=== PATIENT | female | born 1945 | race Caucasian/White ===

== ENCOUNTER → 2019-07-17 10:45 | Outpatient (BNVA) | payer MEDICARE, MEDICAID, SELFPAY | PROVIDERS: Family Provider Family Medicine; PCP Family Medicine; Visit Provider Family Medicine | DX: R39.9 Unspecified symptoms and signs involving the genitourinary system (principal); R32 Unspecified urinary incontinence; N39.0 Urinary tract infection, site not specified | CPT/HCPCS: 81000 ==

== ENCOUNTER 2019-07-30 20:43 | Inpatient (IN) | payer MEDICARE, MEDICAID, SELFPAY ==
[2019-07-30 20:44] VITALS: BP 127/61; PULSE 91; RESP 18; TEMP 37.2; O2SAT 94; BMI 25.7
[2019-07-30 20:57] VITALS: O2SAT 90
[2019-07-30] MEDS: sodium chloride 0.9% 1,000 ML 100 ML IV (20:59)
[2019-07-30 21:17] LABS: Basophils % 0.1 %; Hematocrit 27.8 % (37.0-47.0); Hemoglobin 8.1 g/dL (11.5-15.3); Lymphocytes # 0.9 10^3/uL (0.8-4.8); Lymphocytes % 5.7 %; Mean Corpuscular HGB Conc 29.1 g/dL (30.0-36.0); Mean Corpuscular Hemoglobin 21.8 pg (28.0-34.0); Mean Corpuscular Volume 74.9 fL (81-99); Monocytes # 1.6 10^3/uL (0.2-0.9); Monocytes % 10.9 %; Neutrophils # 12.4 10^3/uL (1.8-7.7); Neutrophils % 82.9 %; Nucleated Red Blood Cells % 0 %; Platelet Count 171 10^3/cmm (130-400); Red Blood Count 3.71 10^6/uL (4.1-5.3); Red Cell Distribution Width 16.7 % (12.1-15.1)
--- NOTE | 2019-07-30 21:30 | CTR_ITS ---
PROCEDURE INFORMATION: Exam: CT Abdomen And Pelvis With Contrast Exam date and time: 07/30/2019 9:41 PM Age: 73 years old Clinical indication: Patient HX: C/O nausea, diarrhea and low grade fever; Additional info: Abdominal pain TECHNIQUE: Imaging protocol: Computed tomography of the abdomen and pelvis with intravenous contrast. Total DLP: 574.18 mGy-cm Radiation optimization: All CT scans at this facility use at least one of these dose optimization techniques: automated exposure control; mA and/or kV adjustment per patient size (includes targeted exams where dose is matched to clinical indication); or iterative reconstruction. Contrast material: VISI 320; Contrast volume: 95 ml; Contrast route: 18G; COMPARISON: No relevant prior studies available. FINDINGS: Lungs: Dependent atelectasis. Mediastinum: Large hiatal hernia. Liver: 0.9 cm benign hepatic cyst. Gallbladder and bile ducts: Prominent gallbladder with calcified stones. No visible wall thickening. The bile ducts are normal. Pancreas: Normal. No ductal dilation. Spleen: Calcified granulomas in the spleen. Adrenals: Normal. No mass. Kidneys and ureters: Benign left renal cyst. Mild bilateral hydronephrosis and columning of the ureters to the level of the urinary bladder. No renal calculus. Stomach and bowel: Mild diverticulosis of the distal colon. The small bowel is unremarkable. Appendix: The appendix is not visualized. Intraperitoneal space: Unremarkable. No free air. No significant fluid collection. Vasculature: Unremarkable. No abdominal aortic aneurysm. Lymph nodes: Subcentimeter retroperitoneal lymph nodes are most likely reactive. Bladder: The urinary bladder is severely distended measuring 10.9 x 12.3 x 15.0 cm, volume 1045 cc. Reproductive: The uterus and ovaries are not visualized. Bones/joints: Degenerative lumbar spine. No compression fracture. Soft tissues: Unremarkable. CT/CT abdomen pelvis w con* [id number] IMPRESSION: 1. Severely distended urinary bladder with mild bilateral hydronephrosis and columning of the ureters. This could represent urinary bladder outlet obstruction or neurogenic bladder. Catheterization recommended. 2. Mild diverticulosis of the distal colon. 3. Cholelithiasis. COMMENTS: Consistent with the [employer]'s Incidental Findings Committee white paper (J Am Song Radiol 2018): Any incidental cystic renal lesion classified in this report as too small to characterize or simple appearing is likely a benign cyst. No follow-up imaging is recommended for these lesions per consensus recommendations based on imaging criteria. Radiation Dose CTDIVOL = (mGy): DLP = 574.18 (mGy-cm)
[2019-07-30 21:31] LABS: Alanine Aminotransferase 12 U/L (0-33); Albumin Level 3.1 g/dL (3.5-5.2); Alkaline Phosphatase 61 IU/L (35-105); Anion Gap 15.8 (5-19); Aspartate Amino Transferase 29 U/L (0-32); Blood Urea Nitrogen 25 mg/dL (8-23); Calcium 9.1 mg/dL (8.5-10.5); Carbon Dioxide 22 mmol/L (22-29); Chloride 96 mmol/L (98-107); Globulin 3.5 g/dL (1.3-4.6); Glucose 136 mg/dL (65-115); Lipase 54 U/L (13-60); Magnesium 2.3 mg/dL (1.7-2.3); Osmolality Calculated 271 mOsm/kg (285-295); Sodium 131 mmol/L (136-145); Total Bilirubin 0.5 mg/dL (0.15-1.2); Total Protein 6.6 g/dL (6.6-8.7)
--- NOTE | 2019-07-30 21:33 | W.ED.NAVMDI ---
HPI - Nausea/Vomiting/Diarrhea General: Chief complaint: Nausea/Vomiting/Diarrhea Stated complaint: nausea/ diarrhea/ low grade temp Time Seen by Provider: 07/30/19 20:57 History of Present Illness: HPI Narrative: Ms. Suggs is a very nice 73-year-old female who comes in complaining of nausea and diarrhea for the past 3 days. Her stools are described as dark and black but they have improved and turned to light brown over the course of the 3 days. She has had nausea but no vomiting. She is had a fever at home she states up to 101. She says she has minimal if any abdominal pain. She does admit to history of peptic ulcer disease. She denies any chest pain, shortness of breath or any other type of complaints. She is not been around anybody sick to her knowledge. Associated symtoms: Denies altered mental status, change in vision, chest pain, diaphoresis, dizziness, dysuria, fatigue, headache(s), malaise, palpitations or syncope Review of Systems General: Reports: other (negative unless marked) Const: Denies: fever, chills, body aches, fatigue, malaise or diaphoresis Eyes: Denies: change in vision or blurry vision ENMT: Denies: throat pain, painful swallowing, hoarseness, ear pain, ear discharge, Change in hearing or nasal discharge Card: Denies: chest pain, palpitations, irregular heart rhythm, syncope, pre-syncope, shortness of breath on exertion or shortness of breath when lying down Resp: Denies: shortness of breath, productive cough, non-productive cough, wheezing, coughing up blood or chest congestion GI: Reports: change in stool character and black tarry stool; Denies: abdominal pain, vomiting, vomiting blood, coffee grounds in vomit, diarrhea, constipation or cramping : Denies: flank pain, painful urination, urinary frequency, urinary urgency, decreased urine ouput, urinary incontinence or blood in urine Musc: Denies: neck pain, back pain, extremity pain, extremity swelling, joint pain, joint swelling, joint warmth or joint stiffness Skin/Breast: Denies: rash, skin tenderness or yellow skin Neuro: Denies: headache, numbness in extremities, weakness in extremities, changes in sensation, lack of coordination, difficulty walking, dizziness, vertigo or confusion Endo: Denies: excessive thirst, tired all the time, cold intolerance, excessive sweating, flushing or hot flashes Bandar/Lymph: Denies: easy bruising, easy bleeding, petechiae or enlarged lymph nodes All/Imm: Denies: hives, throat swelling, tongue swelling, facial swelling or acute wheezing PFSH ED PFSH: Medical History (Updated 07/31/19 @ 00:10 by Silvano Cho MD) Anxiety Bladder incontinence Cholelithiasis Diverticulosis Epilepsy Focused based right temporal lobe epilepsy patient does not wish to have surgery for intractable seizures Frequent headaches GERD without esophagitis Hiatal hernia Hypertension Mild cognitive impairment Osteopenia Partial epilepsy secondarily generalized Seizures Surgical History History of total hysterectomy Family History Denies family history of CAD (coronary artery disease) Bleeding disorder Cancer Social History Smoking and tobacco status: former smoker Alcohol intake: never Substance/Drug Use: never Lives independently: Yes Household members: significant other Housing: House Marital status: Legally Physical Exam Const: COMMON NORMALS: no apparent distress, oriented x3, no limitations, healthy appearing and well nourished EXAM LIMITATIONS: no altered mental status GENERAL APPEARANCE: cooperative, well kempt and well developed ORIENTATION/CONSCIOUSNESS: Yes awake HENMT: COMMON NORMALS: normocephalic, head/scalp atraumatic, hearing grossly normal bilaterally, external ears normal, EAC's normal, external nose normal and moist oral mucous membranes HEAD & SCALP: normal to inspection, normocephalic and atraumatic FACE & SINUS: normal facial exam and face symmetric NOSE: external nose normal and nares normal EXTERNAL EAR: Yes external ears normal EXTERNAL AUDITORY CANAL: EAC's normal MOUTH: oral and palatal mucosa normal and tongue normal Eye: COMMON NORMALS: PERRL, EOMs intact bilaterally, conjunctivae normal and no scleral icterus GENERAL EYE: normal appearance of both eyes and normal light reflex CONJUNCTIVA: Yes conjunctivae normal SCLERA: sclerae normal CORNEA: Yes corneas normal PUPIL: Yes PERRL DIRECT OPHTHALMOSCOPY: Yes normal light reflex Neck/C-Spine: COMMON NORMALS: full ROM, no lymphadenopathy, supple, no meningeal signs and no JVD GENERAL: Yes normal visual inspection and Yes trachea midline CERVICAL SPINE: Yes cervical ROM normal Chest: COMMONS NORMALS: inspection of chest normal and palpation of chest normal Resp: COMMON NORMALS: normal respiratory effort, no retractions, no use of accessory muscles and clear to auscultation bilaterally EFFORT & INSPECTION: Yes able to speak in complete sentences AUSCULTATION: clear to auscultation bilaterally Cardio: COMMON NORMALS: no JVD, regular rate, regular rhythm, S1 normal heart sound, S2 normal heart sound, no gallops, no clicks, no murmurs and no rub JUGULAR VENOUS DISTENTION: no JVD RATE: regular rate RHYTHM: regular rhythm HEART SOUNDS: S1 normal and S2 normal GI: COMMON NORMALS: soft to palpation, non-tender, no hepatosplenomegaly and no masses INSPECTION: Yes normal to inspection PALPATION: Yes soft and Yes no hepatosplenomegaly RECTAL EXAM: normal sphincter tone and heme positive stool trace : COMMON NORMALS: Yes no CVA tenderness BLADDER/KIDNEY EXAM: Yes no CVA tenderness Back/Pelvis: COMMON NORMALS: no CVA tenderness, thoracic and lumbar spine normal to inspection, no thoracic nor lumbar tenderness and thoraco-lumbar ROM normal Extremity: COMMON NORMALS: normal to inspection, full ROM, normal capillary refill, no joint enlargement, no clubbing, cyanosis or edema and no calf tenderness Neuro: COMMON NORMALS: oriented x3, CN's II-XII intact bilaterally, moves all extremities, no focal motor deficits and no sensory deficits noted MENINGEAL SIGNS: Yes no meningeal signs Psych: COMMON NORMALS: mental status grossly normal, thought process normal, cooperative, affect normal, speech normal and activity/motor behavior normal APPEARANCE: Yes well kempt SPEECH: Yes normal speech THOUGHT PROCESS: normal thought process Skin: COMMON NORMALS: no rashes or lesions noted, skin turgor normal, no jaundice, no petechiae and no mottling GENERAL SKIN EXAM: no rashes or lesions noted and turgor normal Course Vital Signs: Vital signs: Vital Signs Temperature 99.0 F 07/31/19 15:52 Pulse Rate 86 07/31/19 15:52 Respiratory Rate 18 07/31/19 15:52 Blood Pressure 122/70 07/31/19 15:52 Pulse Oximetry 98 07/31/19 15:52 MDM - Nausea/Vomiting/Diarrhea MDM Narrative: Medical decision making narrative: The case reviewed with Dr. Ford, he agrees to admission. He understands blood is on hold and we are replacing potassium. Patient appears to have a stable upper GI bleed at this time. Further care be dictated by Dr. Ford in the hospital. Lab Data: Attestation: I reviewed the patient's lab results. Labs: Lab Results 07/30/19 07/30/19 07/30/19 Range/Units 21:05 21:05 21:05 WBC 15.0 H (4.0-10.0) 10^3/ uL RBC 3.71 L (4.1-5.3) 10^6/u L Hgb 8.1 L (11.5-15.3) g/dL Hct 27.8 L (37.0-47.0) % MCV 74.9 L (81-99) fL MCH 21.8 L (28.0-34.0) pg MCHC 29.1 L (30.0-36.0) g/dL RDW 16.7 H (12.1-15.1) % Plt Count 171 (130-400) 10^3/c mm MPV 11.0 H (7.4-10.4) fL Neut % (Auto) 82.9 % Lymph % (Auto) 5.7 % [place] % (Auto) 10.9 % Eos % (Auto) 0.0 % Baso % (Auto) 0.1 % Neut # (Auto) 12.4 H (1.8-7.7) 10^3/u L Lymph # (Auto) 0.9 (0.8-4.8) 10^3/u L [place] # (Auto) 1.6 H (0.2-0.9) 10^3/u L Eos # (Auto) 0.0 (0.0-0.8) 10^3/u L Baso # (Auto) 0.0 (0.0-0.1) 10^3/u L Nucleated RBC % (a uto) 0 % Nucleated RBCs # 0.0 /100WBC PT 15.00 H (10.5-13.3) SECO NDS INR 1.14 (0.8-1.2) APTT 34.6 (23.9-36.7) SECO NDS Sodium 131 L (136-145) mmol/L Potassium 2.8 L* (3.5-5.1) mmol/L Chloride 96 L (98-107) mmol/L Carbon Dioxide 22 (22-29) mmol/L Anion Gap 15.8 (5-19) BUN 25 H (8-23) mg/dL Creatinine 1.5 H (0.5-0.9) mg/dL Glucose 136 H (65-115) mg/dL Calculated Osmolal ity 271 L (285-295) mOsm/k g Lactic Acid (Sepsi s) (0.5-2.2) mmol/L Calcium 9.1 (8.5-10.5) mg/dL Magnesium 2.3 (1.7-2.3) mg/dL Iron (37-145) ug/dL TIBC mcg/dl % Saturation (20-50) % Unsat Iron Binding (112-347) ug/dL Ferritin (15-150) ng/mL Total Bilirubin 0.5 (0.15-1.2) mg/dL AST 29 (0-32) U/L ALT 12 (0-33) U/L Alkaline Phosphata se 61 (35-105) IU/L Troponin T Baselin e (0-10) ng/mL Total Protein 6.6 (6.6-8.7) g/dL Albumin 3.1 L (3.5-5.2) g/dL Globulin 3.5 (1.3-4.6) g/dL Lipase 54 (13-60) U/L Urine Color (Yellow) Urine Appearance (CLEAR) Urine pH (5-7) Ur Specific Gravit y (1.005-1.030) Urine Protein (Negative) Urine Glucose (UA) (Normal) Urine Ketones (Negative) Urine Blood (Negative) Urine Nitrate (Negative) Urine Bilirubin (NEGATIVE) Urine Urobilinogen (Negative) mg/dL Ur Leukocyte Suzette ase (Negative) Urine RBC (0-2) /hpf Urine WBC (0-5) /hpf Ur Squamous Epith Cells (0-5) Urine Bacteria (NONE) Blood Type Rho(D) Type Antibody Screen Crossmatch 07/30/19 07/30/19 07/30/19 Range/Units 21:05 21:05 21:40 WBC (4.0-10.0) 10^3/ uL RBC (4.1-5.3) 10^6/u L Hgb (11.5-15.3) g/dL Hct (37.0-47.0) % MCV (81-99) fL MCH (28.0-34.0) pg MCHC (30.0-36.0) g/dL RDW (12.1-15.1) % Plt Count (130-400) 10^3/c mm MPV (7.4-10.4) fL Neut % (Auto) % Lymph % (Auto) % [place] % (Auto) % Eos % (Auto) % Baso % (Auto) % Neut # (Auto) (1.8-7.7) 10^3/u L Lymph # (Auto) (0.8-4.8) 10^3/u L [place] # (Auto) (0.2-0.9) 10^3/u L Eos # (Auto) (0.0-0.8) 10^3/u L Baso # (Auto) (0.0-0.1) 10^3/u L Nucleated RBC % (a uto) % Nucleated RBCs # /100WBC PT (10.5-13.3) SECO NDS INR (0.8-1.2) APTT (23.9-36.7) SECO NDS Sodium (136-145) mmol/L Potassium (3.5-5.1) mmol/L Chloride (98-107) mmol/L Carbon Dioxide (22-29) mmol/L Anion Gap (5-19) BUN (8-23) mg/dL Creatinine (0.5-0.9) mg/dL Glucose (65-115) mg/dL Calculated Osmolal ity (285-295) mOsm/k g Lactic Acid (Sepsi s) (0.5-2.2) mmol/L Calcium (8.5-10.5) mg/dL Magnesium (1.7-2.3) mg/dL Iron 11 L (37-145) ug/dL TIBC 223 mcg/dl % Saturation 4.9 L (20-50) % Unsat Iron Binding 212 (112-347) ug/dL Ferritin 107 (15-150) ng/mL Total Bilirubin (0.15-1.2) mg/dL AST (0-32) U/L ALT (0-33) U/L Alkaline Phosphata se (35-105) IU/L Troponin T Baselin e 36 H (0-10) ng/mL Total Protein (6.6-8.7) g/dL Albumin (3.5-5.2) g/dL Globulin (1.3-4.6) g/dL Lipase (13-60) U/L Urine Color (Yellow) Urine Appearance (CLEAR) Urine pH (5-7) Ur Specific Gravit y (1.005-1.030) Urine Protein (Negative) Urine Glucose (UA) (Normal) Urine Ketones (Negative) Urine Blood (Negative) Urine Nitrate (Negative) Urine Bilirubin (NEGATIVE) Urine Urobilinogen (Negative) mg/dL Ur Leukocyte Suzette ase (Negative) Urine RBC (0-2) /hpf Urine WBC (0-5) /hpf Ur Squamous Epith Cells (0-5) Urine Bacteria (NONE) Blood Type O Positive Rho(D) Type Positive Antibody Screen Negative Crossmatch See Detail 07/30/19 07/31/19 07/31/19 Range/Units 23:15 00:46 06:02 WBC 16.3 H (4.0-10.0) 10^3/ uL RBC 4.52 (4.1-5.3) 10^6/u L Hgb 9.9 L (11.5-15.3) g/dL Hct 33.6 L (37.0-47.0) % MCV 74.3 L (81-99) fL MCH 21.9 L (28.0-34.0) pg MCHC 29.5 L (30.0-36.0) g/dL RDW 16.7 H (12.1-15.1) % Plt Count 184 (130-400) 10^3/c mm MPV 10.4 (7.4-10.4) fL Neut % (Auto) 87.2 % Lymph % (Auto) 3.0 % [place] % (Auto) 8.9 % Eos % (Auto) 0.0 % Baso % (Auto) 0.2 % Neut # (Auto) 14.2 H (1.8-7.7) 10^3/u L Lymph # (Auto) 0.5 L (0.8-4.8) 10^3/u L [place] # (Auto) 1.4 H (0.2-0.9) 10^3/u L Eos # (Auto) 0.0 (0.0-0.8) 10^3/u L Baso # (Auto) 0.0 (0.0-0.1) 10^3/u L Nucleated RBC % (a uto) 0 % Nucleated RBCs # 0.0 /100WBC PT (10.5-13.3) SECO NDS INR (0.8-1.2) APTT (23.9-36.7) SECO NDS Sodium (136-145) mmol/L Potassium (3.5-5.1) mmol/L Chloride (98-107) mmol/L Carbon Dioxide (22-29) mmol/L Anion Gap (5-19) BUN (8-23) mg/dL Creatinine (0.5-0.9) mg/dL Glucose (65-115) mg/dL Calculated Osmolal ity (285-295) mOsm/k g Lactic Acid (Sepsi s) 0.7 (0.5-2.2) mmol/L Calcium (8.5-10.5) mg/dL Magnesium (1.7-2.3) mg/dL Iron (37-145) ug/dL TIBC mcg/dl % Saturation (20-50) % Unsat Iron Binding (112-347) ug/dL Ferritin (15-150) ng/mL Total Bilirubin (0.15-1.2) mg/dL AST (0-32) U/L ALT (0-33) U/L Alkaline Phosphata se (35-105) IU/L Troponin T Baselin e (0-10) ng/mL Total Protein (6.6-8.7) g/dL Albumin (3.5-5.2) g/dL Globulin (1.3-4.6) g/dL Lipase (13-60) U/L Urine Color Yellow (Yellow) Urine Appearance Cloudy (CLEAR) Urine pH 5 (5-7) Ur Specific Gravit y 1.005 (1.005-1.030) Urine Protein Trace (Negative) Urine Glucose (UA) Norm (Normal) Urine Ketones Negative (Negative) Urine Blood 3+ H (Negative) Urine Nitrate Negative (Negative) Urine Bilirubin Neg (NEGATIVE) Urine Urobilinogen Norm (Negative) mg/dL Ur Leukocyte Suzette ase 2+ H (Negative) Urine RBC 10-15 H (0-2) /hpf Urine WBC >100 H (0-5) /hpf Ur Squamous Epith Cells 0-4 H (0-5) Urine Bacteria 3+ H (NONE) Blood Type Rho(D) Type Antibody Screen Crossmatch 07/31/19 Range/Units 06:02 WBC (4.0-10.0) 10^3/ uL RBC (4.1-5.3) 10^6/u L Hgb (11.5-15.3) g/dL Hct (37.0-47.0) % MCV (81-99) fL MCH (28.0-34.0) pg MCHC (30.0-36.0) g/dL RDW (12.1-15.1) % Plt Count (130-400) 10^3/c mm MPV (7.4-10.4) fL Neut % (Auto) % Lymph % (Auto) % [place] % (Auto) % Eos % (Auto) % Baso % (Auto) % Neut # (Auto) (1.8-7.7) 10^3/u L Lymph # (Auto) (0.8-4.8) 10^3/u L [place] # (Auto) (0.2-0.9) 10^3/u L Eos # (Auto) (0.0-0.8) 10^3/u L Baso # (Auto) (0.0-0.1) 10^3/u L Nucleated RBC % (a uto) % Nucleated RBCs # /100WBC PT (10.5-13.3) SECO NDS INR (0.8-1.2) APTT (23.9-36.7) SECO NDS Sodium 137 (136-145) mmol/L Potassium 3.8 (3.5-5.1) mmol/L Chloride 102 (98-107) mmol/L Carbon Dioxide 22 (22-29) mmol/L Anion Gap 16.8 (5-19) BUN 21 (8-23) mg/dL Creatinine 1.6 H (0.5-0.9) mg/dL Glucose 117 H (65-115) mg/dL Calculated Osmolal ity 282 L (285-295) mOsm/k g Lactic Acid (Sepsi s) (0.5-2.2) mmol/L Calcium 9.2 (8.5-10.5) mg/dL Magnesium (1.7-2.3) mg/dL Iron (37-145) ug/dL TIBC mcg/dl % Saturation (20-50) % Unsat Iron Binding (112-347) ug/dL Ferritin (15-150) ng/mL Total Bilirubin (0.15-1.2) mg/dL AST (0-32) U/L ALT (0-33) U/L Alkaline Phosphata se (35-105) IU/L Troponin T Baselin e (0-10) ng/mL Total Protein (6.6-8.7) g/dL Albumin (3.5-5.2) g/dL Globulin (1.3-4.6) g/dL Lipase (13-60) U/L Urine Color (Yellow) Urine Appearance (CLEAR) Urine pH (5-7) Ur Specific Gravit y (1.005-1.030) Urine Protein (Negative) Urine Glucose (UA) (Normal) Urine Ketones (Negative) Urine Blood (Negative) Urine Nitrate (Negative) Urine Bilirubin (NEGATIVE) Urine Urobilinogen (Negative) mg/dL Ur Leukocyte Suzette ase (Negative) Urine RBC (0-2) /hpf Urine WBC (0-5) /hpf Ur Squamous Epith Cells (0-5) Urine Bacteria (NONE) Blood Type Rho(D) Type Antibody Screen Crossmatch Imaging Data^: CT Abd/Pel: Radiologist's impression: [address] [id number] [address] Scan Report Signed Patient: Melonie Suggs Unit #: [id number] : 1945 Age/Sex: 73 / F ADM Date: 07/30/19 Loc: ER Room/Bed: Attending Dr: Ordering Provider/Ordering MD: Dimple Herrera DO Date of Service: 07/30/19 Procedure(s): CT abdomen pelvis w con* [id number] Accession Number(s): [id number] Report Number: [id number] PROCEDURE INFORMATION: Exam: CT Abdomen And Pelvis With Contrast Exam date and time: 07/30/2019 9:41 PM Age: 73 years old Clinical indication: Patient HX: C/O nausea, diarrhea and low grade fever; Additional info: Abdominal pain TECHNIQUE: Imaging protocol: Computed tomography of the abdomen and pelvis with intravenous contrast. Total DLP: 574.18 mGy-cm Radiation optimization: All CT scans at this facility use at least one of these dose optimization techniques: automated exposure control; mA and/or kV adjustment per patient size (includes targeted exams where dose is matched to clinical indication); or iterative reconstruction. Contrast material: VISI 320; Contrast volume: 95 ml; Contrast route: 18G; COMPARISON: No relevant prior studies available. FINDINGS: Lungs: Dependent atelectasis. Mediastinum: Large hiatal hernia. Liver: 0.9 cm benign hepatic cyst. Gallbladder and bile ducts: Prominent gallbladder with calcified stones. No visible wall thickening. The bile ducts are normal. Pancreas: Normal. No ductal dilation. Spleen: Calcified granulomas in the spleen. Adrenals: Normal. No mass. Kidneys and ureters: Benign left renal cyst. Mild bilateral hydronephrosis and columning of the ureters to the level of the urinary bladder. No renal calculus. Stomach and bowel: Mild diverticulosis of the distal colon. The small bowel is unremarkable. Appendix: The appendix is not visualized. Intraperitoneal space: Unremarkable. No free air. No significant fluid collection. Vasculature: Unremarkable. No abdominal aortic aneurysm. Lymph nodes: Subcentimeter retroperitoneal lymph nodes are most likely reactive. Bladder: The urinary bladder is severely distended measuring 10.9 x 12.3 x 15.0 cm, volume 1045 cc. Reproductive: The uterus and ovaries are not visualized. Bones/joints: Degenerative lumbar spine. No compression fracture. Soft tissues: Unremarkable. CT/CT abdomen pelvis w con* [id number] IMPRESSION: 1. Severely distended urinary bladder with mild bilateral hydronephrosis and columning of the ureters. This could represent urinary bladder outlet obstruction or neurogenic bladder. Catheterization recommended. 2. Mild diverticulosis of the distal colon. 3. Cholelithiasis. COMMENTS: Consistent with the [employer]'s Incidental Findings Committee white paper (J Am Song [employer]iol 2018): Any incidental cystic renal lesion classified in this report as too small to characterize or simple appearing is likely a benign cyst. No follow-up imaging is recommended for these lesions per consensus recommendations based on imaging criteria. Radiation Dose CTDIVOL = (mGy): DLP = 574.18 (mGy-cm) Dictated By: Liang Streeter Signed By: Liang Streeter Signed Date/Time: 07/30/192221 DD/ 20 EKG Data^: EKG 1: Attestation: I personally reviewed and interpreted this EKG as follows: EKG interpretation date: 07/30/19 EKG interpretation time: 22:24 Interpretation: Normal sinus rhythm at 78 beats a minute, T waves inverted V1 through V3. Otherwise no acute ST or T wave changes. Discharge Plan Discharge Patient Disposition: Admitted As Inpatient Admit Provider: Silvano Cho Clinical Impression: Acute GI bleeding, Acute hypokalemia Diarrhea Qualifiers: Diarrhea type: unspecified type Qualified Code(s): R19.7 - Diarrhea, unspecified Condition: Stable Referrals: Carlos Barba MD [Primary Care Provider] - Discharge Date/Time: 07/30/19 23:58 Coding Level of Care Code ED Dtp Operator for Chg Fwd Exam Comprehensive
[2019-07-30 21:42] LABS: Potassium 2.8 mmol/L (3.5-5.1)
[2019-07-30] MEDS: pantoprazole 40 mg SDV 80 MG IVP (21:48)
[2019-07-30] MEDS: pantoprazole 40 MG in sodium chloride 0.9% (plus) 100 ML 20 MG IV (21:49)
[2019-07-30 21:58] LABS: INR 1.14 (0.8-1.2)
[2019-07-30 21:59] LABS: Partial Thromboplastin Time 34.6 SECONDS (23.9-36.7)
[2019-07-30] MEDS: iodixanol 320 mg/mL 100mL Btl IV (22:00)
[2019-07-30 22:07] LABS: Troponin(5th) Baseline 36 ng/mL (0-10)
[2019-07-30] MEDS: potassium chloride premix 40 MEQ/100 ML PREMIX 25 MEQ IV (22:09)
--- NOTE | 2019-07-30 23:06 | P.HP_ITS ---
Providers/Chief Complaint Primary Care Provider: Carlos Barba MD Chief Complaint: nausea/ diarrhea/ low grade temp History of Present Illness Melonie Suggs is a 73 year old female who has past medical history of urinary incontinence, seizures, presented today with chief complaint of abdominal pain and diarrhea. Patient is stating that her symptoms started about 3 to 4 days ago when she noticed cough and fever of 101.7, her fever resolved on its own, she is denying any recent sick contacts, traveling outside [place], however on further questioning she is endorsing that she took 4 tablets of 81 mg of aspirin which she usually takes for her headache. In the month she would take 4 to 5 tablets of aspirin and tries to avoid taking large amounts. She did not experience recurrence of fever, shortness of breath, chest pain, nausea or vomiting. 48 hours before her presentation to ER she started having diarrhea, her stools were really dark, she is describing as black tarry foul-smelling stool, she did not notice any fresh blood. She has never experienced these kind of symptoms before. She had colonoscopy in the past which was normal as per the patient. She is endorsing history of GERD. She does not take any anticoag ulants. She denies any history of hepatitis. Patient is stating that she has been having recurrent seizures in the past, last month she had 10 episodes. Diagnostics in ER revealed sinus rhythm, pulse 72, normal blood pressure, afebrile, hypokalemia FOBT positive CT abdomen revealed bilateral hydronephrosis without any signs of ischemic colitis Patient stated that she was holding her urine for quite a while and wanted to use restroom to void, we did not order Jarrett catheter placement I would order portable chest x-ray Review of Systems Const: Reports: fever, chills and body aches Eyes: Denies: change in vision ENMT: Denies: throat pain Card: Denies: chest pain Resp: Denies: shortness of breath GI: Reports: abdominal pain, diarrhea and change in bowel habits; Denies: nausea or vomiting : Reports: urinary incontinence; Denies: flank pain, difficulty urinating, urinary frequency or urinary dribbling Musc: Denies: neck pain or back pain Skin/Breast: Denies: rash Neuro: Denies: headache Psych: Denies: anxiety Endo: Denies: excessive urination Bandar/Lymph: Denies: easy bruising All/Imm: Denies: hives Medications/Allergies Allergies Allergy/AdvReac Type Severity Reaction Status Date / Time divalproex sodium Allergy N/V and Verified 07/17/19 09:07 [From Depakote] dizziness sulfamethoxazole Allergy headache Verified 07/17/19 09:07 [From Bactrim] and seizures trimethoprim [From Bactrim] Allergy headache Verified 07/17/19 09:07 and seizures PFSH Acute PFSH: Medical History (Updated 07/31/19 @ 00:07 by Silvano Cho MD) Anxiety Bladder incontinence Cholelithiasis Diverticulosis Epilepsy GERD without esophagitis Hiatal hernia Hypertension Seizures Surgical History History of total hysterectomy Family History Denies family history of CAD (coronary artery disease) Bleeding disorder Cancer Social History Smoking and tobacco status: former smoker Alcohol intake: never Substance/Drug Use: never Lives independently: Yes Household members: significant other Housing: House Marital status: Legally Vitals/I&O/Wt Last Vital Signs Temp 98.9 F 07/30/19 20:44 Pulse 91 07/30/19 20:44 Resp 18 07/30/19 20:44 BP 127/61 07/30/19 20:44 Pulse Ox 90 07/30/19 20:57 Weight last 48 hrs Weight 65.771 kg Physical Exam Narrative: EXAM NARRATIVE: Appears stated age Well-kept appearance Appropriate grooming S1, S2 no signs of tachycardia Abdomen, soft, nontender, distended, hypogastric dullness to percussion No CVA tenderness Nonfocal neurological exam Appropriate mood and affect EOMI, PERRLA No signs of cyanosis of lips or digits Lungs are clear to auscultation without adventitious sounds Saturating well on room air Normal hemodynamics Data : 07/30/19 21:05 07/30/19 21:05 A&P Assessment and plan (1) Acute GI bleeding: Status: Acute Code(s): K92.2 - Gastrointestinal hemorrhage, unspecified (2) Acute hypokalemia: Status: Acute Code(s): E87.6 - Hypokalemia (3) Diarrhea: Status: Acute Qualifiers: Diarrhea type: unspecified type Qualified Code(s): R19.7 - Diarrhea, unspecified Code(s): R19.7 - Diarrhea, unspecified (4) GERD without esophagitis: Status: Acute Code(s): K21.9 - Gastro-esophageal reflux disease without esophagitis (5) Microcytic anemia: Status: Acute Code(s): D50.9 - Iron deficiency anemia, unspecified (6) Acute kidney injury: Status: Acute Code(s): N17.9 - Acute kidney failure, unspecified Additional A&P Information Upper GI bleed Her baseline hemoglobin is around 10-11 which was in June, current hemoglobin 8.1 Most likely this is secondary to use of aspirin with underlying GERD Protonix 40 mg IV twice a day H&H after 4 hours Currently she is hemodynamically stable, No urgent need of endoscopy If her hemoglobin stays stable and she stays asymptomatic she might need elective endoscopy I believe her diarrhea is secondary to mucosal irritation from blood, however she is afebrile no signs of ischemic colitis on CT abdomen, lactic acid to be checked, Acute microcytic anemia Likely secondary to blood loss from upper GI We will check iron panel Not on any anticoagulants Patient is denying weight loss, she is stating that previous colonoscopy was no rmal without any remarkable findings Acute kidney injury secondary to dehydration Baseline creatinine is normal Anticipating improvement with fluid resuscitation History of epilepsy/seizures He takes lamotrigine, patient is stating that she had 10 episodes of seizures last month Causes unknown At this visit she has hypokalemia Hypokalemia: Repleted 40 mEq p.o. Urinary incontinence CT scan is showing bilateral hydronephrosis Patient wanted to void urine while I was examining her in the ER, holding off on putting Jarrett catheter, will check bladder scan after 4 hours for monitoring of urinary retention Hold oxybutynin for now Full code N.p.o. DVT prophylaxis: SCDs Attestations Medical Necessity Statement*: Anticipating discharge in less than 48 hours if he stays asymptomatic and no further drop in hemoglobin Time Spent in Patient Care: 45 Coding Level of Care Code Acute [employer] Room Attendant for [facility] Fw Diagnoses Acute GI bleeding K92.2 Acute hypokalemia E87.6 Diarrhea R19.7 Diarrhea type: unspecified type GERD without esophagitis K21.9 Microcytic anemia D50.9 Acute kidney injury N17.9
[2019-07-30 23:30] VITALS: BP 115/68; PULSE 68; RESP 16; O2SAT 98
--- NOTE | 2019-07-30 23:41 | ECG_ITS ---
Measurements Intervals [place] Rate: 78 P: 67 ID: [id number] QRS: -59 QRSD: 86 T: 21 QT: 398 QTc: 455 SINUS RHYTHM LEFT ANTERIOR FASCICULAR BLOCK [QRS AXIS <= -45, QR IN I, RS IN II] MODERATE T-WAVE ABNORMALITY, CONSIDER ANTERIOR ISCHEMIA [-0.1+ mV T WAVE IN V3/V4] Compared to ECG 06/14/2018 19:28:02 T-wave abnormality now present Possible ischemia now present First degree AV block no longer present Electronically Signed On 07-31-2019 18:33:12 CDT by Aide Parker M.D. [id number]
[2019-07-30 23:43] VITALS: BP 115/58; PULSE 72; RESP 15; TEMP 37.3; O2SAT 99
[2019-07-30 23:58] VITALS: BP 105/57; PULSE 75; RESP 17; TEMP 37.1
[2019-07-31] VITALS (13 sets, daily range): BP systolic 100–156; BP diastolic 58–81; PULSE 71–104; RESP 18–24; TEMP 36.4–37.9; O2SAT 89–98
--- NOTE | 2019-07-31 00:27 | XR_ITS ---
WS: [id number] CHEST XRAY TECHNIQUE: Portable chest. CLINICAL INFORMATION: cough COMPARISON: June 14, 2018 FINDINGS: Heart: Normal cardiac silhouette. Lungs: Chronic emphysematous changes. No consolidation or pleural effusion. No focal pneumonia. Bones: Normal visualized bony structures. XR/XR chest 1V portable [id number] IMPRESSION: No acute chest findings
[2019-07-31 00:38] LABS: Specific Gravity, Urine 1.005 (1.005-1.030); Urine Appearance Cloudy (CLEAR); Urine Color Yellow (Yellow); pH Urine 5 (5-7)
[2019-07-31 00:39] LABS: Add Urine Culture? Yes; Bacteria Urine 3+; Bilirubin Urine Neg (NEGATIVE); Blood Urine 3+ (Negative); Glucose Urine UA Norm (Normal); Ketones Urine Negative (Negative); Leukocyte Esterase Urine 2+ (Negative); Nitrate Urine Negative (Negative); Protein Urine Trace (Negative); Squamous Epithelial Cell Urine 0-4 (0-5); Urobilinogen Urine Norm (Negative); WBC Urine >100 /hpf (0-5)
[2019-07-31] MEDS: sucralfate 1 gm/10 mL Oral Liq UDC PO (00:49)
[2019-07-31 00:58] LABS: Ferritin 107 ng/mL (15-150); Iron 11 ug/dL (37-145); Percent Saturation 4.9 % (20-50); Total Iron Binding Capacity 223 mcg/dl; Unsaturated Iron Binding 212 ug/dL (112-347)
[2019-07-31 01:07] LABS: Lactic Acid level (Lactate) 0.7 mmol/L (0.5-2.2)
--- NOTE | 2019-07-31 01:08 | PC.NURSE ---
Call to Dr. Cho to clarify potassium order. Patient is receiving 40 MEQ IV now; he still wants 40 of oral given.
--- NOTE | 2019-07-31 01:31 | PC.NURSE ---
Call to Dr. Cho to let him know patient is audibly wheezing. She had blood and multiple fluids going in ED and upon transfer to floor. He ordered to stop the blood which is now finished, hold IV fluids and ordered 20 MG IV Lasix x1. Ordered Duoneb. Ordered to bladder scan patient at this time as she is retaining and if over 250 [address] nash catheter.
[2019-07-31] MEDS: FUROsemide 10 mg/mL SDV 2mL 20 MG IVP (01:56)
--- NOTE | 2019-07-31 02:24 | PC.NURSE ---
Post Void residual after 450 out- 900 ML
[2019-07-31] MEDS: ipratropium-albuterol 3 mL Neb INHALATION ×2 (02:27→09:24)
--- NOTE | 2019-07-31 03:41 | ECG_ITS ---
Measurements Intervals [place] Rate: 86 P: 187 CT: 110 QRS: 132 QRSD: 80 T: 39 QT: 358 QTc: 430 ECTOPIC ATRIAL RHYTHM WITH SHORT CT INTERVAL POSSIBLE RIGHT VENTRICULAR HYPERTROPHY Baseline artifact Compared to ECG 06/14/2018 19:28:02 Ectopic atrial rhythm now present Short CT interval now present Sinus rhythm no longer present First degree AV block no longer present Left anterior fascicular block no longer present Electronically Signed On 08-01-2019 10:21:12 CDT by Aide Parker M.D. [id number]
--- NOTE | 2019-07-31 05:03 | PC.NURSE ---
Notified Dr. Cho patient HR was getting tachycardic from 120-140; upon assessment patient was shaking/cold. She is afebrile with other VS WNL as well. Patient was moving around. therapy technician thought possible conversion to A-Fib; patient HR is maintaining 115 with regular rhythm at this time. No complaints. No response from Dr. Cho at this time.
[2019-07-31 06:14] LABS: Basophils % 0.2 %; Hematocrit 33.6 % (37.0-47.0); Hemoglobin 9.9 g/dL (11.5-15.3); Lymphocytes # 0.5 10^3/uL (0.8-4.8); Mean Corpuscular HGB Conc 29.5 g/dL (30.0-36.0); Mean Corpuscular Hemoglobin 21.9 pg (28.0-34.0); Mean Corpuscular Volume 74.3 fL (81-99); Mean Platelet Volume 10.4 fL (7.4-10.4); Monocytes # 1.4 10^3/uL (0.2-0.9); Monocytes % 8.9 %; Neutrophils # 14.2 10^3/uL (1.8-7.7); Neutrophils % 87.2 %; Nucleated Red Blood Cells % 0 %; Platelet Count 184 10^3/cmm (130-400); Red Blood Count 4.52 10^6/uL (4.1-5.3); Red Cell Distribution Width 16.7 % (12.1-15.1); White Blood Count 16.3 10^3/uL (4.0-10.0)
[2019-07-31 06:35] LABS: Anion Gap 16.8 (5-19); Blood Urea Nitrogen 21 mg/dL (8-23); Calcium 9.2 mg/dL (8.5-10.5); Carbon Dioxide 22 mmol/L (22-29); Chloride 102 mmol/L (98-107); Glucose 117 mg/dL (65-115); Osmolality Calculated 282 mOsm/kg (285-295); Potassium 3.8 mmol/L (3.5-5.1); Sodium 137 mmol/L (136-145)
[2019-07-31] MEDS: pantoprazole 40 mg SDV IVP ×2 (08:00→17:13)
--- NOTE | 2019-07-31 09:29 | PC.RESP ---
Pt c/o dry mouth, stating she will walk out and go home. Cannot tolerate dry mouth.
[2019-07-31] MEDS: cefTRIAXone 1,000 MG in sodium chloride 0.9% (plus) 50 ML 100 MG IV ×2 (10:31→21:05)
--- NOTE | 2019-07-31 12:29 | P.PN_ITS ---
Subjective Subjective: Interval history: Patient denies any shortness of breath or chest pain this morning. She is lethargic and reports having several episodes of melanotic diarrheal stools. Denies any nausea or abdominal pain. Denies chest pain or shortness of breath. Reports occasionally taking aspirin tablet for headache. Denies frequent headaches. Denies taking any other pain medications including NSAIDs. Vitals/I&O/Wt Last Vital Signs Temp 99.1 F 07/31/19 11:37 Pulse 88 07/31/19 11:37 Resp 18 07/31/19 11:37 BP 100/58 07/31/19 11:37 Pulse Ox 93 07/31/19 11:37 07/30/19 07/31/19 07/31/19 22:59 06:59 14:59 Intake Total 831.666 / 831.666 Output Total 2150 / 2150 1000 / 1000 Balance -1318.334 / -1318.334 -1000 / -1000 Weight last 48 hrs Weight 67.721 kg Weight 65.771 kg Physical Exam Const: COMMON NORMALS: no apparent distress and oriented x3 Resp: COMMON NORMALS: normal respiratory effort and clear to auscultation bilaterally AUSCULTATION: clear to auscultation bilaterally Cardio: COMMON NORMALS: regular rate, regular rhythm and S2 normal heart sound RATE: regular rate RHYTHM: regular rhythm HEART SOUNDS: S2 normal OTHER: No lower extremity edema GI: COMMON NORMALS: normal to inspection, nondistended, normoactive bowel sounds, soft to palpation and non-tender PALPATION: Yes soft Neuro: COMMON NORMALS: oriented x3 and no focal motor deficits Urinary Catheter Management^: Jarrett: Cath Placed During This Visit: yes Reason for Continuing Indwelling Catheter: Acute Urinary Retention or Obstruction Urinary Catheter Date of Insertion: 07/31/19 Urinary Catheter Time of Insertion: 02:47 Data : 07/31/19 06:02 07/31/19 06:02 A&P Assessment and plan (1) Acute GI bleeding: Status: Acute Code(s): K92.2 - Gastrointestinal hemorrhage, unspecified (2) Acute hypokalemia: Status: Acute Code(s): E87.6 - Hypokalemia (3) Diarrhea: Status: Acute Qualifiers: Diarrhea type: unspecified type Qualified Code(s): R19.7 - Diarrhea, unspecified Code(s): R19.7 - Diarrhea, unspecified (4) GERD without esophagitis: Status: Acute Code(s): K21.9 - Gastro-esophageal reflux disease without esophagitis (5) Microcytic anemia: Status: Acute Code(s): D50.9 - Iron deficiency anemia, unspecified (6) Acute kidney injury: Status: Acute Code(s): N17.9 - Acute kidney failure, unspecified Additional A&P Information Upper GI bleed Her baseline hemoglobin is around 10-11 which was in June, current hemoglobin 8.1 Most likely this is secondary to use of aspirin with underlying GERD Protonix 40 mg IV twice a day H&H after 4 hours Currently she is hemodynamically stable, No urgent need of endoscopy If her hemoglobin stays stable and she stays asymptomatic she might need elective endoscopy I believe her diarrhea is secondary to mucosal irritation from blood, however she is afebrile no signs of ischemic colitis on CT abdomen, lactic acid to be checked, Acute on chronic microcytic anemia Likely secondary to blood loss from upper GI We will check iron panel Not on any anticoagulants Patient is denying weight loss, she is stating that previous colonoscopy was normal without any remarkable findings Acute kidney injury, likely multifactorial, prerenal and possibly postrenal. Baseline creatinine is normal Anticipating improvement with fluid resuscitation History of epilepsy/seizures He takes lamotrigine, patient is stating that she had 10 episodes of seizures last month Causes unknown At this visit she has hypokalemia Hypokalemia: Repleted 40 mEq p.o. Urinary incontinence CT scan is showing bilateral hydronephrosis Patient wanted to void urine while I was examining her in the ER, holding off on putting Jarrett catheter, will check bladder scan after 4 hours for monitoring of urinary retention Hold oxybutynin for now Dehydration with hyponatremia. Present on admission Urinary tract infection. Present on admission Sepsis as exhibited by leukocytosis and tachycardia, present on admission PLAN: Start patient on ceftriaxone and LR at 75 mL/h. Check lactic acid and monitor vitals Place Jarrett catheter. Agree with holding oxybutynin and will likely need to be discontinued. Continue Protonix. Continue pulse ox monitoring. Since patient's stay will cross 2 midnights I will change admission status to inpatient. Physical therapy. Full code N.p.o. DVT prophylaxis: SCDs Attestations Medical Necessity Statement*: Patient with UTI and sepsis requires close inpatient monitoring and treatment. Time Spent in Patient Care: 16 - 35 minutes Coding Level of Care Code Acute [employer] for g Fwd Diagnoses Acute GI bleeding K92.2 Acute hypokalemia E87.6 Diarrhea R19.7 Diarrhea type: unspecified type GERD without esophagitis K21.9 Microcytic anemia D50.9 Acute kidney injury N17.9
[2019-07-31 13:29] LABS: Lactic Sepsis W/Reflex 0.8 mmol/L (0.5-2.2)
[2019-07-31] MEDS: lactated ringers 1,000 ML 75 ML IV (13:38)
--- NOTE | 2019-07-31 15:00 | PC.NURSE ---
Daughter Keri and sister Kathy del rosario called to check on patient, patient states it's okay to speak with them. Chart update.
[2019-08-01] VITALS (9 sets, daily range): BP systolic 115–149; BP diastolic 66–73; PULSE 75–100; RESP 10–26; TEMP -12.7–37.7; O2SAT 89–94
[2019-08-01] MEDS: lactated ringers 1,000 ML 75 ML IV ×2 (03:37→17:09)
[2019-08-01 05:03] LABS: Basophils % 0.3 %; Eosinophils # 0.1 10^3/uL (0.0-0.8); Eosinophils % 0.4 %; Hematocrit 29.8 % (37.0-47.0); Hemoglobin 8.7 g/dL (11.5-15.3); Lymphocytes # 1.2 10^3/uL (0.8-4.8); Lymphocytes % 8.9 %; Mean Corpuscular HGB Conc 29.2 g/dL (30.0-36.0); Mean Corpuscular Hemoglobin 21.8 pg (28.0-34.0); Mean Corpuscular Volume 74.5 fL (81-99); Mean Platelet Volume 10.5 fL (7.4-10.4); Monocytes # 1.3 10^3/uL (0.2-0.9); Monocytes % 9.1 %; Neutrophils # 11.2 10^3/uL (1.8-7.7); Neutrophils % 80.4 %; Nucleated Red Blood Cells % 0 %; Platelet Count 203 10^3/cmm (130-400); Red Cell Distribution Width 16.9 % (12.1-15.1); White Blood Count 13.9 10^3/uL (4.0-10.0)
[2019-08-01 05:16] LABS: Alanine Aminotransferase 14 U/L (0-33); Albumin Level 2.9 g/dL (3.5-5.2); Alkaline Phosphatase 76 IU/L (35-105); Anion Gap 14.4 (5-19); Aspartate Amino Transferase 26 U/L (0-32); Blood Urea Nitrogen 16 mg/dL (8-23); Calcium 9.1 mg/dL (8.5-10.5); Carbon Dioxide 23 mmol/L (22-29); Chloride 102 mmol/L (98-107); Globulin 3.3 g/dL (1.3-4.6); Glucose 106 mg/dL (65-115); Osmolality Calculated 279 mOsm/kg (285-295); Potassium 3.4 mmol/L (3.5-5.1); Sodium 136 mmol/L (136-145); Total Bilirubin 0.3 mg/dL (0.15-1.2); Total Protein 6.2 g/dL (6.6-8.7)
[2019-08-01] MEDS: pantoprazole 40 mg SDV IVP ×2 (08:04→17:08)
[2019-08-01] MEDS: cefTRIAXone 1,000 MG in sodium chloride 0.9% (plus) 50 ML 100 MG IV ×2 (09:24→21:49)
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
--- NOTE | 2019-08-01 15:32 | PM.PN ---
Subjective Subjective: Interval history: Patient denies any shortness of breath or chest pain this morning. Reports sensation that she needs to urinate and she has a Jarrett catheter. Reports that her appetite is gradually getting better. She is much more alert this morning. White blood cell count is down to 13.9. Hemoglobin down to 8.7. Has some evidence of iron deficiency. Vitals/I&O/Wt Last Vital Signs Temp 98.1 F 08/01/19 12:00 Pulse 81 08/01/19 12:00 Resp 14 08/01/19 12:00 BP 136/68 08/01/19 12:00 Pulse Ox 92 08/01/19 12:00 08/01/19 08/01/19 08/01/19 06:59 14:59 22:59 Intake Total 772.50 / 2720.00 476 / 476 Output Total 1800 / 4050 1550 / 1550 Balance -1027.50 / -1330.00 -1074 / -1074 Weight last 48 hrs Weight 67.721 kg Weight 65.771 kg Physical Exam Const: COMMON NORMALS: no apparent distress and oriented x3 Resp: COMMON NORMALS: normal respiratory effort and clear to auscultation bilaterally AUSCULTATION: clear to auscultation bilaterally Cardio: COMMON NORMALS: regular rate, regular rhythm and S2 normal heart sound RATE: regular rate RHYTHM: regular rhythm HEART SOUNDS: S2 normal OTHER: No lower extremity edema GI: COMMON NORMALS: normal to inspection, nondistended, normoactive bowel sounds, soft to palpation and non-tender PALPATION: Yes soft Neuro: COMMON NORMALS: oriented x3 and no focal motor deficits Urinary Catheter Management^: Jarrett: Cath Placed During This Visit: yes Reason for Continuing Indwelling Catheter: Acute Urinary Retention or Obstruction Urinary Catheter Date of Insertion: 07/31/19 Urinary Catheter Time of Insertion: 02:47 Data : 08/01/19 04:53 08/01/19 04:53 Micro: Microbiology 07/30/19 23:15 Urine Culture - Preliminary Urine,Clean Catch Gram Negative Rods A&P Assessment and plan (1) Acute GI bleeding: Status: Acute (2) Acute hypokalemia: Status: Acute (3) Diarrhea: Status: Acute Qualifiers: Diarrhea type: unspecified type Qualified Code(s): R19.7 - Diarrhea, unspecified (4) GERD without esophagitis: Status: Acute (5) Microcytic anemia: Status: Acute (6) Acute kidney injury: Status: Acute Additional A&P Information Upper GI bleed Her baseline hemoglobin is around 10-11 which was in June, current hemoglobin 8.1 Most likely this is secondary to use of aspirin with underlying GERD Protonix 40 mg IV twice a day H&H after 4 hours Currently she is hemodynamically stable, No urgent need of endoscopy If her hemoglobin stays stable and she stays asymptomatic she might need elective endoscopy I believe her diarrhea is secondary to mucosal irritation from blood, however she is afebrile no signs of ischemic colitis on CT abdomen, lactic acid to be checked, Acute on chronic microcytic anemia Likely secondary to blood loss from upper GI We will check iron panel Not on any anticoagulants Patient is denying weight loss, she is stating that previous colonoscopy was normal without any remarkable findings Acute kidney injury, likely multifactorial, prerenal and possibly postrenal. Baseline creatinine is normal Anticipating improvement with fluid resuscitation History of epilepsy/seizures He takes lamotrigine, patient is stating that she had 10 episodes of seizures last month Causes unknown At this visit she has hypokalemia Hypokalemia: Repleted 40 mEq p.o. Urinary incontinence CT scan is showing bilateral hydronephrosis Patient wanted to void urine while I was examining her in the ER, holding off on putting Jarrett catheter, will check bladder scan after 4 hours for monitoring of urinary retention Hold oxybutynin for now Dehydration with hyponatremia. Present on admission Urinary tract infection. Present on admission Sepsis as exhibited by leukocytosis and tachycardia, present on admission, improved PLAN: Continue current monitoring and treatment including hemoglobin. Should hemoglobin continue to drop we will consider EGD while hospitalized. Urine is growing gram-negative bronson. Awaiting identification and susceptibility. Continue ceftriaxone for now Full code N.p.o. DVT prophylaxis: SCDs Attestations Medical Necessity Statement*: Patient with upper GI bleed and UTI requires close inpatient monitoring and treatment Coding Level of Care Code Acute Document Control Manager for [facility] Fw Diagnoses Acute GI bleeding K92.2 Acute hypokalemia E87.6 Diarrhea R19.7 Diarrhea type: unspecified type GERD without esophagitis K21.9 Microcytic anemia D50.9 Acute kidney injury N17.9
[2019-08-01] MEDS: lanolin oint 7 gm 1 APPLIC TOPICAL (17:08)
[2019-08-01] MEDS: acetaminophen 325 mg Tablet 650 MG PO (17:08)
[2019-08-01] MEDS: diazePAM 5 mg Tablet 10 MG PO (21:49)
[2019-08-02] VITALS (7 sets, daily range): BP systolic 135–164; BP diastolic 67–76; PULSE 76–92; RESP 16–24; TEMP 36–37.5; O2SAT 90–95
[2019-08-02 05:08] LABS: Basophils % 0.3 %; Eosinophils # 0.1 10^3/uL (0.0-0.8); Eosinophils % 0.9 %; Hematocrit 30.3 % (37.0-47.0); Hemoglobin 9.2 g/dL (11.5-15.3); Lymphocytes % 8.6 %; Mean Corpuscular HGB Conc 30.4 g/dL (30.0-36.0); Mean Corpuscular Hemoglobin 22.7 pg (28.0-34.0); Mean Corpuscular Volume 74.8 fL (81-99); Mean Platelet Volume 10.6 fL (7.4-10.4); Monocytes # 0.8 10^3/uL (0.2-0.9); Monocytes % 7.1 %; Neutrophils # 9.2 10^3/uL (1.8-7.7); Neutrophils % 82.1 %; Nucleated Red Blood Cells % 0 %; Platelet Count 259 10^3/cmm (130-400); Red Blood Count 4.05 10^6/uL (4.1-5.3); Red Cell Distribution Width 17.2 % (12.1-15.1); White Blood Count 11.3 10^3/uL (4.0-10.0)
[2019-08-02] MEDS: lactated ringers 1,000 ML 75 ML IV ×2 (05:27→22:06)
[2019-08-02 05:34] LABS: Alanine Aminotransferase 15 U/L (0-33); Alkaline Phosphatase 79 IU/L (35-105); Anion Gap 13.3 (5-19); Aspartate Amino Transferase 25 U/L (0-32); Blood Urea Nitrogen 13 mg/dL (8-23); Calcium 9.2 mg/dL (8.5-10.5); Carbon Dioxide 26 mmol/L (22-29); Chloride 105 mmol/L (98-107); Glucose 122 mg/dL (65-115); Osmolality Calculated 289 mOsm/kg (285-295); Potassium 3.3 mmol/L (3.5-5.1); Sodium 141 mmol/L (136-145); Total Bilirubin 0.2 mg/dL (0.15-1.2)
[2019-08-02 06:06] LABS: Slide Review Slide Review Perform
--- NOTE | 2019-08-02 10:08 | PM.PN ---
Subjective Subjective: Interval history: Patient denies any shortness of breath or chest pain this morning. Overall reports feeling better. Hemoglobin is stable and white blood cell count as well as creatinine continues to improve. Vitals/I&O/Wt Last Vital Signs Temp 99.5 F 08/02/19 07:54 Pulse 87 08/02/19 07:54 Resp 16 08/02/19 07:54 BP 148/74 08/02/19 07:54 Pulse Ox 91 08/02/19 07:54 08/01/19 08/02/19 08/02/19 22:59 06:59 14:59 Intake Total 3540.00 / 4016.00 997.50 / 5013.50 Output Total 1650 / 3200 2450 / 5650 Balance 1890.00 / 816.00 -1452.50 / -636.50 Physical Exam Const: COMMON NORMALS: no apparent distress and oriented x3 Resp: COMMON NORMALS: normal respiratory effort and clear to auscultation bilaterally AUSCULTATION: clear to auscultation bilaterally Cardio: COMMON NORMALS: regular rate, regular rhythm and S2 normal heart sound RATE: regular rate RHYTHM: regular rhythm HEART SOUNDS: S2 normal OTHER: No lower extremity edema GI: COMMON NORMALS: normal to inspection, nondistended, normoactive bowel sounds, soft to palpation and non-tender PALPATION: Yes soft Neuro: COMMON NORMALS: oriented x3 and no focal motor deficits Urinary Catheter Management^: Jarrett: Cath Placed During This Visit: yes Reason for Continuing Indwelling Catheter: Acute Urinary Retention or Obstruction Urinary Catheter Date of Insertion: 07/31/19 Urinary Catheter Time of Insertion: 02:47 Data : 08/02/19 04:53 08/02/19 04:53 Micro: Microbiology 07/30/19 23:15 Urine Culture - Preliminary Urine,Clean Catch Gram Negative Rods A&P Assessment and plan (1) Acute GI bleeding: Status: Acute (2) Acute hypokalemia: Status: Acute (3) Diarrhea: Status: Acute Qualifiers: Diarrhea type: unspecified type Qualified Code(s): R19.7 - Diarrhea, unspecified (4) GERD without esophagitis: Status: Acute (5) Microcytic anemia: Status: Acute (6) Acute kidney injury: Status: Acute Additional A&P Information Upper GI bleed Her baseline hemoglobin is around 10-11 which was in February, current hemoglobin 8.1 Most likely this is secondary to use of aspirin with underlying GERD Protonix 40 mg IV twice a day H&H after 4 hours Currently she is hemodynamically stable, No urgent need of endoscopy If her hemoglobin stays stable and she stays asymptomatic she might need elective endoscopy I believe her diarrhea is secondary to mucosal irritation from blood, however she is afebrile no signs of ischemic colitis on CT abdomen, lactic acid to be checked, Acute on chronic microcytic anemia Likely secondary to blood loss from upper GI We will check iron panel Not on any anticoagulants Patient is denying weight loss, she is stating that previous colonoscopy was normal without any remarkable findings Acute kidney injury, likely multifactorial, prerenal and possibly postrenal. Baseline creatinine is normal Anticipating improvement with fluid resuscitation History of epilepsy/seizures He takes lamotrigine, patient is stating that she had 10 episodes of seizures last month Causes unknown At this visit she has hypokalemia Hypokalemia: Repleted 40 mEq p.o. Urinary incontinence CT scan is showing bilateral hydronephrosis Patient wanted to void urine while I was examining her in the ER, holding off on putting Jarrett catheter, will check bladder scan after 4 hours for monitoring of urinary retention Hold oxybutynin for now Dehydration with hyponatremia. Present on admission Urinary tract infection. Present on admission Sepsis as exhibited by leukocytosis and tachycardia, present on admission, improved PLAN: Continue current monitoring and treatment. Awaiting urine culture identification and susceptibility. Continue with physical therapy. Full code N.p.o. DVT prophylaxis: SCDs Attestations Medical Necessity Statement*: Patient with GI bleed as well as UTI requires close inpatient monitoring and treatment will deemed safe for discharge. 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
[2019-08-02] MEDS: pantoprazole 40 mg SDV IVP ×2 (10:27→17:24)
[2019-08-02] MEDS: cefTRIAXone 1,000 MG in sodium chloride 0.9% (plus) 50 ML 100 MG IV (10:27)
[2019-08-03] VITALS (8 sets, daily range): BP systolic 156–167; BP diastolic 74–80; PULSE 80–90; RESP 15–18; TEMP 36.7–37.3; O2SAT 91–92
[2019-08-03 05:44] LABS: Basophils % 0.4 %; Eosinophils # 0.2 10^3/uL (0.0-0.8); Eosinophils % 2.3 %; Hematocrit 30.3 % (37.0-47.0); Hemoglobin 8.8 g/dL (11.5-15.3); Lymphocytes # 1.8 10^3/uL (0.8-4.8); Lymphocytes % 18.1 %; Mean Corpuscular Hemoglobin 22.1 pg (28.0-34.0); Mean Corpuscular Volume 76.1 fL (81-99); Mean Platelet Volume 10.3 fL (7.4-10.4); Monocytes # 0.8 10^3/uL (0.2-0.9); Monocytes % 8.2 %; Neutrophils % 69.7 %; Nucleated Red Blood Cells % 0 %; Platelet Count 339 10^3/cmm (130-400); Red Blood Count 3.98 10^6/uL (4.1-5.3); Red Cell Distribution Width 17.4 % (12.1-15.1)
[2019-08-03 06:04] LABS: Alanine Aminotransferase 13 U/L (0-33); Albumin Level 3.1 g/dL (3.5-5.2); Alkaline Phosphatase 73 IU/L (35-105); Anion Gap 13.7 (5-19); Aspartate Amino Transferase 19 U/L (0-32); Blood Urea Nitrogen 13 mg/dL (8-23); Calcium 9.4 mg/dL (8.5-10.5); Carbon Dioxide 27 mmol/L (22-29); Chloride 106 mmol/L (98-107); Glucose 96 mg/dL (65-115); Osmolality Calculated 292 mOsm/kg (285-295); Potassium 3.7 mmol/L (3.5-5.1); Sodium 143 mmol/L (136-145); Total Bilirubin 0.2 mg/dL (0.15-1.2); Total Protein 7.1 g/dL (6.6-8.7)
[2019-08-03 07:02] LABS: Slide Review Slide Review Perform
--- NOTE | 2019-08-03 08:15 | PC.SOCIAL ---
IMM Page 2 of [facility] explained to patient over the phone. She verbalizes understanding. Initialed, dated, and timed and placed in chart. Copy provided to patient's room.
[2019-08-03] MEDS: pantoprazole 40 mg SDV IVP (08:40)
[2019-08-03] MEDS: ipratropium-albuterol 3 mL Neb INHALATION (08:40)
[2019-08-03 10:46] LABS: Lamotrigine (Lamictal) Level 6.8 mcg/mL (4.0-18.0)
--- NOTE | 2019-08-03 14:53 | PM.DCS ---
Discharge Providers Date of Admission: 07/31/19 12:43 Date of Discharge: August 03, 2019 Attending Provider at Admission: Silvano Cho MD Attending Provider at Discharge: Elie Moreira MD Primary Care Provider: Carlos Barba MD Diagnoses at Discharge Discharge Diagnosis (1) Acute GI bleeding: Status: Acute Problem details: Suspected to be upper GI bleed and likely secondary to NSAID induced gastritis (2) Acute hypokalemia: Status: Acute (3) Diarrhea: Status: Acute Qualifiers: Diarrhea type: unspecified type Qualified Code(s): R19.7 - Diarrhea, unspecified (4) GERD without esophagitis: Status: Acute (5) Microcytic anemia: Status: Acute Problem details: With some evidence of iron deficiency. (6) Acute kidney injury: Status: Acute Reason for Visit Reason for Visit: Reason For Visit: nausea/ diarrhea/ low grade temp Hospital Course Discharge Summary: Patient presented with signs and symptoms of upper GI bleed. This felt to be related to NSAID induced gastritis. Patient was also found to have UTI with urine growing ESBL E. coli. She was started on Primaxin yesterday and this morning reports feeling much better and strong enough to be dismissed to nursing facility for further rehabilitation. We are placing PICC line right now and will give first dose of ertapenem and continue it for 10 more days. Discussed with patient to discuss anemia work-up with her primary care physician as EGD/colonoscopy and MOTION STUDY ENGINEER examination could be considered. As for now patient was told to avoid any NSAIDs and I will start her on high-dose PPI. Her oral intake improves. This morning patient denied any shortness of breath or chest pain. Denied any abdominal pain. Physical Exam Const: COMMON NORMALS: no apparent distress and oriented x3 Resp: COMMON NORMALS: normal respiratory effort and clear to auscultation bilaterally AUSCULTATION: clear to auscultation bilaterally Cardio: COMMON NORMALS: regular rate, regular rhythm and S2 normal heart sound RATE: regular rate RHYTHM: regular rhythm HEART SOUNDS: S2 normal OTHER: No lower extremity edema GI: COMMON NORMALS: normal to inspection, nondistended, normoactive bowel sounds, soft to palpation and non-tender PALPATION: Yes soft Neuro: COMMON NORMALS: oriented x3 and no focal motor deficits Urinary Catheter Management^: Jarrett: Cath Placed During This Visit: yes Reason for Continuing Indwelling Catheter: Acute Urinary Retention or Obstruction Urinary Catheter Date of Insertion: 07/31/19 Urinary Catheter Time of Insertion: 02:47 Discharge Data Data Completed and Pending: Completed Studies During Hospitalization Category Date Time Status CT abdomen pelvis w con* [id number] Urge nt Cat Scan 07/30/19 21:30 Completed XR chest 1V thelma ble [id number] Routine Exams 07/31/19 00:27 Completed Labs from last 24 hours 08/03/19 08/03/19 07/31/19 05:19 05:19 00:46 WBC 10.0 RBC 3.98 L Hgb 8.8 L Hct 30.3 L MCV 76.1 L MCH 22.1 L MCHC 29.0 L RDW 17.4 H Plt Count 339 MPV 10.3 Neut % (Auto) 69.7 Lymph % (Auto) 18.1 Mcclain % (Auto) 8.2 Eos % (Auto) 2.3 Baso % (Auto) 0.4 Neut # (Auto) 7.0 Lymph # (Auto) 1.8 Mcclain # (Auto) 0.8 Eos # (Auto) 0.2 Baso # (Auto) 0.0 Nucleated RBC % (a uto) 0 Nucleated RBCs # 0.0 Sodium 143 Potassium 3.7 Chloride 106 Carbon Dioxide 27 Anion Gap 13.7 BUN 13 Creatinine 1.0 H Glucose 96 Calculated Osmolal ity 292 Calcium 9.4 Total Bilirubin 0.2 AST 19 ALT 13 Alkaline Phosphata se 73 Total Protein 7.1 Albumin 3.1 L Globulin 4.0 Lamotrigine 6.8 Crossmatch 07/30/19 21:40 WBC RBC Hgb Hct MCV MCH MCHC RDW Plt Count MPV Neut % (Auto) Lymph % (Auto) Mcclain % (Auto) Eos % (Auto) Baso % (Auto) Neut # (Auto) Lymph # (Auto) Mcclain # (Auto) Eos # (Auto) Baso # (Auto) Nucleated RBC % (a uto) Nucleated RBCs # Sodium Potassium Chloride Carbon Dioxide Anion Gap BUN Creatinine Glucose Calculated Osmolal ity Calcium Total Bilirubin AST ALT Alkaline Phosphata se Total Protein Albumin Globulin Lamotrigine Crossmatch See Detail Vitals: Last Vital Signs Temp 98.5 F 08/03/19 11:38 Pulse 83 08/03/19 11:38 Resp 16 08/03/19 11:38 BP 162/80 08/03/19 11:38 Pulse Ox 91 08/03/19 11:38 Discharge Plan Discharge Patient Disposition: Xfer SNF Condition: Stable Prescriptions: New ertapenem 1 gram recon soln 1 gm IV DAILY 10 Days Qty: 10 RF: 0 ferrous sulfate [Feosol] 325 mg (65 mg iron) tablet 325 mg PO EVERY OTHER DAY Qty: 15 RF: 0 Protonix [address] for susp in packet 40 mg PO BID 30 Days Qty: 60 RF: 0 Continued lamotrigine 250 mg tablet extended release 24hr 250 mg PO DIRECTED RF: 0 metoprolol tartrate 25 mg tablet 25 mg PO BID 30 Days Qty: 60 RF: 5 aspirin 81 mg Tablet,Delayed Release (Dr/Ec) 81 mg PO DAILY RF: 0 Discontinued ranitidine HCl 150 mg Tablet 150 mg PO BID RF: 0 Discharge Orders: Discharge Order (Routine); Ordered 08/03/19 Ordered By: Elie Moreira Other Ambulatory Orders: Complete Blood Count w/Auto (Routine) Timeframe: 3 Days Location: Determined by Patient Ordered By: Elie Moreira Referrals: [facility] [Outside] Carlos Barba MD [Primary Care Provider] - 4-7 days Discharge Diet: Usual diet Discharge Activity: Increase activity as tolerated Activity Restrictions/Additional Instructions: Please call your doctor or present to emergency department if your condition worsens or you develop diarrhea, lightheadedness, fatigue or see blood in your stool or black stool. Please discuss with your doctor to consider further evaluation with EGD/colonoscopy and MOTION STUDY ENGINEER examination as part of iron deficiency anemia work-up. Please avoid any NSAIDs including high-dose aspirin. 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
--- NOTE | 2019-08-03 15:43 | SUR.PREOP ---
Time out for PICC Line Insertion.
--- NOTE | 2019-08-03 15:44 | XRR_ITS ---
PROCEDURE INFORMATION: Exam: XR Chest, 1 View Exam date and time: 08/03/2019 4:21 PM Age: 73 years old Clinical indication: Device placement; Other: Picc placement; Additional info: Picc line insertion TECHNIQUE: Imaging protocol: XR of the chest Views: 1 view. COMPARISON: CR XR chest 1V portable [id number] 07/31/2019 1:10 AM FINDINGS: Tubes, catheters and devices: Right upper extremity PICC line with tip in the superior vena cava. Lungs: There is no pulmonary vascular congestion. There is no evidence of focal parenchymal consolidation. Pleural space: There are no pleural effusions. There is no evidence of pneumothorax. Heart/Mediastinum: Borderline cardiomegaly. Bones/joints: No acute osseous abnormality is identified. XR/XR chest 1V portable [id number] IMPRESSION: 1. Right upper extremity PICC line with tip in the superior vena cava. 2. No acute cardiopulmonary disease identified.
[2019-08-03] MEDS: ertapenem 1,000 MG in sodium chloride 0.9% (plus) 100 ML 200 MG IV (17:08)
--- NOTE | 2019-08-03 17:12 | PC.NURSE ---
Report received from Sasha Momin RN at this time. Patient needs her antibiotic and then will be transported to the [facility] afterwards. Sasha Momin states that she will call report to Willy Cotton.
--- NOTE | 2019-08-03 17:38 | PC.NURSE ---
Patient ambulated to the bathroom with assistance and voided in the toilet.
== END 2019-08-03 18:40 | disposition skilled nursing facility (03) | DRG 872 ==
LOC: ER 22:59 → MEDSURG 23:34
PROVIDERS: Admitting Provider Internal Medicine; Emergency Provider Emergency Medicine; Family Provider Family Medicine; PCP Family Medicine; Visit Provider Internal Medicine
DX: A41.9 Sepsis, unspecified organism (principal); K92.2 Gastrointestinal hemorrhage, unspecified; N17.9 Acute kidney failure, unspecified; N39.0 Urinary tract infection, site not specified; Z16.12 Extended spectrum beta lactamase (ESBL) resistance; E87.1 Hypo-osmolality and hyponatremia; N13.30 Unspecified hydronephrosis; E87.6 Hypokalemia; R19.7 Diarrhea, unspecified; K21.9 Gastro-esophageal reflux disease without esophagitis; D50.9 Iron deficiency anemia, unspecified; B96.20 Unspecified Escherichia coli [E. coli] as the cause of diseases classified elsewhere; Z79.82 Long term (current) use of aspirin; G40.909 Epilepsy, unspecified, not intractable, without status epilepticus; E86.0 Dehydration; R32 Unspecified urinary incontinence; F41.9 Anxiety disorder, unspecified; K44.9 Diaphragmatic hernia without obstruction or gangrene; Z87.891 Personal history of nicotine dependence
CPT/HCPCS: 12345; 36415; 36430; 36569; 51702; 51798; 71045; 74177; 80048; 80053; 80175; 81001; 82274; 82728; 83540; 83550; 83605; 83690; 83735; 84484; 85025; 85610; 85730; 86850; 86900; 86920; 87077; 87086; 87186; 93005; 94640; 96374; 96375; 97110; 97116; 97161; 97530; 99283; A9270; C9113; G0378; J0696; J0743; J1335; J1940; J3480; J7030; J7050; P9016; Q9967

== ENCOUNTER → 2019-08-24 12:49 | Outpatient (BNVA) | payer MEDICARE, MEDICAID, SELFPAY | PROVIDERS: Family Provider Family Medicine; PCP Family Medicine; Referring Provider Family Medicine; Visit Provider Family Medicine | DX: K21.9 Gastro-esophageal reflux disease without esophagitis (principal); I10 Essential (primary) hypertension; D50.9 Iron deficiency anemia, unspecified; N39.46 Mixed incontinence; E87.6 Hypokalemia | CPT/HCPCS: 80053; 82728; 83540; 85025 ==

== ENCOUNTER → 2019-09-26 12:39 | Outpatient (BNVA) | payer MEDICARE, MEDICAID, SELFPAY | PROVIDERS: Family Provider Family Medicine; PCP Family Medicine; Visit Provider Specialist | DX: G40.119 Localization-related (focal) (partial) symptomatic epilepsy and epileptic syndromes with simple partial seizures, intractable, without status epilepticus (principal); Z87.891 Personal history of nicotine dependence | CPT/HCPCS: 99214 ==

== ENCOUNTER → 2019-09-28 10:35 | Outpatient (BNVA) | payer MEDICARE, MEDICAID, SELFPAY | PROVIDERS: Family Provider Family Medicine; PCP Family Medicine; Referring Provider Family Medicine; Visit Provider Obstetrics & Gynecology | DX: R32 Unspecified urinary incontinence (principal); R33.9 Retention of urine, unspecified | CPT/HCPCS: 80053; 81000; 87077; 87086; 87186 ==

== ENCOUNTER → 2019-10-16 14:44 | Outpatient (BNVA) | payer MEDICARE, MEDICAID, SELFPAY | PROVIDERS: Family Provider Family Medicine; PCP Family Medicine; Visit Provider Nurse Practitioner Family | DX: R33.9 Retention of urine, unspecified (principal); N39.0 Urinary tract infection, site not specified; N39.46 Mixed incontinence | CPT/HCPCS: 80053; 81001; 87077; 87086; 87186 ==

== ENCOUNTER → 2019-10-31 10:18 | Outpatient (BNVA) | payer MEDICARE, MEDICAID, SELFPAY | PROVIDERS: Family Provider Family Medicine; PCP Family Medicine; Visit Provider Urology | DX: R33.8 Other retention of urine (principal); R33.9 Retention of urine, unspecified; N39.490 Overflow incontinence; N30.80 Other cystitis without hematuria; N13.30 Unspecified hydronephrosis | CPT/HCPCS: 81001 ==

== ENCOUNTER 2020-03-24 19:56 | Inpatient (IN) | payer MEDICARE, MEDICAID, SELFPAY ==
[2020-03-24] VITALS (10 sets, daily range): BP systolic 137–201; BP diastolic 84–144; PULSE 95–144; RESP 12–22; TEMP 37.2; O2SAT 94–98; BMI 26.5
--- NOTE | 2020-03-24 19:58 | CTR_ITS ---
PROCEDURE INFORMATION: Exam: CT Head Without Contrast Exam date and time: 03/24/2020 7:59 PM Age: 74 years old Clinical indication: Condition or disease; Convulsions or seizures; Unspecified; Patient HX: Multiple seizures today; Additional info: Sz TECHNIQUE: Imaging protocol: Computed tomography of the head without contrast. Radiation optimization: All CT scans at this facility use at least one of these dose optimization techniques: automated exposure control; mA and/or kV adjustment per patient size (includes targeted exams where dose is matched to clinical indication); or iterative reconstruction. COMPARISON: CT head wo con* [id number] 06/20/2018 11:04 AM RADIATION DOSE METRICS: Total DLP (mGy-cm): 896.69 FINDINGS: Brain: No acute intracranial hemorrhage. No acute infarct. No intra-axial or extra-axial masses. Lopez-white matter differentiation is preserved. No cerebral edema. No extra-axial fluid collections. No midline shift. No evidence for Chiari 1 malformation. Stable mild atrophy of the brain parenchyma. Stable mildly decreased attenuation in the deep white matter, consistent with mild chronic microangiopathic change. Cerebral ventricles: No hydrocephalus. Bones/joints: No acute fracture. Paranasal sinuses: Stable focal calcification in a left ethmoid sinus. Other visualized paranasal sinuses are clear. Mastoid air cells: Mastoid air cells are clear bilaterally. Orbital cavity: Globes and lenses, extraocular muscles, and optic nerves are intact bilaterally. No acute intraorbital abnormality. Vasculature: Atherosclerotic changes in the visualized arteries. Soft tissues: No acute abnormality of the extracranial soft tissues. CT/CT head wo con* [id number] IMPRESSION: 1. No acute abnormality of the brain. 2. Stable mild atrophy of the brain parenchyma. 3. 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 4. Incidental/nonacute findings are listed in the report. Radiation Dose CTDIVOL = (mGy): DLP = 896.69 (mGy-cm)
--- NOTE | 2020-03-24 20:07 | XR_ITS ---
WS: [id number] XR chest 1V portable [id number] REASON FOR EXAM: sz FINDINGS: The chest is unchanged compared to previous examination of 08/03/2019. Calcified granulomatous changes in both lungs. Chronic interstitial changes in both lung bases most n otably the left. No acute pulmonary parenchymal or pleural finding. Mild degenerative spondylosis in the mid and lower thoracic spine. XR/XR chest 1V portable [id number] IMPRESSION: No acute chest abnormality.
--- NOTE | 2020-03-24 20:08 | ECG_ITS ---
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 Measurements Intervals [place] Rate: 118 P: 52 CA: 197 QRS: -50 QRSD: 86 T: 35 QT: 312 QTc: 437 Interpretive Statements SINUS TACHYCARDIA LEFT AXIS DEVIATION [QRS AXIS < -30] MODERATE ST DEPRESSION [0.05+ mV ST DEPRESSION] Compared to ECG 07/31/2019 03:39:43 Left-axis deviation now present ST (T wave) deviation now present Ectopic atrial rhythm no longer present Short CA interval no longer present Electronically Signed On 03-25-2020 16:41:44 SHREDDER TENDER PEAT by Quang Marquez M.D. [email or web address]
--- NOTE | 2020-03-24 20:15 | PC.NURSE ---
NPA in place due to snoring respirations. Inspirations and O2 saturation improved.
[2020-03-24 20:46] LABS: ABG PCO2 37.4 mmHg (35-45); Arterial Blood Gas Hematocrit 38.1 % (37-47); Base Excess ABG -7.7 mmol/L (-2.0-2.0); Blood Gas Sample Site Radial, right; Blood Gas Sample Type Arterial; HCO3 ABG 18.2 mmol/L (22-26); Oxygen Device NC; PO2 ABG 79.3 mmHg (80.0-100.0)
--- NOTE | 2020-03-24 21:00 | PC.NURSE ---
1000 mL drained from catheter bag.
[2020-03-24 21:08] LABS: Basophils # 0.1 10^3/uL (0.0-0.1); Basophils % 0.5 %; Eosinophils # 0.1 10^3/uL (0.0-0.8); Eosinophils % 0.6 %; Hematocrit 41.5 % (37.0-47.0); Hemoglobin 11.9 g/dL (11.5-15.3); Lymphocytes # 1.1 10^3/uL (0.8-4.8); Lymphocytes % 11.4 %; Mean Corpuscular HGB Conc 28.7 g/dL (30.0-36.0); Mean Corpuscular Volume 76.7 fL (81-99); Mean Platelet Volume 10.4 fL (7.4-10.4); Monocytes # 0.3 10^3/uL (0.2-0.9); Monocytes % 3.5 %; Neutrophils # 7.65 10^3/uL (1.8-7.7); Neutrophils % 82.7 %; Nucleated Red Blood Cells % 0 %; Platelet Count 408 10^3/cmm (130-400); Red Blood Count 5.41 10^6/uL (4.1-5.3); Red Cell Distribution Width 16.5 % (12.1-15.1); White Blood Count 9.3 10^3/uL (4.0-10.0)
[2020-03-24 21:09] LABS: INR 0.96 (0.8-1.2)
[2020-03-24 21:22] LABS: Alanine Aminotransferase 11 U/L (0-33); Albumin Level 4.9 g/dL (3.5-5.2); Alkaline Phosphatase 90 IU/L (35-105); Anion Gap 25.1 (5-19); Aspartate Amino Transferase 17 U/L (0-32); Blood Urea Nitrogen 8 mg/dL (8-23); Calcium 10.4 mg/dL (8.5-10.5); Carbon Dioxide 19 mmol/L (22-29); Chloride 99 mmol/L (98-107); Creatine Phosphokinase 85 U/L (26-192); Globulin 2.9 g/dL (1.3-4.6); Glucose 190 mg/dL (65-115); Magnesium 2.5 mg/dL (1.7-2.3); Osmolality Calculated 291 mOsm/kg (285-295); Phosphorus 3.4 mg/dL (2.5-4.5); Potassium 4.1 mmol/L (3.5-5.1); Sodium 139 mmol/L (136-145); Total Bilirubin 0.2 mg/dL (0.15-1.2); Total Protein 7.8 g/dL (6.6-8.7)
--- NOTE | 2020-03-24 21:22 | ED_ITS ---
HPI - Altered Mental Status General: Chief Complaint: Altered Mental Status Stated Complaint: AMS Time Seen by Provider: 03/24/20 19:57 History of Present Illness: HPI narrative: 74-year-old lady presents with multiple seizures this afternoon. She does have a history of seizure disorder. She may or may not of forgotten her seizure medicine earlier today. According to her who is still at home, no definite recent illness or fever. called because she had not come back to her baseline, and was still confused. She did not remember having seizures earlier today. MD complaint: altered mental status and confusion Onset (ago): hour(s) Timing confirmed by: spouse Severity: moderate Consistency of symptoms: Waxing and Waning Context: seizure disorder Review of Systems General: Reports: ROS unobtainable due to medical condition and ROS unobtainable due to mental status PFS ED PFSH: Medical History (Updated 03/25/20 @ 00:55 by Ashutosh Shearer DO) Anxiety Bilateral hydronephrosis Secondary to bladder distention and incomplete emptying Cholelithiasis Cystitis cystica Diverticulosis Epilepsy Focused based right temporal lobe epilepsy patient does not wish to have surgery for intractable seizures Frequent headaches GERD without esophagitis Hiatal hernia Hypertension Mild cognitive impairment Mixed stress and urge urinary incontinence Osteopenia Overflow incontinence Partial epilepsy secondarily generalized Urinary retention Surgical History History of ear surgery (~2014) Right. Dr Khan History of total hysterectomy (~1982) TVH (still has ovaries) for bleeding. Performed by Dr. Armstrong at [facility] Family History Brother Diabetes Heart disease Hypercholesteremia Hypertension Social History Smoking and tobacco status: former smoker Quit status (tobacco): has quit using tobacco Year quit tobacco: 2012 Former quit date comment: smoked 20 years Alcohol intake: never Lives independently: Yes Housing: House Marital status: Legally Physical Exam Const: COMMON NORMALS: no acute distress EXAM LIMITATIONS: altered mental status GENERAL APPEARANCE: cooperative; not in distress ORIENTATION/CONSCIOUSNESS: Yes awake, Yes oriented to person and Yes confused; not oriented to place and not oriented to time Eye: COMMON NORMALS: Equal, round and reactive pupils present and EOMs intact bilaterally PUPIL: Yes Equal, round and reactive pupils present Chest: COMMONS NORMALS: normal inspection of the chest Resp: COMMON NORMALS: normal respiratory effort, No retractions, No use of accessory muscles and clear to auscultation bilaterally AUSCULTATION: clear to auscultation bilaterally Cardio: COMMON NORMALS: regular rate, regular rhythm and Peripheral pulses 2+ throughout RATE: regular rate RHYTHM: regular rhythm PERIPHERAL PULSES: Peripheral pulses 2+ throughout GI: COMMON NORMALS: Normal to inspection, nondistended, normoactive bowel sounds present and non-tender Neuro: SENSORIUM/ORIENTATION: Yes oriented to person, No oriented to place and No oriented to time SPEECH: speech normal MOTOR EXAM: Motor abnormalities not present Urinary Catheter Management^: Jarrett: Cath Placed During This Visit: yes Reason for Continuing Indwelling Catheter: Other Urinary Catheter Date of Insertion: 03/24/20 Urinary Catheter Time of Insertion: 19:57 Course Consultations: Consultation #1: thuan Time: 00:25 Vital Signs: Vital signs: Vital Signs Temperature 99.0 F 03/24/20 20:00 Pulse Rate 81 03/25/20 00:00 Respiratory Rate 21 H 03/25/20 00:00 Blood Pressure 176/104 03/25/20 00:00 Pulse Oximetry 96 03/25/20 00:00 MDM - Altered Mental Status MDM Narrative: Medical decision making narrative: Patient was examined on the way to CAT scan on arrival. Exam was not completely finished, prior to starting the CAT scan. Before she was moved off the CAT scan table, she began to seize. This was demonstrated by tonic-clonic type movements with forced deviation of her eyes to the right. This lasted about 2 minutes and was self resolved. Following, she was obtunded with normal responsiveness, and snoring respirations. Vitals remained okay with hypertension, slight tachycardia and oxygen saturations of 95% or so on 3 L. She is currently postictal. CT of the head shows nothing acute. Chest x-ray shows nothing acute. Hemoglobin is 12. White blood cell count is 9.3. She has a bicarbonate level of 19. The patient was loaded with IV Keppra. Her lactic acid is 6.7. Her urinalysis shows urinary tract infection for which she was given 1 g of Rocephin. She is received fluid as well. She will be admitted for urinary tract infection with seizure and postictal state. Lab Data: Labs: Lab Results 03/24/20 03/24/20 03/24/20 Range/Units 19:40 19:40 19:40 WBC 9.3 (4.0-10.0) 10^3/ uL RBC 5.41 H (4.1-5.3) 10^6/u L Hgb 11.9 (11.5-15.3) g/dL Hct 41.5 (37.0-47.0) % MCV 76.7 L (81-99) fL MCH 22.0 L (28.0-34.0) pg MCHC 28.7 L (30.0-36.0) g/dL RDW 16.5 H (12.1-15.1) % Plt Count 408 H (130-400) 10^3/c mm MPV 10.4 (7.4-10.4) fL Neut % (Auto) 82.7 % Lymph % (Auto) 11.4 % Crittenden % (Auto) 3.5 % Eos % (Auto) 0.6 % Baso % (Auto) 0.5 % Neut # (Auto) 7.65 (1.8-7.7) 10^3/u L Lymph # (Auto) 1.1 (0.8-4.8) 10^3/u L Crittenden # (Auto) 0.3 (0.2-0.9) 10^3/u L Eos # (Auto) 0.1 (0.0-0.8) 10^3/u L Baso # (Auto) 0.1 (0.0-0.1) 10^3/u L Nucleated RBC % (a uto) 0 % Nucleated RBCs # 0.0 /100WBC PT 13.10 (12.1-14.9) SECO NDS INR 0.96 (0.8-1.2) APTT 27.0 (23.9-36.7) SECO NDS Specimen Type Sample Site ABG pH (7.35-7.45) ABG pCO2 (35-45) mmHg ABG pO2 (80.0-100.0) mmH g ABG HCO3 (22-26) mmol/L ABG Base Excess (-2.0-2.0) mmol/ L Fausto Test Hematocrit (37-47) % O2 Delivery Device O2 Liters/Min % FiO2 % [facility] Counsel[facility] ID Sodium 139 (136-145) mmol/L Potassium 4.1 (3.5-5.1) mmol/L Chloride 99 (98-107) mmol/L Carbon Dioxide 19 L (22-29) mmol/L Anion Gap 25.1 H (5-19) BUN 8 (8-23) mg/dL Creatinine 1.0 H (0.5-0.9) mg/dL GFR Calculation Not Reportable Glucose 190 H (65-115) mg/dL Calculated Osmolal ity 291 (285-295) mOsm/k g Lactate (0.5-2.2) mmol/L Calcium 10.4 (8.5-10.5) mg/dL Phosphorus 3.4 (2.5-4.5) mg/dL Magnesium 2.5 H (1.7-2.3) mg/dL Total Bilirubin 0.2 (0.15-1.2) mg/dL AST 17 (0-32) U/L ALT 11 (0-33) U/L Alkaline Phosphata se 90 (35-105) IU/L Creatine Kinase 85 (26-192) U/L Troponin T Baselin e (0-10) ng/L Total Protein 7.8 (6.6-8.7) g/dL Albumin 4.9 (3.5-5.2) g/dL Globulin 2.9 (1.3-4.6) g/dL Procalcitonin 0.02 (0-0.5) ng/mL Urine Color (Yellow) Urine Appearance (CLEAR) Urine pH (5-7) Ur Specific Gravit y (1.005-1.030) Urine Protein (Negative) Urine Glucose (UA) (Normal) Urine Ketones (Negative) Urine Blood (Negative) Urine Nitrate (Negative) Urine Bilirubin (Negative) Urine Urobilinogen (Negative) mg/dL Ur Leukocyte Suzette ase (Negative) Urine RBC (0-2) /hpf Urine WBC (0-5) /hpf Ur Squamous Epith Cells (0-5) /hpf Amorphous Sediment Urine Bacteria (NONE) /hpf Urine Mucus /hpf Urine Opiates Scre en (Negative) ng/mL Ur Barbiturates Sc reen (Negative) ng/mL Ur Phencyclidine S crn (Negative) ng/mL Ur Amphetamines Sc reen (Negative) ng/mL U Benzodiazepines Scrn (Negative) ng/mL Urine Cocaine Scre en (Negative) ng/mL U Marijuana (THC) Screen (Negative) ng/mL Ethyl Alcohol < 10 (0-10) mg/dL 03/24/20 03/24/20 03/24/20 Range/Units 19:40 20:35 20:56 WBC (4.0-10.0) 10^3/ uL RBC (4.1-5.3) 10^6/u L Hgb (11.5-15.3) g/dL Hct (37.0-47.0) % MCV (81-99) fL MCH (28.0-34.0) pg MCHC (30.0-36.0) g/dL RDW (12.1-15.1) % Plt Count (130-400) 10^3/c mm MPV (7.4-10.4) fL Neut % (Auto) % Lymph % (Auto) % Crittenden % (Auto) % Eos % (Auto) % Baso % (Auto) % Neut # (Auto) (1.8-7.7) 10^3/u L Lymph # (Auto) (0.8-4.8) 10^3/u L Cr[place]enden # (Auto) (0.2-0.9) 10^3/u L Eos # (Auto) (0.0-0.8) 10^3/u L Baso # (Auto) (0.0-0.1) 10^3/u L Nucleated RBC % (a uto) % Nucleated RBCs # /100WBC PT (12.1-14.9) SECO NDS INR (0.8-1.2) APTT (23.9-36.7) SECO NDS Specimen Type Arterial Sample Site Radial, right ABG pH 7.30 L (7.35-7.45) ABG pCO2 37.4 (35-45) mmHg ABG pO2 79.3 L (80.0-100.0) mmH g ABG HCO3 18.2 L (22-26) mmol/L ABG Base Excess -7.7 L (-2.0-2.0) mmol/ L Fausto Test N/a Hematocrit 38.1 (37-47) % O2 Delivery Device Nc O2 Liters/Min 3.0 % FiO2 32.0 % [facility] ID [id number] Sodium (136-145) mmol/L Potassium (3.5-5.1) mmol/L Chloride (98-107) mmol/L Carbon Dioxide (22-29) mmol/L Anion Gap (5-19) BUN (8-23) mg/dL Creatinine (0.5-0.9) mg/dL GFR Calculation Glucose (65-115) mg/dL Calculated Osmolal ity (285-295) mOsm/k g Lactate (0.5-2.2) mmol/L Calcium (8.5-10.5) mg/dL Phosphorus (2.5-4.5) mg/dL Magnesium (1.7-2.3) mg/dL Total Bilirubin (0.15-1.2) mg/dL AST (0-32) U/L ALT (0-33) U/L Alkaline Phosphata se (35-105) IU/L Creatine Kinase (26-192) U/L Troponin T Baselin e 37 H (0-10) ng/L Total Protein (6.6-8.7) g/dL Albumin (3.5-5.2) g/dL Globulin (1.3-4.6) g/dL Procalcitonin (0-0.5) ng/mL Urine Color Straw (Yellow) Urine Appearance Clear (CLEAR) Urine pH 7.0 (5-7) Ur Specific Gravit y 1.010 (1.005-1.030) Urine Protein Neg (Negative) Urine Glucose (UA) Norm (Normal) Urine Ketones Negative (Negative) Urine Blood 2+ H (Negative) Urine Nitrate Negative (Negative) Urine Bilirubin Neg (Negative) Urine Urobilinogen Norm (Negative) mg/dL Ur Leukocyte Suzette ase 2+ H (Negative) Urine RBC 5-10 H (0-2) /hpf Urine WBC 15-25 H (0-5) /hpf Ur Squamous Epith Cells 0-4 H (0-5) /hpf Amorphous Sediment Not Reportable Urine Bacteria 3+ H (NONE) /hpf Urine Mucus Trace /hpf Urine Opiates Scre en (Negative) ng/mL Ur Barbiturates Sc reen (Negative) ng/mL Ur Phencyclidine S crn (Negative) ng/mL Ur Amphetamines Sc reen (Negative) ng/mL U Benzodiazepines Scrn (Negative) ng/mL Urine Cocaine Scre en (Negative) ng/mL U Marijuana (THC) Screen (Negative) ng/mL Ethyl Alcohol (0-10) mg/dL 03/24/20 03/24/20 Range/Units 20:56 21:10 WBC (4.0-10.0) 10^3/ uL RBC (4.1-5.3) 10^6/u L Hgb (11.5-15.3) g/dL Hct (37.0-47.0) % MCV (81-99) fL MCH (28.0-34.0) pg MCHC (30.0-36.0) g/dL RDW (12.1-15.1) % Plt Count (130-400) 10^3/c mm MPV (7.4-10.4) fL Neut % (Auto) % Lymph % (Auto) % Crittenden % (Auto) % Eos % (Auto) % Baso % (Auto) % Neut # (Auto) (1.8-7.7) 10^3/u L Lymph # (Auto) (0.8-4.8) 10^3/u L Crittenden # (Auto) (0.2-0.9) 10^3/u L Eos # (Auto) (0.0-0.8) 10^3/u L Baso # (Auto) (0.0-0.1) 10^3/u L Nucleated RBC % (a uto) % Nucleated RBCs # /100WBC PT (12.1-14.9) SECO NDS INR (0.8-1.2) APTT (23.9-36.7) SECO NDS Specimen Type Sample Site ABG pH (7.35-7.45) ABG pCO2 (35-45) mmHg ABG pO2 (80.0-100.0) mmH g ABG HCO3 (22-26) mmol/L ABG Base Excess (-2.0-2.0) mmol/ L Fausto Test Hematocrit (37-47) % O2 Delivery Device O2 Liters/Min % FiO2 % [facility] ID Sodium (136-145) mmol/L Potassium (3.5-5.1) mmol/L Chloride (98-107) mmol/L Carbon Dioxide (22-29) mmol/L Anion Gap (5-19) BUN (8-23) mg/dL Creatinine (0.5-0.9) mg/dL GFR Calculation Glucose (65-115) mg/dL Calculated Osmolal ity (285-295) mOsm/k g Lactate 6.7 H* (0.5-2.2) mmol/L Calcium (8.5-10.5) mg/dL Phosphorus (2.5-4.5) mg/dL Magnesium (1.7-2.3) mg/dL Total Bilirubin (0.15-1.2) mg/dL AST (0-32) U/L ALT (0-33) U/L Alkaline Phosphata se (35-105) IU/L Creatine Kinase (26-192) U/L Troponin T Baselin e (0-10) ng/L Total Protein (6.6-8.7) g/dL Albumin (3.5-5.2) g/dL Globulin (1.3-4.6) g/dL Procalcitonin (0-0.5) ng/mL Urine Color (Yellow) Urine Appearance (CLEAR) Urine pH (5-7) Ur Specific Gravit y (1.005-1.030) Urine Protein (Negative) Urine Glucose (UA) (Normal) Urine Ketones (Negative) Urine Blood (Negative) Urine Nitrate (Negative) Urine Bilirubin (Negative) Urine Urobilinogen (Negative) mg/dL Ur Leukocyte Suzette ase (Negative) Urine RBC (0-2) /hpf Urine WBC (0-5) /hpf Ur Squamous Epith Cells (0-5) /hpf Amorphous Sediment Urine Bacteria (NONE) /hpf Urine Mucus /hpf Urine Opiates Scre en Negative (Negative) ng/mL Ur Barbiturates Sc reen Negative (Negative) ng/mL Ur Phencyclidine S crn Negative (Negative) ng/mL Ur Amphetamines Sc reen Negative (Negative) ng/mL U Benzodiazepines Scrn Negative (Negative) ng/mL Urine Cocaine Scre en Negative (Negative) ng/mL U Marijuana (THC) Screen Negative (Negative) ng/mL Ethyl Alcohol (0-10) mg/dL Discharge Plan Discharge Patient Disposition: Admitted As Inpatient Clinical Impression: Acute UTI, Seizure, Acidosis, lactic Condition: Stable Coding Level of Care Code ED Mailroom Assistant for Chg Fwd Exam Detailed
[2020-03-24 21:25] LABS: Alcohol Level < 10 mg/dL (0-10)
[2020-03-24 21:44] LABS: Add Urine Microscopic? YES; Bilirubin Urine Neg (Negative); Blood Urine 2+ (Negative); Glucose Urine UA Norm (Normal); Ketones Urine Negative (Negative); Leukocyte Esterase Urine 2+ (Negative); Nitrate Urine Negative (Negative); Protein Urine Neg (Negative); Urine Appearance Clear (CLEAR); Urine Color Straw (Yellow); Urobilinogen Urine Norm (Negative)
[2020-03-24 21:45] LABS: Add Urine Culture? Yes; Bacteria Urine 3+ /hpf; Mucus Urine TRACE /hpf; Squamous Epithelial Cell Urine 0-4 /hpf (0-5); WBC Urine 15-25 /hpf (0-5)
[2020-03-24 21:48] LABS: Amphetamines Screen Urine Negative (Negative); Barbiturates Screen Urine Negative (Negative); Benzodiazepines Screen Urine Negative (Negative); Cocaine Screen Urine Negative (Negative); Opiate Screen Urine Negative (Negative); PCP Screen Urine Negative (Negative); THC Screen Urine Negative (Negative)
[2020-03-24 21:50] LABS: Lactate (Lactic Acid level) 6.7 mmol/L (0.5-2.2)
[2020-03-24 21:53] LABS: Troponin(5th) Baseline 37 ng/L (0-10)
[2020-03-24] MEDS: cefTRIAXone 1,000 MG in sodium chloride 0.9% (plus) 50 ML 100 MG IV (21:54)
[2020-03-24] MEDS: metoprolol tartrate 1 mg/1 mL SDV 5 mL 5 MG IV (21:59)
--- NOTE | 2020-03-24 22:08 | ECG_ITS ---
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 Measurements Intervals [place] Rate: 107 P: 219 CO: 260 QRS: -41 QRSD: 81 T: 52 QT: 383 QTc: 513 Interpretive Statements ECTOPIC ATRIAL TACHYCARDIA WITH FIRST DEGREE AV BLOCK LEFT AXIS DEVIATION [QRS AXIS < -30] NONSPECIFIC ST & T-WAVE ABNORMALITY Compared to ECG 03/24/2020 20:13:39 First degree AV block now present T-wave abnormality now present Sinus tachycardia no longer present ST (T wave) deviation no longer present Electronically Signed On 03-25-2020 16:45:10 PIG FARM MANAGER by Quang Marquez M.D. [id number]
[2020-03-24 22:43] LABS: Procalcitonin 0.02 ng/mL (0-0.5)
[2020-03-25] VITALS (44 sets, daily range): BP systolic 86–178; BP diastolic 46–104; PULSE 78–127; RESP 11–32; TEMP 36.9–37.2; O2SAT 89–99
[2020-03-25] MEDS: sodium chloride 0.9% 1,000 ML 999 ML IV (00:24)
--- NOTE | 2020-03-25 00:39 | P.HP_ITS ---
Providers/Chief Complaint Primary Care Provider: Carlos Barba MD Chief Complaint: AMS History of Present Illness Melonie Suggs is a 74 year old female who carries history of temporal lobe epilepsy who was sent by her because of breakthrough seizure in afternoon and prolonged postictal state, was not able to help her at all after the seizure hence called EMS to bring her to the hospital. told EMS that she might have missed her seizure medications for last few days. When patient arrived in the ER she denied having seizure earlier today, she was sent to the radiology for head CT scan on her way back she started having generalized tonic-clonic seizures which lasted for about 2 minutes, she was given a loading dose of Keppra IV which subsided her seizures, by the time I saw her she was in postictal state, she was opening her eyes spontaneously, she was moving all of her extremities, she was tossing and turning in bed with pursed lip breathing pattern, not able to follow my commands. Blood glucose was normal. Her UA is abnormal he was given ceftriaxone. I have requested Lamictal level at home she has been taking Lamictal, she follows up with Dr. Reese who is available tomorrow morning. Review of Systems General: Reports: ROS unobtainable due to medical condition (Post ictal confusion) Medications/Allergies Home Medications Medication Instructions Recorded Confirmed Last Taken Type tamsulosin 0.4 mg capsule 0.4 mg PO DAILY #30 cap 09/28/19 11/14/19 Unknown Rx methenamine hippurate 1 gram tablet 1 g PO BID #60 tab 10/31/19 11/14/19 Unknown Rx ascorbic acid (vitamin C) 1,000 mg 1 gm PO BID tab 11/14/19 11/14/19 Unknown History tablet ranitidine HCl 150 mg tablet mg PO BID tab 11/14/19 11/14/19 Unknown History diazepam 10 mg tablet 10 mg PO DAILY #30 tab 01/25/20 Unknown Rx metoprolol tartrate 25 mg tablet 25 mg PO BID 30 Days #60 tab 01/31/20 Unknown Rx lamotrigine 250 mg tablet,extended 500 mg PO DAILY #60 tab 03/21/20 Unknown Rx release 24 hr Allergies Allergy/AdvReac Type Severity Reaction Status Date / Time divalproex sodium Allergy N/V and Verified 03/24/20 20:08 [From Depakote] dizziness sulfamethoxazole Allergy headache Verified 03/24/20 20:08 [From Bactrim] and seizures trimethoprim [From Bactrim] Allergy headache Verified 03/24/20 20:08 and seizures PFSH Acute PFSH: Medical History Anxiety Bilateral hydronephrosis Secondary to bladder distention and incomplete emptying Cholelithiasis Cystitis cystica Diverticulosis Epilepsy Focused based right temporal lobe epilepsy patient does not wish to have surgery for intractable seizures Frequent headaches GERD without esophagitis Hiatal hernia Hypertension Mild cognitive impairment Mixed stress and urge urinary incontinence Osteopenia Overflow incontinence Partial epilepsy secondarily generalized Urinary retention Surgical History History of ear surgery (~2014) Right. Dr Khan History of total hysterectomy (~1982) TVH (still has ovaries) for bleeding. Performed by Dr. Armstrong at [facility] [place] [facility] Family History Brother Diabetes Heart disease Hypercholesteremia Hypertension Social History Smoking and tobacco status: former smoker Quit status (tobacco): has quit using tobacco Year quit tobacco: 2012 Former quit date comment: smoked 20 years Alcohol intake: never Lives independently: Yes Housing: House Marital status: Legally Vitals/I&O/Wt Last Vital Signs Temp 99.0 F 03/24/20 20:00 Pulse 81 03/25/20 00:00 Resp 21 H 03/25/20 00:00 BP 176/104 03/25/20 00:00 Pulse Ox 96 03/25/20 00:00 03/24/20 03/24/20 03/25/20 14:59 22:59 06:59 Intake Total 160 / 160 Balance 160 / 160 Weight last 48 hrs Weight 68.039 kg Physical Exam Narrative: EXAM NARRATIVE: This is an elderly female Currently in postictal state moving all upper extremities Opens her eyes spontaneously, I do not appreciate any pupillary asymmetry She is not able to follow my commands, has pursed lip breathing pattern, was saturating 88% on room air, I put her on 3 L nasal cannula which improved her oxygenation She looks extremely dry, clinical signs of dehydration S1, S2 sinus tachycardia noted Abdomen scaphoid nondistended, Lower extremity no edema gangrene ulcer Jarrett catheter draining clear yellow urine Neuro exam limited Reflexes equivocal Bilateral breath sounds without wheezing or crackles Very mild frothing noted Urinary Catheter Management^: Jarrett: Cath Placed During This Visit: yes Reason for Continuing Indwelling Catheter: Other Urinary Catheter Date of Insertion: 03/24/20 Urinary Catheter Time of Insertion: 19:57 Data : 03/24/20 19:40 03/24/20 19:40 Micro: Microbiology 03/24/20 21:07 Blood Culture - Preliminary Blood SPECIMEN COLLECTED 03/24/20 21:10 Blood Culture - Preliminary Blood SPECIMEN COLLECTED A&P Assessment and plan (1) Acute UTI: Status: Acute (2) Seizure: Status: Acute (3) Acidosis, lactic: Status: Acute Additional A&P Information Breakthrough seizures with history of temporal epilepsy Most likely cause is noncompliance with medication and UTI She was loaded with Keppra which I would continue with maintenance regimen along with ceftriaxone for UTI No active signs of sepsis Closely monitor in ICU Would use Ativan for breakthrough seizure episodes We will request Lamictal level Lactic acidemia secondary to seizures Episode lasted for about 2 minutes I would keep her on D5 half-normal saline for now to prevent hypoglycemia CT head did not show any acute remarkable findings No signs of sepsis Chest x-ray shows calcified nodules no signs of consolidation, official report pending Acute hypoxic respiratory failure She is sinus tachycardic as well will obtain D-dimer High troponin has significant delta as well Rule out PE She is currently requiring 3 L nasal cannula to keep saturation above 90% UTI: Obtain urine culture, abnormal UA, start ceftriaxone History of hydronephrosis, creatinine seems to be around baseline, Jarrett catheter draining clear urine N.p.o. until her mentation improves Full code DVT prophylaxis Lovenox Attestations Medical Necessity Statement*: Stay in the hospital to cross more than 2 midnights continued ICU for breakthrough seizure with history of epilepsy she is high risk for intubation Time Spent in Patient Care: 50mins Coding Level of Care Code Acute Retail Visual Merchandiser for Chg Fwd Diagnoses Acute UTI N39.0 Seizure R56.9 Acidosis, lactic E87.2
[2020-03-25 00:49] LABS: Troponin 5 2HR 99.69 ng/L (0-10)
[2020-03-25 00:55] LABS: Troponin 5 2HR Delta 62.69 ABS# (0-10)
--- NOTE | 2020-03-25 02:08 | ECG_ITS ---
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 Measurements Intervals [place] Rate: 106 P: 99 ME: 216 QRS: -41 QRSD: 92 T: 42 QT: 335 QTc: 445 Interpretive Statements SINUS TACHYCARDIA WITH FIRST DEGREE AV BLOCK MARKED LEFT AXIS DEVIATION [QRS AXIS < -30] MODERATE ST DEPRESSION [0.05+ mV ST DEPRESSION] Compared to ECG 03/25/2020 00:19:26 ST (T wave) deviation now present T-wave abnormality no longer present Electronically Signed On 03-25-2020 16:44:23 CYLINDER PRESS OPERATOR HELPER by Quang Marquez M.D. [email or web address]/[id number]
[2020-03-25 02:25] LABS: D Dimer 1.17 ug/mIFEU (0-0.59)
--- NOTE | 2020-03-25 03:21 | PC.NURSE ---
2000 mL drained from catheter.
[2020-03-25] MEDS: LORazepam 2 mg/mL INJ 1 mL IVP (04:26)
[2020-03-25] MEDS: enoxaparin 40 mg/0.4 mL Syringe SUBCUT (04:27)
[2020-03-25] MEDS: dextrose 5%-sod chloride 0.45% 1,000 ML 75 ML IV (04:42)
--- NOTE | 2020-03-25 05:01 | PC.NURSE ---
Admitted from ED via stretcher, nurse and 1:1 sitter at bedside. Transferred to bed, placed on 2L NC. V/S stable. Unable to obtain history from patient related to altered mental status and no family available. Appears to be having intermittent seizures lasting approx 30 seconds. Ativan 2mg given IVP.
[2020-03-25 05:55] LABS: Basophils % 0.2 %; Hematocrit 38.9 % (37.0-47.0); Hemoglobin 11.3 g/dL (11.5-15.3); Lymphocytes # 1.4 10^3/uL (0.8-4.8); Lymphocytes % 11.8 %; Mean Corpuscular Hemoglobin 21.9 pg (28.0-34.0); Mean Corpuscular Volume 75.5 fL (81-99); Mean Platelet Volume 10.1 fL (7.4-10.4); Monocytes # 0.7 10^3/uL (0.2-0.9); Monocytes % 5.9 %; Neutrophils # 9.72 10^3/uL (1.8-7.7); Neutrophils % 81.8 %; Nucleated Red Blood Cells % 0 %; Platelet Count 331 10^3/cmm (130-400); Red Blood Count 5.15 10^6/uL (4.1-5.3); Red Cell Distribution Width 16.5 % (12.1-15.1); White Blood Count 11.9 10^3/uL (4.0-10.0)
[2020-03-25 06:15] LABS: Lactate (Lactic Acid level) 1.7 mmol/L (0.5-2.2)
[2020-03-25 06:38] LABS: Alanine Aminotransferase 11 U/L (0-33); Albumin Level 4.4 g/dL (3.5-5.2); Alkaline Phosphatase 77 IU/L (35-105); Anion Gap 17.5 (5-19); Aspartate Amino Transferase 26 U/L (0-32); Blood Urea Nitrogen 8 mg/dL (8-23); Carbon Dioxide 22 mmol/L (22-29); Chloride 102 mmol/L (98-107); Globulin 3.1 g/dL (1.3-4.6); Glucose 149 mg/dL (65-115); Osmolality Calculated 287 mOsm/kg (285-295); Potassium 3.5 mmol/L (3.5-5.1); Sodium 138 mmol/L (136-145); Total Bilirubin 0.2 mg/dL (0.15-1.2); Total Protein 7.5 g/dL (6.6-8.7)
[2020-03-25 07:17] LABS: Troponin 5 6HR 170.2 ng/L (0-10); Troponin 5 6HR Delta 133.2 ng/L (0-12)
--- NOTE | 2020-03-25 07:49 | USCV_ITS ---
Melonie Suggs Age: 74 Gender: F : 1945 Exam Date: 03/25/2020 14:54 Ordering Phys: Mame Faye MD Technologist: Maty Butterfield Exam Location: [facility] [place] Indication: NSTEMI BP: 86 / 55 HR: 89 Rhythm: Sinus Technical Quality: Adequate MEASUREMENTS (Male / Female) Normal Values 2D ECHO LV Diastolic Diameter PLAX 3.1 cm 4.2 - 5.9 / 3.9 - 5.3 cm LV Systolic Diameter PLAX 2.0 cm LV Chamber Size 3.5 cm IVS Diastolic Thickness 1.4 cm 0.6 - 1.0 / 0.6 - 0.9 cm IVS Systolic Thickness 1.8 cm LVPW Diastolic Thickness 2.0 cm 0.6 - 1.0 / 0.6 - 0.9 cm LVPW Systolic Thickness 2.2 cm RV Chamber Size 1.7 cm LVOT Diameter 2.1 cm LV Ejection Fraction 2D Teich 68.8 % LV Ejection Fraction MOD 2C 67.9 % LV Ejection Fraction 2C AL 69.8 % LA Diameter 3.5 cm LA Width 3.0 cm LA Height 4.8 cm RA Width 2.7 cm RA Height 3.4 cm Aorta at Sinotubular Diameter 2.5 cm M-MODE LV Diastolic Diameter MM 4.8 cm 4.2 - 5.9 / 3.9 - 5.3 cm LV Systolic Diameter MM 2.8 cm LV Ejection Fraction MM Teich 73.1 % IVS Diastolic Thickness MM 1.0 cm 0.6 - 1.0 / 0.6 - 0.9 cm IVS Systolic Thickness MM 1.6 cm LVPW Diastolic Thickness MM 1.2 cm 0.6 - 1.0 / 0.6 - 0.9 cm LVPW Systolic Thickness MM 1.8 cm Aortic Annulus Diameter 3.0 cm LA Ao Ratio MM 1.4 MV E Point Septal Separation 0.5 cm DOPPLER AV Peak Velocity 157.0 cm/s LVOT Peak Velocity 123.0 cm/s AV Area Cont Eq vti 2.7 cm squared AV Area Cont Eq pk 2.7 cm squared MV Area PHT 6.7 cm squared Mitral E to A Ratio 0.6 MV E' Velocity 34.5 cm/s Mitral E to MV E' Ratio 7.7 Mitral E to LV E' Lateral Ratio 6.6 Mitral E to LV E' Septal Ratio 9.3 TR Peak Velocity 249.7 cm/s TR Peak Gradient 24.9 mmHg TV Peak E Velocity 44.0 cm/s Right Atrial Pressure 3.0 mmHg Pulmonary Artery Systolic Pressu 27.9 mmHg PV Peak Velocity 97.0 cm/s RV Acceleration Time 0.1 s RV Ejection Time 0.2 s RV AcT/ET 0.6 FINDINGS Left Ventricle Normal left ventricular cavity size. Normal left ventricular systolic function. No regional wall motion abnormalities. Left ventricular ejection fraction is estimated at 65 %. Grade I/IV diastolic dysfunction (abnormal relaxation filling pattern), normal to mildly elevated filling pressures. Right Ventricle The right ventricle is normal in size and function. Right Atrium The right atrium is normal in size. Left Atrium The left atrium is normal in size. Mitral Valve Structurally normal mitral valve without significant stenosis or prolapse. There is trace mitral regurgitation. Aortic Valve Mild aortic valve calcification. No aortic valve stenosis. Trace aortic valve regurgitation. Tricuspid Valve Mild tricuspid valve regurgitation. Pulmonic Valve Structurally normal pulmonic valve without significant stenosis. There is no pulmonic regurgitation. Pericardium Normal pericardium without effusion. Aorta Normal ascending aorta dimension. CONCLUSIONS 1-Normal left ventricular cavity size. Normal left ventricular systolic function. No regional wall motion abnormalities. Left ventricular ejection fraction is estimated at 65 %. Grade I/IV diastolic dysfunction (abnormal relaxation filling pattern), normal to mildly elevated filling pressures. 2-Mild tricuspid valve regurgitation. 3-Structurally normal mitral valve without significant stenosis or prolapse. There is trace mitral regurgitation. 4-There is no pericardial effusion. 5-Right atrial pressure is around 5 mm of mercury. 6-There are no prior echocardiogram studies to compare. Silvano Mcnair MD (Electronically Signed) Final Date: 25 March 2020 19:27 S
--- NOTE | 2020-03-25 08:04 | PC.NURSE ---
dr. east in. aware of troponin.
[2020-03-25] MEDS: aspirin 300 mg Supp PR (08:14)
--- NOTE | 2020-03-25 09:22 | PC.CHAP ---
Pastoral Care Encounter/Spiritual Assessment Type of Contact [] Declined sales project manager visit [] Patient/Family/Request visit [] Outpatient visit [] Follow-up visit [] Physician referral [] Code/Alert [] Routine visit [] Staff referral [] Actively dying [] Patient sleeping [] Family support [] [] Out of room [] Palliative care [] [] Receiving care in room [] Pre-surgical visit [] Trauma [] Long length of stay [] ICU visit [] Other: Relational/Emotional Strength [] Patient feels connected with others/family/visitors/staff [] Distress [] Loneliness/isolation [] Abandonment Spirituality of Patient [] Person of Taylor [] Attends Voodoo of their Taylor [] Believes in Prayer [] Reads Bible or Alevism materials [] There are Spiritual issues to be addressed Customer Care Assistant Interventions [x] Prayer [] Active listening [] Non-anxious presence [] Spiritual/emotional support [] Crisis/trauma care [] Spiritual counseling [] Bereavement support [] Provided bereavement packet [] Provided Bible/devotional materials [] Provided toy/stuffed animal, coloring book to patient or family member [] Provided Communion [] Anointing/[place] [] Salvation [x] Completed spiritual assessment [] Other: Impact on Illness or Injury [] Angry [] Fearful [] Anxious [] Often cries [] Exhaustion [] Unable to work [] Unable to attend sikhism [] Unable to walk/stand [] Unable to read [] Unable to drive [] Unable to eat/drink [] Unable to sleep [] Unable to be with family [] Patient intubated [] Other: Summary Time spent with patient
--- NOTE | 2020-03-25 11:38 | PC.NURSE ---
remains sleeping, snoring. o2 sat 92% on 2 liters
[2020-03-25 11:42] LABS: Chol HDL Ratio 2.85 mg/dL (0.0-4.40); Cholesterol 185 mg/dL (0-200); HDL Cholesterol 65 mg/dL (60-100); LDL Cholesterol Calculated 111 mg/dL (50-129); LDL HDL Ratio 1.71 RATIO (0.00-3.22); NT Pro B Type Natriuretic Pept 3590 pg/mL (0-125); Triglycerides 47 mg/dL (0-150)
[2020-03-25 11:46] LABS: Estmated Average Glucose 97
[2020-03-25] MEDS: pantoprazole 40 mg SDV IVP (11:47)
[2020-03-25] MEDS: heparin drip 25,000 UNIT/500 ML PREMIX 18 UNIT IV (13:43)
[2020-03-25] MEDS: heparin 5,000 unit/mL INJ 1 mL IV ×2 (13:51→21:02)
--- NOTE | 2020-03-25 14:32 | PM.PN ---
Subjective Subjective: Interval history: Spoke with Kathy Blackwell, person to notify. Kathy is Andrei Blackwell's nmfppm-mr-pln. Andrei Blackwell lives with Melonie Suggs. They are not . 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 According to Kathy, Melonie will periodically decide to quit taking her seizure medications. Evidently Andrei encourages her to not take it as well. When she stops taking her medication she will have intractable seizures. She follows with Dr. Reese who was explained the reasoning behind the medications with her and also discussed alternative management options which she has not been amendable to. Melonie and Andrei do not get out of the house much at all. Neither one of them drive. They do have somebody who comes over and does some cleaning and at times might take Melonie to the store. No known recent fever, respiratory symptoms or general malaise. No known sick contacts with Edwardo although Melonie admits that she is not sure about the person who helps out around the house. Updated Kathy Blackwell on potential cardiac issues and plans. Also mention that some laboratory abnormalities can be seen with Covid but no fever, chest x-ray findings or history reported to indicate this at the moment. Medications: Reviewed: Yes Vitals/I&O/Wt Last Vital Signs Temp 98.5 F 03/25/20 10:00 Pulse 93 03/25/20 14:00 Resp 17 03/25/20 14:00 BP 120/71 03/25/20 14:00 Pulse Ox 97 03/25/20 14:00 03/24/20 03/25/20 03/25/20 22:59 06:59 14:59 Intake Total 160 / 160 1000 / 1160 105 / 105 Output Total 250 / 250 Balance 160 / 160 750 / 910 105 / 105 Weight last 48 hrs Weight 62.868 kg Weight 68.039 kg Physical Exam Const: OTHER: Lethargic, moves to stimuli but will not make eye contact or answer questions HENMT: OTHER: Moist mucous membranes, lips are dry, she does have evidence of biting her lower lip that is easily visible and some mild edema of the lower lip Eye: OTHER: Pupils are about 4 mm and sluggish but reactive bilaterally, no nystagmus is noted Neck/C-Spine: OTHER: Supple Resp: OTHER: Clear to auscultation bilaterally no rales rhonchi or wheezes noted Cardio: OTHER: Regular rate and rhythm, no murmurs gallops or rubs. Distal pulses 2+ and equal. GI: OTHER: Abdomen soft, nontender, nondistended with positive bowel sounds : OTHER: Catheter noted Extremity: NARRATIVE EXTREMITY EXAM: No cyanosis, clubbing or edema, no acute synovitis Neuro: OTHER: No tremors or abnormal movements currently, curled up with her arms under her chin and legs are straight, moves all extremity with touch/stimulus, no persistent clonus noted Psych: OTHER: Not currently responsive Skin: OTHER: Dry, no acute rashes, few bruises Urinary Catheter Management^: Jarrett: Cath Placed During This Visit: yes Urinary Catheter Date of Insertion: 03/24/20 Urinary Catheter Time of Insertion: 19:57 Data : 03/25/20 05:30 03/25/20 05:30 Micro: Microbiology 03/24/20 21:07 Blood Culture - Preliminary Blood SPECIMEN COLLECTED 03/24/20 21:10 Blood Culture - Preliminary Blood SPECIMEN COLLECTED Other data: Procedures done during this admission include: CT of the head no acute abnormality though stable mild chronic atrophy and white matter changes Chest x-ray with no acute findings A&P Assessment and plan (1) NSTEMI (non-ST elevated myocardial infarction): Significant delta noted. Nonspecific ST changes suggestive of ischemia but no ST elevation. No history of known cardiac disease. Status: Acute (2) Post-ictal state: Status: Acute (3) Secondarily generalized seizures: Acute on chronic presently, was loaded with Keppra in the emergency room, Lamictal level ordered Status: Acute (4) Temporal lobe epilepsy, intractable: Chronic, normally on lamiotrigine and diazepam, reports she had not been compliant with her medications to her for couple of days Status: Chronic (5) Acute UTI: Presumptive diagnosis at the time of admission. Patient does do intermittent self-catheterization at home and has chronic issues with urinary retention, overflow incontinence and bilateral hydronephrosis. Could be an acute infectious process contributing to decreased seizure threshold and presentation leading to admission but could also be contamination. There are epithelial cells noted. Status: Acute (6) Acute respiratory failure with hypoxia: Currently feels secondary to postictal state, was requiring 3 L of oxygen at peak. Was noted to have sinus tachycardia and did get a D-dimer done which was elevated. Hold further work-up for possibility of PE presently in light of acute cardiac issues. Anticoagulation was initiated. Status: Acute (7) Acidosis, lactic: Status: Resolved Additional A&P Information Start aspirin, statin, beta-blockade and anticoagulation Lovenox has been held and she has been started on heparin drip Cardiology consultation Echocardiogram Telemetry monitoring Check lipid panel, BNP, A1c For the time being continue Keppra as well as Valium Follow up pending Lamictal level, resume Lamictal to take by mouth Ativan IV as needed for recurrent seizures Depending on clinical course consider neurology consultation to assist with seizure management Seizure precautions Neuro checks Monitor Accu-Cheks without any insulin therapy Change IV fluids to D5 half-normal saline with potassium Continue Rocephin currently Follow-up pending blood and urine cultures Monitor respiratory status for continued need for oxygen therapy Continue catheter for monitoring of urine output in a critically ill patient who also requires intermittent self-catheterization at home Home vitamin C, methenamine, Flomax and H2 lila are currently held; home diazepam and metoprolol or ordered though not clear if she will be able to take them by mouth; home Lamictal will be started Person to notify, Kathy Blcakwell updated >> should she require cardiac intervention or evaluation I believe Kathy would be whom we could get consent from based on available information in the patient's records although she is not a family relation Continue one-to-one sitter for safety as patient is still not responsive and at times her self at risk of injury by rapidly moving about the bed, will discontinue when more alert and cooperative Maintain n.p.o. until more alert Current anticoagulation will address VTE prophylaxis PPI was ordered for GI prophylaxis at the time of admission Supportive care otherwise Full code Attestations Medical Necessity Statement*: Requires ongoing inpatient stay for persistent postictal state status post intractable seizures yesterday. Has known temporal lobe epilepsy with secondary generalized seizures when she is noncompliant with medications. In addition she has evidence of significant troponin elevation suggestive of non-ST elevation [place]. Continues to require one-to-one sitter for safety and other management as noted above. Coding Level of Care Code Acute Cleaner Laboratory Equipment for [facility] Diagnoses NSTEMI (non-ST elevated myocardial infarction) I21.4 Post-ictal state R56.9 Secondarily generalized seizures Temporal lobe epilepsy, intractable G40.119 Acute UTI N39.0 Acute respiratory failure with hypoxia J96.01 Acidosis, lactic E87.2
[2020-03-25] MEDS: D5-NS 0.45% + KCL 20 mEq 20 MEQ/1,000 ML BAG 75 MEQ IV (15:55)
--- NOTE | 2020-03-25 15:58 | PC.NURSE ---
sleeping, snoring h.o.b. raised. opens eyes to verbal stimuli, wont follow commands.
--- NOTE | 2020-03-25 17:54 | PC.NURSE ---
followed commands to turn in bed for ptl linen change. told me her last name. pulls covers up over head. wont establish eye contact for very long at a time.
[2020-03-25 20:20] LABS: Partial Thromboplastin Time 38.6 SECONDS (23.9-36.7)
[2020-03-25] MEDS: cefTRIAXone 1,000 MG in sodium chloride 0.9% (plus) 50 ML 100 MG IV (21:05)
--- NOTE | 2020-03-25 21:51 | PM.CONSULT ---
Providers/Reason For Consult Consulting Physican/Specialty*: Cardiology Reason for Consult*: Abnormal cardiac markers/NSTEMI Attending Physician: Mame Faye MD Primary Care Provider: Carlos Barba MD History of Present Illness History of Present Illness I been asked by our medicine colleagues to assist in care of Melonie Suggs who is a 74 year old female past medical history significant for epileptic intractable seizures with questionable compliance please note that patient is not conscious therefore history is not possible. Patient was brought to emergency room postictal, he had another episode of tonic-clonic seizure in the ER where she was rolled loaded with antiepileptic medicine. She was also noted to have UTI, CT head was not suggestive of any acute process. During investigation she was noted to have troponin T abnormally high more than 100 with lactic acidosis, twelve-lead EKG suggestive of anterior wall ST depression may suggestive of ischemia versus electrolyte imbalance/NC MANAGER process. Review of Systems General: Reports: ROS unobtainable due to medical condition (Post ictal confusion) and ROS unobtainable due to mental status Eyes: Denies: photophobia Musc: Denies: joint warmth All/Imm: Denies: acute wheezing Meds/Allergies Home Medications and Allergies Home Medications Medication Instructions Recorded Confirmed Last Taken Type tamsulosin 0.4 mg capsule 0.4 mg PO DAILY #30 cap 09/28/19 03/25/20 Unknown Rx methenamine hippurate 1 gram tablet 1 g PO BID #60 tab 10/31/19 03/25/20 Unknown Rx ascorbic acid (vitamin C) 1,000 mg 1 gm PO BID tab 11/14/19 03/25/20 Unknown History tablet ranitidine HCl 150 mg tablet 150 mg PO BID tab 11/14/19 03/25/20 Unknown History diazepam 10 mg tablet 10 mg PO DAILY #30 tab 01/25/20 03/25/20 Unknown Rx metoprolol tartrate 25 mg tablet 25 mg PO BID 30 Days #60 tab 01/31/20 03/25/20 Unknown Rx lamotrigine 250 mg tablet,extended 500 mg PO DAILY #60 tab 03/21/20 03/25/20 Unknown Rx release 24 hr Allergies Allergy/AdvReac Type Severity Reaction Status Date / Time divalproex sodium Allergy N/V and Verified 03/24/20 20:08 [From Depakote] dizziness sulfamethoxazole Allergy headache Verified 03/24/20 20:08 [From Bactrim] and seizures trimethoprim [From Bactrim] Allergy headache Verified 03/24/20 20:08 and seizures Current Medications Current Medications Generic Name Dose Route Start Last Admin Trade Name Freq PRN Reason Stop Dose Admin Aspirin 325 mg 03/25/20 08:00 03/25/20 09:09 Aspirin 325 Mg Tablet PO Not Given DAILY TANK Atorvastatin Calcium 40 mg 03/25/20 08:00 03/25/20 11:40 Atorvastatin 40 Mg Tablet PO Not Given BEDTIME TANK Diazepam 10 mg 03/25/20 16:00 03/25/20 16:37 Diazepam 5 Mg Tablet PO Not Given DAILY TANK Heparin Sodium (Beef Lung) 0 unit 03/25/20 13:38 03/25/20 21:02 Heparin 5,000 Unit/Ml Inj 1 Ml IV 2,600 unit PRN PRN Administration Heparin weight-base protocol Protocol Levetiracetam 500 mg/ Sodium 105 mls @ 420 mls/hr 03/25/20 09:00 03/25/20 18:27 Chloride IV Infused BID TANK Infusion Ceftriaxone Sodium 1,000 mg/ 50 mls @ 100 mls/hr 03/25/20 22:00 03/25/20 21:35 Sodium Chloride IV Infused Q24H TANK Infusion Protocol Heparin Sodium/Sodium Chloride 25,000 unit in 500 mls @ 0 mls/hr 03/25/20 13:45 03/25/20 21:03 Heparin Drip IV 16.7 unit/kg/hr .Q0M TANK 21 mls/hr Titration Protocol Per Protocol Potassium Chloride/Dextrose/Sod Cl 20 meq in 1,000 mls @ 75 mls/hr 03/25/20 15:00 03/25/20 15:55 D5-Ns 0.45% + Kcl 20 Meq IV 75 mls/hr .[id number] TANK Administration Lorazepam 2 mg 03/25/20 03:59 03/25/20 04:26 Lorazepam 2 Mg/Ml Inj 1 Ml IVP 2 mg Q6H PRN Administration ANXIETY Metoprolol Tartrate 25 mg 03/25/20 09:00 03/25/20 17:38 Metoprolol Tartrate 25 Mg Tablet PO Not Given BID TANK Pantoprazole Sodium 40 mg 03/25/20 09:00 03/25/20 11:47 Pantoprazole 40 Mg Sdv IVP 40 mg DAILY TANK Administration PFSH Acute PFSH: Medical History (Updated 03/25/20 @ 15:04 by Mame Faye MD) Anxiety Bilateral hydronephrosis Secondary to bladder distention and incomplete emptying Cholelithiasis Cystitis cystica Diverticulosis Epilepsy Focused based right temporal lobe epilepsy patient does not wish to have surgery for intractable seizures Frequent headaches GERD without esophagitis Hiatal hernia Hypertension Mild cognitive impairment Mixed stress and urge urinary incontinence Osteopenia Overflow incontinence Partial epilepsy secondarily generalized Urinary retention intermittent catheterization Surgical History History of ear surgery (~2014) Right. Dr Khan History of total hysterectomy (~1982) TVH (still has ovaries) for bleeding. Performed by Dr. Armstrong at [facility] [place] Family History Brother Diabetes Heart disease Hypercholesteremia Hypertension Social History Smoking and tobacco status: former smoker Quit status (tobacco): has quit using tobacco Year quit tobacco: 2012 Former quit date comment: smoked 20 years Alcohol intake: never Lives independently: Yes Housing: House Marital status: Legally Dietary Habits: Current diet type/program: regular (well balanced) Vitals/I&O/Wt Last Vital Signs Temp 98.6 F 03/25/20 20:00 Pulse 83 03/25/20 20:00 Resp 18 03/25/20 20:00 BP 96/48 03/25/20 20:00 Pulse Ox 96 03/25/20 20:00 03/25/20 03/25/20 03/25/20 06:59 14:59 22:59 Intake Total 1000 / 1160 105 / 105 287 / 392 Output Total 250 / 250 250 / 250 Balance 750 / 910 105 / 105 37 / 142 Weight last 48 hrs Weight 138 lb 9.6 oz Weight 150 lb Physical Exam Narrative: EXAM NARRATIVE: GENERAL: Patient is laying on the right side not responding to command breathing fine. NECK: No jugular vein distension. HEENT: No cyanosis. No icterus. No pallor. HEART: Regular S1 and S2. No murmur, rub or gallop. LUNGS: Clear to auscultate bilaterally. ABDOMEN: Soft, CENTRAL NERVOUS SYSTEM: Unconscious EXTREMITIES: Lower extremities without edema bilaterally. Urinary Catheter Management^: Jarrett: Cath Placed During This Visit: yes Reason for Continuing Indwelling Catheter: Accurate Measurement of Urinary Output in Critically Ill Patients Urinary Catheter Date of Insertion: 03/24/20 Urinary Catheter Time of Insertion: 19:57 Data Micro: Micro: Microbiology 03/24/20 21:07 Blood Culture - Pr eliminary Blood NEGATIVE TO WAYNE E 03/24/20 21:10 Blood Culture - Pr eliminary Blood NEGATIVE TO WAYNE E A&P Assessment and plan (1) NSTEMI (non-ST elevated myocardial infarction): At this point we recommend anticoagulation with heparin as per ACS protocol if not contraindicated by medicine or neurology. Patient is unconscious but stable cardiac rogers we will continue to monitor on telemetry. Etiology could be sepsis, stress-induced cardiomyopathy versus type II, may introduce beta-lila 12.5 mg twice daily via NG tube whenever possible along with aspirin 81. Echocardiogram will be obtained to assess LV function. We will continue to trend cardiac markers. Once patient electrolyte balance and lactic acid improve and upon returning to full conscious we will assess her for left heart cath versus stress test before discharge. Status: Acute (2) Temporal lobe epilepsy, intractable: As per medicine Status: Chronic (3) Acute respiratory failure with hypoxia: Currently stable continue current management as per medicine. Status: Acute Consult Attestations Medical Necessity Statement: Require continuation hospitalization for above defined care. Coding Level of Care Code New Pt Acute Investigator Narcotics for [facility] Patient Type New History Detailed Exam Detailed Medical Decision Making Moderate Complexity Diagnoses NSTEMI (non-ST elevated myocardial infarction) I21.4 Temporal lobe epilepsy, intractable G40.119 Acute respiratory failure with hypoxia J96.01
[2020-03-26] VITALS (25 sets, daily range): BP systolic 110–172; BP diastolic 50–105; PULSE 70–152; RESP 9–29; TEMP 36.3–37.1; O2SAT 93–100
[2020-03-26 03:13] LABS: Basophils # 0.1 10^3/uL (0.0-0.1); Basophils % 0.7 %; Eosinophils # 0.1 10^3/uL (0.0-0.8); Eosinophils % 0.8 %; Hematocrit 36.9 % (37.0-47.0); Hemoglobin 10.7 g/dL (11.5-15.3); Lymphocytes # 2.5 10^3/uL (0.8-4.8); Lymphocytes % 32.4 %; Mean Corpuscular Hemoglobin 22.2 pg (28.0-34.0); Mean Corpuscular Volume 76.7 fL (81-99); Mean Platelet Volume 9.6 fL (7.4-10.4); Monocytes # 0.9 10^3/uL (0.2-0.9); Monocytes % 11.5 %; Neutrophils # 4.18 10^3/uL (1.8-7.7); Neutrophils % 54.5 %; Nucleated Red Blood Cells % 0 %; Platelet Count 260 10^3/cmm (130-400); Red Blood Count 4.81 10^6/uL (4.1-5.3); Red Cell Distribution Width 16.6 % (12.1-15.1); White Blood Count 7.7 10^3/uL (4.0-10.0)
[2020-03-26 03:31] LABS: Alanine Aminotransferase 11 U/L (0-33); Albumin Level 3.6 g/dL (3.5-5.2); Alkaline Phosphatase 67 IU/L (35-105); Anion Gap 13.1 (5-19); Aspartate Amino Transferase 27 U/L (0-32); Blood Urea Nitrogen 8 mg/dL (8-23); Calcium 8.4 mg/dL (8.5-10.5); Carbon Dioxide 23 mmol/L (22-29); Chloride 107 mmol/L (98-107); Globulin 2.8 g/dL (1.3-4.6); Glucose 118 mg/dL (65-115); Osmolality Calculated 289 mOsm/kg (285-295); Potassium 3.1 mmol/L (3.5-5.1); Sodium 140 mmol/L (136-145); Total Bilirubin 0.2 mg/dL (0.15-1.2); Total Protein 6.4 g/dL (6.6-8.7)
[2020-03-26 03:35] LABS: Partial Thromboplastin Time 77.2 SECONDS (23.9-36.7)
[2020-03-26] MEDS: D5-NS 0.45% + KCL 20 mEq 20 MEQ/1,000 ML BAG 75 MEQ IV (06:28)
--- NOTE | 2020-03-26 08:01 | PC.CHAP ---
Pastoral Care Encounter/Spiritual Assessment Type of Contact [] Declined simulation developer visit [] Patient/Family/Request visit [] Outpatient visit [] Follow-up visit [] Physician referral [] Code/Alert [] Routine visit [] Staff referral [] Actively dying [] Patient sleeping [] Family support [] [] Out of room [] Palliative care [] [] Receiving care in room [] Pre-surgical visit [] Trauma [] Long length of stay [] ICU visit [] Other: Relational/Emotional Strength [] Patient feels connected with others/family/visitors/staff [] Distress [] Loneliness/isolation [] Abandonment Spirituality of Patient [] Person of Taylor [] Attends Rastafarian of their [place] [] Believes in Prayer [] Reads Bible or Uatsdin materials [] There are Spiritual issues to be addressed Client Sales And Service Officer Interventions [x] Prayer [] Active listening [] Non-anxious presence [] Spiritual/emotional support [] Crisis/trauma care [] Spiritual counseling [] Bereavement support [] Provided bereavement packet [] Provided Bible/devotional materials [] Provided toy/stuffed animal, coloring book to patient or family member [] Provided Communion [] Anointing/[place] [] Salvation [x] Completed spiritual assessment [] Other: Impact on Illness or Injury [] Angry [] Fearful [] Anxious [] Often cries [] Exhaustion [] Unable to work [] Unable to attend zoroastrian [] Unable to walk/stand [] Unable to read [] Unable to drive [] Unable to eat/drink [] Unable to sleep [] Unable to be with family [] Patient intubated [] Other: Summary Time spent with patient
[2020-03-26 08:37] LABS: Magnesium 2.3 mg/dL (1.7-2.3)
[2020-03-26] MEDS: pantoprazole 40 mg SDV IVP (08:49)
[2020-03-26] MEDS: metoprolol tartrate 25 mg Tablet PO ×2 (08:50→17:37)
[2020-03-26] MEDS: diazePAM 5 mg Tablet 10 MG PO (08:50)
[2020-03-26] MEDS: aspirin 325 mg Tablet PO (08:50)
[2020-03-26 10:30] LABS: Partial Thromboplastin Time 60.7 SECONDS (23.9-36.7)
[2020-03-26] MEDS: heparin drip 25,000 UNIT/500 ML PREMIX 20 UNIT IV (16:48)
[2020-03-26 17:09] LABS: Partial Thromboplastin Time 58.1 SECONDS (23.9-36.7)
--- NOTE | 2020-03-26 18:02 | ECG_ITS ---
[facility] Test Date: 2020-03-26 Pat Name: Melonie Suggs Department: Room: ICU10 Gender: Female [employer] Sharpshooter: : 1945 Requested By: Mame Faye Order Number: [id number] Manolo MD: ILIANA RIVAS Measurements Intervals [place] Rate: 99 P: 54 WA: 212 QRS: -51 QRSD: 82 T: 24 QT: 378 QTc: 486 Interpretive Statements SINUS RHYTHM WITH FIRST DEGREE AV BLOCK PATTERN CONSISTENT WITH PULMONARY DISEASE LEFT ANTERIOR FASCICULAR BLOCK [QRS AXIS <= -45, QR IN I, RS IN II] Compared to ECG 03/25/2020 04:11:16 Left anterior fascicular block now present Sinus tachycardia no longer present Left-axis deviation no longer present ST (T wave) deviation no longer present Electronically Signed On 03-28-2020 15:25:22 WEB PRODUCTION MANAGER by ILIANA RIVAS [id number]
--- NOTE | 2020-03-26 18:17 | PM.PN ---
Subjective Subjective: Interval history: Patient woke up today and was not sure what had happened. She has no recollection of the previous 24 hours. She did admit that she had not been taking her medication for 2 to 3 weeks. She says it was not working so she quit taking it. She does not seem to understand that not taking the medication will lead to worsening of seizures. She cannot tell me what it is about the medicine that she thinks is indicative of it not working. Denies any chest pain. Not having any shortness of breath. She does describe a burning sensation in the right side of her chest which she attributes to her skin being very dry. Vitals/I&O/Wt Last Vital Signs Temp 98.6 F 03/26/20 18:00 Pulse 117 H 03/26/20 18:00 Resp 29 H 03/26/20 18:00 BP 168/105 03/26/20 18:00 Pulse Ox 98 03/26/20 18:00 03/26/20 03/26/20 03/26/20 06:59 14:59 22:59 Intake Total 1140 / 1532 1355 / 1355 1583 / 2938 Output Total 800 / 1050 1350 / 1350 1850 / 3200 Balance 340 / 482 5 / 5 -267 / -262 Weight last 48 hrs Weight 63.503 kg Weight 62.868 kg Weight 68.039 kg Physical Exam Const: OTHER: Awake and alert, knows that she is in the hospital HENMT: OTHER: Moist mucous membranes Eye: OTHER: Pupils equal and reactive Neck/C-Spine: OTHER: Supple Resp: OTHER: Clear to auscultation Cardio: OTHER: Regular rate and rhythm GI: OTHER: Abdomen soft, nontender, nondistended with positive bowel sounds : OTHER: Catheter noted, ordered to be removed Extremity: NARRATIVE EXTREMITY EXAM: No cyanosis, clubbing or edema, no acute synovitis Neuro: OTHER: No tremors or abnormal movements currently Psych: OTHER: Limited insight into medical conditions Skin: OTHER: No acute rashes, still with bite martin on lower lip that are starting to heal Urinary Catheter Management^: Jarrett: Cath Placed During This Visit: yes Reason for Continuing Indwelling Catheter: Accurate Measurement of Urinary Output in Critically Ill Patients Urinary Catheter Date of Insertion: 03/24/20 Urinary Catheter Time of Insertion: 19:57 Data : 03/26/20 03:00 03/26/20 03:00 Micro: Microbiology 03/24/20 20:56 Urine Culture - Preliminary Urine Catheterized Gram Negative Rods 03/24/20 21:07 Blood Culture - Preliminary Blood NEGATIVE TO DATE 03/24/20 21:10 Blood Culture - Preliminary Blood NEGATIVE TO DATE A&P Assessment and plan (1) NSTEMI (non-ST elevated myocardial infarction): Significant delta noted. Nonspecific ST changes suggestive of ischemia but no ST elevation. No history of known cardiac disease. It is possible that this is from seizure activity and demand ischemia. Does not describe symptoms suggestive of cardiac disease. Status: Acute (2) Post-ictal state: Resolved Status: Resolved (3) Secondarily generalized seizures: Acute on chronic presently, was loaded with Keppra in the emergency room, Lamictal level ordered Status: Chronic (4) Temporal lobe epilepsy, intractable: Chronic, normally on lamiotrigine and diazepam, reports she had not been compliant with her medications to her for couple of days Status: Chronic (5) Acute UTI: Presumptive diagnosis at the time of admission. Patient does do intermittent self-catheterization at home and has chronic issues with urinary retention, overflow incontinence and bilateral hydronephrosis. Could be an acute infectious process contributing to decreased seizure threshold and presentation leading to admission but could also be contamination. There are epithelial cells noted. Urine culture growing greater than 100,000 gram-negative rods. Status: Acute (6) Acute respiratory failure with hypoxia: Feel secondary to postictal state and seizure activity Status: Resolved (7) Acidosis, lactic: Status: Resolved Additional A&P Information Discussed with Dr. Mcnair Stress testing in the morning We will transfer to the floor Continue telemetry monitoring On aspirin, statin, beta-blockade plus heparin drip, will continue for the moment For the time being continue Keppra as well as Valium Follow up pending Lamictal level, carry patient strength of Lamictal and she does not have her home dosing available, can plan on resuming this at discharge Ativan IV as needed for recurrent seizures Seizure precautions Neuro checks Stop Accu-Cheks, stop IV fluids Continue Rocephin currently Follow-up pending blood and urine cultures Does self-catheterization at home, continue Jarrett catheter presently In home Flomax and methenamine plus vitamin C Person to notify, Kathy Blackwell Discontinue sitter Diet initiation Current anticoagulation will address VTE prophylaxis PPI was ordered for GI prophylaxis Supportive care otherwise Full code Attempted to explain the importance of continuing seizure medication with patient. Explained that she had evidence of injury to the heart or an effect from the seizure on her heart at least. She still feels like if the medicine is not working that she should not take it. Explained that she had a very significant episode this time from not taking her seizure medicine for a while. She indicated that God healed her. I was not able to get her to comprehend that if she had not quit taking her medication may be God would not have to have healed her though I did try. Review of records indicates that Dr. Reese and others have tried to get her to understand the importance of her medications in the past as well. Kathy alluded to her not consistently wanting to take it and that her partner Andrei also often encouraged her not to take her medications. Session plans will depend on results of stress testing which we can hopefully get done tomorrow Attestations Medical Necessity Statement*: Requires ongoing inpatient stay for continued evaluation of cardiac abnormalities. Plans are as indicated. 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
--- NOTE | 2020-03-26 18:28 | PC.NURSE ---
EKG ordered and completed. No changes noted. Pt had stated she had a burning sensation on her chest while pointing at the right side.
--- NOTE | 2020-03-26 18:30 | PC.NURSE ---
Pt summary: Pt alert and oriented to self,place and situation. However, repeated reinforcement is needed. She said she stopped her seizure medication because it was not working. Explained to her not having seizures was the purpose of the medication and stopping taking it , now she had a seizure. She replies 'I know . But then will restate the seizure med's were not working so she stopped them.. We went over seizures and medications at length. Then she repeated this again to Dr Faye this evening. Heart rhythm has been stable. VSS. No seizure activity noted. She has drank at least a 16 oz cup of water every hour today. URine output well over 2500ml this shift.
[2020-03-26] MEDS: acetaminophen 325 mg Tablet 650 MG PO (19:46)
[2020-03-26] MEDS: atorvastatin 40 mg Tablet PO (20:40)
[2020-03-26] MEDS: cefTRIAXone 1,000 MG in sodium chloride 0.9% (plus) 50 ML 100 MG IV (21:04)
--- NOTE | 2020-03-26 22:21 | ECG_ITS ---
[facility] Test Date: 2020-03-27 Pat Name: Melonie Suggs Department: Room: 278 Gender: Female Managed Care Analyst: : 1945 Requested By: Mame Faye Order Number: [id number] Manolo MD: ILIANA RIVAS Interpretive Statements NAME OF STUDY: LEXISCAN SESTAMIBI STRESS TEST INDICATION: nstemi, NOTE: Please note that this is the electrocardiogram portion of the Lexiscan/Sestamibi stress test. The perfusion scan will be documented separately. DATA: Baseline heart rate was 117 beats per minute. Baseline blood pressure was 156/96 millimeters of mercury. Target heart rate was 147. Maximum heart rate achieved was 140. which was 95 % of the predicted target heart rate. Maximum blood pressure was 161/96 millimeters of mercury. The reason for ending the test was completion of the protocol. The patient did not experience any symptoms. ELECTROCARDIOGRAM: BASELINE: Sinus rhythm. Normal axis. Old anterolateral myocardial infarction EXERCISE: After Lexiscan injection, no ST-T changes suggestive of ischemic noted. No arrhythmia noted. CONCLUSION: Please note due to baseline abnormality of the EKG specificity and sensitivity of the EKG portion of LexiScan MIBI stress test will be low 1. EKG not suggestive of ischemia 2. Lexiscan injection unremarkable. 3. Perfusion scan will be documented separately. Electronically Signed On 03-28-2020 15:44:59 FLOATING LABOR GANG SUPERVISOR by ILIANA RIVAS [id number]
[2020-03-26 23:00] LABS: Partial Thromboplastin Time 68.6 SECONDS (23.9-36.7)
--- NOTE | 2020-03-26 23:22 | ECG_ITS ---
[facility] Test Date: 2020-03-26 Pat Name: Melonie Suggs Department: Room: 278 Gender: Female Manager Business Banking: : 1945 Requested By: Mame Faye Order Number: [id number] Manolo MD: ILIANA RIVAS Measurements Intervals [place] Rate: 94 P: 63 [place]: 216 QRS: -49 QRSD: 80 T: 25 QT: 385 QTc: 482 Interpretive Statements SINUS RHYTHM WITH FIRST DEGREE AV BLOCK PATTERN CONSISTENT WITH PULMONARY DISEASE LEFT ANTERIOR FASCICULAR BLOCK [QRS AXIS <= -45, QR IN I, RS IN II] Compared to ECG 03/26/2020 18:13:53 No significant changes Electronically Signed On 03-28-2020 15:24:31 HOME SERVICE ADVISOR by ILIANA RIVAS [id number]
[2020-03-27] VITALS (9 sets, daily range): BP systolic 138–184; BP diastolic 69–97; PULSE 70–128; RESP 16–18; TEMP 36.4–36.6; O2SAT 93–99
--- NOTE | 2020-03-27 00:28 | PM.PN ---
Subjective Subjective: Interval history: Denies any complaint. Denies any chest pain she is alert awake and oriented today. Stable vital rogers. Medications: Reviewed: Yes Vitals/I&O/Wt Last Vital Signs Temp 97.8 F 03/27/20 00:08 Pulse 98 03/27/20 00:08 Resp 17 03/27/20 00:08 BP 163/97 03/27/20 00:08 Pulse Ox 99 03/27/20 00:08 03/26/20 03/26/20 03/27/20 14:59 22:59 06:59 Intake Total 1355 / 1355 4383 / 5738 133 / 5871 Output Total 1350 / 1350 4050 / 5400 1550 / 6950 Balance 333 / 338 -1417 / -1079 Weight last 48 hrs Weight 140 lb Weight 138 lb 9.6 oz Physical Exam Narrative: EXAM NARRATIVE: GENERAL: Patient is alert, awake and oriented x3. NECK: No jugular vein distension. HEENT: No cyanosis. No icterus. No pallor. HEART: Regular S1 and S2. No murmur, rub or gallop. LUNGS: Clear to auscultate bilaterally. ABDOMEN: Soft, nontender and nondistended. Positive bowel sounds. No guarding, rebound or tenderness. CENTRAL NERVOUS SYSTEM: Grossly nonfocal. EXTREMITIES: Lower extremities without edema bilaterally. Urinary Catheter Management^: Jarrett: Cath Placed During This Visit: yes Reason for Continuing Indwelling Catheter: Accurate Measurement of Urinary Output in Critically Ill Patients Urinary Catheter Date of Insertion: 03/24/20 Urinary Catheter Time of Insertion: 19:57 Data : 03/26/20 03:00 03/26/20 03:00 Micro: Microbiology 03/24/20 20:56 Urine Culture - Preliminary Urine Catheterized Gram Negative Rods 03/24/20 21:07 Blood Culture - Preliminary Blood NEGATIVE TO DATE 03/24/20 21:10 Blood Culture - Preliminary Blood NEGATIVE TO DATE A&P Assessment and plan (1) NSTEMI (non-ST elevated myocardial infarction): Most likely secondary to type II and possibly demand ischemia. Continue anticoagulation. Recommend Lexiscan MIBI stress test. Continue aspirin and statin Status: Acute (2) Temporal lobe epilepsy, intractable: As per medicine Status: Chronic (3) Acute respiratory failure with hypoxia: Currently stable continue current management as per medicine. Status: Resolved Attestations Medical Necessity Statement*: Continuation hospitalization for above defined care Coding Level of Care Code Established Pt Acute Assistant Shift Supervisor for Chg Fwd Patient Type Established History Expanded Problem Focused Exam Expanded Problem Focused Medical Decision Making Moderate Complexity Diagnoses NSTEMI (non-ST elevated myocardial infarction) I21.4 Temporal lobe epilepsy, intractable G40.119 Acute respiratory failure with hypoxia J96.01
[2020-03-27] MEDS: nitroglycerin 1 gm/inch oint Pkt 0.5 INCH TOPICAL (00:32)
[2020-03-27 00:58] LABS: Troponin(5th) Baseline 83 ng/L (0-10)
--- NOTE | 2020-03-27 01:17 | PC.NURSE ---
The dr was notified about the condidtion of the patient. Diaphoresis, chest numbness, chest burning. EKG was performed with no change. Patient's BP was 182/84. Dr ordered tropinin series and nitropaste.
[2020-03-27 03:06] LABS: Platelet Count 310 10^3/cmm (130-400)
[2020-03-27 03:28] LABS: Troponin 5 2HR 79.46 ng/L (0-10)
[2020-03-27 03:31] LABS: Alanine Aminotransferase 14 U/L (0-33); Albumin Level 4.1 g/dL (3.5-5.2); Alkaline Phosphatase 74 IU/L (35-105); Anion Gap 14.5 (5-19); Aspartate Amino Transferase 26 U/L (0-32); Blood Urea Nitrogen 8 mg/dL (8-23); Carbon Dioxide 25 mmol/L (22-29); Chloride 108 mmol/L (98-107); Globulin 3.2 g/dL (1.3-4.6); Glucose 113 mg/dL (65-115); Osmolality Calculated 297 mOsm/kg (285-295); Potassium 3.5 mmol/L (3.5-5.1); Sodium 144 mmol/L (136-145); Total Bilirubin 0.2 mg/dL (0.15-1.2); Total Protein 7.3 g/dL (6.6-8.7)
[2020-03-27 03:37] LABS: Troponin 5 2HR Delta -3.54 ABS# (0-10)
[2020-03-27 03:54] LABS: Calcium 9.8 mg/dL (8.5-10.5)
[2020-03-27] MEDS: LORazepam 2 mg/mL INJ 1 mL IVP (03:59)
[2020-03-27 05:40] LABS: Partial Thromboplastin Time 46.4 SECONDS (23.9-36.7)
[2020-03-27 05:46] LABS: Troponin 5 6HR 81.06 ng/L (0-10); Troponin 5 6HR Delta -1.94 ng/L (0-12)
--- NOTE | 2020-03-27 07:00 | NMCV_ITS ---
NM zainab perf SPECT r/s* [id number] Melonie Suggs Age: 74 Gender: F : 1945 Exam Date: 03/27/2020 07:12 Ordering Phys: Mame Faye MD Technologist: TRENTON Taveras Exam Location: [facility] Indications: AMS STRESS TEST Please see separate stress test report in [facility] for full findings IMAGE PROTOCOL Rest/Stress 1 Lexiscan Day Radiopharmaceutical Dose (mCi) Administration Site Administered by Rest: Tc-99m 10.5 IV TRENTON Taveras Sestamibi Stress:Tc-99m 32.3 IV Albina Carter, FLAT CLOTHIER Sestamibi Rest: 27-Mar-2020 60 Discovery 630 Stress: 27-Mar-2020 30 Discovery 630 0.4mg Lexiscan. Supine position only as patient was unable to lay prone. SPECT RESULTS Technical Quality: Good Raw Data Analysis: Normal Image Corrections: No attenuation or motion correction applied Summed Stress Score: 5 Summed Rest Score: 0 Summed Difference Score: 5 PERFUSION FINDINGS Medium-sized area of reduce tracer uptake in the basal lateral wall noted over the stress images which most likely is artifact in the absence of wall motion abnormality. FUNCTIONAL RESULTS (calculated via Gated SPECT) Stress Image LV EF (%): 86 Stress EDV (mL):37 TID: 0.55 Stress ESV (mL):5 Rest Image LV EF (%): 86 FUNCTIONAL FINDINGS: Left ventricle ejection fraction is hyperdynamic IMPRESSIONS Perfusion scan is negative for ischemia and low probability for obstructive coronary disease. EKG segment will be documented separately. Silvano Mcnair MD (Electronically Signed) Final Date: 27 March 2020 18:28 S
--- NOTE | 2020-03-27 07:28 | NUR.SHIFT ---
The patient had a period of chest numbness and chest burning, this nurse obtained an EKG, which showed no new changes. Patients BP was 182/84, in which it was discussed with the DrYonatan and nitropaste was admin. Patient quickly stated that the burning and numbness went away. During the night the patient had bouts of anxiety in which the patient would state Tavon take me, I'm ready lord among other sentence to the same effect. This nurse admin Ativan 2mg per mar. While this calmed the patient down, it increased her confusion. The patient would continually pull at her IV line, until she pulled it out completely. After her second IV was established, after leaving the room for 30 seconds, the patient got out of bed, and stressed the IV line and nash cath. This ruined the IV. At shift change the patient is now sleeping. It was suggested to the day shift nurse not to admin Ativan.
--- NOTE | 2020-03-27 07:40 | PC.NURSE ---
Due to protocol, the patient's heparin drip was increased from 20ml/h to 21ml/h with a bolus of 1300unit. This was checked by the charge nurse as stated by protocol.
[2020-03-27] MEDS: regadenoson 0.4 Mg/5 ml Syringe IVP (08:30)
[2020-03-27 10:40] LABS: Basophils # 0.1 10^3/uL (0.0-0.1); Basophils % 0.9 %; Eosinophils # 0.1 10^3/uL (0.0-0.8); Eosinophils % 0.9 %; Hematocrit 40.2 % (37.0-47.0); Hemoglobin 11.7 g/dL (11.5-15.3); Lymphocytes # 1.6 10^3/uL (0.8-4.8); Lymphocytes % 26.8 %; Mean Corpuscular HGB Conc 29.1 g/dL (30.0-36.0); Mean Corpuscular Hemoglobin 22.4 pg (28.0-34.0); Mean Platelet Volume 9.4 fL (7.4-10.4); Monocytes # 0.7 10^3/uL (0.2-0.9); Monocytes % 11.9 %; Neutrophils # 3.43 10^3/uL (1.8-7.7); Neutrophils % 59.2 %; Nucleated Red Blood Cells % 0 %; Platelet Count 299 10^3/cmm (130-400); Red Blood Count 5.22 10^6/uL (4.1-5.3); Red Cell Distribution Width 16.9 % (12.1-15.1); White Blood Count 5.8 10^3/uL (4.0-10.0)
[2020-03-27] MEDS: diazePAM 5 mg Tablet 10 MG PO (12:19)
[2020-03-27] MEDS: aspirin 325 mg Tablet PO (12:20)
[2020-03-27] MEDS: metoprolol tartrate 25 mg Tablet PO ×2 (12:20→17:14)
[2020-03-27] MEDS: ascorbic acid 500 mg Tablet 1000 MG PO ×2 (12:20→17:14)
[2020-03-27] MEDS: pantoprazole DR 40 mg Tablet PO (12:20)
[2020-03-27] MEDS: tamsulosin 0.4 mg Capsule PO (12:21)
[2020-03-27 12:28] LABS: Partial Thromboplastin Time 41.8 SECONDS (23.9-36.7)
[2020-03-27] MEDS: heparin 5,000 unit/mL INJ 1 mL IV (13:12)
[2020-03-27] MEDS: atorvastatin 40 mg Tablet PO (19:01)
--- NOTE | 2020-03-27 20:14 | PC.NURSE ---
Patient was given paperwork about her condition, medication, and who and when to call for a follow up appointments. Patient teaching was done with those items as well. Patient's IV cath's and nash cath's were DC'd. Patient was also notified that if she is not able to void in 8-10 hours, to call the hospital. All teaching was done with the patients sister in [place] as well. Patient Departed the unit in stable condition, with all belongings, via wheelchair.
--- NOTE | 2020-03-27 21:35 | PM.DCS ---
Discharge Providers Date of Admission: 03/25/20 01:50 Date of Discharge: March 27, 2020 Attending Provider at Admission: Silvano Cho MD Attending Provider at Discharge: Mame Faye MD Consults: Dr. Mcnair with cardiology Primary Care Provider: Carlos Barba MD Diagnoses at Discharge Discharge Diagnosis (1) Temporal lobe epilepsy, intractable: Status: Chronic (2) Secondarily generalized seizures: Status: Chronic (3) Post-ictal state: Status: Resolved (4) NSTEMI (non-ST elevated myocardial infarction): Status: Resolved Permanent problem details: Suspect secondary to extensive seizure activity with some demand ischemia particularly with limited findings on echocardiogram and lack of ischemic changes on perfusion imaging, will follow with cardiology initially (5) Acute respiratory failure with hypoxia: Status: Resolved Other Information Additional DC diagnoses/information: Lactic acidemia secondary to seizures, resolved Abnormal urinalysis with E. coli, suspect colonization, as history of hydronephrosis, mixed stress and urge incontinence as well as urinary retention requiring intermittent self-catheterization. Was treated with Rocephin empirically. Denies change in urinary symptoms and had rapid normalization of white blood count Reason for Visit Reason for Visit: [facility] Hospital Course Hospital Course Mrs. Suggs presented with intractable seizures. She had been noncompliant with her seizure medicine for several weeks. She had witnessed generalized tonic-clonic activity in the emergency room and was postictal after this. She was loaded with Keppra. Check a little over 24 hours for her to arouse from this postictal state. She was noted to have elevated troponin levels to as high as 170 with some nonspecific EKG changes. Cardiology was consulted. She was treated empirically with heparin, aspirin, statin and beta-blockade initially. Echocardiogram did not show any significant wall motion abnormalities. She did not undergo a Lexiscan stress testing and nuclear images did not reveal areas of ischemia and was felt to have low probability of obstructive disease. She denies history of exertional chest pain as well. At this point in time she will follow-up with Dr. Mcnair in 2 weeks. We will continue the aspirin and low-dose statin presently although they may be able to be discontinued upon follow-up depending on clinical course. I have written a prescription for Keppra to be continued as I am not sure that patient will go back to taking her Lamictal. I did encourage her to take the Lamictal. Review of old notes particularly those of Dr. Reese indicates that this is not a new challenge for Mrs. Suggs. She does not believe that she needs to take the medication if she is continuing to have her temporal lobe seizures. Evidently the man with whom she lives also encourages her not to take the medications according to Kathy Blackwell who is her contact. Kathy Blackwell is the [id number] of Andrei Blackwell with whom Mrs. Suggs lives. I encouraged the patient to be compliant with her medications. She had no further seizure activity and was felt stable for discharge home with outpatient follow-up. Lamictal level was sent by admitting physician and is still pending at the time of discharge. Expect will be low as patient admitted noncompliance. Physical Exam Const: OTHER: Awake and alert, knows that she is in the hospital HENMT: OTHER: Bite martin on lower lip are healing Eye: OTHER: Pupils equal and reactive Resp: OTHER: Clear to auscultation Cardio: OTHER: Regular rate and rhythm GI: OTHER: Abdomen soft, nontender Neuro: OTHER: No tremors or abnormal movements currently Psych: OTHER: Limited insight into medical conditions and risk of noncompliance with medications Urinary Catheter Management^: Jarrett: Cath Placed During This Visit: yes Reason for Continuing Indwelling Catheter: Other Urinary Catheter Date of Insertion: 03/24/20 Urinary Catheter Time of Insertion: 19:57 Discharge Data Data Completed and Pending: Completed Studies During Hospitalization Category Date Time Status CT head wo con* [id number] Stat Cat Scan 03/24/20 19:58 Completed Sestamibi Stress Test Request Routi ne Exams 03/26/20 22:21 Draft XR chest 1V thelma ble [id number] Urgent Exams 03/24/20 20:07 Completed NM zainab perf SPECT r/s* [id number] Routin e Nuc Med 03/27/20 07:00 Completed CV echo complete* [id number] Routine Ultrasound 03/25/20 07:49 Completed Pending at discharge Category Date Time Status Blood Culture Sta t Lab 03/24/20 21:07 Results Lamotrigine (Lami ctal) Level Stat Lab 03/25/20 00:40 Received Platelet Count Q2 D Lab 03/29/20 04:00 Ordered Laboratory Last Values WBC 5.8 10^3/uL (4.0- 10.0) 03/27/20 10:34 RBC 5.22 10^6/uL (4.1 -5.3) 03/27/20 10:34 Hgb 11.7 g/dL (11.5-1 5.3) 03/27/20 10:34 Hct 40.2 % (37.0-47.0 ) 03/27/20 10:34 MCV 77.0 fL (81-99) L 03/27/20 10:34 MCH 22.4 pg (28.0-34. 0) L 03/27/20 10:34 MCHC 29.1 g/dL (30.0-3 6.0) L 03/27/20 10:34 RDW 16.9 % (12.1-15.1 ) H 03/27/20 10:34 Plt Count 299 10^3/cmm (130 -400) 03/27/20 10:34 MPV 9.4 fL (7.4-10.4) 03/27/20 10:34 Neut % (Auto) 59.2 % 03/27/20 10:34 Lymph % (Auto) 26.8 % 03/27/20 10:34 [place] % (Auto) 11.9 % 03/27/20 10:34 Eos % (Auto) 0.9 % 03/27/20 10:34 Baso % (Auto) 0.9 % 03/27/20 10:34 Neut # (Auto) 3.43 10^3/uL (1.8 -7.7) 03/27/20 10:34 Lymph # (Auto) 1.6 10^3/uL (0.8- 4.8) 03/27/20 10:34 [place] # (Auto) 0.7 10^3/uL (0.2- 0.9) 03/27/20 10:34 Eos # (Auto) 0.1 10^3/uL (0.0- 0.8) 03/27/20 10:34 Baso # (Auto) 0.1 10^3/uL (0.0- 0.1) 03/27/20 10:34 Nucleated RBC % (a uto) 0 % 03/27/20 10:34 Nucleated RBCs # 0.0 /100WBC 03/27/20 10:34 PT 13.10 SECONDS (12 .1-14.9) 03/24/20 19:40 INR 0.96 (0.8-1.2) 03/24/20 19:40 APTT 41.8 SECONDS (23. 9-36.7) H 03/27/20 12:08 D-Dimer 1.17 ug/mIFEU (0- 0.59) H 03/24/20 19:40 Specimen Type Arterial 03/24/20 20:35 Sample Site Radial, right 03/24/20 20:35 ABG pH 7.30 (7.35-7.45) L 03/24/20 20:35 ABG pCO2 37.4 mmHg (35-45) 03/24/20 20:35 ABG pO2 79.3 mmHg (80.0-1 00.0) L 03/24/20 20:35 ABG HCO3 18.2 mmol/L (22-2 6) L 03/24/20 20:35 ABG Base Excess -7.7 mmol/L (-2.0 -2.0) L 03/24/20 20:35 Fausto Test N/a 03/24/20 20:35 Hematocrit 38.1 % (37-47) 03/24/20 20:35 O2 Delivery Device Nc 03/24/20 20:35 O2 Liters/Min 3.0 % 03/24/20 20:35 FiO2 32.0 % 03/24/20 20:35 Dredge Pipe Installer ID [email or web address] 03/24/20 20:35 Sodium 144 mmol/L (136-1 45) 03/27/20 02:40 Potassium 3.5 mmol/L (3.5-5 .1) 03/27/20 02:40 Chloride 108 mmol/L (98-10 7) H 03/27/20 02:40 Carbon Dioxide 25 mmol/L (22-29) 03/27/20 02:40 Anion Gap 14.5 (5-19) 03/27/20 02:40 BUN 8 mg/dL (8-23) 03/27/20 02:40 Creatinine 0.6 mg/dL (0.5-0. 9) 03/27/20 02:40 GFR Calculation Not Reportable 03/27/20 02:40 Glucose 113 mg/dL (65-115 ) 03/27/20 02:40 Estimat Average Gl ucose 97 03/25/20 05:30 Hemoglobin A1c 5.0 % (4.0-6.0) 03/25/20 05:30 Calculated Osmolal ity 297 mOsm/kg (285- 295) H 03/27/20 02:40 Lactate 1.7 mmol/L (0.5-2 .2) 03/25/20 05:30 Calcium 9.8 mg/dL (8.5-10 .5) 03/27/20 02:40 Phosphorus 3.4 mg/dL (2.5-4. 5) 03/24/20 19:40 Magnesium 2.3 mg/dL (1.7-2. 3) 03/26/20 03:00 Total Bilirubin 0.2 mg/dL (0.15-1 .2) 03/27/20 02:40 AST 26 U/L (0-32) 03/27/20 02:40 ALT 14 U/L (0-33) 03/27/20 02:40 Alkaline Phosphata se 74 IU/L (35-105) 03/27/20 02:40 Creatine Kinase 85 U/L (26-192) 03/24/20 19:40 Troponin T Baselin e 83 ng/L (0-10) H 03/27/20 00:00 Troponin T 120 Min [place] 79.46 ng/L (0-10) H 03/27/20 02:40 Delta Troponin T -3.54 ABS# (0-10) L 03/27/20 02:40 Troponin T Hi Sens 6Hr 81.06 ng/L (0-10) H 03/27/20 04:55 Troponin T Hi Sens 6Hr Delta -1.94 ng/L (0-12) L 03/27/20 04:55 NT-Pro-B Natriuret Pep 3590 pg/mL (0-125 ) H 03/25/20 05:30 Total Protein 7.3 g/dL (6.6-8.7 ) 03/27/20 02:40 Albumin 4.1 g/dL (3.5-5.2 ) 03/27/20 02:40 Globulin 3.2 g/dL (1.3-4.6 ) 03/27/20 02:40 Triglycerides 47 mg/dL (0-150) 03/25/20 05:30 Cholesterol 185 mg/dL (0-200) 03/25/20 05:30 LDL Cholesterol, C alc 111 mg/dL (50-129 ) 03/25/20 05:30 HDL Cholesterol 65 mg/dL (60-100) 03/25/20 05:30 LDL/HDL Ratio 1.71 RATIO (0.00- 3.22) 03/25/20 05:30 Cholesterol/HDL Ra kelsie 2.85 mg/dL (0.0-4 .40) 03/25/20 05:30 Procalcitonin 0.02 ng/mL (0-0.5 ) 03/24/20 19:40 Urine Color Straw (Yellow) 03/24/20 20:56 Urine Appearance Clear (CLEAR) 03/24/20 20:56 Urine pH 7.0 (5-7) 03/24/20 20:56 Ur Specific Gravit y 1.010 (1.005-1.0 30) 03/24/20 20:56 Urine Protein Neg (Negative) 03/24/20 20:56 Urine Glucose (UA) Norm (Normal) 03/24/20 20:56 Urine Ketones Negative (Negati ve) 03/24/20 20:56 Urine Blood 2+ (Negative) H 03/24/20 20:56 Urine Nitrate Negative (Negati ve) 03/24/20 20:56 Urine Bilirubin Neg (Negative) 03/24/20 20:56 Urine Urobilinogen Norm mg/dL (Negat gaby) 03/24/20 20:56 Ur Leukocyte Suzette ase 2+ (Negative) H 03/24/20 20:56 Urine RBC 5-10 /hpf (0-2) H 03/24/20 20:56 Urine WBC 15-25 /hpf (0-5) H 03/24/20 20:56 Ur Squamous Epith Cells 0-4 /hpf (0-5) H 03/24/20 20:56 Amorphous Sediment Not Reportable 03/24/20 20:56 Urine Bacteria 3+ /hpf (NONE) H 03/24/20 20:56 Urine Mucus Trace /hpf 03/24/20 20:56 Urine Opiates Scre en Negative ng/mL (N egative) 03/24/20 20:56 Ur Barbiturates Sc reen Negative ng/mL (N egative) 03/24/20 20:56 Ur Phencyclidine S crn Negative ng/mL (N egative) 03/24/20 20:56 Ur Amphetamines Sc reen Negative ng/mL (N egative) 03/24/20 20:56 U Benzodiazepines Scrn Negative ng/mL (N egative) 03/24/20 20:56 Urine Cocaine Scre en Negative ng/mL (N egative) 03/24/20 20:56 U Marijuana (THC) Screen Negative ng/mL (N egative) 03/24/20 20:56 Ethyl Alcohol < 10 mg/dL (0-10) 03/24/20 19:40 Vitals: Last Vital Signs Temp 97.7 F 03/27/20 20:18 Pulse 88 03/27/20 20:18 Resp 18 03/27/20 20:18 BP 147/69 03/27/20 20:18 Pulse Ox 96 03/27/20 20:18 Discharge Plan Discharge Patient Disposition: Home Condition: Stable Prescriptions: New famotidine 20 mg tablet 20 mg PO BID Qty: 60 RF: 0 Roweepra 500 mg tablet 500 mg PO BID Qty: 60 RF: 0 Aspirin Low Dose 81 mg tablet,delayed release (DR/EC) 81 mg PO DAILY Qty: 30 RF: 0 atorvastatin 10 mg tablet 10 mg PO QPM Qty: 30 RF: 0 Continued tamsulosin 0.4 mg capsule 0.4 mg PO DAILY Qty: 30 RF: 2 lidocaine HCl 2 % jelly 1 applic INTRA-URET ONCE Qty: 1 RF: 0 methenamine hippurate 1 gram tablet 1 g PO BID Qty: 60 RF: 12 ascorbic acid (vitamin C) 1,000 mg tablet 1 gm PO BID RF: 0 diazepam [Valium] 10 mg tablet 10 mg PO DAILY Qty: 30 RF: 5 metoprolol tartrate 25 mg tablet 25 mg PO BID 30 Days Qty: 60 RF: 5 lamotrigine 250 mg tablet extended release 24hr 500 mg PO DAILY Qty: 60 RF: 5 Discontinued ranitidine HCl 150 mg tablet 150 mg PO BID RF: 0 Discharge Orders: Discharge Order (Routine); Ordered 03/27/20 Ordered By: Mame Faye Referrals: Jelena Reese MD [Physician] - 2 weeks (Please call Wednesday to make an appointment to follow up in 2 weeks.) Carlos Barba MD [Primary Care Provider] - 4-7 days (Please call Wednesday to make a follow up appointment) Silvano Mcnair MD [Physician] - 2 weeks (Please call Wednesday to make a follow up appointment.) Discharge Diet: Advance as tolerated Discharge Activity: Increase activity as tolerated Patient Instructions: Famotidine (By mouth), Atorvastatin (By mouth), Levetiracetam (By mouth), Seizures Activity Restrictions/Additional Instructions: You presented with intractable seizures. You have known temporal lobe epilepsy with secondary generalized tonic-clonic seizures during times of noncompliance with medications. You admitted to not taking her medicines for several weeks because you felt like they were not working. Even when you think they are not working on your temporal lobe epileptic seizures, they are helping suppress the secondary generalized seizures such as what you experienced during this admission. You were unresponsive for more than 24 hours after this episode. You had evidence of significant elevation in cardiac enzymes. Most likely this was related to seizure however there were nonspecific EKG changes noted simultaneously. You underwent Lexiscan stress testing which did not show ischemia and was low probability for obstructive disease. We will continue you on low-dose aspirin and statin therapy with plan to follow-up with cardiology in a couple of weeks to ensure nothing further arises from this. Echocardiogram revealed normal wall motion. He can continue your usual metoprolol. I replaced your ranitidine with a prescription for Pepcid. Ranitidine is no longer available. In terms of seizure medication please continue your Lamictal. A Lamictal level is still pending at the time of discharge. I have continued the Keppra for time being. Appointment made with Dr. Reese to follow-up in this regard. PLEASE TAKE MEDICATIONS PRESCRIBED DO NOT STOP YOUR SEIZURE MEDICATIONS WITHOUT FIRST TALKING TO A DOCTOR WHO KNOWS YOUR MEDICAL HISTORY Discharge Attestations Time Spent in Discharge Care*: greater than 30 min Specific Discharge Activities: educating patient, discussing with case finishing machine adjuster/social workers/dc planners, documenting/other paperwork and evaluating patient/reviewing data Quality Metrics Clinical Quality Measures During this hospital stay, did patient experience: AMI Clinical Trial Participant: No Contraindication to aspirin (AMI): Aspirin given Contraindication to statin: Statin prescribed Coding Level of Care Code Acute Speed Belt Sander for [facility] Fwd Diagnoses Temporal lobe epilepsy, intractable G40.119 Secondarily generalized seizures Post-ictal state R56.9 NSTEMI (non-ST elevated myocardial infarction) I21.4 Acute respiratory failure with hypoxia J96.01
[2020-03-29 14:29] LABS: Lamotrigine (Lamictal) Level 4.3 mcg/mL (4.0-18.0)
== END 2020-03-27 20:30 | disposition home or self-care (01) | DRG 100 ==
LOC: ER 03-25 00:55 → ICU 03-25 03:12 → MEDSURG 03-26 22:19
PROVIDERS: Internal Medicine Cardiovascular Disease; Student in an Organized Health Care Education/Training Program; Admitting Provider Internal Medicine; Emergency Provider Emergency Medicine; Family Provider Family Medicine; PCP Family Medicine; Visit Provider Hospitalist
DX: G40.119 Localization-related (focal) (partial) symptomatic epilepsy and epileptic syndromes with simple partial seizures, intractable, without status epilepticus (principal); J96.01 Acute respiratory failure with hypoxia; I21.A1 Myocardial infarction type 2; N39.0 Urinary tract infection, site not specified; N13.30 Unspecified hydronephrosis; E87.2 Acidosis; T42.76XA Underdosing of unspecified antiepileptic and sedative-hypnotic drugs, initial encounter; Z91.128 Patient's intentional underdosing of medication regimen for other reason; F41.9 Anxiety disorder, unspecified; K80.20 Calculus of gallbladder without cholecystitis without obstruction; K57.90 Diverticulosis of intestine, part unspecified, without perforation or abscess without bleeding; K21.9 Gastro-esophageal reflux disease without esophagitis; K44.9 Diaphragmatic hernia without obstruction or gangrene; I10 Essential (primary) hypertension; G31.84 Mild cognitive impairment of uncertain or unknown etiology; N39.46 Mixed incontinence; M85.80 Other specified disorders of bone density and structure, unspecified site; Z87.891 Personal history of nicotine dependence; B96.20 Unspecified Escherichia coli [E. coli] as the cause of diseases classified elsewhere; R33.9 Retention of urine, unspecified
CPT/HCPCS: 12345; 36415; 36600; 51702; 70450; 71045; 78452; 80053; 80061; 80175; 80306; 80307; 81001; 82550; 82803; 83036; 83605; 83735; 83880; 84100; 84145; 84484; 85025; 85049; 85378; 85610; 85730; 87040; 87077; 87086; 87186; 93005; 93017; 93306; 96372; 96375; 99283; A9500; C9113; J0696; J1644; J1650; J1953; J2060; J2785; J3490; J7030; J7799

== ENCOUNTER → 2020-04-04 10:05 | Outpatient (BNVA) | payer MEDICARE, MEDICAID, SELFPAY | PROVIDERS: Family Provider Family Medicine; PCP Family Medicine; Visit Provider Family Medicine | DX: E78.00 Pure hypercholesterolemia, unspecified (principal); G40.119 Localization-related (focal) (partial) symptomatic epilepsy and epileptic syndromes with simple partial seizures, intractable, without status epilepticus; R77.8 Other specified abnormalities of plasma proteins; Z09 Encounter for follow-up examination after completed treatment for conditions other than malignant neoplasm | CPT/HCPCS: 80048; 80061; 80177; 84484 ==

== ENCOUNTER → 2020-04-15 10:26 | Outpatient (BNVA) | payer MEDICARE, MEDICAID, SELFPAY | PROVIDERS: Family Provider Family Medicine; PCP Family Medicine; Referring Provider Hospitalist; Visit Provider Specialist | DX: G40.119 Localization-related (focal) (partial) symptomatic epilepsy and epileptic syndromes with simple partial seizures, intractable, without status epilepticus (principal); Z87.891 Personal history of nicotine dependence | CPT/HCPCS: 99215 ==

== ENCOUNTER → 2020-06-25 14:47 | Outpatient (BNVA) | payer MEDICARE, MEDICAID, SELFPAY | PROVIDERS: Family Provider Family Medicine; PCP Family Medicine; Visit Provider Specialist | DX: G40.119 Localization-related (focal) (partial) symptomatic epilepsy and epileptic syndromes with simple partial seizures, intractable, without status epilepticus (principal); Z87.891 Personal history of nicotine dependence | CPT/HCPCS: 99215 ==

== ENCOUNTER 2020-07-16 16:04 | Observation (INO) | payer MEDICARE, MEDICAID, SELFPAY ==
[2020-07-16] VITALS (8 sets, daily range): BP systolic 129–166; BP diastolic 68–79; PULSE 86–97; RESP 16–20; TEMP 36.8–37.4; O2SAT 90–98; BMI 26.5
--- NOTE | 2020-07-16 16:25 | W.ED.WOUNDLC ---
HPI - Wound/Laceration General: Chief Complaint: Wound/Laceration Stated Complaint: LAC TO HEAD Time Seen by Provider: 07/16/20 16:11 History of Present Illness: HPI narrative: 74 year old female presents to the ED via EMS for laceration to posterior head. Patient is unaware of how she obtained these lacerations, she states that she must've had a seizure and fell. She does have history of temporal lobe epilepsy. She currently denies headache, dizziness, vomiting, nausea, changes in vision, extremity weakness, or chest pain. Location: scalp Place: home Context: accidental Associated symptoms: Reports no associated symptoms; Denies chills, fever(s), nausea or vomiting Review of Systems Const: Denies: fever(s) or chills Card: Denies: chest pain Resp: Denies: dyspnea GI: Denies: abdominal pain, nausea or vomiting : Denies: flank pain PFS ED PFSH: Medical History Anxiety Bilateral hydronephrosis Secondary to bladder distention and incomplete emptying Cholelithiasis Cystitis cystica Diverticulosis Elevated troponin I level Epilepsy Focused based right temporal lobe epilepsy patient does not wish to have surgery for intractable seizures Frequent headaches GERD without esophagitis Hiatal hernia Hypertension Mild cognitive impairment Mixed stress and urge urinary incontinence Osteopenia Overflow incontinence Partial epilepsy secondarily generalized Urinary retention intermittent catheterization Surgical History History of ear surgery (~2014) Right. Dr Khan History of total hysterectomy (~1982) TVH (still has ovaries) for bleeding. Performed by Dr. Armstrong at [facility] Family History Brother Diabetes Heart disease Hypercholesteremia Hypertension Social History Smoking and tobacco status: former smoker Quit status (tobacco): has quit using tobacco Year quit tobacco: 2012 Former quit date comment: smoked 20 years Alcohol intake: never Lives independently: Yes Housing: House Marital status: Legally History of recent travel: No Physical Exam Const: COMMON NORMALS: no acute distress GENERAL APPEARANCE: cooperative and comfortable HENMT: COMMON NORMALS: normocephalic HEAD & SCALP: normocephalic Eye: COMMON NORMALS: EOMs intact bilaterally Resp: COMMON NORMALS: normal respiratory effort, No retractions, No use of accessory muscles and clear to auscultation bilaterally AUSCULTATION: clear to auscultation bilaterally Cardio: COMMON NORMALS: regular rhythm and No murmurs present (Cardio); negative for regular rate RATE: abnormal rate RHYTHM: regular rhythm HEART SOUNDS: no murmurs GI: COMMON NORMALS: Soft to palpation PALPATION: Yes Soft to palpation RECTAL EXAM: heme negative stool Extremity: COMMON NORMALS: normal to inspection Procedures Laceration Laceration 1: Site: scalp Size (cm): 3 Description: linear Depth: simple, single layer Local Anesthetic: lidocaine 1% Amount of anesthesia used (mL): 3 Pre-repair: irrigated extensively Skin layer closed with: other (2 sylvester applied) Course Vital Signs: Vital signs: Vital Signs Temperature 98.6 F 07/17/20 03:36 Pulse Rate 94 07/17/20 03:36 Respiratory Rate 16 07/17/20 03:36 Blood Pressure 146/73 07/17/20 03:36 Pulse Oximetry 93 07/17/20 03:36 MDM - Wound/Laceration MDM Narrative: Medical decision making narrative: Initial labs came back hemoglobin is 7 6 in July of last year patient was admitted with an upper GI bleed secondary to NSAID use and was transfused. She had been doing good up till today. Prior level ordered. Patient had significant change in personality while in the emergency room initially when she arrived she was pleasant and interactive answering questions well. As work-up proceeded she became confrontational and angry. She denied any other injuries or any other pain patient was reassessed in the room and repeat exam done there is no significant changes found. She had a laceration over the occiput which was anesthetized with local and 2 sylvester applied. Given her history of intractable seizures in the past as well as the new anemia we will go ahead and put her on observation. Rectal exam done in the exam room was negative for occult blood. Sylvester to be removed in 7 days. Lab Data: Labs: Lab Results 07/16/20 07/16/20 07/16/20 Range/Units 16:18 16:18 16:18 WBC 9.0 (4.0-10.0) 10^3/ uL RBC 3.77 L (4.1-5.3) 10^6/u L Hgb 7.6 L (11.5-15.3) g/dL Hct 27.7 L (37.0-47.0) % MCV 73.5 L (81-99) fL MCH 20.2 L (28.0-34.0) pg MCHC 27.4 L (30.0-36.0) g/dL RDW 17.1 H (12.1-15.1) % Plt Count 439 H (130-400) 10^3/c mm MPV 9.7 (7.4-10.4) fL Neut % (Auto) 63.7 % Lymph % (Auto) 22.0 % [place] % (Auto) 12.2 % Eos % (Auto) 1.2 % Baso % (Auto) 0.6 % Neut # (Auto) 5.71 (1.8-7.7) 10^3/u L Lymph # (Auto) 2.0 (0.8-4.8) 10^3/u L [place] # (Auto) 1.1 H (0.2-0.9) 10^3/u L Eos # (Auto) 0.1 (0.0-0.8) 10^3/u L Baso # (Auto) 0.1 (0.0-0.1) 10^3/u L Nucleated RBC % (a uto) 0 % Nucleated RBCs # 0.0 /100WBC D-Dimer (0-0.59) ug/mIFE U Sodium 137 (136-145) mmol/L Potassium 3.3 L (3.5-5.1) mmol/L Chloride 101 (98-107) mmol/L Carbon Dioxide 26 (22-29) mmol/L Anion Gap 13.3 (5-19) BUN 11 (8-23) mg/dL Creatinine 1.1 H (0.5-0.9) mg/dL GFR Calculation Not Reportable Glucose 116 H (65-115) mg/dL Calculated Osmolal ity 284 L (285-295) mOsm/k g Calcium 8.6 (8.5-10.5) mg/dL Total Bilirubin 0.2 (0.15-1.2) mg/dL AST 13 (0-32) U/L ALT 10 (0-33) U/L Alkaline Phosphata se 78 (35-105) IU/L Creatine Kinase 61 (26-192) U/L Total Protein 7.7 (6.6-8.7) g/dL Albumin 4.1 (3.5-5.2) g/dL Globulin 3.6 (1.3-4.6) g/dL Procalcitonin 0.07 (0-0.5) ng/mL Prolactin 24.82 H (4.8-23.3) ng/mL 07/16/20 Range/Units 16:18 WBC (4.0-10.0) 10^3/ uL RBC (4.1-5.3) 10^6/u L Hgb (11.5-15.3) g/dL Hct (37.0-47.0) % MCV (81-99) fL MCH (28.0-34.0) pg MCHC (30.0-36.0) g/dL RDW (12.1-15.1) % Plt Count (130-400) 10^3/c mm MPV (7.4-10.4) fL Neut % (Auto) % Lymph % (Auto) % [place] % (Auto) % Eos % (Auto) % Baso % (Auto) % Neut # (Auto) (1.8-7.7) 10^3/u L Lymph # (Auto) (0.8-4.8) 10^3/u L [place] # (Auto) (0.2-0.9) 10^3/u L Eos # (Auto) (0.0-0.8) 10^3/u L Baso # (Auto) (0.0-0.1) 10^3/u L Nucleated RBC % (a uto) % Nucleated RBCs # /100WBC D-Dimer 1.97 H (0-0.59) ug/mIFE U Sodium (136-145) mmol/L Potassium (3.5-5.1) mmol/L Chloride (98-107) mmol/L Carbon Dioxide (22-29) mmol/L Anion Gap (5-19) BUN (8-23) mg/dL Creatinine (0.5-0.9) mg/dL GFR Calculation Glucose (65-115) mg/dL Calculated Osmolal ity (285-295) mOsm/k g Calcium (8.5-10.5) mg/dL Total Bilirubin (0.15-1.2) mg/dL AST (0-32) U/L ALT (0-33) U/L Alkaline Phosphata se (35-105) IU/L Creatine Kinase (26-192) U/L Total Protein (6.6-8.7) g/dL Albumin (3.5-5.2) g/dL Globulin (1.3-4.6) g/dL Procalcitonin (0-0.5) ng/mL Prolactin (4.8-23.3) ng/mL Discharge Plan Discharge Patient Disposition: Admitted As Inpatient Admit Provider: Silvano Cho Clinical Impression: Anemia, Temporal lobe epilepsy, intractable, Laceration Condition: Stable Coding Level of Care Code ED Manufacturing Supervisor for g Fwd Exam Detailed
--- NOTE | 2020-07-16 16:37 | CTR_ITS ---
PROCEDURE INFORMATION: Exam: CT Cervical Spine Without Contrast Exam date and time: 07/16/2020 4:52 PM Age: 74 years old Clinical indication: Injury or trauma; Fall; Blunt trauma TECHNIQUE: Imaging protocol: Computed tomography images of the cervical spine without contrast. Radiation optimization: All CT scans at this facility use at least one of these dose optimization techniques: automated exposure control; mA and/or kV adjustment per patient size (includes targeted exams where dose is matched to clinical indication); or iterative reconstruction. COMPARISON: CT neck w con* [id number] 06/04/2015 10:38 AM RADIATION DOSE METRICS: Total DLP (mGy-cm): 570.22 FINDINGS: Vertebrae: No fractures. No traumatic malalignment of cervical spine. The cervical spine demonstrates moderate degenerative changes at multiple levels. Soft tissues: Unremarkable. Thyroid: Circumscribed ovoid low-attenuation nodule in the left thyroid 19 mm diameter. Vasculature: Bilateral carotid artery bulb region atherosclerotic calcification. Lungs: Mild emphysema. CT/CT cervical spin wo con* [id number] IMPRESSION: Negative for acute cervical spine fracture. COMMENTS: Consistent with the [employer]'s Incidental Findings Committee white paper (J Am Song Radiol 2015): In patients aged 35 years and older with an incidental thyroid nodule equal to or greater than 1.[address], MRI or extrathyroidal US, further evaluation with dedicated thyroid US is recommended for patients with normal life expectancy and without comorbidities. For smaller nodules without suspicious features, no further evaluation or follow up is recommended. Radiation Dose CTDIVOL = (mGy): DLP = 570.22 (mGy-cm)
--- NOTE | 2020-07-16 16:37 | ECG_ITS ---
[facility] Test Date: 2020-07-16 Pat Name: Melonie Suggs Department: Room: Gender: Female Environmental Remediation Specialist: : [id number] Requested By: Suhas Hooper Order Number: [id number] Manolo MD: Aide Parker M.D. Measurements Intervals [place] Rate: 98 P: 52 IN: 161 QRS: -38 QRSD: 91 T: 28 QT: 355 QTc: 454 Interpretive Statements SINUS RHYTHM LEFT AXIS DEVIATION [QRS AXIS < -30] Compared to ECG 03/26/2020 23:31:39 Left-axis deviation now present First degree AV block no longer present Left anterior fascicular block no longer present Electronically Signed On 07-17-2020 7:34:44 CDT by Aide Parker M.D. [email or web address]
[2020-07-16 16:50] LABS: Basophils # 0.1 10^3/uL (0.0-0.1); Basophils % 0.6 %; Eosinophils # 0.1 10^3/uL (0.0-0.8); Eosinophils % 1.2 %; Hematocrit 27.7 % (37.0-47.0); Hemoglobin 7.6 g/dL (11.5-15.3); Mean Corpuscular HGB Conc 27.4 g/dL (30.0-36.0); Mean Corpuscular Hemoglobin 20.2 pg (28.0-34.0); Mean Corpuscular Volume 73.5 fL (81-99); Mean Platelet Volume 9.7 fL (7.4-10.4); Monocytes # 1.1 10^3/uL (0.2-0.9); Monocytes % 12.2 %; Neutrophils # 5.71 10^3/uL (1.8-7.7); Neutrophils % 63.7 %; Nucleated Red Blood Cells % 0 %; Platelet Count 439 10^3/cmm (130-400); Red Blood Count 3.77 10^6/uL (4.1-5.3); Red Cell Distribution Width 17.1 % (12.1-15.1)
--- NOTE | 2020-07-16 17:02 | CTR_ITS ---
PROCEDURE INFORMATION: Exam: CT Head Without Contrast Exam date and time: 07/16/2020 5:02 PM Age: 74 years old Clinical indication: Injury or trauma; Fall; Blunt trauma (contusions or hematomas); Additional info: Closed head injury TECHNIQUE: Imaging protocol: Computed tomography of the head without contrast. Radiation optimization: All CT scans at this facility use at least one of these dose optimization techniques: automated exposure control; mA and/or kV adjustment per patient size (includes targeted exams where dose is matched to clinical indication); or iterative reconstruction. COMPARISON: CT head wo con* [id number] 03/24/2020 7:51 PM RADIATION DOSE METRICS: Total DLP (mGy-cm): 967.37 FINDINGS: Brain: There is moderate cerebral atrophy. No acute intracranial hemorrhage. No intracranial mass. No midline shift of brain. No cerebral sulcal effacement. Cerebral ventricles: No ventriculomegaly. Bones/joints: Unremarkable. No acute fracture. Paranasal sinuses: Visualized sinuses are unremarkable. No fluid levels. Mastoid air cells: Visualized mastoid air cells are well aerated. Orbital cavity: Lens replacements. Orbits are symmetric. Vasculature: Intracranial atherosclerosis. Soft tissues: Unremarkable. CT/CT head wo con* [id number] IMPRESSION: 1. Negative for acute intracranial injury. 2. No change in the brain from comparison on 03/24/2020. Radiation Dose CTDIVOL = (mGy): DLP = 967.37 (mGy-cm)
--- NOTE | 2020-07-16 17:03 | PC.PHAR ---
pt states she takes care of her own medications-pt states she is still taking valium at bedtime-ext med history shows last filled 04/05/20 30d/s-pt verified all medications and then became confused and asked where she was
[2020-07-16 17:10] LABS: Alanine Aminotransferase 10 U/L (0-33); Albumin Level 4.1 g/dL (3.5-5.2); Alkaline Phosphatase 78 IU/L (35-105); Anion Gap 13.3 (5-19); Aspartate Amino Transferase 13 U/L (0-32); Blood Urea Nitrogen 11 mg/dL (8-23); Calcium 8.6 mg/dL (8.5-10.5); Carbon Dioxide 26 mmol/L (22-29); Chloride 101 mmol/L (98-107); Creatine Phosphokinase 61 U/L (26-192); Globulin 3.6 g/dL (1.3-4.6); Glucose 116 mg/dL (65-115); Osmolality Calculated 284 mOsm/kg (285-295); Potassium 3.3 mmol/L (3.5-5.1); Sodium 137 mmol/L (136-145); Total Bilirubin 0.2 mg/dL (0.15-1.2); Total Protein 7.7 g/dL (6.6-8.7)
--- NOTE | 2020-07-16 18:02 | P.HP_ITS ---
Providers/Chief Complaint Primary Care Provider: Carlos Barba MD Chief Complaint: LAC TO HEAD History of Present Illness Melonie Suggs is a 74 year old female who has history of temporal lobe epilepsy takes Valium and Keppra, presented today after a fall. Patient is stating that she lives alone, she manages her daily activities and medications on her own. She was brought to the ER after a fall. Patient has no recall of that event. She is denying chest pain shortness of breath or recent fever or dysuria. She is endorsing melanotic stools and use of aspirin on daily basis. She has stopped taking famotidine within last few days. He has history of gastric induced ulcer for which she was seen in August 2019 and was asked to follow-up with PCP for recommendation of EGD and colonoscopy. In her records however I do not see any endoscopic results. Patient is stating that she is not sure what happened today but she fell ba ckwards, she thinks her life alert alarm went off that prompted EMS to pay a visit. On arrival in the ED she was coherent no signs of stroke she had laceration of the back of her head still sylvester were used to stop the bleeding. Hemodynamically she was stable, systolic blood pressure 150s mmhg. previous hemoglobin 11.7 today 7.6, D-dimer 1.9, creatinine 1.1 I have requested Keppra level, Lamictal level procalcitonin and prolactin. Dr. Hill notified for EGD, patient did not cooperate to get urine analysis, will do rectal exam once she is more cooperative and receptive, FOBT requested Review of Systems Const: Reports: fatigue; Denies: fever(s), body aches or change in appetite Eyes: Denies: change in vision ENMT: Denies: throat pain Card: Denies: chest pain Resp: Denies: dyspnea GI: Denies: abdominal pain : Denies: flank pain Musc: Denies: neck pain Skin/Breast: Reports: new lesions Neuro: Denies: headache(s) Psych: Denies: anxiety Endo: Denies: polyuria Bandar/Lymph: Denies: easy bruising All/Imm: Denies: urticaria Medications/Allergies Home Medications Medication Instructions Recorded Confirmed Last Taken Type levetiracetam 500 mg tablet 500 mg PO BID #60 tab 06/12/20 07/16/20 07/16/20 07:30 Rx Valium 10 mg PO DAILY@19 07/16/20 07/16/20 Unknown History Vitamin D3 1 cap PO QAM 07/16/20 07/16/20 Unknown History aspirin [Aspirin Low Dose] 81 mg PO QAM 07/16/20 07/16/20 07/16/20 07:30 History famotidine See Rx Instructions .ROUTE .COMPLEX 07/16/20 07/16/20 07/16/20 07:30 History Allergies Allergy/AdvReac Type Severity Reaction Status Date / Time divalproex sodium Allergy N/V and Verified 07/16/20 16:57 [From Depakote] dizziness sulfamethoxazole Allergy headache Verified 07/16/20 16:57 [From Bactrim] and seizures trimethoprim [From Bactrim] Allergy headache Verified 07/16/20 16:57 and seizures PFSH Acute PFSH: Medical History Anxiety Bilateral hydronephrosis Secondary to bladder distention and incomplete emptying Cholelithiasis Cystitis cystica Diverticulosis Elevated troponin I level Epilepsy Focused based right temporal lobe epilepsy patient does not wish to have surgery for intractable seizures Frequent headaches GERD without esophagitis Hiatal hernia Hypertension Mild cognitive impairment Mixed stress and urge urinary incontinence Osteopenia Overflow incontinence Partial epilepsy secondarily generalized Urinary retention intermittent catheterization Surgical History History of ear surgery (~2014) Right. Dr Khan History of total hysterectomy (~1982) TVH (still has ovaries) for bleeding. [place]. Armstrong [place] [facility] [place] Family History Brother Diabetes Heart disease Hypercholesteremia Hypertension Social History Smoking and tobacco status: former smoker Quit status (tobacco): has quit using tobacco Year quit tobacco: 2012 Former quit date comment: smoked 20 years Alcohol intake: never Lives independently: Yes Housing: House Marital status: Legally History of recent travel: No Vitals/I&O/Wt Last Vital Signs Temp 98.6 F 07/16/20 16:08 Pulse 93 03/16/21 16:16 Resp 16 07/16/20 16:16 BP 129/70 07/16/20 16:16 Pulse Ox 96 07/16/20 16:16 Weight last 48 hrs Weight 68.039 kg Physical Exam Narrative: EXAM NARRATIVE: Appears stated age, elderly female Does looks mildly dehydrated Irritable mood S1, S2 no murmur No signs of heart failure Abdomen soft nontender bowel sound present Low symmetry no edema gangrene ulcer Bilateral adequate breath sounds without adventitious rhonchi or crackles EOMI, PERRLA Posterior occipital area laceration with 2 sylvester, with clot, no active bleeding Patient is awake alert oriented x3 GCS 15 No neurological deficit No signs of postictal confusion Data : 07/16/20 16:18 07/16/20 16:18 A&P Assessment and plan (1) Fall: Status: Acute (2) Laceration of head: Status: Acute (3) Breakthrough seizure: Status: Acute (4) Microcytic anemia: Status: Acute (5) Melanotic stools: Status: Acute Additional A&P Information Syncopal event Patient fell backwards, EKG showing sinus rhythm, she has history of preserved ejection fraction with diastolic dysfunction Currently mildly dehydrated on clinical exam Has history of epilepsy with breakthrough seizure will obtain prolactin and procalcitonin level This most likely is related to her breakthrough seizure episode, patient is not able to recall any event from today We will check Keppra level and Lamictal level High D-dimer will request CTA to rule out PE however she will not be a candidate for anticoagulation due to active anemia, check UA Acute microcytic anemia(melena) Previously hemoglobin range was between 10-11, today hemoglobin 7.6 Check iron studies Patient has history of NSAID induced gastritis however I am not able to see any EGD/colonoscopy or biopsy report Discontinue aspirin start on Protonix 40 IV twice daily, she is hemodynamically stable complaining of melanotic stools, Dr. Hill notified, she will be kept n.p.o. after midnight Getting 1 unit PRBC and will keep her on D5 half-normal saline after blood transfusion Laceration of head After sustaining a fall today bleeding has been stopped, she has 2 sylvester Hold off on antibiotic Mild hypokalemia with MAGGIE Likely secondary to dehydration, rule out UTI Full code N.p.o. after midnight DVT prophylaxis SCDs secondary to anemia Daughter, Julee who lives in [facility] his DPOA, updated Attestations Medical Necessity Statement*: Anticipating discharge less than 48 hours will need blood transfusion for anemia and overnight monitoring because of recent breakthrough seizure and a fall, CTA is pending Time Spent in Patient Care: 40mins Coding Level of Care Code Acute Gaggerman for Chg Fwd Diagnoses Fall W19.XXXA Laceration of head S01.91XA Breakthrough seizure G40.919 Microcytic anemia D50.9 Melanotic stools K92.1
[2020-07-16] MEDS: morphine 4 mg/mL SDV 1 mL IVP (18:04)
[2020-07-16 18:35] LABS: D Dimer 1.97 ug/mIFEU (0-0.59)
--- NOTE | 2020-07-16 18:46 | CTR_ITS ---
PROCEDURE INFORMATION: Exam: CT Angiography Chest With Contrast Exam date and time: 07/16/2020 7:21 PM Age: 74 years old Clinical indication: Shortness of breath; Additional info: Pe syncope TECHNIQUE: Imaging protocol: Computed tomographic angiography of the chest with contrast. 3D rendering (Not supervised by radiologist): MIP and/or 3D reconstructed images were created by the technologist. Radiation optimization: All CT scans at this facility use at least one of these dose optimization techniques: automated exposure control; mA and/or kV adjustment per patient size (includes targeted exams where dose is matched to clinical indication); or iterative reconstruction. Contrast material: VISI 320; Contrast volume: 50 ml; Contrast route: INTRAVENOUS (IV); COMPARISON: No relevant prior studies available. RADIATION DOSE METRICS: Total DLP (mGy-cm): 555.28 FINDINGS: Pulmonary arteries: Normal. No pulmonary emboli. Aorta: Unremarkable. No aortic aneurysm. No aortic dissection. Lungs: Mild diffuse reticular interstitial lung change. No focal acute pulmonary consolidation. Calcified granuloma in the lateral right middle lobe stable from prior. No obstructing endobronchial lesion. No peripheral honeycombing. No bronchiectasis. Pleural spaces: Unremarkable. No pneumothorax. No pleural effusion. Heart: Unremarkable. No cardiomegaly. No pericardial effusion. Mediastinal space: Large hiatal hernia similar to prior. Calcified granulomas throughout the mediastinum. Lymph nodes: Mild prominence of mediastinal lymph nodes. Gallbladder and bile ducts: Cholelithiasis. Pancreas: Tiny cystic lesion in the mid body portion of the pancreas stable from prior. Size dimension about 6 mm transverse. Spleen: Calcified granulomas throughout the spleen. No splenomegaly. Adrenal glands: Bilateral adrenal gland nodules stable from prior. Kidneys and ureters: Chronic hydronephrosis of both kidneys. Bones/joints: Unremarkable. No acute fracture. Soft tissues: Unremarkable. CT/CT angio chest PE protcl [id number] IMPRESSION: 1. Negative for pulmonary embolism. 2. No focal acute pulmonary disease. 3. Stable bilateral adrenal gland nodules. 4. Stable, small incidental pancreatic body cystic lesion. 5. Healed granulomatous disease. Radiation Dose CTDIVOL = (mGy): DLP = 555.28 (mGy-cm)
[2020-07-16 18:49] LABS: Procalcitonin 0.07 ng/mL (0-0.5); Prolactin 24.82 ng/mL (4.8-23.3)
[2020-07-16 19:00] LABS: Add Urine Microscopic? YES; Bilirubin Urine Neg (Negative); Blood Urine Neg (Negative); Glucose Urine UA Norm (Normal); Ketones Urine Negative (Negative); Leukocyte Esterase Urine 2+ (Negative); Nitrate Urine Negative (Negative); Protein Urine Neg (Negative); Specific Gravity, Urine 1.005 (1.005-1.030); Urine Appearance Hazy (CLEAR); Urine Color Straw (Yellow); Urobilinogen Urine Norm (Negative); pH Urine 6 (5-7)
[2020-07-16 19:06] LABS: Bacteria Urine 4+ /hpf; RBC Urine 0-4 /hpf (0-2); Squamous Epithelial Cell Urine 0-4 /hpf (0-5); WBC Urine 25-40 /hpf (0-5)
[2020-07-16 19:07] LABS: Add Urine Culture? Yes
[2020-07-16] MEDS: iodixanol 320 mg/mL 100mL Btl IV (19:42)
[2020-07-16] MEDS: dextrose 5%-sod chloride 0.45% 1,000 ML 30 ML IV (20:19)
[2020-07-16] MEDS: diazePAM 5 mg Tablet 10 MG PO (20:39)
[2020-07-17] VITALS (14 sets, daily range): BP systolic 104–149; BP diastolic 56–83; PULSE 86–107; RESP 15–18; TEMP 36.7–38.1; O2SAT 91–96
[2020-07-17] MEDS: sodium chloride 0.9% (100 ml) 100 ML 125 ML (02:24)
[2020-07-17 05:48] LABS: Basophils % 0.5 %; Eosinophils # 0.2 10^3/uL (0.0-0.8); Eosinophils % 1.7 %; Hematocrit 30.1 % (37.0-47.0); Hemoglobin 8.4 g/dL (11.5-15.3); Lymphocytes # 1.3 10^3/uL (0.8-4.8); Lymphocytes % 14.7 %; Mean Corpuscular HGB Conc 27.9 g/dL (30.0-36.0); Mean Corpuscular Hemoglobin 21.4 pg (28.0-34.0); Mean Corpuscular Volume 76.8 fL (81-99); Mean Platelet Volume 9.6 fL (7.4-10.4); Monocytes # 0.9 10^3/uL (0.2-0.9); Monocytes % 10.6 %; Neutrophils # 6.35 10^3/uL (1.8-7.7); Nucleated Red Blood Cells % 0 %; Platelet Count 381 10^3/cmm (130-400); Red Blood Count 3.92 10^6/uL (4.1-5.3); Red Cell Distribution Width 17.6 % (12.1-15.1); White Blood Count 8.8 10^3/uL (4.0-10.0)
[2020-07-17] MEDS: ondansetron 2 mg/ML SDV 2 mL 4 MG IVP (05:52)
[2020-07-17 06:11] LABS: Anion Gap 12.5 (5-19); Blood Urea Nitrogen 9 mg/dL (8-23); Carbon Dioxide 26 mmol/L (22-29); Chloride 105 mmol/L (98-107); Creatinine Clr Calc Pharmacy 57.9937; Glucose 104 mg/dL (65-115); Osmolality Calculated 289 mOsm/kg (285-295); Potassium 3.5 mmol/L (3.5-5.1); Sodium 140 mmol/L (136-145)
[2020-07-17 06:22] LABS: H. Pylori IgG Antibody Negative (Negative)
--- NOTE | 2020-07-17 07:33 | P.CONIM_ITS ---
Providers/Reason For Consult Consulting Physican/Specialty*: General Surgery Yony Hill MD Reason for Consult*: Melena, anemia. Attending Physician: Silvano Cho MD Primary Care Provider: Carlos Barba MD History of Present Illness History of Present Illness Melonie Suggs is a 74 year old female recently admitted for a seizure at home. She says it is not common for her to have these although the last one was only 4 to 5 weeks ago. She fell and apparently struck her head, sustaining a small laceration. She was found to be significantly anemic. In talking to the patient, it sounds like she has been on famotidine for years but stopped taking this 2 or 3 months ago because it was not doing me any good. Despite having more heartburn and melena over the past several months, she still did not restart her medication. She says her stools have probably been dark for 6 m onths now but she has been having more heartburn over the past 3 months. She takes Tums and Rolaids at home pretty much every day but does not take any other antacids. She does tell me she takes a baby aspirin once a day but does not take any other opac-eyh-yqdtmwa NSAIDs. She does admit to some occasional dysphagia where she feels as if food gets stuck in her throat. She denies epigastric discomfort. She has no known history of peptic ulcer disease and has no known family history of gastric neoplasia. She has not had any changes in her bowel habits and denies hematochezia. The patient apparently was found to have some anemia problems last year and Dr. Barba was was reportedly going to be tasked with setting the patient up with endoscopy, but she says this never happened. She says she had a colonoscopy perhaps 20 years ago and it was okay. She does not ever recall having an EGD. There are no endoscopy reports in the hospital computer system. Review of Systems General: Reports: 10 or more systems reviewed and unremarkable except in HPI and below Const: Denies: fever(s) ENMT: Reports: odynophagia GI: Reports: melena; Denies: abdominal pain or hematochezia Neuro: Reports: seizure-like activity (On chronic medication for the same) Meds/Allergies Home Medications and Allergies Home Medications Medication Instructions Recorded Confirmed Last Taken Type levetiracetam 500 mg tablet 500 mg PO BID #60 tab 06/12/20 07/16/20 07/16/20 07:30 Rx Valium 10 mg PO DAILY@19 07/16/20 07/16/20 Unknown History Vitamin D3 1 cap PO QAM 07/16/20 07/16/20 Unknown History aspirin [Aspirin Low Dose] 81 mg PO QAM 07/16/20 07/16/20 07/16/20 07:30 History famotidine See Rx Instructions .ROUTE .COMPLEX 07/16/20 07/16/20 07/16/20 07:30 History Allergies Allergy/AdvReac Type Severity Reaction Status Date / Time divalproex sodium Allergy N/V and Verified 07/16/20 16:57 [From Depakote] dizziness sulfamethoxazole Allergy headache Verified 07/16/20 16:57 [From Bactrim] and seizures trimethoprim [From Bactrim] Allergy headache Verified 07/16/20 16:57 and seizures Current Medications Current Medications Generic Name Dose Route Start Last Admin Trade Name Freq PRN Reason Stop Dose Admin Diazepam 10 mg 07/16/20 19:54 07/16/20 20:39 Diazepam 5 Mg Tablet PO 10 mg DAILY@19 TANK Administration Dextrose/Sodium Chloride 1,000 mls @ 30 mls/hr 07/16/20 19:54 07/16/20 20:19 Dextrose 5%-Sod Chloride 0.45% IV 30 mls/hr .Q24H TANK Administration Ondansetron HCl 4 mg 07/16/20 19:54 07/17/20 05:52 Ondansetron 2 Mg/Ml Sdv 2 Ml IVP 4 mg Q6H PRN Administration NAUSEA AND VOMITING PFSH Acute PFSH: Medical History Anxiety Bilateral hydronephrosis Secondary to bladder distention and incomplete emptying Cholelithiasis Cystitis cystica Diverticulosis Elevated troponin I level Epilepsy Focused based right temporal lobe epilepsy patient does not wish to have surgery for intractable seizures Frequent headaches GERD without esophagitis Hiatal hernia Hypertension Mild cognitive impairment Mixed stress and urge urinary incontinence Osteopenia Overflow incontinence Partial epilepsy secondarily generalized Urinary retention intermittent catheterization Surgical History History of ear surgery (~2014) Right. Dr Khan History of total hysterectomy (~1982) TVH (still has ovaries) for bleeding. Performed by Dr. Armstrong at [facility] [place] Family History Brother Diabetes Heart disease Hypercholesteremia Hypertension Social History Smoking and tobacco status: former smoker Quit status (tobacco): has quit using tobacco Year quit tobacco: 2012 Former quit date comment: smoked 20 years Alcohol intake: never Lives independently: Yes Housing: House Marital status: Legally History of recent travel: No Vitals/I&O/Wt Last Vital Signs Temp 100.3 F H 07/17/20 07:21 Pulse 107 H 07/17/20 07:21 Resp 17 07/17/20 07:21 BP 149/75 07/17/20 07:21 Pulse Ox 91 07/17/20 07:21 07/16/20 07/17/20 07/17/20 22:59 06:59 14:59 Intake Total 120 / 690 570 / 690 Output Total 300 / 600 300 / 600 Balance -180 / 90 270 / 90 Weight last 48 hrs Weight 150 lb Physical Exam Narrative: EXAM NARRATIVE: The patient was encountered in her hospital room. She is resting comfortably but is easily arousable. The pupils seem equal. No carotid bruits are heard. The lungs are clear anteriorly. The heart is regular. The abdomen is mildly to moderately obese and somewhat protuberant but very soft and I cannot elicit any tenderness. Bowel sounds are present. No obvious masses are palpated. The extremities reveal no edema. The patient can move all limbs to command. A&P Assessment and plan (1) Melanotic stools: This has been going on for 6 months. The patient stopped taking her famotidine 2 to 3 months ago and has noticed more heartburn and dysphagia ever since. I have discussed an EGD with her. Details and risks of the procedure were gone over. She has been n.p.o. since last night. She seems to understand and is agreeable to proceeding with an EGD this morning. Status: Acute (2) Anemia: Status: Acute (3) Dysphagia: Status: Acute Consult Attestations Medical Necessity Statement: General Surgery Yony Hill admitting service's notation. Coding Level of Care Code Acute Beverage Sales Consultant for Chg Fwd Diagnoses Melanotic stools K92.1 Anemia D64.9 Dysphagia R13.10
--- NOTE | 2020-07-17 08:28 | PC.NURSE ---
EGD Patient went for procedure.
[2020-07-17] MEDS: sodium chloride 0.9% 1,000 ML 30 ML IV (08:46)
[2020-07-17] MEDS: levETIRAcetam 500 mg Tablet PO ×2 (10:24→17:12)
--- NOTE | 2020-07-17 10:24 | ANES.PREANE2 ---
Pre-Anesthetic Assessment Pre-Anesthetic Assessment: Height/Weight: Height 1.6 m Weight 68.039 kg Temp Pulse Resp BP Pulse Ox 99.0 F 98 18 127/71 91 07/17/20 10:19 07/17/20 10:19 07/17/20 10:19 07/17/20 10:19 07/17/20 10:19 Proposed Procedure: Operation Date: 07/17/20 09:30 Proposed Procedures p EGD(Not Applicable) - Yony Hill MD Was Beta Ashley taken within 24 hours: N/A Was Clonidine taken within 24 hours: N/A Social: Social History: No alcohol and No tobacco Exam: Pre-Anes Outpt Exam: alert, oriented x 3, clear to auscultation bilaterally and regular rate & rhythm Airway: Submandibular: WNL Cervical ROM: WNL MP: 2 Dentition: False CV/HEM: CV/HEM: Anemia GI: GI: GERD Musc/skel: Comments: S/p fall with head lac Neuropsych: Neuropsych: Seizure Anesthetic Plan: ASA status: 3 Anesthesia: MAC Risk of > 500 ml blood loss (7ml/kg in children): No Meds/Allergies Current Medications: Current Medications Generic Name Dose Route Start Last Admin Trade Name Freq PRN Reason Stop Dose Admin Diazepam 10 mg 07/16/20 19:54 07/16/20 20:39 Diazepam 5 Mg Ta blet PO 10 mg DAILY@19 TANK Administration Dextrose/Sodium Ch loride 1,000 mls @ 30 ml s/hr 07/16/20 19:54 07/16/20 20:19 Dextrose 5%-Sod Chloride 0.45% IV 30 mls/hr .Q24H TANK Administration Sodium Chloride 1,000 mls @ 30 ml s/hr 07/17/20 08:30 07/17/20 09:52 Sodium Chloride 0.9% IV Infused .Q24H TANK Infusion Ondansetron HCl 4 mg 07/16/20 19:54 07/17/20 05:52 Ondansetron 2 Mg /Ml Sdv 2 Ml IVP 4 mg Q6H PRN Administration NAUSEA AND VOMITI NG PFSH Anesthesia PFSH: Medical History Anxiety Bilateral hydronephrosis Secondary to bladder distention and incomplete emptying Cholelithiasis Cystitis cystica Diverticulosis Elevated troponin I level Epilepsy Focused based right temporal lobe epilepsy patient does not wish to have surgery for intractable seizures Frequent headaches GERD without esophagitis Hiatal hernia Hypertension Mild cognitive impairment Mixed stress and urge urinary incontinence Osteopenia Overflow incontinence Partial epilepsy secondarily generalized Urinary retention intermittent catheterization Surgical History History of ear surgery (~2014) Right. Dr Khan History of total hysterectomy (~1982) TVH (still has ovaries) for bleeding. Performed by Dr. Armstrong at [facility] [place] Family History Brother Diabetes Heart disease Hypercholesteremia Hypertension Social History Smoking and tobacco status: former smoker Quit status (tobacco): has quit using tobacco Year quit tobacco: 2012 Former quit date comment: smoked 20 years Alcohol intake: never Lives independently: Yes Housing: House Marital status: Legally History of recent travel: No Data Anesthesia CBC & Chem 7: 07/17/20 05:17 07/17/20 05:17 Other Labs: Laboratory Results - last 48 hr 07/16/20 07/16/20 07/16/20 16:18 16:18 16:18 WBC 9.0 RBC 3.77 L Hgb 7.6 L Hct 27.7 L MCV 73.5 L MCH 20.2 L MCHC 27.4 L RDW 17.1 H Plt Count 439 H MPV 9.7 Neut % (Auto) 63.7 Lymph % (Auto) 22.0 [place] % (Auto) 12.2 Eos % (Auto) 1.2 Baso % (Auto) 0.6 Neut # (Auto) 5.71 Lymph # (Auto) 2.0 [place] # (Auto) 1.1 H Eos # (Auto) 0.1 Baso # (Auto) 0.1 Nucleated RBC % (auto) 0 Nucleated RBCs # 0.0 D-Dimer Sodium 137 Potassium 3.3 L Chloride 101 Carbon Dioxide 26 Anion Gap 13.3 BUN 11 Creatinine 1.1 H GFR Calculation Not Reportable Glucose 116 H Calculated Osmolality 284 L Calcium 8.6 Total Bilirubin 0.2 AST 13 ALT 10 Alkaline Phosphatase 78 Creatine Kinase 61 Total Protein 7.7 Albumin 4.1 Globulin 3.6 Procalcitonin 0.07 Prolactin 24.82 H Urine Color Urine Appearance Urine pH Ur Specific [place] Urine Protein Urine Glucose (UA) Urine Ketones Urine Blood Urine Nitrate Urine Bilirubin Urine Urobilinogen Ur Leukocyte Esterase Urine RBC Urine WBC Ur Squamous Epith Cells Amorphous Sediment Urine Bacteria H. pylori IgG Antibody Blood Type Rho(D) Type Antibody Screen Crossmatch 07/16/20 07/16/20 07/16/20 16:18 18:30 18:36 WBC RBC Hgb Hct MCV MCH MCHC RDW Plt Count MPV Neut % (Auto) Lymph % (Auto) [place] % (Auto) Eos % (Auto) Baso % (Auto) Neut # (Auto) Lymph # (Auto) [place] # (Auto) Eos # (Auto) Baso # (Auto) Nucleated RBC % (auto) Nucleated RBCs # D-Dimer 1.97 H Sodium Potassium Chloride Carbon Dioxide Anion Gap BUN Creatinine GFR Calculation Glucose Calculated Osmolality Calcium Total Bilirubin AST ALT Alkaline Phosphatase Creatine Kinase Total Protein Albumin Globulin Procalcitonin Prolactin Urine Color Straw Urine Appearance Hazy A Urine pH 6 Ur Specific [place] 1.005 Urine Protein Neg Urine Glucose (UA) Norm Urine Ketones Negative Urine Blood Neg Urine Nitrate Negative Urine Bilirubin Neg Urine Urobilinogen Norm Ur Leukocyte Esterase 2+ H Urine RBC 0-4 H Urine WBC 25-40 H Ur Squamous Epith Cells 0-4 H Amorphous Sediment Not Reportable Urine Bacteria 4+ H H. pylori IgG Antibody Blood Type O Positive Rho(D) Type Positive / 4+ Antibody Screen Negative Crossmatch See Detail 07/17/20 07/17/20 07/17/20 05:17 05:17 05:17 WBC 8.8 RBC 3.92 L Hgb 8.4 L Hct 30.1 L MCV 76.8 L MCH 21.4 L MCHC 27.9 L RDW 17.6 H Plt Count 381 MPV 9.6 Neut % (Auto) 72.0 Lymph % (Auto) 14.7 [place] % (Auto) 10.6 Eos % (Auto) 1.7 Baso % (Auto) 0.5 Neut # (Auto) 6.35 Lymph # (Auto) 1.3 [place] # (Auto) 0.9 Eos # (Auto) 0.2 Baso # (Auto) 0.0 Nucleated RBC % (auto) 0 Nucleated RBCs # 0.0 D-Dimer Sodium 140 Potassium 3.5 Chloride 105 Carbon Dioxide 26 Anion Gap 12.5 BUN 9 Creatinine 0.8 GFR Calculation Not Reportable Glucose 104 Calculated Osmolality 289 Calcium 9.0 Total Bilirubin AST ALT Alkaline Phosphatase Creatine Kinase Total Protein Albumin Globulin Procalcitonin Prolactin Urine Color Urine Appearance Urine pH Ur Specific [place] Urine Protein Urine Glucose (UA) Urine Ketones Urine Blood Urine Nitrate Urine Bilirubin Urine Urobilinogen Ur Leukocyte Esterase Urine RBC Urine WBC Ur Squamous Epith Cells Amorphous Sediment Urine Bacteria H. pylori IgG Antibody Negative Blood Type Rho(D) Type Antibody Screen Crossmatch Cardiac Studies: No Data to Display
--- NOTE | 2020-07-17 10:25 | ANE.PACU2 ---
Inpatient post-anesthesia follow up: Airway intact: Yes Vital signs: Temperature 99.0 F Pulse Rate [Monito r] 97 Pulse Rate 98 Respiratory Rate 18 Blood Pressure [Ri ght Arm] 158/72 Blood Pressure 127/71 Pulse Oximetry 91 Oxygen Delivery Me thod Room Air Oxygen Flow Rate 2 Fraction of Inspir ed Oxygen Hydration adequate: Yes Nausea and vomiting: No Pain level: 1 Mental status: Baseline
[2020-07-17] MEDS: pantoprazole 40 mg SDV IV (10:32)
--- NOTE | 2020-07-17 13:38 | P.PN_ITS ---
Subjective Subjective: Interval history: Patient was seen and examined at the bedside. She just came back from an EGD. EGD report was reviewed with the patient for duodenal ulcer and gastritis. Hemoglobin 8.4 after 1 unit no recurrence/breakthrough seizures. Patient is stating that she is feeling better no dysuria chest pain abdominal pain nausea or vomiting. I have asked social service worker to arrange home health services for her Vitals/I&O/Wt Last Vital Signs Temp 98.0 F 07/17/20 11:17 Pulse 95 07/17/20 11:17 Resp 17 07/17/20 11:17 BP 125/72 07/17/20 11:17 Pulse Ox 94 07/17/20 11:17 07/16/20 07/17/20 07/17/20 22:59 06:59 14:59 Intake Total 120 / 120 570 / 690 420 / 420 Output Total 300 / 300 300 / 600 400 / 400 Balance -180 / -180 270 / 90 20 / 20 Weight last 48 hrs Weight 68.039 kg Physical Exam Narrative: EXAM NARRATIVE: Patient was laying comfortably in her bed without any active discomfort She just came back from an EGD Awake alert oriented x3 GCS 15 S1, S2 sinus rhythm no signs of heart failure Bilateral breath sounds without adventitious rhonchi or crackles Abdomen soft nontender Lower extremity no edema gangrene ulcer No active bleeding from the wound around her occipital area Appropriate mood and affect Data : 07/17/20 05:17 07/17/20 05:17 A&P Assessment and plan (1) Anemia: Status: Acute (2) Laceration: Status: Acute (3) Fall: Status: Acute (4) Breakthrough seizure: Status: Acute (5) Microcytic anemia: Status: Acute (6) Melanotic stools: Status: Acute Additional A&P Information Syncopal event Considering high prolactin level her fall was secondary to a breakthrough seizure She lives alone I will arrange home health services for her to aid with her medications she has history of noncompliance with her antiepileptics Antiepileptic drug levels are pending H. pylori IgG antibody negative Keep her on lamotrigine and Keppra For breakthrough seizure, will use Ativan if needed Her daughter lives in [facility], Head laceration: No acute decompensation bleeding has stopped Microcytic anemia Status post EGD which revealed gastritis, hiatal hernia, duodenal ulcer Keep her on Protonix 40 mg p.o. 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
[2020-07-17] MEDS: sucralfate 1 gm Tablet PO (17:12)
[2020-07-17] MEDS: pantoprazole DR 40 mg Tablet PO (17:12)
[2020-07-17] MEDS: diazePAM 5 mg Tablet 10 MG PO (18:20)
[2020-07-17] MEDS: acetaminophen 325 mg Tablet 650 MG PO (22:41)
[2020-07-18] VITALS (11 sets, daily range): BP systolic 119–141; BP diastolic 66–77; PULSE 78–88; RESP 16–20; TEMP 36.5–37.1; O2SAT 93–98
[2020-07-18 05:40] LABS: Basophils % 0.9 %; Eosinophils # 0.1 10^3/uL (0.0-0.8); Hematocrit 29.6 % (37.0-47.0); Hemoglobin 8.3 g/dL (11.5-15.3); Lymphocytes # 1.5 10^3/uL (0.8-4.8); Lymphocytes % 32.2 %; Mean Corpuscular Hemoglobin 21.3 pg (28.0-34.0); Mean Corpuscular Volume 76.1 fL (81-99); Mean Platelet Volume 9.4 fL (7.4-10.4); Monocytes # 0.8 10^3/uL (0.2-0.9); Monocytes % 16.2 %; Neutrophils # 2.23 10^3/uL (1.8-7.7); Neutrophils % 47.5 %; Nucleated Red Blood Cells % 0 %; Platelet Count 315 10^3/cmm (130-400); Red Blood Count 3.89 10^6/uL (4.1-5.3); Red Cell Distribution Width 17.8 % (12.1-15.1); White Blood Count 4.7 10^3/uL (4.0-10.0)
[2020-07-18 06:09] LABS: Anion Gap 10.8 (5-19); Carbon Dioxide 27 mmol/L (22-29); Glucose 101 mg/dL (65-115); Potassium 3.8 mmol/L (3.5-5.1); Sodium 143 mmol/L (136-145)
[2020-07-18] MEDS: sucralfate 1 gm Tablet PO (06:32)
[2020-07-18 06:44] LABS: Blood Urea Nitrogen 6 mg/dL (8-23); Calcium 8.5 mg/dL (8.5-10.5); Chloride 107 mmol/L (98-107); Creatinine Clr Calc Pharmacy 57.9937; Osmolality Calculated 290 mOsm/kg (285-295)
[2020-07-18] MEDS: pantoprazole DR 40 mg Tablet PO (08:50)
[2020-07-18] MEDS: levETIRAcetam 500 mg Tablet PO (08:50)
--- NOTE | 2020-07-18 09:12 | PM.DCS ---
Discharge Providers Date of Admission: 07/16/20 18:11 Date of Discharge: July 18, 2020 Attending Provider at Admission: Silvano Cho MD Attending Provider at Discharge: Silvano Cho MD Primary Care Provider: Carlos Barba MD Diagnoses at Discharge Discharge Diagnosis (1) Anemia: Status: Acute (2) Laceration: Status: Acute (3) Fall: Status: Acute (4) Breakthrough seizure: Status: Acute (5) Microcytic anemia: Status: Acute (6) Melanotic stools: Status: Acute Reason for Visit Reason for Visit: LAC TO HEAD Hospital Course Hospital Course Melonie Suggs is a 74 year old female who has history of temporal lobe epilepsy takes Valium and Keppra, presented today after a fall. Patient is stating that she lives alone, she manages her daily activities and medications on her own. She was brought to the ER after a fall. Patient has no recall of that event. She is denying chest pain shortness of breath or recent fever or dysuria. She is endorsing melanotic stools and use of aspirin on daily basis. She has stopped taking famotidine within last few days. He has history of gastric induced ulcer for which she was seen in August 2019 and was asked to follow-up with PCP for recommendation of EGD and colonoscopy. In her records however I do not see any endoscopic results. Patient is stating that she is not sure what happened today but she fell backwards, she thinks her life alert alarm went off that prompted EMS to pay a visit. On arrival in the ED she was coherent no signs of stroke she had laceration of the back of her head still sylvester were used to stop the bleeding. Hemodynamically she was stable, systolic blood pressure 150s mmhg. previous hemoglobin 11.7 today 7.6, D-dimer 1.9, creatinine 1.1 Hospital course: Her fall was secondary to a seizure, prolactin was high, she did not experience any breakthrough seizures during hospitalization, she was kept n.p.o. and went for EGD next day, Dr. Hill found gastritis, hiatal hernia, duodenal ulcer for which she recommended Protonix 40 twice daily, I am also adding sucralfate in total she received 1 unit her hemoglobin improved from 7.6to 8.4, she will be discharged on 07/18 after getting second unit of PRBC. Home health/nursing care has been arranged because she lives alone and there is some question regarding compliance with her medications. Her Lamictal and lamotrigine levels are still pending. No active source of infection identified. Patient is still endorsing dark-colored stools, please be aware that she is also getting iron supplementation, she has microcytic anemia for which I have requested iron studies. They were not done at the time of admission because she received blood. Her sylvester will be removed in a week does not need any antibiotics. Her mood remained very pleasant throughout hospitalization. Because of her elevated D-dimer CTA was requested which ruled out PE. Physical Exam Narrative: EXAM NARRATIVE: Very pleasant elderly female No active breakthrough seizures S1, S2 mild systolic murmur Abdomen soft nontender bowel sound present No neurological deficits EOMI, PERRLA Head laceration occipital area with 2 sylvester no active bleed Discharge Data Data Completed and Pending: Completed Studies During Hospitalization Category Date Time Status CT angio chest PE protcl [id number] Stat Cat Scan 07/16/20 18:[address] cervical spin wo con* [id number] Stat Cat Scan 07/16/20 16:[address] head wo con* [id number] Stat Cat Scan 07/16/20 17:02 Completed Pending at discharge Category Date Time Status H. Pylori / LUPILLO T est Routine Lab 07/17/20 09:49 Ordered Immunochemical Fe mary carmen OCB Routine Lab 07/16/20 19:54 Uncollected Lamotrigine (Lami ctal) Level Timed Lab 07/16/20 18:30 Received Leukocyte Reduced RBC Routine Lab 07/16/20 18:30 Results Leukocyte Reduced RBC Routine Lab 07/18/20 09:11 Ordered Levetiracetam Kep pra Stat Lab 07/16/20 18:30 Received Type and Screen R outine Lab 07/16/20 18:30 Results Urine Culture Sta t Lab 07/16/20 18:36 Received Labs from last 24 hours 07/18/20 07/18/20 05:20 05:20 WBC 4.7 RBC 3.89 L Hgb 8.3 L Hct 29.6 L MCV 76.1 L MCH 21.3 L MCHC 28.0 L RDW 17.8 H Plt Count 315 MPV 9.4 Neut % (Auto) 47.5 Lymph % (Auto) 32.2 [place] % (Auto) 16.2 Eos % (Auto) 3.0 Baso % (Auto) 0.9 Neut # (Auto) 2.23 Lymph # (Auto) 1.5 [place] # (Auto) 0.8 Eos # (Auto) 0.1 Baso # (Auto) 0.0 Nucleated RBC % (a uto) 0 Nucleated RBCs # 0.0 Sodium 143 Potassium 3.8 Chloride 107 Carbon Dioxide 27 Anion Gap 10.8 BUN 6 L Creatinine 0.7 GFR Calculation Not Reportable Glucose 101 Calculated Osmolal ity 290 Calcium 8.5 Vitals: Last Vital Signs Temp 98.7 F 07/18/20 07:32 Pulse 83 07/18/20 07:32 Resp 16 07/18/20 07:32 BP 138/73 07/18/20 07:32 Pulse Ox 93 07/18/20 07:32 Discharge Plan Discharge Patient Disposition: Home Condition: Stable Prescriptions: New polyethylene glycol 3350 [Miralax] 17 gram/dose powder 8.5 g PO DAILY PRN (Reason: constipation) 30 Days Qty: 119 RF: 2 pantoprazole 40 mg Tablet,Delayed Release (Dr/Ec) 40 mg PO BID 90 Days Qty: 180 RF: 3 sucralfate 1 gram Tablet 1 g PO BIDAC 90 Days Qty: 90 RF: 2 ferrous sulfate [iron] 325 mg (65 mg iron) tablet 325 mg PO EVERY OTHER DAY 90 Days Qty: 45 RF: 3 Continued Vitamin D3 1 cap PO QAM RF: 0 levetiracetam 500 mg tablet 500 mg PO BID 30 Days Qty: 60 RF: 3 Changed Valium 10 mg tablet 10 mg PO DAILY@19 30 Days Qty: 30 RF: 0 Discontinued Aspirin Low Dose 81 mg tablet,delayed release (DR/EC) 81 mg PO QAM RF: 0 famotidine 20 mg tablet See Rx Instructions .ROUTE .COMPLEX RF: 0 Discharge Orders: Discharge Order (Routine); Ordered 07/18/20 Ordered By: Silvano Cho Referrals: Carlos Barba MD [Primary Care Provider] - 2 weeks Discharge Diet: Cardiac Discharge Activity: Increase activity as tolerated Patient Instructions: GI Discharge Instructions Activity Restrictions/Additional Instructions: You have been prescribed Protonix and sucralfate for duodenal ulcers please avoid aspirin or ibuprofen at home for pain You were also given iron tablets which you can take every other day for constipation please use MiraLAX Please follow-up with your PCP You can resume taking your epilepsy medications Discharge Attestations Time Spent in Discharge Care*: less than 30 min Quality Metrics Clinical Quality Measures During this hospital stay, did patient experience: None Coding Level of Care Code Acute g FW CA note Diagnoses Anemia D64.9 Laceration Fall W19.XXXA Breakthrough seizure G40.919 Microcytic anemia D50.9 Melanotic stools K92.1
[2020-07-18 13:44] LABS: H. Pylori / CLO Test Negative
[2020-07-18] MEDS: sodium chloride 0.9% (100 ml) 100 ML (15:05)
[2020-07-20 19:53] LABS: Levetiracetam Keppra 15.8 mcg/mL
[2020-07-22 16:42] LABS: Lamotrigine (Lamictal) Level <0.5 mcg/mL (4.0-18.0)
== END 2020-07-18 15:07 | disposition home or self-care (01) ==
LOC: ER 17:12 → MEDSURG 18:40
PROVIDERS: Surgery; Admitting Provider Internal Medicine; Emergency Provider Family Medicine; PCP Family Medicine; Visit Provider Internal Medicine
PROC: 0DJ08ZZ Inspection of Upper Intestinal Tract, Via Natural or Artificial Opening Endoscopic (ICD-10-PCS; CPT 43235; principal; 2020-07-17 09:30)
DX: D50.9 Iron deficiency anemia, unspecified (principal); G40.919 Epilepsy, unspecified, intractable, without status epilepticus; K92.1 Melena; S01.91XA Laceration without foreign body of unspecified part of head, initial encounter; W19.XXXA Unspecified fall, initial encounter; K21.9 Gastro-esophageal reflux disease without esophagitis; Z87.891 Personal history of nicotine dependence; I10 Essential (primary) hypertension
CPT/HCPCS: 12002; 12345; 36415; 36430; 43239; 51701; 70450; 71275; 72125; 80048; 80053; 80175; 80177; 81001; 82550; 84145; 84146; 85025; 85378; 86677; 86850; 86900; 86920; 87077; 87086; 87186; 93005; 96361; 96374; 99285; C9113; G0378; J2270; J2405; J2704; J7030; J7799; P9016; Q9967

== ENCOUNTER → 2020-07-29 14:02 | Outpatient (BNVA) | payer MEDICARE, MEDICAID, SELFPAY | PROVIDERS: PCP Family Medicine; Visit Provider Family Medicine | DX: D50.9 Iron deficiency anemia, unspecified (principal); N39.490 Overflow incontinence; K21.9 Gastro-esophageal reflux disease without esophagitis; Z09 Encounter for follow-up examination after completed treatment for conditions other than malignant neoplasm | CPT/HCPCS: 85007; 85027 ==

== ENCOUNTER 2020-07-30 08:52 | Emergency (ER) | payer MEDICARE, MEDICAID, SELFPAY ==
[2020-07-30 08:52] VITALS: BP 138/80; PULSE 99; RESP 16; TEMP 36.7; O2SAT 94; BMI 26.5
--- NOTE | 2020-07-30 09:00 | W.ED.SEIZURE ---
Documented by User: KIM Gee 07/30/20 10:35 HPI - Seizure General: Chief Complaint: Seizure Stated Complaint: SEIZURE Time Seen by Provider: 07/30/20 08:55 Source: patient and EMS Mode of arrival: EMS Limitations: no limitations History of Present Illness: HPI Narrative: Patient is a 74-year-old female with a history of temporal lobe epilepsy here for a complaint of a seizure. Home health states they witnessed what sounds to be a generalized tonic-clonic seizure just prior to arrival. Patient was seated and there was no fall. Patient tells me she is on seizure medications although she does not know the name. Looking at previous documentation it looks like she is on Keppra and Valium and questionable whether she is still on Lamictal (they were testing Lamictal levels last time she was hospitalized). Patient tells me she follows up with Dr. Reese for her seizures. Patient states she was recently hospitalized for melena. She is not complaining of bloody or dark stools currently. She had fallen which is what prompted her visit-unknown whether this was a seizure or syncopal episode. She has no pain currently. Patient is alert and oriented upon arrival. EMS does state to some post ictal confusion when they arrived on scene. MD complaint: seizure Onset (ago): hour(s) Description of Episode: tonic-clonic movement -: second(s) Witnessed: Yes - by Bystander (Home Health ) Trauma: No Seizure History: Yes Place: Home Possible Precipitating Event: none Associated symptoms: Reports no associated symptoms; Deny chest pain, chills, confusion, fever(s) or syncope Treatments prior to arrival: none Review of Systems Const: Denies: fever(s), chills, body aches or fatigue Eyes: Denies: change in vision Card: Denies: chest pain, palpitations, lightheadedness, syncope or pre-syncope Resp: Denies: dyspnea GI: Denies: abdominal pain, nausea or vomiting Musc: Denies: neck pain or back pain Skin/Breast: Denies: rash Neuro: Reports: seizure-like activity; Denies: headache(s), numbness in extremities, weakness in extremities, sensory changes, difficulty walking, dizziness, confusion, Slurred speech present or difficulty communicating thoughts PFS ED PFSH: Medical History (Updated 07/30/20 @ 10:24 by KIM Gee) Anxiety Bilateral hydronephrosis Secondary to bladder distention and incomplete emptying Cholelithiasis Cystitis cystica Diverticulosis Dysphagia Elevated troponin I level Epilepsy Focused based right temporal lobe epilepsy patient does not wish to have surgery for intractable seizures Fall Frequent headaches GERD without esophagitis Hiatal hernia Hypertension Iron deficiency anemia Laceration Laceration of head Melanotic stools Microcytic anemia Mild cognitive impairment Mixed stress and urge urinary incontinence Osteopenia Overflow incontinence 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 Dr Khan History of total hysterectomy (~1982) TVH (still has ovaries) for bleeding. Performed by Dr. Armstrong at [facility] [place] Family History Brother Diabetes Heart disease Hypercholesteremia Hypertension Social History Smoking and tobacco status: former smoker Quit status (tobacco): has quit using tobacco Year quit tobacco: 2012 Former quit date comment: smoked 20 years Alcohol intake: never Lives independently: Yes Housing: House Marital status: Legally History of recent travel: No Physical Exam Const: COMMON NORMALS: no acute distress, average body habitus, patient oriented x3, no limitations, healthy appearing, alert and well nourished GENERAL APPEARANCE: cooperative ORIENTATION/CONSCIOUSNESS: Yes awake, Yes oriented to person, Yes oriented to place and Yes oriented to time HENMT: COMMON NORMALS: normocephalic and atraumatic HEAD & SCALP: normocephalic and atraumatic Eye: COMMON NORMALS: Equal, round and reactive pupils present and EOMs intact bilaterally GENERAL EYE: appearance normal, both eyes and all related structures PUPIL: Yes Equal, round and reactive pupils present Neck/C-Spine: COMMON NORMALS: full ROM CERVICAL SPINE: Yes cervical ROM normal and No Cervical spine tenderness Resp: COMMON NORMALS: normal respiratory effort and clear to auscultation bilaterally AUSCULTATION: clear to auscultation bilaterally Cardio: COMMON NORMALS: regular rate and regular rhythm RATE: regular rate RHYTHM: regular rhythm GI: COMMON NORMALS: Normal to inspection, nondistended, normoactive bowel sounds present, Soft to palpation, non-tender, No hepatosplenomegaly present and no masses PALPATION: Yes Soft to palpation and Yes No hepatosplenomegaly present Back/Pelvis: COMMON NORMALS: thoracic and lumbar spine normal to inspection, no thoracic nor lumbar tenderness and thoraco-lumbar ROM normal Extremity: COMMON NORMALS: normal to inspection Neuro: HUBERT COMA SCALE: document GCS findings Hazard coma scale eye opening: Spontaneous Hazard coma scale verbal response: Orientated Hazard coma scale motor response: Obey commands Hubert coma scale total score: 15 COMMON NORMALS: patient oriented x3, CN's II-XII intact bilaterally, moves all extremities, no focal motor deficits and no sensory deficits noted SENSORIUM/ORIENTATION: Yes alert, Yes oriented to person, Yes oriented to place and Yes oriented to time Skin: COMMON NORMALS: no rashes or lesions noted GENERAL SKIN EXAM: no rashes or lesions noted TRAUMA: no lacerations or abrasions Course Vital Signs: Vital signs: Vital Signs Temperature 98.1 F 07/30/20 08:52 Pulse Rate 95 07/30/20 11:48 Respiratory Rate 14 07/30/20 11:48 Blood Pressure 133/95 07/30/20 11:48 Pulse Oximetry 96 07/30/20 11:48 MDM - Seizure MDM Narrative: Medical decision making narrative: It appears patient has a longstanding history of breakthrough seizures. At one point she was on Lamictal but it looks like she was taken off of this due to hot flashes. She is currently on Keppra 500 mg twice daily. Patient was noted to have a UTI on UA today. Looking at her previous hospitalization it looks like this was present then too but was untreated. Culture and sensitivity report grew ESBL E. coli. Sensitivity report reports sensitivity with Amikacin, Augmentin, Imipenem, Nitrofurantoin, Bactrim, and Zosyn. She was given IV Zosyn here and will be placed on Augmentin at home. Recommend close follow-up with her PCP. We will also increase her dose of Keppra to 750 mg twice daily and have case management set her up with an appointment to see Dr. Reese for further evaluation. Return to ED precautions given. Case discussed with Dr. Celestin who agrees with care and plan for patient. Lab Data: Labs: Lab Results 03/30/21 03/30/21 03/30/21 Range/Units 08:40 08:40 09:47 WBC 7.7 (4.0-10.0) 10^3/ uL RBC 5.07 (4.1-5.3) 10^6/u L Hgb 11.1 L (11.5-15.3) g/dL Hct 38.2 (37.0-47.0) % MCV 75.3 L (81-99) fL MCH 21.9 L (28.0-34.0) pg MCHC 29.1 L (30.0-36.0) g/dL RDW 19.0 H (12.1-15.1) % Plt Count 518 H (130-400) 10^3/c mm MPV 9.9 (7.4-10.4) fL Neut % (Auto) 67.8 % Lymph % (Auto) 22.7 % [place] % (Auto) 5.2 % Eos % (Auto) 2.9 % Baso % (Auto) 1.0 % Neut # (Auto) 5.22 (1.8-7.7) 10^3/u L Lymph # (Auto) 1.8 (0.8-4.8) 10^3/u L [place] # (Auto) 0.4 (0.2-0.9) 10^3/u L Eos # (Auto) 0.2 (0.0-0.8) 10^3/u L Baso # (Auto) 0.1 (0.0-0.1) 10^3/u L Nucleated RBC % (a uto) 0 % Nucleated RBCs # 0.0 /100WBC Sodium 142 (136-145) mmol/L Potassium 4.4 (3.5-5.1) mmol/L Chloride 103 (98-107) mmol/L Carbon Dioxide 27 (22-29) mmol/L Anion Gap 16.4 (5-19) BUN 8 (8-23) mg/dL Creatinine 0.8 (0.5-0.9) mg/dL GFR Calculation Not Reportable Glucose 123 H (65-115) mg/dL Calculated Osmolal ity 294 (285-295) mOsm/k g Calcium 9.5 (8.5-10.5) mg/dL Total Bilirubin 0.2 (0.15-1.2) mg/dL AST 22 (0-32) U/L ALT 18 (0-33) U/L Alkaline Phosphata se 90 (35-105) IU/L Total Protein 7.8 (6.6-8.7) g/dL Albumin 4.2 (3.5-5.2) g/dL Globulin 3.6 (1.3-4.6) g/dL Urine Color Yellow (Yellow) Urine Appearance Cloudy (CLEAR) Urine pH 6.5 (5-7) Ur Specific Gravit y 1.005 (1.005-1.030) Urine Protein Neg (Negative) Urine Glucose (UA) Norm (Normal) Urine Ketones Negative (Negative) Urine Blood 2+ H (Negative) Urine Nitrate Negative (Negative) Urine Bilirubin Neg (Negative) Urine Urobilinogen Norm (Negative) mg/dL Ur Leukocyte Suzette ase 2+ H (Negative) Urine RBC 15-25 H (0-2) /hpf Urine WBC >100 H (0-5) /hpf Ur Squamous Epith Cells 0-4 H (0-5) /hpf Amorphous Sediment Not Reportable Urine Bacteria 2+ H (NONE) /hpf Imaging Data^: CXR: Radiologist's impression: [place] [address] XRay Report Signed Patient: Melonie Suggs #: [id number] : 7Acc#:[id number] Age/Sex: 74 / FADM Date: 07/30/20 [facility] Attending Dr: Ordering Provider/Ordering MD: Denise Brown Date of Service: 07/30/20 Procedure(s): XR chest 1V portable [id number] Accession Number(s): [id number] Report Number: [id number] PROCEDURE INFORMATION: Exam: XR Chest Exam date and time: 07/30/2020 9:05 AM Age: 74 years old Clinical indication: Other: Seizure TECHNIQUE: Imaging protocol: XR of the chest Views: 1 view. COMPARISON: CT angio chest PE prot [id number] 07/16/2020 7:51 PM FINDINGS: Lungs: Emphysematous change, chronic granulomatous disease, and interstitial prominence. Pleural spaces: No pleural effusion. Heart/Mediastinum: No cardiomegaly. Bones/joints: Degenerative change. XR/XR chest 1V portable [id number] IMPRESSION: Emphysematous change, chronic granulomatous disease, and interstitial prominence. Dictated By:Cesar Powers MD Signed By:Cesar Powers MDSigned Date/Time:07/30/20942 DD/ 0 Discharge Plan Discharge Patient Disposition: Home Clinical Impression: UTI due to extended-spectrum beta lactamase (ESBL) producing Escherichia coli Epileptic seizure Qualifiers: Epilepsy type: unspecified Intractability: not intractable Status epilepticus: without status epilepticus Qualified Code(s): G40.909 - Epilepsy, unspecified, not intractable, without status epilepticus Condition: Stable Prescriptions: New Augmentin 875-125 mg tablet 1 tab PO Q12H 10 Days Qty: 20 RF: 0 Keppra 750 mg tablet 750 mg PO BID Qty: 60 RF: 0 Discontinued levetiracetam 500 mg tablet 500 mg PO BID@08,20 RF: 0 No Action Vitamin D3 1 cap PO QAM RF: 0 sucralfate 1 gram Tablet 1 g PO BIDAC 90 Days Qty: 90 RF: 2 pantoprazole 40 mg Tablet,Delayed Release (Dr/Ec) 40 mg PO BID 90 Days Qty: 180 RF: 3 ferrous sulfate [iron] 325 mg (65 mg iron) tablet 325 mg PO EVERY OTHER DAY 90 Days Qty: 45 RF: 3 polyethylene glycol 3350 [Miralax] 17 gram/dose powder 8.5 g PO DAILY PRN (Reason: constipation) 30 Days Qty: 119 RF: 2 diazepam [Valium] 10 mg tablet 10 mg PO DAILY@19 30 Days Qty: 30 RF: 0 Discharge Orders: Discharge ED (Routine); Ordered 07/30/20 Ordered By: Denise Brown Referrals: Jelena Reese MD [Physician] - Carlos Barba MD [Primary Care Provider] - Patient Instructions: Levetiracetam (By mouth), Urinary Tract Infection in Women (ED), Epilepsy (ED), Extended Spectrum Beta Lactamase (GEN), Recurrent Seizures Adult (ED) Activity Restrictions/Additional Instructions: As we discussed you have a very resistant form of a urinary tract infection. You need to fill the antibiotics given to you today immediately and begin taking them. If you begin feeling ill, have severe abdominal or flank pain, altered mental status or fevers you need to return to the emergency department immediately. We are increasing your dose of Keppra to 750 mg twice daily. Case management should contact you to set you up with a follow-up appointment with Dr. Reese. Coding Level of Care Code ED Industrial Engineering Intern for Chg Fwd Exam Comprehensive Documented by User: Suhas Celestin DO 07/31/20 06:52 HPI - Seizure General: Chief Complaint: Seizure Stated Complaint: SEIZURE Time Seen by Provider: 07/30/20 08:55 PFSH ED PFSH: Medical History (Updated 07/30/20 @ 10:24 by KIM Gee) Anxiety Bilateral hydronephrosis Secondary to bladder distention and incomplete emptying Cholelithiasis Cystitis cystica Diverticulosis Dysphagia Elevated troponin I level Epilepsy Focused based right temporal lobe epilepsy patient does not wish to have surgery for intractable seizures Fall Frequent headaches GERD without esophagitis Hiatal hernia Hypertension Iron deficiency anemia Laceration Laceration of head Melanotic stools Microcytic anemia Mild cognitive impairment Mixed stress and urge urinary incontinence Osteopenia Overflow incontinence 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 Dr Khan History of total hysterectomy (~1982) TVH (still has ovaries) for bleeding. Performed by Dr. Armstrong at [facility] [place] Family History Brother Diabetes Heart disease Hypercholesteremia Hypertension Social History Smoking and tobacco status: former smoker Quit status (tobacco): has quit using tobacco Year quit tobacco: 2012 Former quit date comment: smoked 20 years Alcohol intake: never Lives independently: Yes Housing: House Marital status: Legally History of recent travel: No Course Vital Signs: Vital signs: Vital Signs Temperature 98.1 F 07/30/20 08:52 Pulse Rate 95 07/30/20 11:48 Respiratory Rate 14 07/30/20 11:48 Blood Pressure 133/95 07/30/20 11:48 Pulse Oximetry 96 07/30/20 11:48 MDM - Seizure MDM Narrative: Medical decision making narrative: Reviewed case with Denise Brown nurse practitioner agree with diagnosis, disposition and plan. Lab Data: Labs: Lab Results 07/30/20 07/30/20 07/30/20 Range/Units 08:40 08:40 09:47 WBC 7.7 (4.0-10.0) 10^3/ uL RBC 5.07 (4.1-5.3) 10^6/u L Hgb 11.1 L (11.5-15.3) g/dL Hct 38.2 (37.0-47.0) % MCV 75.3 L (81-99) fL MCH 21.9 L (28.0-34.0) pg MCHC 29.1 L (30.0-36.0) g/dL RDW 19.0 H (12.1-15.1) % Plt Count 518 H (130-400) 10^3/c mm MPV 9.9 (7.4-10.4) fL Neut % (Auto) 67.8 % Lymph % (Auto) 22.7 % [place] % (Auto) 5.2 % Eos % (Auto) 2.9 % Baso % (Auto) 1.0 % Neut # (Auto) 5.22 (1.8-7.7) 10^3/u L Lymph # (Auto) 1.8 (0.8-4.8) 10^3/u L [place] # (Auto) 0.4 (0.2-0.9) 10^3/u L Eos # (Auto) 0.2 (0.0-0.8) 10^3/u L Baso # (Auto) 0.1 (0.0-0.1) 10^3/u L Nucleated RBC % (a uto) 0 % Nucleated RBCs # 0.0 /100WBC Sodium 142 (136-145) mmol/L Potassium 4.4 (3.5-5.1) mmol/L Chloride 103 (98-107) mmol/L Carbon Dioxide 27 (22-29) mmol/L Anion Gap 16.4 (5-19) BUN 8 (8-23) mg/dL Creatinine 0.8 (0.5-0.9) mg/dL GFR Calculation Not Reportable Glucose 123 H (65-115) mg/dL Calculated Osmolal ity 294 (285-295) mOsm/k g Calcium 9.5 (8.5-10.5) mg/dL Total Bilirubin 0.2 (0.15-1.2) mg/dL AST 22 (0-32) U/L ALT 18 (0-33) U/L Alkaline Phosphata se 90 (35-105) IU/L Total Protein 7.8 (6.6-8.7) g/dL Albumin 4.2 (3.5-5.2) g/dL Globulin 3.6 (1.3-4.6) g/dL Urine Color Yellow (Yellow) Urine Appearance Cloudy (CLEAR) Urine pH 6.5 (5-7) Ur Specific Gravit y 1.005 (1.005-1.030) Urine Protein Neg (Negative) Urine Glucose (UA) Norm (Normal) Urine Ketones Negative (Negative) Urine Blood 2+ H (Negative) Urine Nitrate Negative (Negative) Urine Bilirubin Neg (Negative) Urine Urobilinogen Norm (Negative) mg/dL Ur Leukocyte Suzette ase 2+ H (Negative) Urine RBC 15-25 H (0-2) /hpf Urine WBC >100 H (0-5) /hpf Ur Squamous Epith Cells 0-4 H (0-5) /hpf Amorphous Sediment Not Reportable Urine Bacteria 2+ H (NONE) /hpf Discharge Plan Discharge Patient Disposition: Home Clinical Impression: UTI due to extended-spectrum beta lactamase (ESBL) producing Escherichia coli Epileptic seizure Qualifiers: Epilepsy type: unspecified Intractability: not intractable Status epilepticus: without status epilepticus Qualified Code(s): G40.909 - Epilepsy, unspecified, not intractable, without status epilepticus Condition: Stable Prescriptions: New Augmentin 875-125 mg tablet 1 tab PO Q12H 10 Days Qty: 20 RF: 0 Keppra 750 mg tablet 750 mg PO BID Qty: 60 RF: 0 Discontinued levetiracetam 500 mg tablet 500 mg PO BID@08,20 RF: 0 No Action Vitamin D3 1 cap PO QAM RF: 0 sucralfate 1 gram Tablet 1 g PO BIDAC 90 Days Qty: 90 RF: 2 pantoprazole 40 mg Tablet,Delayed Release (Dr/Ec) 40 mg PO BID 90 Days Qty: 180 RF: 3 ferrous sulfate [iron] 325 mg (65 mg iron) tablet 325 mg PO EVERY OTHER DAY 90 Days Qty: 45 RF: 3 polyethylene glycol 3350 [Miralax] 17 gram/dose powder 8.5 g PO DAILY PRN (Reason: constipation) 30 Days Qty: 119 RF: 2 diazepam [Valium] 10 mg tablet 10 mg PO DAILY@19 30 Days Qty: 30 RF: 0 Discharge Orders: Discharge ED (Routine); Ordered 07/30/20 Ordered By: Denise Brown Referrals: Jelena Reese MD [Physician] - Carlos Barba MD [Primary Care Provider] - Patient Instructions: Levetiracetam (By mouth), Urinary Tract Infection in Women (ED), Epilepsy (ED), Extended Spectrum Beta Lactamase (GEN), Recurrent Seizures Adult (ED) Activity Restrictions/Additional Instructions: As we discussed you have a very resistant form of a urinary tract infection. You need to fill the antibiotics given to you today immediately and begin taking them. If you begin feeling ill, have severe abdominal or flank pain, altered mental status or fevers you need to return to the emergency department immediately. We are increasing your dose of Keppra to 750 mg twice daily. Case management should contact you to set you up with a follow-up appointment with Dr. Reese. Coding Level of Care Code ED Industrial Engineering Intern for Carmelina Fwd Exam Comprehensive
--- NOTE | 2020-07-30 09:03 | ECG_ITS ---
[facility] Test Date: 2020-07-30 Pat Name: Melonie Suggs Department: Room: Gender: Female Capacity Planning Analyst: : 1945 Requested By: Denise Brown Order Number: [id number] Reading MD: ILIANA RIVAS Measurements Intervals Counce Rate: 97 P: -10 OK: 188 QRS: 145 QRSD: 74 T: 44 QT: 361 QTc: 460 Interpretive Statements SINUS RHYTHM POSSIBLE RIGHT VENTRICULAR HYPERTROPHY [SOME/ALL OF: PROMINENT R IN V1, LATE TRANSITION, RAD, RHONDA, SSS] LATERAL MYOCARDIAL INFARCTION , PROBABLY OLD [40+ ms Q WAVE AND/OR ST/T ABNORMALITY IN I/aVL/V5/V6] Compared to ECG 07/16/2020 16:52:34 Myocardial infarct finding now present Left-axis deviation no longer present Electronically Signed On 07-30-2020 20:18:39 CDT by ILIANA RIVAS [email or web address]
--- NOTE | 2020-07-30 09:03 | XRR_ITS ---
PROCEDURE INFORMATION: Exam: XR Chest Exam date and time: 07/30/2020 9:05 AM Age: 74 years old Clinical indication: Other: Seizure TECHNIQUE: Imaging protocol: XR of the chest Views: 1 view. COMPARISON: CT angio chest PE prot [id number] 07/16/2020 7:51 PM FINDINGS: Lungs: Emphysematous change, chronic granulomatous disease, and interstitial prominence. Pleural spaces: No pleural effusion. Heart/Mediastinum: No cardiomegaly. Bones/joints: Degenerative change. XR/XR chest 1V portable [id number] IMPRESSION: Emphysematous change, chronic granulomatous disease, and interstitial prominence.
[2020-07-30 09:18] LABS: Basophils # 0.1 10^3/uL (0.0-0.1); Eosinophils # 0.2 10^3/uL (0.0-0.8); Eosinophils % 2.9 %; Hematocrit 38.2 % (37.0-47.0); Hemoglobin 11.1 g/dL (11.5-15.3); Lymphocytes # 1.8 10^3/uL (0.8-4.8); Lymphocytes % 22.7 %; Mean Corpuscular HGB Conc 29.1 g/dL (30.0-36.0); Mean Corpuscular Hemoglobin 21.9 pg (28.0-34.0); Mean Corpuscular Volume 75.3 fL (81-99); Mean Platelet Volume 9.9 fL (7.4-10.4); Monocytes # 0.4 10^3/uL (0.2-0.9); Monocytes % 5.2 %; Neutrophils # 5.22 10^3/uL (1.8-7.7); Neutrophils % 67.8 %; Nucleated Red Blood Cells % 0 %; Platelet Count 518 10^3/cmm (130-400); Red Blood Count 5.07 10^6/uL (4.1-5.3); White Blood Count 7.7 10^3/uL (4.0-10.0)
[2020-07-30 09:28] VITALS: BP 146/70; PULSE 98; RESP 18; O2SAT 95
[2020-07-30 09:32] LABS: Alanine Aminotransferase 18 U/L (0-33); Albumin Level 4.2 g/dL (3.5-5.2); Alkaline Phosphatase 90 IU/L (35-105); Blood Urea Nitrogen 8 mg/dL (8-23); Calcium 9.5 mg/dL (8.5-10.5); Carbon Dioxide 27 mmol/L (22-29); Chloride 103 mmol/L (98-107); Creatinine Clr Calc Pharmacy 57.9937; Globulin 3.6 g/dL (1.3-4.6); Glucose 123 mg/dL (65-115); Osmolality Calculated 294 mOsm/kg (285-295); Sodium 142 mmol/L (136-145); Total Bilirubin 0.2 mg/dL (0.15-1.2); Total Protein 7.8 g/dL (6.6-8.7)
[2020-07-30 09:35] LABS: Anion Gap 16.4 (5-19); Potassium 4.4 mmol/L (3.5-5.1)
[2020-07-30 09:36] LABS: Aspartate Amino Transferase 22 U/L (0-32)
[2020-07-30 09:55] LABS: Add Urine Microscopic? YES; Bilirubin Urine Neg (Negative); Blood Urine 2+ (Negative); Glucose Urine UA Norm (Normal); Ketones Urine Negative (Negative); Leukocyte Esterase Urine 2+ (Negative); Nitrate Urine Negative (Negative); Protein Urine Neg (Negative); Specific Gravity, Urine 1.005 (1.005-1.030); Urine Appearance Cloudy (CLEAR); Urine Color Yellow (Yellow); Urobilinogen Urine Norm (Negative); pH Urine 6.5 (5-7)
[2020-07-30 10:00] LABS: Add Urine Culture? Yes; Bacteria Urine 2+ /hpf; RBC Urine 15-25 /hpf (0-2); Squamous Epithelial Cell Urine 0-4 /hpf (0-5); WBC Urine >100 /hpf (0-5)
[2020-07-30 10:18] VITALS: BP 156/89; PULSE 93; RESP 20; O2SAT 96
[2020-07-30] MEDS: piperacillin-tazobactam 3.375 GM in sodium chloride 0.9% (plus) 50 ML IV (10:20)
[2020-07-30 11:48] VITALS: BP 133/95; PULSE 95; RESP 14; O2SAT 96
--- NOTE | 2020-07-31 15:25 | DCPLANNER ---
business process manager had message to schedule a follow up appointment for patient with Dr. Reese for continued seizures. business process manager called the office of Dr. Reese, spoke with Jaja, a follow up appointment was scheduled for Wednesday, August 26, 2020 at 3:[address] Reese. Clinic will call patient with appointment information.
[2020-08-02 20:33] LABS: Levetiracetam Keppra 13.2 mcg/mL
[2020-08-04 13:08] LABS: Lamotrigine (Lamictal) Level <0.5 mcg/mL (4.0-18.0)
--- NOTE | 2020-08-27 15:34 | DCPLANNER ---
Patient had a follow up appointment scheduled for 08.26.[address] Reese - patient did attend appointment.
== END 2020-07-30 11:58 | disposition home or self-care (01) ==
PROVIDERS: Emergency Provider Physician Assistant; PCP Family Medicine
DX: G40.909 Epilepsy, unspecified, not intractable, without status epilepticus (principal); N39.0 Urinary tract infection, site not specified; B96.29 Other Escherichia coli [E. coli] as the cause of diseases classified elsewhere; Z87.440 Personal history of urinary (tract) infections; I10 Essential (primary) hypertension; Z87.891 Personal history of nicotine dependence
CPT/HCPCS: 71045; 80053; 80175; 80177; 81001; 85025; 87077; 87086; 87186; 93005; 96365; 99284; J2543

== ENCOUNTER → 2020-08-26 15:35 | Outpatient (BNVA) | payer MEDICARE, MEDICAID, SELFPAY | PROVIDERS: PCP Family Medicine; Referring Provider Physician Assistant; Visit Provider Specialist | DX: G40.909 Epilepsy, unspecified, not intractable, without status epilepticus (principal); K21.9 Gastro-esophageal reflux disease without esophagitis; Z87.891 Personal history of nicotine dependence | CPT/HCPCS: 99214 ==

== ENCOUNTER → 2020-09-05 14:23 | Outpatient (BNVA) | payer MEDICARE, MEDICAID, SELFPAY | PROVIDERS: PCP Family Medicine; Visit Provider Internal Medicine | DX: D50.9 Iron deficiency anemia, unspecified (principal) | CPT/HCPCS: 80053; 82607; 82746; 83550; 85025; 85045; 87635 ==

== ENCOUNTER 2020-09-09 07:57 | Day surgery (SDC) | payer MEDICARE, MEDICAID, SELFPAY ==
--- NOTE | 2020-09-09 08:11 | ANES.PREANE2 ---
Pre-Anesthetic Assessment Pre-Anesthetic Assessment: Height/Weight: Height 1.6 m Weight 67.585 kg Preop Diagnosis: anemia Proposed Procedure: Operation Date: 09/09/20 09:30 Proposed Procedures p EGD [id number] 00542 D50.9(Not Applicable) - Aiden Monroe MD s Colonoscopy(Not Applicable) - Aiden Monroe MD Familial anesthetic complications: None Was Beta Ashley taken within 24 hours: N/A Was Clonidine taken within 24 hours: N/A Last intake: NPO > 8 hrs Social: Social History: No alcohol and No tobacco Exam: Pre-Anes Outpt Exam: alert, oriented x 3, clear to auscultation bilaterally and regular rate & rhythm Airway: Cervical ROM: WNL MP: 1 Dentition: False CV/HEM: CV/HEM: Anemia GI: GI: GERD Comments: bleeding ulcers Metabolic: Metabolic: Hyperlipidemia Neuropsych: Neuropsych: Seizure (epilepsy - last seizure a couple of months ago ) Anesthetic Plan: ASA status: 2 Anesthesia: MAC Risk of > 500 ml blood loss (7ml/kg in children): No PFSH Anesthesia PFSH: Medical History Anxiety Bilateral hydronephrosis Secondary to bladder distention and incomplete emptying Cholelithiasis Cystitis cystica Diverticulosis Dysphagia Elevated troponin I level Epilepsy Focused based right temporal lobe epilepsy patient does not wish to have surgery for intractable seizures Fall Frequent headaches GERD without esophagitis Hiatal hernia Hypertension Iron deficiency anemia Laceration Laceration of head Melanotic stools Microcytic anemia Mild cognitive impairment Mixed stress and urge urinary incontinence Osteopenia Overflow incontinence 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 Dr Khan History of total hysterectomy (~1982) TVH (still has ovaries) for bleeding. Performed by Dr. Armstrong at [facility] [place] Family History Brother Diabetes Heart disease Hypercholesteremia Hypertension Social History Smoking and tobacco status: former smoker Quit status (tobacco): has quit using tobacco Year quit tobacco: 2012 Former quit date comment: smoked 20 years Alcohol intake: never Lives independently: Yes Housing: House Marital status: Legally History of recent travel: No Data Anesthesia Cardiac Studies: No Data to Display
[2020-09-09 08:34] VITALS: BP 135/82; RESP 16; TEMP 36.7; O2SAT 98
[2020-09-09] MEDS: sodium chloride 0.9% 1,000 ML 30 ML IV (08:50)
--- NOTE | 2020-09-09 08:55 | W.PM.OPSFHP ---
Same Day Surgery H&P Indication for Procedure/HPI DATE OF PROCEDURE: September 09, 2020 CHIEF COMPLAINT/INDICATIONFOR SURGICAL PROCEDURE: Microcytic anemia PREOP DIAGNOSIS: Microcytic anemia PLANNED PROCEDRUE: Operation Date: 09/09/20 09:30 Proposed Procedures p EGD [id number] D50.9(Not Applicable) - Aidne Monroe MD s Colonoscopy(Not Applicable) - Aiden Monroe MD Medications/Allergies* Home Medications Medication Instructions Recorded Confirmed Type Vitamin D3 1 cap PO QAM 07/16/20 09/09/20 History acetaminophen 325 mg capsule 325 mg PO QID PRN 09/05/20 09/09/20 History Allergies/Adverse Reactions Allergy/AdvReac Type Severity Reaction Status Date / Time divalproex sodium Allergy N/V and Verified 09/09/20 08:32 [From Depakote] dizziness sulfamethoxazole Allergy headache Verified 09/09/20 08:32 [From Bactrim] and seizures trimethoprim [From Bactrim] Allergy headache Verified 08/26/20 15:59 and seizures Current Medications: Generic Name Dose Route Start Last Admin Trade Name Freq PRN Reason Stop Dose Admin Sodium Chloride 1,000 mls @ 30 mls/hr 09/09/20 08:30 09/09/20 08:50 Sodium Chloride 0.9% IV 30 mls/hr .Q24H TANK Administration Pertinent History/Comorbid Conditions* Medical History (Updated 09/05/20 @ 14:08 by Aiden Monroe MD) Anxiety Bilateral hydronephrosis Secondary to bladder distention and incomplete emptying Cholelithiasis Cystitis cystica Diverticulosis Dysphagia Elevated troponin I level Epilepsy Focused based right temporal lobe epilepsy patient does not wish to have surgery for intractable seizures Fall Frequent headaches GERD without esophagitis Hiatal hernia Hypertension Iron deficiency anemia Laceration Laceration of head Melanotic stools Microcytic anemia Mild cognitive impairment Mixed stress and urge urinary incontinence Osteopenia Overflow incontinence 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 Dr Khan History of total hysterectomy (~1982) TVH (still has ovaries) for bleeding. Performed by Dr. Armstrong at [facility] [place] Family History (Updated 09/28/19 @ 09:26 by Jesusita Busch LPN) Diabetes Brother Heart disease Brother Hypercholesteremia Brother Hypertension Brother Social History Smoking and tobacco status: former smoker Quit status (tobacco): has quit using tobacco Year quit tobacco: 2012 Former quit date comment: smoked 20 years Alcohol intake: never Lives independently: Yes Housing: House Marital status: Legally History of recent travel: No Pertinent Exam Findings alert, oriented x 3, clear to auscultation bilaterally, regular rate & rhythm, operative site marked and procedure specific exam findings Recommendations Surgery/Procedure today Coding Level of Care Code Acute Product Support Representative for Carmelina Cabello
[2020-09-09 11:15] VITALS: BP 123/73; PULSE 72; RESP 16; TEMP 36.1; O2SAT 94
--- NOTE | 2020-09-09 11:16 | ANE.PACU2 ---
Inpatient post-anesthesia follow up: Airway intact: Yes Vital signs: Temperature 97 F Pulse Rate 72 Respiratory Rate 16 Blood Pressure 123/73 Pulse Oximetry 94 Oxygen Delivery Me thod Nasal Cannula Oxygen Flow Rate 3 Fraction of Inspir ed Oxygen Hydration adequate: Yes Nausea and vomiting: No Pain level: 1 Mental status: Baseline
== END 2020-09-09 11:52 | disposition home or self-care (01) ==
PROVIDERS: PCP Family Medicine; Visit Provider Internal Medicine
PROC: 0DJ08ZZ Inspection of Upper Intestinal Tract, Via Natural or Artificial Opening Endoscopic (ICD-10-PCS; CPT 43235; principal; 2020-09-09 09:30)
PROC: 0DJD8ZZ Inspection of Lower Intestinal Tract, Via Natural or Artificial Opening Endoscopic (ICD-10-PCS; CPT 45378; 2020-09-09 09:30)
DX: D50.9 Iron deficiency anemia, unspecified (principal); F41.9 Anxiety disorder, unspecified; G40.909 Epilepsy, unspecified, not intractable, without status epilepticus; I10 Essential (primary) hypertension; Z87.891 Personal history of nicotine dependence; K44.9 Diaphragmatic hernia without obstruction or gangrene
CPT/HCPCS: 43235; 45378; 96360; 96361; J2704; J7030

== ENCOUNTER → 2020-10-10 15:23 | Outpatient (BNVA) | payer MEDICARE, MEDICAID, SELFPAY | PROVIDERS: PCP Family Medicine; Visit Provider Internal Medicine | DX: K90.9 Intestinal malabsorption, unspecified (principal); D50.9 Iron deficiency anemia, unspecified | CPT/HCPCS: 83550; 85025 ==

== ENCOUNTER → 2020-11-20 08:54 | Day surgery (SDC) | payer MEDICARE, MEDICAID, SELFPAY ==
[2020-11-20 09:23] VITALS: BP 117/73; PULSE 70; RESP 18; TEMP 36.1; O2SAT 95
[2020-11-20] MEDS: ferric carboxy (IVPB) 750 MG in sodium chloride 0.9% (100 ml) 100 ML 345 MG IV (09:25)
== END ==
PROVIDERS: PCP Family Medicine; Visit Provider Internal Medicine
DX: K90.9 Intestinal malabsorption, unspecified (principal); D50.9 Iron deficiency anemia, unspecified
CPT/HCPCS: 96365; J1439

== ENCOUNTER → 2020-11-27 08:56 | Day surgery (SDC) | payer MEDICARE, MEDICAID, SELFPAY ==
[2020-11-27 09:19] VITALS: BP 139/73; PULSE 75; RESP 18; TEMP 36.4; O2SAT 91
[2020-11-27] MEDS: ferric carboxy (IVPB) 750 MG in sodium chloride 0.9% (100 ml) 100 ML 345 MG IV (09:30)
== END ==
PROVIDERS: PCP Family Medicine; Visit Provider Internal Medicine
DX: K90.9 Intestinal malabsorption, unspecified (principal); D50.9 Iron deficiency anemia, unspecified
CPT/HCPCS: 96365; J1439

== ENCOUNTER → 2020-12-18 09:41 | Outpatient (BNVA) | payer MEDICARE, MEDICAID, SELFPAY | PROVIDERS: PCP Family Medicine; Visit Provider Specialist | DX: G40.119 Localization-related (focal) (partial) symptomatic epilepsy and epileptic syndromes with simple partial seizures, intractable, without status epilepticus (principal); Z87.891 Personal history of nicotine dependence | CPT/HCPCS: 99213 ==

== ENCOUNTER → 2020-12-25 15:25 | Outpatient (BNVA) | payer MEDICARE, MEDICAID, SELFPAY | PROVIDERS: PCP Family Medicine; Visit Provider Internal Medicine | DX: K90.9 Intestinal malabsorption, unspecified (principal); D50.9 Iron deficiency anemia, unspecified | CPT/HCPCS: 83550 ==

== ENCOUNTER 2021-01-27 14:33 | Outpatient (CLI) | payer MEDICARE, MEDICAID, SELFPAY ==
--- NOTE | 2021-01-27 14:15 | USCV_ITS ---
Melonie Suggs Age: 75 Gender: F : 1945 Exam Date: 01/27/2021 14:53 Ordering Phys: Kunal Lam DPM Technologist: [place] [facility] [place]ication: ENCOUNTER FOR PREOPERATIVE EXAMINATION RIGHT LEFT Brachial 138.00 mmHg Brachial mmHg Pressure (mmHg) Waveform Pressure (mmHg) Waveform 163.00 Below Knee 171.00 BLOOD BANK ASSISTANT 162.00 DPA 1.24 Ankle/Brachial Index 126.00 Pre-Exercise Toe Pressure 0.91 Pre-Exercise Toe/Brachial Index FINDINGS UNABLE TO INFLATE RT THIGH CUFF DUE TO PT PAIN NormalResting ADRIAN and TBI on the right side CONCLUSIONS No evidence of any significant arterial obstruction, based on the above findings. Dr Vane Wright MD FACC (Electronically Signed) Final Date: 28 January 2021 19:20 S
== END 2021-01-27 14:34 | disposition home or self-care (01) ==
LOC: US 14:37
PROVIDERS: PCP Family Medicine; Visit Provider Podiatrist Foot & Ankle Surgery
DX: Z01.818 Encounter for other preprocedural examination (principal)
CPT/HCPCS: 93922

== ENCOUNTER → 2021-02-17 14:59 | Outpatient (BNVA) | payer MEDICARE, MEDICAID, SELFPAY | PROVIDERS: PCP Family Medicine; Visit Provider Specialist | DX: G40.802 Other epilepsy, not intractable, without status epilepticus (principal); G40.409 Other generalized epilepsy and epileptic syndromes, not intractable, without status epilepticus; Z87.891 Personal history of nicotine dependence | CPT/HCPCS: 99213 ==

== ENCOUNTER → 2021-05-28 12:25 | Outpatient (BNVA) | payer MEDICARE, MEDICAID, SELFPAY | PROVIDERS: PCP Family Medicine; Visit Provider Family Medicine | DX: G40.802 Other epilepsy, not intractable, without status epilepticus (principal); G47.00 Insomnia, unspecified; D22.9 Melanocytic nevi, unspecified; K21.9 Gastro-esophageal reflux disease without esophagitis; N39.46 Mixed incontinence | CPT/HCPCS: 80053; 85025 ==

== ENCOUNTER → 2021-07-21 09:53 | Outpatient (BNVA) | payer MEDICARE, MEDICAID, SELFPAY | PROVIDERS: PCP Family Medicine; Visit Provider Specialist | DX: G40.802 Other epilepsy, not intractable, without status epilepticus (principal); Z87.891 Personal history of nicotine dependence; Z60.2 Problems related to living alone | CPT/HCPCS: 99214; 99215 ==

== ENCOUNTER → 2021-08-13 09:46 | Outpatient (BNVA) | payer MEDICARE, MEDICAID, SELFPAY | PROVIDERS: PCP Family Medicine; Visit Provider Nurse Practitioner Family | DX: N39.0 Urinary tract infection, site not specified (principal); R33.9 Retention of urine, unspecified | CPT/HCPCS: 81003; 87077; 87086; 87184 ==

== ENCOUNTER → 2021-10-28 10:35 | Outpatient (BNVA) | payer MEDICARE, MEDICAID, SELFPAY | PROVIDERS: PCP Family Medicine; Visit Provider Specialist | DX: G40.802 Other epilepsy, not intractable, without status epilepticus (principal) | CPT/HCPCS: 99213 ==

== ENCOUNTER → 2021-11-20 08:32 | Outpatient (BNVA) | payer MEDICARE, MEDICAID, SELFPAY | PROVIDERS: PCP Family Medicine; Visit Provider Urology | DX: R33.9 Retention of urine, unspecified (principal); N39.0 Urinary tract infection, site not specified | CPT/HCPCS: 51798; 81003; 87077; 87086; 87186; 99213 ==

== ENCOUNTER → 2022-02-04 11:21 | Outpatient (BNVA) | payer MEDICARE, MEDICAID, SELFPAY | PROVIDERS: PCP Family Medicine; Visit Provider Family Medicine | DX: N39.0 Urinary tract infection, site not specified (principal); N39.46 Mixed incontinence; G40.89 Other seizures | CPT/HCPCS: 80053; 85025 ==

== ENCOUNTER → 2022-03-31 10:22 | Outpatient (BNVA) | payer MEDICARE, MEDICAID, SELFPAY | PROVIDERS: PCP Family Medicine; Visit Provider Specialist | DX: G40.802 Other epilepsy, not intractable, without status epilepticus (principal); G40.409 Other generalized epilepsy and epileptic syndromes, not intractable, without status epilepticus; R19.7 Diarrhea, unspecified | CPT/HCPCS: 99214 ==

== ENCOUNTER 2022-04-15 09:14 | Inpatient (IN) | payer MEDICARE, MEDICAID, SELFPAY ==
[2022-04-15] VITALS (12 sets, daily range): BP systolic 109–154; BP diastolic 54–88; PULSE 74–87; RESP 16–18; TEMP 36.7–37.3; O2SAT 90–98; BMI 26.5; BMI 29.3
--- NOTE | 2022-04-15 09:22 | XRR_ITS ---
PROCEDURE INFORMATION: Exam: XR Left Hip Exam date and time: 04/15/2022 9:31 AM Age: 76 years old Clinical indication: Pain and injury or trauma; Fall; Blunt trauma (contusions or hematomas); Hip pain; Left hip; Additional info: Pain/fall TECHNIQUE: Imaging protocol: Radiologic exam of the Left hip. Views: 2 or 3 views hip with pelvis when performed. AP 1 view pelvis with 2 views hip COMPARISON: CT abdomen pelvis w con* [id number] 07/30/2019 9:57 PM FINDINGS: Bones/joints: Deformity of the left proximal femur is seen, consistent with a left subcapital to mid cervical oblique femoral neck fracture. There is 0.3 cm superior displacement of the distal fracture fragment with mild foreshortening. There is no dislocation of the femoral head from the acetabular fossa. Moderate left hip degenerative changes are seen. Mild symphysis pubis and moderate visualized left sacroiliac joint degenerative changes are seen. Moderate degenerative changes of the visualized lower lumbar spine are seen. Soft tissues: There are no radio-opaque foreign bodies. Notes: Followup radiographs may be obtained for complete assessment. XR/XR hip LT 2-3V wo/w pel* [id number] IMPRESSION: Mildly displaced left proximal femoral/femoral neck fracture, as noted above.
--- NOTE | 2022-04-15 09:41 | W.ED.FALL ---
HPI - Fall General: Chief Complaint: Fall Stated Complaint: POST FALL - L HIP PAIN Time Seen by Provider: 04/15/22 09:17 Source: patient Mode of arrival: EMS History of Present Illness: 76-year-old female presents emergency room via EMS. She has history of seizures started this morning she took a double dose of her antiseizure medication. She got lightheaded and dizzy from this and after she had eaten breakfast she lost her balance and fell. She is complaining of severe left hip. Unable to stay at. She did not strike her head there is no loss consciousness she did not have any seizures. She denies chest or abdominal pain or any other injury. MD complaint: fall Onset (ago): hour(s) Fall from: standing Fall witnessed: no Place fall occurred: home Loss of consciousness: None Prolonged down time: unclear Symptoms prior to fall: none Context: tripped/slipped and new medication (Accidentally took double dose of medication) Location of injury: other (Left hip) Associated symptoms-after fall: Reports difficulty walking; Denies abdominal pain, chest pain, confusion, headache(s), hematuria, lightheadedness, neck pain, numbness, short of breath, vertigo or weakness Review of Systems Const: Denies: fever(s), chills, body aches, change in appetite, fatigue or malaise ENMT: Denies: throat pain, ear or mastoid pain, nasal discharge or nasal congestion Card: Denies: chest pain or lightheadedness Resp: Denies: dyspnea, productive cough or non-productive cough GI: Denies: abdominal pain : Denies: hematuria Musc: Denies: neck pain Skin/Breast: Denies: rash or pruritus Neuro: Reports: difficulty walking; Denies: headache(s), vertigo or confusion PFS ED PFSH: Medical History Anxiety Bilateral hydronephrosis Secondary to bladder distention and incomplete emptying Cholelithiasis Cystitis cystica Diverticulosis Dysphagia Elevated troponin I level Epilepsy Focused based right temporal lobe epilepsy patient does not wish to have surgery for intractable seizures Fall Frequent headaches GERD without esophagitis Hiatal hernia Hypertension Insomnia Iron deficiency anemia Laceration Laceration of head Melanotic stools Microcytic anemia Mild cognitive impairment Mixed stress and urge urinary incontinence Osteopenia Overflow incontinence Partial epilepsy secondarily generalized Recurrent UTI Temporal lobe epilepsy, intractable Urgency incontinence Urinary retention intermittent catheterization Surgical History History of ear surgery (~2014) Right. Dr Khan History of total hysterectomy (~1982) TVH (still has ovaries) for bleeding. Performed [place] Dr. Armstrong at [facility] [place] Family History Brother Diabetes Heart disease Hypercholesteremia Hypertension Mother , at age 72 Scoliosis Lung disease Father , at age 89 No problems noted. Social History Smoking and tobacco status: never smoked Quit status (tobacco): has quit using tobacco Year quit tobacco: 2012 Former quit date comment: smoked 20 years Alcohol intake: never Lives independently: Yes Housing: House Marital status: / Current occupational status: retired History of recent travel: No Physical Exam Const: COMMON NORMALS: no acute distress GENERAL APPEARANCE: cooperative and comfortable ORIENTATION/CONSCIOUSNESS: Yes awake, Yes oriented to person, Yes oriented to place and Yes oriented to time HENMT: COMMON NORMALS: normocephalic, atraumatic, hearing grossly normal bilaterally, external ears normal, EAC's normal, TM's normal bilaterally, Normal nasal mucous membranes and turbinates present, moist oral mucous membranes and oropharynx normal HEAD & SCALP: normocephalic and atraumatic NOSE: Normal nasal mucous membranes and turbinates present EXTERNAL EAR: Yes external ears normal EXTERNAL AUDITORY CANAL: EAC's normal TYMPANIC MEMBRANE: TM's normal bilaterally Eye: COMMON NORMALS: Equal, round and reactive pupils present, EOMs intact bilaterally, conjunctivae normal and no scleral icterus CONJUNCTIVA: Yes conjunctivae normal PUPIL: Yes Equal, round and reactive pupils present Neck/C-Spine: COMMON NORMALS: full ROM, no lymphadenopathy, supple and no JVD Lymph: LYMPHATIC: no lymphadenopathy noted and no lymphedema noted Resp: COMMON NORMALS: normal respiratory effort, No retractions, No use of accessory muscles and clear to auscultation bilaterally AUSCULTATION: clear to auscultation bilaterally Cardio: COMMON NORMALS: no JVD, regular rate, regular rhythm and No murmurs present (Cardio) RATE: regular rate RHYTHM: regular rhythm GI: COMMON NORMALS: Soft to palpation and No hepatosplenomegaly present AUSCULTATION: Yes normoactive bowel sounds PALPATION: Yes Soft to palpation, No Tenderness to palpation present (GI), No Guarding due to palpation present (GI) and Yes No hepatosplenomegaly present Extremity: COMMON NORMALS: normal to inspection, capillary refill normal, no clubbing, cyanosis or edema, no calf tenderness and no pedal edema OTHER: Peripheral pulses equal bilaterally lower extremities no external rotation or shortening. X-ray shows left femoral neck fracture mildly displaced Neuro: SENSORIUM/ORIENTATION: Yes oriented to person, Yes oriented to place and Yes oriented to time Skin: COMMON NORMALS: no rashes or lesions noted GENERAL SKIN EXAM: no rashes or lesions noted Course Vital Signs: Vital signs: Vital Signs Temperature 99.2 F 04/15/22 09:15 Pulse Rate 81 04/15/22 11:35 Respiratory Rate 16 04/15/22 11:35 Blood Pressure 154/88 04/15/22 11:35 Pulse Oximetry 95 04/15/22 11:35 Oxygen Delivery Me thod 04/15/22 11:35 MDM - Fall Medical Decision Making Femoral neck fracture mildly displaced. Patient eaten this morning around 7 AM and a banana and several slices of flores, unfortunately when I first came in the room she was drinking out of a small bottle of water to drink about 4 ounces we removed from her that was at around [phone]. Patient does have a left femoral neck fracture will admit discussed with hospitalist and orthopedics Medical Records I reviewed the patient's medical records. Lab Data I reviewed the patient's lab results. 04/15/22 10:17 04/15/22 10:17 Radiology Impressions Hip/Pelvis X-Ray 04/15/22 09:22 IMPRESSION: Mildly displaced left proximal femoral/femoral neck fracture, as noted above. Femur X-Ray 04/15/22 09:53 IMPRESSION: Mildly displaced left femoral neck fracture, as noted above. Knee X-Ray 04/15/22 09:53 IMPRESSION: No fractures or dislocation of the left knee. Mild degenerative changes, as noted above. Pelvis X-Ray 04/15/22 09:53 IMPRESSION: Unchanged mildly displaced left femoral neck fracture, as noted above. Laboratory Results WBC 5.9 10^3/uL (4.0-10.0) 04/15/22 10:17 RBC 4.92 10^6/uL (4.1-5.3) 04/15/22 10:17 Hgb 14.5 g/dL (11.5-15.3) 04/15/22 10:17 Hct 45.5 % (37.0-47.0) 04/15/22 10:17 MCV 92.5 fl (81-99) 04/15/22 10:17 MCH 29.5 pg (28.0-34.0) 04/15/22 10:17 MCHC 31.9 g/dL (30.0-36.0) 04/15/22 10:17 RDW 13.5 % (12.1-15.1) 04/15/22 10:17 Plt Count 231 10^3/cmm (130-400) 04/15/22 10:17 MPV 10.3 fL (7.4-10.4) 04/15/22 10:17 Neut % (Auto) 63.5 % 04/15/22 10:17 Lymph % (Auto) 24.2 % 04/15/22 10:17 [place] % (Auto) 9.0 % 04/15/22 10:17 Eos % (Auto) 1.9 % 04/15/22 10:17 Baso % (Auto) 0.7 % 04/15/22 10:17 Neut # (Auto) 3.73 10^3/uL (1.8-7.7) 04/15/22 10:17 Lymph # (Auto) 1.4 10^3/uL (0.8-4.8) 04/15/22 10:17 [place] # (Auto) 0.5 10^3/uL (0.2-0.9) 04/15/22 10:17 Eos # (Auto) 0.1 10^3/uL (0.0-0.8) 04/15/22 10:17 Baso # (Auto) 0.0 10^3/uL (0.0-0.1) 04/15/22 10:17 Nucleated RBC % (auto) 0 % 04/15/22 10:17 Nucleated RBCs # 0.0 /100WBC 04/15/22 10:17 PT 14.00 SECONDS (12.1-14.9) 04/15/22 10:17 INR 1.05 (0.8-1.2) 04/15/22 10:17 APTT 27.4 SECONDS (23.9-36.7) 04/15/22 10:17 Sodium 141 mmol/L (136-145) 04/15/22 10:17 Potassium 4.2 mmol/L (3.5-5.1) 04/15/22 10:17 Chloride 102 mmol/L (98-107) 04/15/22 10:17 Carbon Dioxide 26 mmol/L (22-29) 04/15/22 10:17 Anion Gap 17.2 (5-19) 04/15/22 10:17 BUN 7 mg/dL (8-23) L 04/15/22 10:17 Creatinine 0.6 mg/dL (0.5-0.9) 04/15/22 10:17 GFR Calculation Not Reportable 04/15/22 10:17 Glucose 122 mg/dL (65-115) H 04/15/22 10:17 Calculated Osmolality 291 mOsm/kg (285-295) 04/15/22 10:17 Calcium 9.4 mg/dL (8.5-10.5) 04/15/22 10:17 Total Bilirubin 0.3 mg/dL (0.15-1.2) 04/15/22 10:17 AST 19 U/L (0-32) 04/15/22 10:17 ALT 14 U/L (0-33) 04/15/22 10:17 Alkaline Phosphatase 133 U/L (35-105) H 04/15/22 10:17 Total Protein 6.9 g/dL (6.6-8.7) 04/15/22 10:17 Albumin 4.6 g/dL (3.5-5.2) 04/15/22 10:17 Globulin 2.3 g/dL (1.3-4.6) 04/15/22 10:17 Urine Color Yellow (Yellow) 04/15/22 10:42 Urine Appearance Hazy (CLEAR) A 04/15/22 10:42 Urine pH 5 (5-7) 04/15/22 10:42 Ur Specific [place] 1.006 (1.005-1.030) 04/15/22 10:42 Urine Protein Neg (Negative) 04/15/22 10:42 Urine Glucose (UA) Norm (Normal) 04/15/22 10:42 Urine Ketones Negative (Negative) 04/15/22 10:42 Urine Blood Neg (Negative) 04/15/22 10:42 Urine Nitrate Positive (Negative) H 04/15/22 10:42 Urine Bilirubin Neg (Negative) 04/15/22 10:42 Urine Urobilinogen Neg mg/dL (Negative) 04/15/22 10:42 Ur Leukocyte Esterase 2+ (Negative) H 04/15/22 10:42 Urine RBC 0-4 /hpf (0-2) H 04/15/22 10:42 Urine WBC 55-80 /hpf (0-5) H 04/15/22 10:42 Ur Squamous Epith Cells Rare /hpf (0-5) 04/15/22 10:42 Amorphous Sediment Not Reportable 04/15/22 10:42 Urine Bacteria 2+ /hpf (NONE) H 04/15/22 10:42 Discharge Plan Discharge Patient Disposition: Admitted As Inpatient Clinical Impression: Fracture of femoral neck, left, GERD without esophagitis, Frontal lobe epilepsy, History of seizure disorder Condition: Stable Prescriptions: No Action pantoprazole 20 mg tablet,delayed release (DR/EC) 20 mg PO DAILY Qty: 90 3RF methenamine hippurate 1 gram tablet 1 g PO BID Qty: 60 12RF Rx Instructions: Take 1000 mg of vitamin C with each dose of methenamine diazepam 5 mg tablet 5 mg PO BEDTIME PRN (Reason: anxiety) Qty: 30 3RF cenobamate 100 mg tablet 100 mg PO ONCE Qty: 30 5RF cenobamate 200 mg tablet 200 mg PO DAILY Qty: 30 5RF Vitamin C 500 mg Tablet 500 mg PO DAILY tamsulosin 0.4 mg capsule 0.4 mg PO BEDTIME Referrals: Carlos Barba MD [Primary Care Provider] - Patient Instructions: Opioid Safety, Pain Management Coding Level of Care Code ED Oil Heat Technician for Carmelina Cabello
--- NOTE | 2022-04-15 09:52 | ECG_ITS ---
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 Measurements Intervals [place] Rate: 69 P: 60 [place]: 225 QRS: -72 QRSD: 85 T: 29 QT: 395 QTc: 425 Interpretive Statements SINUS RHYTHM WITH FIRST DEGREE AV BLOCK LEFT AXIS DEVIATION [QRS AXIS < -30] POSSIBLE ANTERIOR MYOCARDIAL INFARCTION , OF INDETERMINATE AGE [30 ms Q WAVE IN V3/V4, OR R < 0.2 mV IN V4] Compared to ECG 07/30/2020 09:36:14 First degree AV block now present Left-axis deviation now present Atrial abnormality no longer present Myocardial infarct finding still present Electronically Signed On 04-15-2022 18:11:50 CORE DRILLER HELPER by Vane Wright M.D. [email or web address]
--- NOTE | 2022-04-15 09:53 | XRR_ITS ---
PROCEDURE INFORMATION: Exam: XR Pelvis Exam date and time: 04/15/2022 10:01 AM Age: 76 years old Clinical indication: Injury or trauma; Fall; Blunt trauma (contusions or hematomas); Bilateral; Hip and pelvic region TECHNIQUE: Imaging protocol: Radiologic exam of the pelvis. Views: 1 or 2 view. COMPARISON: CR XR hip LT 2-3V wo/w pel* [id number] 04/15/2022 9:31 AM FINDINGS: Bones/joints: Unchanged left subcapital to mid cervical femoral neck fracture is seen with 0.3 cm lateral displacement of the distal fracture fragment with mild foreshortening. No dislocation of the left femoral head from the acetabular fossa. Moderate bilateral hip degenerative changes are seen. Soft tissues: The pelvic and obturator rings are intact. The visualized right proximal femoral region appears unremarkable. Moderate symphysis pubis and sacroiliac joint degenerative changes are seen. Some degenerative changes of the visualized lower lumbar spine are seen. Notes: Followup radiographs may be obtained for complete assessment. XR/XR pelvis 1-2V* [id number] IMPRESSION: Unchanged mildly displaced left femoral neck fracture, as noted above.
--- NOTE | 2022-04-15 09:53 | XRR_ITS ---
PROCEDURE INFORMATION: Exam: XR Left Femur Exam date and time: 04/15/2022 10:01 AM Age: 76 years old Clinical indication: Injury or trauma; Fall; Blunt trauma; Thigh or upper leg; Left; Additional info: Fall, hip FX TECHNIQUE: Imaging protocol: Radiologic exam of the Left femur. Views: 2 views. COMPARISON: CR XR hip LT 2-3V wo/w pel* [id number] 04/15/2022 9:31 AM FINDINGS: Bones/joints: Left subcapital femoral neck fracture is once again seen with mild displacement and foreshortening. There is no dislocation of the left femoral head from the acetabular fossa. Moderate left hip degenerative changes are seen. There are no other fractures of the visualized left femur. The distal left femur and knee regions are not imaged on the exam. Soft tissues: There are no radiopaque foreign bodies. Notes: Followup radiographs may be obtained for complete assessment. XR/XR femur LT min 2V* [id number] IMPRESSION: Mildly displaced left femoral neck fracture, as noted above.
--- NOTE | 2022-04-15 09:53 | XRR_ITS ---
PROCEDURE INFORMATION: Exam: XR Left Knee Exam date and time: 04/15/2022 10:01 AM Age: 76 years old Clinical indication: Injury or trauma; Fall; Blunt trauma; Knee; Left TECHNIQUE: Imaging protocol: Radiologic exam of the Left knee. Views: 3 views. AP [place] Lateral COMPARISON: No relevant prior studies available. FINDINGS: Bones/joints: 3 compartment tiny degenerative osteophytes are seen. There are no fractures or dislocations. Mild medial tibiofemoral compartment joint space narrowing is seen, suggestive of osteoarthritic change. There are no joint bodies. There is osteopenia. Soft tissues: There is may be a tiny joint effusion. There are no radiopaque foreign bodies. There is minimal knee region soft tissue swelling. Notes: If there is further concern, recommend follow-up radiographs or MRI for complete assessment. XR/XR knee LT 3V* [id number] IMPRESSION: No fractures or dislocation of the left knee. Mild degenerative changes, as noted above.
--- NOTE | 2022-04-15 10:07 | PM.CONSULT ---
Providers/Reason For Consult Consulting Physician/Specialty*: Noman Benjamin, DO orthopedic surgery Reason for Consult*: Left femoral neck fracture, displaced Requesting Physician: Dr. Celestin Attending Physician: Dr. Ballard Primary Care Provider: Carlos Barba MD History of Present Illness History of Present Illness Melonie Suggs is a 76 year old female who presented to the emergency department after ground-level fall. Denies any loss of consciousness. Patient complained of left hip pain and inability to bear weight. She denies any loss of consciousness she denies being on any anticoagulation therapy. She does have history of seizures which she is on medication and seizures are controlled at this time. She does follow-up with Dr. Reese with this. She does have history of GERD and cystitis. She was found to the emergency department to have a displaced left femoral neck fracture as result orthopedic surgery team was consulted internal medicine is primary and admitting patient. She did already have breakfast this morning consisting of banana and flores as well as water. Patient has 2 daughters who live out of town and were contacted on patient's status. Patient denies any fevers chills chest pain shortness of breath nausea or vomiting. Review of Systems General: Reports: 10 or more systems reviewed and unremarkable except in HPI and below Const: Denies: fever(s) or chills Card: Denies: chest pain Resp: Denies: dyspnea GI: Denies: nausea or vomiting Musc: Reports: joint pain and joint swelling Medications/Allergies Home Medications Medication Instructions Recorded Confirmed Last Taken Type pantoprazole 20 mg tablet,delayed 20 mg PO DAILY #90 tabs 05/28/21 04/15/22 04/15/22 Rx release methenamine hippurate 1 gram tablet 1 g PO BID #60 tabs 11/26/21 04/15/22 04/15/22 Rx diazepam 5 mg tablet 5 mg PO BEDTIME PRN anxiety #30 12/22/21 04/15/22 Unknown Rx tabs cenobamate 100 mg tablet 100 mg PO ONCE #30 tabs 04/01/22 04/15/22 04/15/22 Rx cenobamate 200 mg tablet 200 mg PO DAILY #30 tabs 04/01/22 04/15/22 04/15/22 Rx ascorbic acid (vitamin C) 500 mg 500 mg PO DAILY 04/15/22 04/15/22 04/15/22 History tablet (Vitamin C) tamsulosin 0.4 mg capsule 0.4 mg PO BEDTIME 04/15/22 04/15/22 04/15/22 History Allergies Allergy/AdvReac Type Severity Reaction Status Date / Time divalproex sodium Allergy N/V and Verified 04/15/22 10:26 [From Depakote] dizziness sulfamethoxazole Allergy headache Verified 04/15/22 10:26 [From Bactrim] and seizures trimethoprim [From Bactrim] Allergy headache Verified 04/15/22 10:26 and seizures PFSH Acute PFSH: Medical History Anxiety Bilateral hydronephrosis Secondary to bladder distention and incomplete emptying Cholelithiasis Cystitis cystica Diverticulosis Dysphagia Elevated troponin I level Epilepsy Focused based right temporal lobe epilepsy patient does not wish to have surgery for intractable seizures Fall Frequent headaches GERD without esophagitis Hiatal hernia Hypertension Insomnia Iron deficiency anemia Laceration Laceration of head Melanotic stools Microcytic anemia Mild cognitive impairment Mixed stress and urge urinary incontinence Osteopenia Overflow incontinence Partial epilepsy secondarily generalized Recurrent UTI Temporal lobe epilepsy, intractable Urgency incontinence Urinary retention intermittent catheterization Surgical History History of ear surgery (~2014) Right. Dr Khan History of total hysterectomy (~1982) TVH (still has ovaries) for bleeding. [place]. Armstrong [place] [facility] [place] Family History Brother Diabetes Heart disease Hypercholesteremia Hypertension Mother , at age 72 Scoliosis Lung disease Father , at age 89 No problems noted. Social History Smoking and tobacco status: never smoked Quit status (tobacco): has quit using tobacco Year quit tobacco: 2012 Former quit date comment: smoked 20 years Alcohol intake: never Lives independently: Yes Housing: House Marital status: / Current occupational status: retired History of recent travel: No Vitals/I&O/Wt Last Vital Signs Temp 99.2 F 04/15/22 09:15 Pulse 77 04/15/22 09:36 Resp 16 04/15/22 09:36 BP 134/65 04/15/22 09:36 Pulse Ox 95 04/15/22 09:36 O2 Del Method 04/15/22 09:36 Weight last 48 hrs Weight 150 lb Physical Exam Narrative: Constitutional: Patient alert and oriented, well nourished HEENT?atraumatic normocephalic Respiratory?no acute respiratory distress, no retractions Cardio?distal pulses palpable MSK?examination of patient's bilateral upper extremities demonstrate no tenderness to palpation of the bilateral shoulders elbows wrists and hands. She is able to actively range these without any pain or discomfort. Sensation tact light touch bilaterally. Distal pulse palpable bilaterally. Examination of patient's right lower extremity demonstrates she is able to perform straight leg raise negative Stinchfield's negative logroll. No pain to the right hip knee foot or ankle. No pain with pelvic compression on the right side. Patient does have tenderness to palpation on the left side of the hip. She has a positive logroll. Unable to perform Stinchfield's testing secondary to left hip pain. Mild discomfort on palpation at the left knee with referred pain up to the left hip. Unable to assess knee range of motion secondary to left hip fracture. No tenderness to palpation of the foot and ankle. Bilateral lower extremity she is able to wiggle her toes, plantarflex and dorsiflex ankle sensation tact light touch to the SPN/DPN/tibial/saphenous/sural nerve distribution. Distal pulses palpable Bilaterally. Compartments are soft and compressible. Data 04/15/22 10:17 04/15/22 10:17 Xray Ortho: My impression: Multiple x-rays performed of the left hip femur knee and pelvis reviewed and demonstrate a displaced left femoral neck fracture. No fracture associated the femur or the left knee. No pelvic fracture noted. A&P Assessment and plan (1) Fracture of femoral neck, left: Plan Patient may have a diet today Plan for n.p.o. at midnight Medical optimization today per primary team Internal medicine is primary Ice as needed Pain control DVT prophylaxis?hold a.m. anticoagulation Nonweightbearing left lower extremity Plan for surgery tomorrow morning for left hip hemiarthroplasty. Discussed case with patient talked about risk benefits complication alternatives to surgical nonsurgical treatment options. Risks with surgery include but are not limited to make it better, make it worse, blood clot, heart attack, stroke, on the table, infection, wound dehiscence, dislocation, leg length discrepancy. Understanding these risks he agrees to proceed with surgical intervention. All questions answered this time. I did discuss with patient's daughter as well as niece about treatment plan and they understand and are agreeable to proceed with surgery as well. Patient is alert and oriented and able to make her own medical decisions but family was updated as well. We will make sure patient is medically optimized for surgical intervention of left hip hemiarthroplasty tomorrow. Patient understands agrees current plan. All questions answered. Consult Attestations Medical Necessity Statement: Displaced left femoral neck fracture requiring hospitalization surgical intervention Coding Level of Care Code Acute Annealing Furnace Tender for [facility]el[facility] Cabello Diagnoses Fracture of femoral neck, left S72.002A
--- NOTE | 2022-04-15 10:22 | PC.PHAR ---
PT HAS BOTH 100 MG AND 200MG CENOBAMATE AT HOME BOTH LAST FILLED 04/02/22 30DS- PT STS SHE IS SUPPOSED TO TAKE 200 MG DAILY - PT STATES SHE ACCIDENTALLY TOOK BOTH A 100 MG AND 2OO MG TABLET TODAY- PT NORMALLY TAKES 200 MG DAILY
[2022-04-15 10:25] LABS: Basophils % 0.7 %; Eosinophils # 0.1 10^3/uL (0.0-0.8); Eosinophils % 1.9 %; Hematocrit 45.5 % (37.0-47.0); Hemoglobin 14.5 g/dL (11.5-15.3); Lymphocytes # 1.4 10^3/uL (0.8-4.8); Lymphocytes % 24.2 %; Mean Corpuscular HGB Conc 31.9 g/dL (30.0-36.0); Mean Corpuscular Hemoglobin 29.5 pg (28.0-34.0); Mean Corpuscular Volume 92.5 fl (81-99); Mean Platelet Volume 10.3 fL (7.4-10.4); Monocytes # 0.5 10^3/uL (0.2-0.9); Neutrophils # 3.73 10^3/uL (1.8-7.7); Neutrophils % 63.5 %; Nucleated Red Blood Cells % 0 %; Platelet Count 231 10^3/cmm (130-400); Red Blood Count 4.92 10^6/uL (4.1-5.3); Red Cell Distribution Width 13.5 % (12.1-15.1); White Blood Count 5.9 10^3/uL (4.0-10.0)
[2022-04-15 10:46] LABS: INR 1.05 (0.8-1.2)
[2022-04-15 10:47] LABS: Partial Thromboplastin Time 27.4 SECONDS (23.9-36.7)
[2022-04-15 10:53] LABS: Alanine Aminotransferase 14 U/L (0-33); Albumin Level 4.6 g/dL (3.5-5.2); Alkaline Phosphatase 133 U/L (35-105); Anion Gap 17.2 (5-19); Aspartate Amino Transferase 19 U/L (0-32); Blood Urea Nitrogen 7 mg/dL (8-23); Calcium 9.4 mg/dL (8.5-10.5); Carbon Dioxide 26 mmol/L (22-29); Chloride 102 mmol/L (98-107); Creatinine Clr Calc Pharmacy 56.2625; Globulin 2.3 g/dL (1.3-4.6); Glucose 122 mg/dL (65-115); Osmolality Calculated 291 mOsm/kg (285-295); Potassium 4.2 mmol/L (3.5-5.1); Sodium 141 mmol/L (136-145); Total Bilirubin 0.3 mg/dL (0.15-1.2); Total Protein 6.9 g/dL (6.6-8.7)
[2022-04-15 10:54] LABS: Bilirubin Urine Neg (Negative); Blood Urine Neg (Negative); Glucose Urine UA Norm (Normal); Ketones Urine Negative (Negative); Leukocyte Esterase Urine 2+ (Negative); Nitrate Urine Positive (Negative); Protein Urine Neg (Negative); Specific Gravity, Urine 1.006 (1.005-1.030); Urine Appearance Hazy (CLEAR); Urine Color Yellow (Yellow); Urobilinogen Urine Neg (Negative); pH Urine 5 (5-7)
[2022-04-15 10:55] LABS: Add Urine Microscopic? YES
[2022-04-15 10:56] LABS: Add Urine Culture? Yes; Bacteria Urine 2+ /hpf; RBC Urine 0-4 /hpf (0-2); Squamous Epithelial Cell Urine RARE /hpf (0-5); WBC Urine 55-80 /hpf (0-5)
--- NOTE | 2022-04-15 11:56 | PM.HP ---
Providers/Chief Complaint Admitting Physician: Chirag Ballard MD Primary Care Provider: Carlos Barba MD Chief Complaint: POST FALL - L HIP PAIN History of Present Illness Melonie Suggs is a 76 year old female presenting to the hospital after a fall around 8 AM. She states that her seizure medicine makes her a little sleepy and off balance, and attributes this to the reason she had a mechanical fall. She denies any focal weakness. She has having pain in the left hip area. She denies any recent fever, cough, shortness of breath. She denies any other injuries in the fall. She denies any loss of consciousness. She does not have a headache or nausea. Review of Systems General: Reports: 10 or more systems reviewed and unremarkable except in HPI and below Const: Denies: fever(s) or chills Eyes: Denies: change in vision ENMT: Denies: throat pain Card: Denies: chest pain Resp: Denies: dyspnea GI: Denies: abdominal pain : Denies: flank pain or difficulty voiding Musc: Denies: neck pain Skin/Breast: Denies: rash Neuro: Denies: headache(s) Psych: Denies: anxiety or depression Endo: Denies: polyuria Bandar/Lymph: Denies: easy bruising All/Imm: Denies: urticaria Medications/Allergies Home Medications Medication Instructions Recorded Confirmed Last Taken Type pantoprazole 20 mg tablet,delayed 20 mg PO DAILY #90 tabs 05/28/21 04/15/22 04/15/22 Rx release methenamine hippurate 1 gram tablet 1 g PO BID #60 tabs 11/26/21 04/15/22 04/15/22 Rx diazepam 5 mg tablet 5 mg PO BEDTIME PRN anxiety #30 12/22/21 04/15/22 Unknown Rx tabs cenobamate 100 mg tablet 100 mg PO ONCE #30 tabs 04/01/22 04/15/22 04/15/22 Rx cenobamate 200 mg tablet 200 mg PO DAILY #30 tabs 04/01/22 04/15/22 04/15/22 Rx ascorbic acid (vitamin C) 500 mg 500 mg PO DAILY 04/15/22 04/15/22 04/15/22 History tablet (Vitamin C) tamsulosin 0.4 mg capsule 0.4 mg PO BEDTIME 04/15/22 04/15/22 04/15/22 History Allergies Allergy/AdvReac Type Severity Reaction Status Date / Time divalproex sodium Allergy N/V and Verified 04/15/22 10:26 [From Depakote] dizziness sulfamethoxazole Allergy headache Verified 04/15/22 10:26 [From Bactrim] and seizures trimethoprim [From Bactrim] Allergy headache Verified 04/15/22 10:26 and seizures PFSH Acute PFSH: Medical History Anxiety Bilateral hydronephrosis Secondary to bladder distention and incomplete emptying Cholelithiasis Cystitis cystica Diverticulosis Dysphagia Elevated troponin I level Epilepsy Focused based right temporal lobe epilepsy patient does not wish to have surgery for intractable seizures Fall Frequent headaches GERD without esophagitis Hiatal hernia Hypertension Insomnia Iron deficiency anemia Laceration Laceration of head Melanotic stools Microcytic anemia Mild cognitive impairment Mixed stress and urge urinary incontinence Osteopenia Overflow incontinence Partial epilepsy secondarily generalized Recurrent UTI Temporal lobe epilepsy, intractable Urgency incontinence Urinary retention intermittent catheterization Surgical History History of ear surgery (~2014) Right. Dr Khan History of total hysterectomy (~1982) TVH (still has ovaries) for bleeding. [place] [facility] [place] History Brother Diabetes Heart disease Hypercholesteremia Hypertension Mother , at age 72 Scoliosis Lung disease Father , at age 89 No problems noted. Social History Smoking and tobacco status: never smoked Quit status (tobacco): has quit using tobacco Year quit tobacco: 2012 Former quit date comment: smoked 20 years Alcohol intake: never Lives independently: Yes Housing: House Marital status: / Current occupational status: retired History of recent travel: No Vitals/I&O/Wt Last Vital Signs Temp 99.2 F 04/15/22 09:15 Pulse 81 04/15/22 11:35 Resp 16 04/15/22 11:35 BP 154/88 04/15/22 11:35 Pulse Ox 95 04/15/22 11:35 O2 Del Method 04/15/22 11:35 Weight last 48 hrs Weight 68.039 kg Physical Exam Narrative: General exam is a white female, no distress, reporting she is thirsty HEENT: Atraumatic and normocephalic. Pupils equally round. Oropharynx clear. Neck is supple no lymphadenopathy thyromegaly Cardiovascular regular rate and rhythm without murmur, no S3 or S4 Lungs clear no wheezing or crackles Abdomen is soft with positive bowel sounds. No obvious organomegaly exam demonstrates Jarrett Extremities no cyanosis clubbing or edema, cap refill brisk Skin no rash Neuro no obvious focal deficits. Urinary Catheter Management: Jarrett: Cath Placed During This Visit: yes Urinary Catheter Date of Insertion: 04/15/22 Urinary Catheter Time of Insertion: 10:40 Data 04/15/22 10:17 04/15/22 10:17 Other Labs: INR is normal LFTs are normal with exception of alk phos 133. Calcium is 9.4 Urinalysis demonstrates 55-80 white blood cells and 0-4 red blood cells Right hip shows mild displacement left proximal femoral neck fracture. Knee x-ray shows no fracture EKG demonstrates sinus rhythm, left axis deviation, first-degree AV block, poor R wave progression, no concerning acute changes. A&P Assessment and plan (1) Fracture of femoral neck, left: Will place patient n.p.o. Surgical consultation Bedrest for now Pain control As anticipated surgery today hold off on any anticoagulation (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 She will need to get this from home Seizure precautions (3) UTI (urinary tract infection): Evidence of UTI Initiate Rocephin Last urine culture in October was Klebsiella, sensitive to ceftriaxone Plan Other medical problems as outlined in past medical history Full code Will initiate DVT prophylaxis pharmacologically following surgery. For now SCDs. No direct contraindications to surgery Attestations Medical Necessity Statement*: Will need greater than 2 midnight stay for evaluation and treatment of hip fracture. Coding Level of Care Code Acute Supervisor Assembly Room for [facility] Irineo Diagnoses Fracture of femoral neck, left S72.002A Frontal lobe epilepsy G40.802 UTI (urinary tract infection) N39.0
[2022-04-15] MEDS: cefTRIAXone 1,000 MG in sodium chloride 0.9% (plus) 50 ML 100 MG IV (12:02)
[2022-04-15] MEDS: morphine 4 mg/mL SDV 1 mL 2 MG IVP (12:02)
[2022-04-15] MEDS: enoxaparin 30 mg/0.3 mL Syringe SUBCUT ×2 (14:35→21:16)
[2022-04-15] MEDS: D5-NS 0.45% + KCL 20 mEq 20 MEQ/1,000 ML BAG 75 MEQ IV (17:01)
[2022-04-15] MEDS: NON-FORMULARY MEDICATION (Methenamine Hippurate 1 gram tablet) 1 EACH PO (18:29)
[2022-04-15] MEDS: tamsulosin 0.4 mg Capsule PO (21:17)
[2022-04-15] MEDS: morphine 4 mg/mL SDV 1 mL IVP (21:21)
[2022-04-16] VITALS (21 sets, daily range): BP systolic 96–121; BP diastolic 50–70; PULSE 64–103; RESP 14–18; TEMP 36.2–37.2; O2SAT 90–100
[2022-04-16] MEDS: morphine 4 mg/mL SDV 1 mL IVP (03:29)
[2022-04-16 05:29] LABS: Basophils % 0.5 %; Eosinophils # 0.3 10^3/uL (0.0-0.8); Eosinophils % 4.5 %; Hematocrit 40.3 % (37.0-47.0); Hemoglobin 12.7 g/dL (11.5-15.3); Lymphocytes # 1.2 10^3/uL (0.8-4.8); Lymphocytes % 18.9 %; Mean Corpuscular HGB Conc 31.5 g/dL (30.0-36.0); Mean Corpuscular Hemoglobin 29.3 pg (28.0-34.0); Mean Corpuscular Volume 93.1 fl (81-99); Mean Platelet Volume 10.2 fL (7.4-10.4); Monocytes # 0.6 10^3/uL (0.2-0.9); Monocytes % 9.6 %; Neutrophils # 4.13 10^3/uL (1.8-7.7); Neutrophils % 66.2 %; Nucleated Red Blood Cells % 0 %; Platelet Count 182 10^3/cmm (130-400); Red Blood Count 4.33 10^6/uL (4.1-5.3); Red Cell Distribution Width 13.8 % (12.1-15.1); White Blood Count 6.2 10^3/uL (4.0-10.0)
[2022-04-16 05:49] LABS: Anion Gap 13.7 (5-19); Blood Urea Nitrogen 7 mg/dL (8-23); Calcium 8.8 mg/dL (8.5-10.5); Carbon Dioxide 26 mmol/L (22-29); Chloride 101 mmol/L (98-107); Glucose 108 mg/dL (65-115); Osmolality Calculated 283 mOsm/kg (285-295); Potassium 3.7 mmol/L (3.5-5.1); Sodium 137 mmol/L (136-145)
--- NOTE | 2022-04-16 06:09 | PC.NURSE ---
pt left the floor to surgery via bed
[2022-04-16] MEDS: sodium chloride 0.9% 1,000 ML 30 ML IV (06:23)
[2022-04-16] MEDS: ketorolac 30 mg/mL INJ IVP (06:23)
[2022-04-16] MEDS: acetaminophen 1,000 MG/100 ML PIGGYBACK 400 MG IV (06:24)
--- NOTE | 2022-04-16 06:45 | ANES.PREANE2 ---
Pre-Anesthetic Assessment Height/Weight: Height 1.6 m Weight 75.251 kg Temp Pulse Resp BP Pulse Ox O2 Del Method 97.7 F 73 18 119/67 91 04/16/22 06:19 04/16/22 06:19 04/16/22 06:19 04/16/22 06:19 04/16/22 06:19 04/16/22 06:19 Preop Diagnosis: Left displaced femoral neck fracture Operation Date: 04/16/22 07:00 Proposed Procedures p Hemiarthroplasty Hip(Left) - Noman Benjamin, Familial anesthetic complications: none Was Beta Ashley taken within 24 hours: N/A Was Clonidine taken within 24 hours: N/A Last intake: Intake Last Liquid Date 04/15/22 Last Liquid Time 20:00 Last Solid Date 04/15/22 Last Solid Time 18:30 Social No alcohol and No tobacco Exam alert, oriented x 3, clear to auscultation bilaterally and regular rate & rhythm Airway Mallampati: Class II Dentition: full GI Gastroesophageal Reflux Disease and Hiatal Hernia Metabolic Hyperlipidemia Neuropsych Seizure Anesthetic Plan ASA status: 3 Anesthesia: Regional (specify below) Risk of > 500 ml blood loss (7ml/kg in children): No Medications/Allergies Home Medications Medication Instructions Recorded Confirmed Last Taken Type pantoprazole 20 mg tablet,delayed 20 mg PO DAILY #90 tabs 05/28/21 04/15/22 04/15/22 Rx release methenamine hippurate 1 gram tablet 1 g PO BID #60 tabs 11/26/21 04/15/22 04/15/22 Rx diazepam 5 mg tablet 5 mg PO BEDTIME PRN anxiety #30 12/22/21 04/15/22 Unknown Rx tabs cenobamate 100 mg tablet 100 mg PO ONCE #30 tabs 04/01/22 04/15/22 04/15/22 Rx cenobamate 200 mg tablet 200 mg PO DAILY #30 tabs 04/01/22 04/15/22 04/15/22 Rx ascorbic acid (vitamin C) 500 mg 500 mg PO DAILY 04/15/22 04/15/22 04/15/22 History tablet (Vitamin C) tamsulosin 0.4 mg capsule 0.4 mg PO BEDTIME 04/15/22 04/15/22 04/15/22 History Allergies Allergy/AdvReac Type Severity Reaction Status Date / Time divalproex sodium Allergy N/V and Verified 04/15/22 10:26 [From Depakote] dizziness sulfamethoxazole Allergy headache Verified 04/15/22 10:26 [From Bactrim] and seizures trimethoprim [From Bactrim] Allergy headache Verified 04/15/22 10:26 and seizures Current Medications Generic Name Dose Route Start Last Admin Trade Name Freq PRN Reason Stop Dose Admin Ceftriaxone Sodium 1,000 mg/ 50 mls @ 100 mls/hr 04/15/22 11:45 04/15/22 12:32 Sodium Chloride IV Infused Q24H TANK Infusion Protocol Potassium Chloride/Dextrose/Sod Cl 20 meq in 1,000 mls @ 75 mls/hr 04/15/22 16:24 04/15/22 17:01 D5-Ns 0.45% + Kcl 20 Meq IV 75 mls/hr .[id number] TANK Administration Sodium Chloride 1,000 mls @ 30 mls/hr 04/16/22 06:30 04/16/22 06:23 Sodium Chloride 0.9% IV 04/17/22 06:29 30 mls/hr .Q24H TANK Administration Morphine Sulfate 4 mg 04/15/22 16:24 04/16/22 03:29 Morphine 4 Mg/Ml Sdv 1 Ml IVP 4 mg Q4H PRN Administration SEVERE PAIN Non-Formulary Medication 1 gm 04/15/22 18:00 04/15/22 18:29 Methenamine Hippurate PO 1 gm BID TANK Administration Tamsulosin HCl 0.4 mg 04/15/22 21:00 04/15/22 21:17 Tamsulosin 0.4 Mg Capsule PO 0.4 mg BEDTIME TANK Administration [facility] Anesthesia Medical History Anxiety Bilateral hydronephrosis Secondary to bladder distention and incomplete emptying Cholelithiasis Cystitis cystica Diverticulosis Dysphagia Elevated troponin I level Epilepsy Focused based right temporal lobe epilepsy patient does not wish to have surgery for intractable seizures Fall Frequent headaches GERD without esophagitis Hiatal hernia Hypertension Insomnia Iron deficiency anemia Laceration Laceration of head Melanotic stools Microcytic anemia Mild cognitive impairment Mixed stress and urge urinary incontinence Osteopenia Overflow incontinence Partial epilepsy secondarily generalized Recurrent UTI Temporal lobe epilepsy, intractable Urgency incontinence Urinary retention intermittent catheterization Surgical History History of ear surgery (~2014) Right. Dr Khan History of total hysterectomy (~1982) TVH (still has ovaries) for bleeding. Performed by Dr. Armstrong at [facility] [place] Family History Brother Diabetes Heart disease Hypercholesteremia Hypertension Mother , at age 72 Scoliosis Lung disease Father , at age 89 No problems noted. Social History Smoking and tobacco status: never smoked Quit status (tobacco): has quit using tobacco Year quit tobacco: 2012 Former quit date comment: smoked 20 years Alcohol intake: never Lives independently: Yes Housing: House Marital status: / Current occupational status: retired History of recent travel: No Data Anesthesia 04/16/22 04:20 04/16/22 04:20 Short CBC 04/15/22 04/16/22 Range/Units 10:17 04:20 WBC 5.9 6.2 (4.0-10.0) 10^3/uL Hgb 14.5 12.7 (11.5-15.3) g/dL Hct 45.5 40.3 (37.0-47.0) % MCV 92.5 93.1 (81-99) fl Plt Count 231 182 (130-400) 10^3/cmm Neut % (Auto) 63.5 66.2 % Neut # (Auto) 3.73 4.13 (1.8-7.7) 10^3/uL BMP 04/15/22 04/16/22 10:17 04:20 Sodium 141 137 Potassium 4.2 3.7 Chloride 102 101 Carbon Dioxide 26 26 BUN 7 L 7 L Creatinine 0.6 0.5 Glucose 122 H 108 Calcium 9.4 8.8 Liver Function 04/15/22 Range/Units 10:17 Total Bilirubin 0.3 (0.15-1.2) mg/dL AST 19 (0-32) U/L ALT 14 (0-33) U/L Alkaline Phosphatase 133 H (35-105) U/L Albumin 4.6 (3.5-5.2) g/dL Urine 04/15/22 Range/Units 10:42 Urine Color Yellow (Yellow) Urine Appearance Hazy A (CLEAR) Urine pH 5 (5-7) Ur Specific [place] 1.006 (1.005-1.030) Urine Protein Neg (Negative) Urine Glucose (UA) Norm (Normal) Urine Ketones Negative (Negative) Urine Nitrate Positive H (Negative) Urine Bilirubin Neg (Negative) Ur Leukocyte Esterase 2+ H (Negative) Urine RBC 0-4 H (0-2) /hpf Urine WBC 55-80 H (0-5) /hpf Coags 04/15/22 10:17 PT 14.00 INR 1.05 APTT 27.4 Cardiac Studies: Echocardiogram Ultrasound 03/25/20 Sestamibi Stress Test (Cardiology) 03/26/20
--- NOTE | 2022-04-16 06:59 | W.PM.OPSUD ---
Surgery/Procedure H&P Update DATE OF PROCEDURE: April 16, 2022 DATE H&P PERFORMED: 04/15/22 CHANGES TO PREVIOUS DOCUMENTATION: None. PREOP DIAGNOSIS: Left displaced femoral neck fracture PRIMARY INDICATION FOR PROCEDURE: Left displaced femoral neck fracture PLANNED PROCEDURE: Operation Date: 04/16/22 07:00 Proposed Procedures p Hemiarthroplasty Hip(Left) - Noman Benjamin DO
--- NOTE | 2022-04-16 07:01 | P.PN_ITS ---
Subjective Subjective: Patient seen and evaluated this morning in preop. Patient is accompanied by her sister. Consent was reviewed with patient. Correct extremity was marked. Patient confirms her site of surgery and consent for left hip hemiarthroplasty. She is agreeable to proceed with surgical intervention. Vitals/I&O/Wt Last Vital Signs Temp 97.7 F 04/16/22 06:19 Pulse 73 04/16/22 06:19 Resp 18 04/16/22 06:19 BP 119/67 04/16/22 06:19 Pulse Ox 91 04/16/22 06:19 O2 Del Method 04/16/22 06:19 04/15/22 04/16/22 04/16/22 22:59 06:59 14:59 Output Total 1450 / 1450 Balance -1450 / -1400 Weight last 48 hrs Weight 165 lb 14.4 oz Weight 150 lb Physical Exam Narrative: Left lower extremity shortened and externally rotated. Patient is able to wiggle toes plantarflex and dorsiflex ankle. Sensation intact to light touch distally. Distal pulses palpable. Severe tenderness to palpation of left hip. Urinary Catheter Management: Jarrett: Cath Placed During This Visit: yes Reason for Continuing Indwelling Catheter: Required Immobilization for Trauma or Surgery or Anesthesia Urinary Catheter Date of Insertion: 04/15/22 Urinary Catheter Time of Insertion: 10:40 Data 04/16/22 04:20 04/16/22 04:20 A&P Assessment and plan (1) Fracture of femoral neck, left: Plan N.p.o. since midnight Hold a.m. anticoagulation Nonweightbearing left lower extremity Internal medicine is primary Pain control Plan for or today for left hip hemiarthroplasty Consent signed and reviewed with patient and correct extremity and side marked. Patient understands and agrees to proceed with current plan. All questions answered. All risk benefits complication alternatives to surgical treatment options reviewed with patient she understands and agrees to proceed. Attestations Medical Necessity Statement*: Patient has a displaced left femoral neck fracture requiring surgical intervention and hospitalization Coding Level of Care Code Acute Resource Technician for [facility] Fwd Diagnoses Fracture of femoral neck, left S72.002A Time Spent (min) 25
[2022-04-16] MEDS: ceFAZolin 2,000 MG in sodium chloride 0.9% (plus) 50 ML 100 MG IV ×3 (07:04→22:11)
[2022-04-16] MEDS: tranexamic acid 1,000 mg/10mL SDV 1000 MG IV (07:15)
[2022-04-16] MEDS: vancomycin 1,000 MG SDV 1000 MG XX (07:48)
--- NOTE | 2022-04-16 08:49 | XRR_ITS ---
PROCEDURE INFORMATION: Exam: XR Left Hip Exam date and time: 04/16/2022 9:04 AM Age: 76 years old Clinical indication: Device placement; Other: Postop hip vianey, prior surgery; Surgery date: Post-operative (0-2 days); Additional info: Postop hip vianey, ap pelvis, ap and cross table lateral hip TECHNIQUE: Imaging protocol: Radiologic exam of the Left hip. Views: 2 or 3 views hip with pelvis when performed. AP 1 view pelvis with 2 views hip COMPARISON: CR XR pelvis 1-2V* [id number] 04/15/2022 10:01 AM FINDINGS: Bones/joints: Postsurgical changes are seen status post cemented bipolar hip arthroplast. There is expected alignment without fracture or loosening. Soft tissues: The visualized pelvis shows that the pelvic and obturator rings are intact. The pubic rami are intact. The symphysis pubis and sacroiliac joints show moderate degenerative changes. Mild right hip degenerative changes are seen. Soft tissue gas and swelling is seen in the hip region, related to the recent surgery. Left hip region superficial skin sylvester are seen. Notes: If there is further concern, recommend follow-up radiographs, bone scan or CT for complete assessment. XR/XR hip LT 2-3V wo/w pel* [id number] IMPRESSION: Expected postsurgical changes status post left cemented bipolar hip arthroplasty.
--- NOTE | 2022-04-16 08:58 | PM.OP2 ---
Brief Operative Note Date of procedure: 04/16/22 Pre-op diagnosis: Left displaced femoral neck fracture Post-op diagnosis: same Procedure Done: Left hip hemiarthroplasty Surgeon: Noman Benjamin Estimated blood loss (mL): 300 Complications: None Post-op Plan: Patient recover in PACU. Patient will return to the floor. Will receive appropriate discharge instructions as well as pain medication postoperatively. On the floor she will have postoperative antibiotics, pain control be weightbearing as tolerated, posterior hip precautions, DVT prophylaxis. Internal medicine is primary. Condition: stable Disposition: floor Coding Level of Care Code Acute Miniature Set Constructor for Carmel[facility] Cabello
--- NOTE | 2022-04-16 08:59 | PM.PACU ---
PACU note Narrative: Patient recovering well in PACU. Patient able to follow commands. Patient wiggle toes plantarflex dorsiflex ankle dressing on in place clean dry and intact abduction pillow on in place. Sensation tact light touch distally. Exam: awake Disposition: back to floor
--- NOTE | 2022-04-16 09:00 | P.OP_ITS ---
Operative Report Date of procedure: April 16, 2022 Pre-op diagnosis: Preop Diagnosis Left displaced femoral neck fracture Post-op diagnosis: Same Procedure done: Left hip hemiarthroplasty, cemented Implants: [place] Accolade C1 132 degree femoral stem size 2 Bipolar head 44 mm Femoral head +4 mm offset 8 mm distal cement spacer Surgeon: Noman Benjamin DO Estimated blood loss: 300mL IV fluids: See anesthesia record Urine output: See anesthesia record Complications: None Findings: See operative report Condition: stable Disposition: floor Brief History: Patient was seen in the emergency department and subsequently admitted after ground-level fall. Patient sustained a left displaced femoral neck fracture. Patient was subsequently admitted by the hospitalist team for medical management and preoperative clearance and optimization and the orthopedic surgery team was consulted for evaluation and treatment recommendations. At that point time discussed with patient her treatment options. We talked about nonoperative versus operative intervention talked about the risk benefits complication alternatives to surgical nonsurgical treatment options. Risks of surgery were discussed and she understands and agrees to proceed with procedure. At this point time would recommend a left hip hemiarthroplasty. Patient does have a seizure disorder that is controlled and as result I feel as though a left hip hemiarthroplasty would provide her with the most stability postoperatively as well as this will control her pain as well as allow her weightbearing as tolerated postoperatively. When she was medically optimized and cleared by the primary team she was then taken to the OR. Procedure: Patient seen evaluated the preoperative holding area. Consent was reviewed and signed with patient. I did have a call and discussed with her daughter about her treatment options and they agreed to proceed with surgery as well. Patient is agreeable alert oriented and able to make her own medical decisions and consent to surgery. Once consent was obtained she was seen evaluated by the anesthesia department. Once cleared for surgery she was taken back to the operative suite. Patient was then transported onto the OR table. She underwent anesthesia per the anesthesia department. Once appropriately anesthetized she was then positioned in lateral decubitus position with the left hip up. She was placed on a pegboard appropriately secured to the bed all bony prominences well- padded. Next the left lower extremity was then prepped and draped in sterile orthopedic fashion. Final timeout performed. Patient received appropriate preoperative antibiotics. A standard posterior incision was then made over the lateral aspect of the hip. Sharp scalpel incision was made through skin and subcutaneous tissue I then utilized a Fisher elevator to mobilize over the fascia. The fascia was then split longitudinally with electrocautery. Next a bursectomy was then performed. I then placed Hohmann underneath the abductors. The hip was placed under tension with internal rotation. I then utilizing electrocautery performed a full- thickness release of the short external rotators and capsule in 1 full thick sleeve for lateral repair. This was then taken down to the lesser trochanter. Immediately on capsulotomy hematoma was noticed and displaced femoral neck fracture appreciated. I then placed a Hohmann above and below the neck. I then utilized an oscillating saw to freshen the cut this was roughly half of a fingerbreadth above the lesser as patient did fracture slightly lower on the neck. Once this was performed this access was removed with rongeur. I then utilized a corkscrew to remove the head. This was then subsequently sized and measured to be a 44 mm head size. I then thoroughly irrigated the acetabulum. A Hohmann was placed anteriorly and thorough inspection of the acetabulum no significant arthritic changes were noted. I then utilized a rongeur and Bovie to remove the pulmonary. Once this was performed I irrigated the socket and then turned my attention towards the femoral preparation. I utilized Bovie and rongeur to remove the soft tissue off of the saddle. Once this was done a box osteotome followed by a canal finder and a lateralizing rattail rasp was used to appropriately lateralized in the canal. Next I then subsequently broached to a size 2 Accolade C. [place] femoral stem which had appropriate fixation. I was able to trial with this and this appeared to be appropriate length with ability to add slight offset if needed once cemented. Once this was done I then removed the size 2 femoral stem and then subsequently proceeded with standard cementation technique. Cement was mixed on the back table the final implant was opened and appropriately measurement on mice distal cement plug to accommodate the cement mantle and femoral stem. This was set and impacted in place to appropriate depth. Next I utilized the cement brush thoroughly irrigated the canal and then dry the canal tampon. Once cement was appropriately mixed and ready for cementation informed anesthesia and they optimize patient's oxygenation cement was then impacted using cement gun and then was subsequently pressurized. The femoral stem size 2 was then impacted in place with appropriate 10 to 15 degrees of anteversion and held into place and all excess cement was removed and allowed to cure once cured I then trialed a standard size head which at that point there was still a little bit of shuck slightly short leg length. As a result I then trialed a +4 mm which had excellent leg lengths as well as appropriate shuck, and excellent stability in all planes of motion with no evidence of instability. At this point this was determined to being my final femoral head size. This was subsequently dislocated the trial head was then removed the final implant of bipolar head 44 mm with a +4 mm offset was then opened. The trunnion was then cleaned and this was impacted in place with excellent fixation. I then reduced the hip this had excellent stability and appropriate leg lengths. The wound bed was then thoroughly irrigated. I then utilizing #5 Ethibond suture performed my repair of the capsule and short external rotators through bone tunnels. Wound bed was then thoroughly irrigated once again the IT band was closed with strata fix suture and the deep subcutaneous and subcutaneous layers were closed with 0 Vicryl 2-0 Vicryl. Skin was then closed reapproximated with sylvester. Silverlon dressing applied. Patient placed in abduction pillow posterior hip precautions. She was awakened from anesthesia and taken to PACU in stable condition Disposition: Patient taken to PACU in stable condition will receive appropriate discharge directions as well as pain medication DVT prophylaxis postoperatively. She will return to the floor postoperatively. She will be weightbearing as tolerated to the left lower extremity. Posterior hip precautions. DVT prophylaxis, pain medication, postoperative antibiotics and TXA. Patient will work with PT/OT and discharge services for discharge planning. Patient understands agrees with current plan. All questions answered. She will see me in the office in 2 weeks.
--- NOTE | 2022-04-16 09:35 | SUR.PHASEI ---
0857 PT TO PACU 5 PT AWAKE ALERT CONFUSED TO ALL BUT NAME, PT MOVES TOES TO COMMAND, LT HIP DRESSING D/I FIRST ICE TO HIP DISTAL FOOT PINK WARM WITH STRONG REGULAR PULSE MARKED ABD PILLOW TO KNEES, STEWART CATHETER TO DD WITH YELLOW URINE TO TUBING AND BAG, STEWART EMPTIED AND 200 COUNTED FOR OR. STATLOCK TO RT INNER THIGH, X RAY AT BEDSIDE, MONITOR SR WITH NO ECTOPY NOTED, IV TO RT AC #20 WITH 500 ML NS UP AT KVO RATE PER GRAVITY, RESP EVEN AND UNLABORED PT VERBALLY RESPONDS TO QUESTIONS. WARM BLANKETS X 3 TO PT FOR COMFORT.
--- NOTE | 2022-04-16 09:38 | SUR.PHASEI ---
0917 PT SLEEPS WITH GOOD RESP SATS DOWN TO 90% PT PLACED ON 2LNC FOR COMFORT, SATS QUICKLY UP TO 99%.LT HIP DRESSING D/I DISTAL FOOT UNCHANGED , ATTEMPTED TO CALL REPORT TO FLOOR. PT SISTER CALLED WITH PT UPDATE PT IS STABLE AND WILL GO TO FLOOR IN APPROX 15 MINUTES.
--- NOTE | 2022-04-16 10:08 | SUR.PHASEI ---
PT TO FLOOR PER BED PT ORIENTED TO SELF AND ASKING ABOUT SISTER, PT KNOWS SHE FELL BUT CONFUSED TO DETAILS, LT HIP DRESSING D/I NO SWELLING OR HEMATOMA, FIRST ICE TO SITE LT FOOT PINK WARM PULSE UNCHANGED, VSS REPORT CALLED TO NURSE AIDS AT BEDSIDE AT THIS TIME PT TALKATIVE WITH STAFF.
--- NOTE | 2022-04-16 10:37 | PM.PN ---
Subjective Subjective: Melonie is directly postoperative hip fracture surgery. She states she is doing well. She is hoping to go home after her surgery in the next 1 to 2 days. She reports her pain is under control. Medications: Reviewed: Yes Vitals/I&O/Wt Last Vital Signs Temp 97.6 F 04/16/22 09:40 Pulse 80 04/16/22 09:40 Resp 18 04/16/22 09:40 BP 111/50 04/16/22 09:40 Pulse Ox 99 04/16/22 09:40 O2 Del Method 04/16/22 09:40 O2 Flow Rate 2 04/16/22 09:40 04/15/22 04/16/22 04/16/22 22:59 06:59 14:59 Intake Total 650 / 650 Output Total 1450 / 1450 500 / 500 Balance -1450 / -1400 150 / 150 Weight last 48 hrs Weight 75.251 kg Weight 68.039 kg Physical Exam Narrative: General exam no distress Neck is supple no lymphadenopathy thyromegaly Cardiovascular regular rate and rhythm without murmur, no S3 or S4 Lungs clear no wheezing or crackles Abdomen is soft with positive bowel sounds. No obvious organomegaly exam demonstrates Jarrett Extremities no cyanosis clubbing or edema, cap refill brisk. Left hip dressing clean and dry Skin no rash Urinary Catheter Management: Jarrett: Cath Placed During This Visit: yes Reason for Continuing Indwelling Catheter: Required Immobilization for Trauma or Surgery or Anesthesia Urinary Catheter Date of Insertion: 04/15/22 Urinary Catheter Time of Insertion: 10:40 Data 04/16/22 04:20 04/16/22 04:20 Micro: Microbiology 04/15/22 10:42 Urine Culture - Preliminary Urine,Clean Catch Gram Negative Rods A&P Assessment and plan (1) Fracture of femoral neck, left: Appreciate surgical consultation Rehabilitation Discharge planning, rehab to explore home versus penitentiary facility (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 She will need to get this from home. No seizures in hospital Seizure precautions (3) UTI (urinary tract infection): Evidence of UTI Continue Rocephin, await culture Last urine culture in October was Klebsiella, sensitive to ceftriaxone Currently growing gram-negative rods. Plan Other medical problems as outlined in past medical history Full code Will initiate DVT prophylaxis pharmacologically following surgery. For now SCDs. No direct contraindications to surgery Attestations Medical Necessity Statement*: Needs continued hospitalization for close monitoring following hip fracture surgery. Coding Level of Care Code Acute Advertisement Distributor for Chg Fwd Diagnoses Fracture of femoral neck, left S72.002A Frontal lobe epilepsy G40.802 UTI (urinary tract infection) N39.0
--- NOTE | 2022-04-16 10:53 | PC.CHAP ---
Pastoral Care Encounter/Spiritual Assessment Type of Contact [] Declined car installations supervisor visit [] Patient/Family/Request visit [] Outpatient visit [] Follow-up visit [] Physician referral [] Code/Alert [x] Routine visit [] Staff referral [] Actively dying [] Patient sleeping [] Family support [] [] Out of room [] Palliative care [] [x] Receiving care in room [] Pre-surgical visit [] Trauma [] Long length of stay [] ICU visit [] Other: Relational/Emotional Strength [] Patient feels connected with others/family/visitors/staff [x] Distress [] Loneliness/isolation [] Abandonment Spirituality of Patient [] Person of Taylor [] Attends Congregation of their [place] [] Believes in Prayer [] Reads Bible or Latter Day materials [] There are Spiritual issues to be addressed 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 Processing Equipment Operator Interventions [] Prayer [] Active listening [] Non-anxious presence [] Spiritual/emotional support [] Crisis/trauma care [] Spiritual counseling [] Bereavement support [] Provided bereavement packet [] Provided Bible/devotional materials [] Provided toy/stuffed animal, coloring book to patient or family member [] Provided Communion [] Anointing/[place] [] Salvation [] Completed spiritual assessment [] Other: Impact on Illness or Injury [] Angry [] Fearful [] Anxious [] Often cries [] Exhaustion [] Unable to work [] Unable to attend denominational [] Unable to walk/stand [] Unable to read [] Unable to drive [] Unable to eat/drink [] Unable to sleep [] Unable to be with family [] Patient intubated [] Other: Summary unable to communicate under staff care Time spent with patient 5 mins
[2022-04-16] MEDS: multivitamin therapeutic Tablet 1 TAB PO (11:04)
[2022-04-16] MEDS: sennosides-docusate Tablet 2 TAB PO ×2 (11:04→17:09)
[2022-04-16] MEDS: cholecalciferol (vitamin D3) 1,000 unit Tablet 1000 UNIT PO (11:04)
[2022-04-16] MEDS: calcium carbonate 500 mg Chew Tablet 1000 MG PO ×2 (11:05→17:11)
[2022-04-16] MEDS: chlorhexidine gluconate 0.12% Btl 473 mL 30 ML MUCOUS MEM ×3 (11:07→17:08)
[2022-04-16] MEDS: pantoprazole DR 40 mg Tablet 20 MG PO (11:13)
[2022-04-16] MEDS: cefTRIAXone 1,000 MG in sodium chloride 0.9% (plus) 50 ML 100 MG IV (11:16)
[2022-04-16] MEDS: mupirocin oint 22 gm 1 APPLIC NASAL ×2 (11:31→17:09)
[2022-04-16] MEDS: NON-FORMULARY MEDICATION 200 EACH PO (11:38)
--- NOTE | 2022-04-16 14:12 | ANE.PACU2 ---
Inpatient post-anesthesia follow up: Airway intact: Yes Vital signs: Temperature 97.6 F Pulse Rate 80 Respiratory Rate 18 Blood Pressure 111/50 Pulse Oximetry 99 Oxygen Delivery Me thod Nasal Cannula Oxygen Flow Rate 2 Fraction of Inspir ed Oxygen Hydration adequate: Yes Nausea and vomiting: No Pain level: 1 Mental status: Baseline
[2022-04-16] MEDS: oxyCODONE 5 mg IR Tab/Cap PO ×2 (14:37→20:38)
[2022-04-16] MEDS: iron polysaccharide complex 150 mg Capsule PO (17:10)
[2022-04-16] MEDS: NON-FORMULARY MEDICATION (Methenamine Hippurate 1 gram tablet) 1 EACH PO (17:12)
[2022-04-16] MEDS: lanolin oint 7 gm 1 APPLIC TOPICAL (20:36)
[2022-04-16] MEDS: tamsulosin 0.4 mg Capsule PO (20:36)
[2022-04-16] MEDS: enoxaparin 30 mg/0.3 mL Syringe SUBCUT (20:36)
[2022-04-17] VITALS (10 sets, daily range): BP systolic 94–138; BP diastolic 50–69; PULSE 85–101; RESP 15–21; TEMP 36.6–37.6; O2SAT 94–96
[2022-04-17] MEDS: morphine 4 mg/mL SDV 1 mL IVP (02:12)
[2022-04-17] MEDS: oxyCODONE 5 mg IR Tab/Cap PO ×4 (04:01→18:37)
[2022-04-17 05:52] LABS: Basophils % 0.4 %; Eosinophils # 0.3 10^3/uL (0.0-0.8); Eosinophils % 3.7 %; Hematocrit 35.3 % (37.0-47.0); Hemoglobin 11.2 g/dL (11.5-15.3); Lymphocytes # 1.2 10^3/uL (0.8-4.8); Lymphocytes % 16.9 %; Mean Corpuscular HGB Conc 31.7 g/dL (30.0-36.0); Mean Corpuscular Hemoglobin 29.6 pg (28.0-34.0); Mean Corpuscular Volume 93.4 fl (81-99); Mean Platelet Volume 9.7 fL (7.4-10.4); Monocytes # 0.7 10^3/uL (0.2-0.9); Monocytes % 10.4 %; Neutrophils # 4.81 10^3/uL (1.8-7.7); Neutrophils % 68.3 %; Nucleated Red Blood Cells % 0 %; Platelet Count 156 10^3/cmm (130-400); Red Blood Count 3.78 10^6/uL (4.1-5.3)
[2022-04-17] MEDS: TRAMadol 50 mg Tablet PO (05:56)
[2022-04-17] MEDS: ceFAZolin 2,000 MG in sodium chloride 0.9% (plus) 50 ML 100 MG IV (05:58)
[2022-04-17 06:09] LABS: Anion Gap 11.1 (5-19); Blood Urea Nitrogen 5 mg/dL (8-23); Calcium 7.5 mg/dL (8.5-10.5); Carbon Dioxide 26 mmol/L (22-29); Chloride 106 mmol/L (98-107); Glucose 114 mg/dL (65-115); Osmolality Calculated 286 mOsm/kg (285-295); Potassium 4.1 mmol/L (3.5-5.1); Sodium 139 mmol/L (136-145)
[2022-04-17] MEDS: sennosides-docusate Tablet 2 TAB PO ×3 (07:56→17:26)
[2022-04-17] MEDS: calcium carbonate 500 mg Chew Tablet 1000 MG PO ×2 (07:56→17:26)
[2022-04-17] MEDS: cholecalciferol (vitamin D3) 1,000 unit Tablet 1000 UNIT PO (07:56)
[2022-04-17] MEDS: pantoprazole DR 40 mg Tablet 20 MG PO (07:57)
[2022-04-17] MEDS: iron polysaccharide complex 150 mg Capsule PO ×2 (07:58→17:27)
[2022-04-17] MEDS: multivitamin therapeutic Tablet 1 TAB PO (07:59)
--- NOTE | 2022-04-17 08:31 | PM.PN ---
Subjective Subjective: Melonie was up walking with a walker with physical therapy when I entered the room. She reported she is having quite a bit of discomfort, but otherwise doing well. She states she is only taking 200 mg of senna but daily and refuses to take 300 mg. She states she was well controlled on the lower dose, only having 1 seizure attributed to anxiety and she believes the higher dose makes her too dizzy. Medications: Reviewed: Yes Vitals/I&O/Wt Last Vital Signs Temp 98.1 F 04/17/22 08:00 Pulse 89 04/17/22 08:00 Resp 19 H 04/17/22 08:00 BP 107/58 04/17/22 08:00 Pulse Ox 94 04/17/22 08:00 O2 Del Method 04/16/22 14:52 O2 Flow Rate 2 04/16/22 20:00 04/16/22 04/17/22 04/17/22 22:59 06:59 14:59 Intake Total 530 / 3590 50 / 3640 50 / 50 Output Total 2300 / 2800 Balance -1770 / 790 50 / 840 50 / 50 Weight last 48 hrs Weight 75.251 kg Weight 68.039 kg Physical Exam Narrative: General exam no distress. Pain seems to avi as she sits Neck is supple no lymphadenopathy thyromegaly Cardiovascular regular rate and rhythm without murmur, no S3 or S4 Lungs clear no wheezing or crackles Abdomen is soft with positive bowel sounds. No obvious organomegaly exam demonstrates Jarrett Extremities no cyanosis clubbing or edema, cap refill brisk. Left hip dressing clean and dry Skin no rash Urinary Catheter Management: Jarrett: Cath Placed During This Visit: yes, but has since been removed by the nurse Reason for Continuing Indwelling Catheter: Decision to DC Catheter Urinary Catheter Date of Insertion: 04/15/22 Urinary Catheter Time of Insertion: 10:40 Date Urinary Catheter Removed: 04/17/22 Time Urinary Catheter Discontinued: 06:44 Data 04/17/22 05:43 04/17/22 05:43 Micro: Microbiology 04/15/22 10:42 Urine Culture - Preliminary Urine,Clean Catch Gram Negative Rods A&P Assessment and plan (1) Fracture of femoral neck, left: Appreciate surgical consultation Rehabilitation Discharge planning, rehab to explore home versus custodial facility She is postoperative day #1 (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 She will need to get this from home. No seizures in hospital She refuses to take the 300 mg. Order was changed to 200 mg, continue seizure precautions (3) UTI (urinary tract infection): Evidence of UTI Continue Rocephin, await culture Last urine culture in October was Klebsiella, sensitive to ceftriaxone Currently growing gram-negative rods. ID and sensitivity should be available today. Plan Other medical problems as outlined in past medical history Full code Lovenox for DVT prophylaxis Attestations Medical Necessity Statement*: Needs continued hospitalization for close monitoring following hip fracture repair. Coding Level of Care Code Acute Timber Management Specialist for Chg Fwd Diagnoses Fracture of femoral neck, left S72.002A Frontal lobe epilepsy G40.802 UTI (urinary tract infection) N39.0
--- NOTE | 2022-04-17 12:13 | P.PN_ITS ---
Subjective Subjective: Patient seen and examined. Patient overall doing well. She is already been up and walked with therapy. She states she is having some difficulty with urination after Jarrett's been removed. Will defer to primary for management. Patient to continue to work with therapy.. Morning hemoglobin stable. No other issues. Vitals/I&O/Wt Last Vital Signs Temp 98 F 04/17/22 11:28 Pulse 85 04/17/22 11:28 Resp 16 04/17/22 11:28 BP 105/62 04/17/22 11:28 Pulse Ox 96 04/17/22 11:28 O2 Del Method 04/17/22 10:07 O2 Flow Rate 2 04/17/22 10:07 04/16/22 04/17/22 04/17/22 22:59 06:59 14:59 Intake Total 530 / 3590 50 / 3640 50 / 50 Output Total 2300 / 2800 Balance -1770 / 790 50 / 840 50 / 50 Weight last 48 hrs Weight 165 lb 14.4 oz Physical Exam Narrative: Examination left lower extremity abduction pillow on in place dressing on in place and clean dry intact with no saturation. Patient able to tolerate logroll with no pain. She able to wiggle toes plantarflex and dorsiflex ankle. Sensation tact light touch distally. Left lower extremity warm well-perfused distal pulses palpable. Urinary Catheter Management: Jarrett: Cath Placed During This Visit: yes, but has since been removed by the nurse Reason for Continuing Indwelling Catheter: Decision to DC Catheter Urinary Catheter Date of Insertion: 04/15/22 Urinary Catheter Time of Insertion: 10:40 Date Urinary Catheter Removed: 04/17/22 Time Urinary Catheter Discontinued: 06:44 Data 04/17/22 05:43 04/17/22 05:43 Micro: Microbiology 04/15/22 10:42 Urine Culture - Preliminary Urine,Clean Catch Gram Negative Rods Xray Ortho: My impression: Postoperative x-rays demonstrate stable left hip hemiarthroplasty no p eriprosthetic fracture noted. A&P Assessment and plan (1) Fracture of femoral neck, left: Plan Weight-bear as tolerated left lower extremity Posterior hip precautions Ice as needed Dressing change as needed if becomes saturated PT/OT Pain control Internal medicine is primary Follow-up with Dr. Benjamin in the office in 2 weeks Attestations Medical Necessity Statement*: Patient requiring hospitalization after left femoral neck fracture requiring hospitalization for surgical intervention and postoperative monitoring. Coding Level of Care Code Acute Transmission Superintendent for Chg Fwd Diagnoses Fracture of femoral neck, left S72.002A Time Spent (min) 25
[2022-04-17] MEDS: chlorhexidine gluconate 0.12% Btl 473 mL 30 ML MUCOUS MEM ×2 (17:27→20:19)
[2022-04-17] MEDS: mupirocin oint 22 gm 1 APPLIC NASAL (17:27)
[2022-04-17] MEDS: cefTRIAXone 1,000 MG in sodium chloride 0.9% (plus) 50 ML 100 MG IV (17:33)
[2022-04-17] MEDS: NON-FORMULARY MEDICATION (Methenamine Hippurate 1 gram tablet) 1 EACH PO (17:34)
[2022-04-17] MEDS: enoxaparin 30 mg/0.3 mL Syringe SUBCUT (20:19)
[2022-04-17] MEDS: tamsulosin 0.4 mg Capsule PO (20:19)
[2022-04-18] VITALS (8 sets, daily range): BP systolic 111–127; BP diastolic 63–65; PULSE 72–94; RESP 16–18; TEMP 36.8–38.2; O2SAT 92–97
[2022-04-18] MEDS: morphine 4 mg/mL SDV 1 mL IVP (01:38)
[2022-04-18 04:29] LABS: Basophils % 0.5 %; Eosinophils # 0.1 10^3/uL (0.0-0.8); Eosinophils % 1.4 %; Hematocrit 34.3 % (37.0-47.0); Hemoglobin 10.6 g/dL (11.5-15.3); Lymphocytes # 1.6 10^3/uL (0.8-4.8); Lymphocytes % 18.2 %; Mean Corpuscular HGB Conc 30.9 g/dL (30.0-36.0); Mean Corpuscular Hemoglobin 29.2 pg (28.0-34.0); Mean Corpuscular Volume 94.5 fl (81-99); Mean Platelet Volume 10.7 fL (7.4-10.4); Neutrophils # 5.81 10^3/uL (1.8-7.7); Neutrophils % 67.6 %; Nucleated Red Blood Cells % 0 %; Platelet Count 164 10^3/cmm (130-400); Red Blood Count 3.63 10^6/uL (4.1-5.3); White Blood Count 8.6 10^3/uL (4.0-10.0)
[2022-04-18 05:12] LABS: Blood Urea Nitrogen 6 mg/dL (8-23); Calcium 9.1 mg/dL (8.5-10.5); Carbon Dioxide 28 mmol/L (22-29); Glucose 108 mg/dL (65-115); Potassium 3.2 mmol/L (3.5-5.1)
[2022-04-18] MEDS: calcium carbonate 500 mg Chew Tablet 1000 MG PO ×2 (07:47→15:56)
[2022-04-18] MEDS: multivitamin therapeutic Tablet 1 TAB PO (07:56)
[2022-04-18] MEDS: cholecalciferol (vitamin D3) 1,000 unit Tablet 1000 UNIT PO (07:57)
[2022-04-18] MEDS: sennosides-docusate Tablet 2 TAB PO ×2 (07:57→15:56)
[2022-04-18] MEDS: oxyCODONE 5 mg IR Tab/Cap PO ×2 (07:57→15:57)
[2022-04-18] MEDS: pantoprazole DR 40 mg Tablet 20 MG PO (07:58)
[2022-04-18] MEDS: iron polysaccharide complex 150 mg Capsule PO ×2 (07:58→15:56)
[2022-04-18] MEDS: NON-FORMULARY MEDICATION 200 EACH PO (07:59)
[2022-04-18] MEDS: NON-FORMULARY MEDICATION (Methenamine Hippurate 1 gram tablet) 1 EACH PO ×2 (07:59→16:08)
[2022-04-18 11:14] LABS: Anion Gap 12.2 (5-19); Chloride 104 mmol/L (98-107); Osmolality Calculated 290 mOsm/kg (285-295); Sodium 141 mmol/L (136-145)
--- NOTE | 2022-04-18 12:43 | PM.PN ---
Subjective Subjective: seen this am no acute events overnight Vitals/I&O/Wt Last Vital Signs Temp 98.3 F 04/18/22 11:00 Pulse 85 04/18/22 11:00 Resp 16 04/18/22 11:00 BP 111/63 04/18/22 11:00 Pulse Ox 95 04/18/22 11:00 O2 Del Method 04/18/22 09:39 O2 Flow Rate 2 04/18/22 09:39 04/17/22 04/18/22 04/18/22 22:59 06:59 14:59 Intake Total 350 / 860 240 / 240 Output Total 1200 / 1200 1150 / 2350 Balance -850 / -340 -1150 / -1490 240 / 240 Physical Exam Narrative: General exam no distress. Cardiovascular regular rate and rhythm without murmur Lungs clear no wheezing or crackles Abdomen is soft with positive bowel sounds. No obvious organomegaly exam demonstrates Jarrett Extremities no cyanosis clubbing or edema, cap refill brisk. Left hip dressing clean and dry Skin no rash Urinary Catheter Management: Jarrett: Cath Placed During This Visit: yes, but has since been removed by the nurse Reason for Continuing Indwelling Catheter: Acute Urinary Retention or Obstruction Urinary Catheter Date of Insertion: 04/18/22 Urinary Catheter Time of Insertion: 04:15 Date Urinary Catheter Removed: 04/17/22 Time Urinary Catheter Discontinued: 06:44 Data 04/18/22 03:19 04/18/22 03:19 Micro: Microbiology 04/15/22 10:42 Urine Culture - Final Urine,Clean Catch Escherichia coli A&P Assessment and plan (1) Fracture of femoral neck, left: Appreciate surgical consultation Rehabilitation Discharge planning, rehab to explore home versus penitentiary facility She is postoperative day #2 (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 She will need to get this from home. No seizures in hospital She refuses to take the 300 mg. Order was changed to 200 mg, continue seizure precautions (3) UTI (urinary tract infection): Evidence of UTI Continue Rocephin, await culture Last urine culture in October was Klebsiella, sensitive to ceftriaxone Currently growing gram-negative rods. E.coli sensitive to ceftriaxone. Resistant to tetracycline and ciprofloxacin. Plan Other medical problems as outlined in past medical history Full code Lovenox for DVT prophylaxis Attestations Medical Necessity Statement*: Patient requiring hospitalization after left femoral neck fracture requiring hospitalization for surgical intervention and postoperative monitoring. Coding Level of Care Code Acute Bead Wire Insulator for Chg Fwd Diagnoses Fracture of femoral neck, left S72.002A Frontal lobe epilepsy G40.802 UTI (urinary tract infection) N39.0
[2022-04-18] MEDS: chlorhexidine gluconate 0.12% Btl 473 mL 30 ML MUCOUS MEM ×3 (13:00→21:02)
[2022-04-18] MEDS: cefTRIAXone 1,000 MG in sodium chloride 0.9% (plus) 50 ML 100 MG IV (15:57)
[2022-04-18] MEDS: mupirocin oint 22 gm 1 APPLIC NASAL (16:08)
--- NOTE | 2022-04-18 20:12 | PM.PN ---
Subjective Subjective: Seen this evening. The patient is doing well without complaints. [facility]. She is alert and oriented. Medications: Reviewed: Yes Vitals/I&O/Wt Last Vital Signs Temp 98.2 F 04/18/22 16:00 Pulse 72 04/18/22 16:00 Resp 17 04/18/22 16:00 BP 127/65 04/18/22 16:00 Pulse Ox 95 04/18/22 16:00 O2 Del Method 04/18/22 09:39 O2 Flow Rate 2 04/18/22 19:56 04/18/22 04/18/22 04/18/22 06:59 14:59 22:59 Intake Total 240 / 240 290 / 530 Output Total 1150 / 2350 Balance -1150 / -1490 240 / 240 290 / 530 Physical Exam Narrative: Patient is seen in her bed. She appears comfortable. Thigh is soft and nontender. Her Silverlon dressing is dry and intact with no evidence of saturation. There is no evidence of DVT. Calf is soft and nontender, and she is neurologically intact distally. Urinary Catheter Management: Jarrett: Cath Placed During This Visit: yes, but has since been removed by the nurse Reason for Continuing Indwelling Catheter: Acute Urinary Retention or Obstruction Urinary Catheter Date of Insertion: 04/18/22 Urinary Catheter Time of Insertion: 04:15 Date Urinary Catheter Removed: 04/17/22 Time Urinary Catheter Discontinued: 06:44 Data 04/18/22 03:19 04/18/22 03:19 Micro: Microbiology 04/15/22 10:42 Urine Culture - Final Urine,Clean Catch Escherichia coli A&P Assessment and plan (1) Fracture of femoral neck, left: Plan Weight-bear as tolerated left lower extremity Posterior hip precautions Ice as needed Dressing change as needed if becomes saturated, but today, dressing is dry and intact with no evidence of saturation. PT/OT ongoing for increased independence and ambulation. Pain control appears adequate. Internal medicine is primary Follow-up with Dr. Benjamin in the office in 2 weeks Attestations Medical Necessity Statement*: Ongoing medical and orthopedic care following left hip fracture. Coding Level of Care Code Acute Machine Repair Person for Carmelina Cabello Diagnoses Fracture of femoral neck, left S72.002A
[2022-04-18] MEDS: tamsulosin 0.4 mg Capsule PO (21:02)
[2022-04-18] MEDS: enoxaparin 30 mg/0.3 mL Syringe SUBCUT (21:02)
[2022-04-19] VITALS (8 sets, daily range): BP systolic 98–123; BP diastolic 60–72; PULSE 74–88; RESP 16–19; TEMP 36.3–37; O2SAT 90–97
[2022-04-19 04:09] LABS: Basophils % 0.5 %; Eosinophils # 0.2 10^3/uL (0.0-0.8); Hematocrit 32.1 % (37.0-47.0); Hemoglobin 10.2 g/dL (11.5-15.3); Lymphocytes # 1.7 10^3/uL (0.8-4.8); Lymphocytes % 22.3 %; Mean Corpuscular HGB Conc 31.8 g/dL (30.0-36.0); Mean Corpuscular Hemoglobin 29.8 pg (28.0-34.0); Mean Corpuscular Volume 93.9 fl (81-99); Mean Platelet Volume 10.7 fL (7.4-10.4); Monocytes # 0.9 10^3/uL (0.2-0.9); Monocytes % 11.3 %; Neutrophils # 4.75 10^3/uL (1.8-7.7); Neutrophils % 62.6 %; Nucleated Red Blood Cells % 0 %; Platelet Count 163 10^3/cmm (130-400); Red Blood Count 3.42 10^6/uL (4.1-5.3); Red Cell Distribution Width 13.9 % (12.1-15.1); White Blood Count 7.6 10^3/uL (4.0-10.0)
[2022-04-19 04:39] LABS: Anion Gap 12.5 (5-19); Blood Urea Nitrogen 11 mg/dL (8-23); Calcium 8.8 mg/dL (8.5-10.5); Carbon Dioxide 27 mmol/L (22-29); Chloride 104 mmol/L (98-107); Glucose 115 mg/dL (65-115); Osmolality Calculated 290 mOsm/kg (285-295); Potassium 3.5 mmol/L (3.5-5.1); Sodium 140 mmol/L (136-145)
[2022-04-19] MEDS: pantoprazole DR 40 mg Tablet 20 MG PO (07:41)
[2022-04-19] MEDS: iron polysaccharide complex 150 mg Capsule PO ×2 (07:42→16:14)
[2022-04-19] MEDS: cholecalciferol (vitamin D3) 1,000 unit Tablet 1000 UNIT PO (07:42)
[2022-04-19] MEDS: sennosides-docusate Tablet 2 TAB PO ×2 (07:42→16:13)
[2022-04-19] MEDS: multivitamin therapeutic Tablet 1 TAB PO (07:42)
[2022-04-19] MEDS: calcium carbonate 500 mg Chew Tablet 1000 MG PO ×2 (07:42→16:13)
[2022-04-19] MEDS: NON-FORMULARY MEDICATION 200 EACH PO (07:43)
[2022-04-19] MEDS: NON-FORMULARY MEDICATION (Methenamine Hippurate 1 gram tablet) 1 EACH PO ×2 (07:43→16:15)
[2022-04-19] MEDS: oxyCODONE 5 mg IR Tab/Cap PO ×3 (07:59→22:09)
--- NOTE | 2022-04-19 14:07 | PM.PN ---
Subjective Subjective: No new complaints today, no acute interim events. Lost IV access today Medications: Reviewed: Yes Vitals/I&O/Wt Last Vital Signs Temp 98.2 F 04/19/22 11:00 Pulse 78 04/19/22 11:00 Resp 16 04/19/22 11:00 BP 114/64 04/19/22 11:00 Pulse Ox 91 04/19/22 11:00 O2 Del Method 04/18/22 09:39 O2 Flow Rate 2 04/18/22 19:56 04/18/22 04/19/22 04/19/22 22:59 06:59 14:59 Intake Total 490 / 730 Output Total 1100 / 1100 Balance 490 / 730 -1100 / -370 Physical Exam Narrative: General: No acute distress, AO x3 HEENT: PERRLA, pupils bilaterally equal and reactive, pallors not present Chest: Normal vesicular breath sounds, no added sounds, equal good air entry bilaterally CVS: S1-S2 regular, no murmurs, no tachycardia, no gallops, no rubs Abdomen: Soft, nontender, no organomegaly, bowel sounds present Neuro: No focal deficits, no facial deformity, AO x3, power 5/5 in all limbs Urinary Catheter Management: Jarrett: Cath Placed During This Visit: yes, but has since been removed by the nurse Reason for Continuing Indwelling Catheter: Acute Urinary Retention or Obstruction Urinary Catheter Date of Insertion: 04/18/22 Urinary Catheter Time of Insertion: 04:15 Date Urinary Catheter Removed: 04/17/22 Time Urinary Catheter Discontinued: 06:44 Data 04/19/22 03:01 04/19/22 03:01 A&P Assessment and plan (1) Fracture of femoral neck, left: Appreciate surgical consultation Rehabilitation Discharge planning, rehab to explore home versus intermediate facility She is postoperative day #3 (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 She will need to get this from home. No seizures in hospital She refuses to take the 300 mg. Order was changed to 200 mg, continue seizure precautions (3) UTI (urinary tract infection): Evidence of UTI s/p 4 doses of Rocephin, cx with E .coli s/t ceftriaxone, cefuroxime lost iv access, will change to cefuroxime to complete todtal 5 days treatment Plan Other medical problems as outlined in past medical history Full code Lovenox for DVT prophylaxis Dispo: planned transtion to SNF Attestations Medical Necessity Statement*: appropriate disposition planning Coding Level of Care Code Acute Natural Resource Technician for Chg Fwd Diagnoses Fracture of femoral neck, left S72.002A Frontal lobe epilepsy G40.802 UTI (urinary tract infection) N39.0
--- NOTE | 2022-04-19 15:39 | PM.PN ---
Subjective Subjective: No new complaints today. She is evaluated by the medical service for ongoing kidney issues including retention of urine. She states that she has regularly seen Dr. Gunn, but not for retention. Medications: Reviewed: Yes Vitals/I&O/Wt Last Vital Signs Temp 98.2 F 04/19/22 11:00 Pulse 78 04/19/22 11:00 Resp 16 04/19/22 11:00 BP 114/64 04/19/22 11:00 Pulse Ox 91 04/19/22 11:00 O2 Del Method 04/18/22 09:39 O2 Flow Rate 2 04/18/22 19:56 04/19/22 04/19/22 04/19/22 06:59 14:59 22:59 Output Total 1100 / 1100 Balance -1100 / -370 Physical Exam Narrative: Patient is seen in her bed. She appears comfortable. Thigh is soft and nontender. Her Silverlon dressing is dry and intact with no evidence of saturation or erythema. There is no evidence of DVT. Calf is soft and nontender, and she is neurologically intact distally. Urinary Catheter Management: Jarrett: Cath Placed During This Visit: yes, and reinserted for retention Reason for Continuing Indwelling Catheter: Acute Urinary Retention or Obstruction Urinary Catheter Date of Insertion: 04/18/22 Urinary Catheter Time of Insertion: 04:15 Data 04/19/22 03:01 04/19/22 03:01 A&P Assessment and plan (1) Fracture of femoral neck, left: Plan Weight-bear as tolerated left lower extremity Posterior hip precautions Ice as needed Dressing is dry and intact with no evidence of saturation. PT/OT ongoing for increased independence and ambulation. Pain control appears adequate. Internal medicine is primary, urinary retention continues to be an issue, will repeat UA Follow-up with Dr. Benjamin in the office in 2 weeks Attestations Medical Necessity Statement*: Ongoing care for femoral neck fracture Coding Level of Care Code Acute Metallurgical Lab Technician for Carmelina Cabello Diagnoses Fracture of femoral neck, left S72.002A
[2022-04-19] MEDS: cefUROXime 250 mg Tablet 500 MG PO (16:15)
[2022-04-19] MEDS: chlorhexidine gluconate 0.12% Btl 473 mL 30 ML MUCOUS MEM ×2 (16:15→19:52)
[2022-04-19] MEDS: mupirocin oint 22 gm 1 APPLIC NASAL (16:16)
[2022-04-19 17:28] LABS: Add Urine Culture? No; Bacteria Urine TRACE /hpf; Bilirubin Urine Neg (Negative); Blood Urine Neg (Negative); Glucose Urine UA Norm (Normal); Ketones Urine Negative (Negative); Leukocyte Esterase Urine Negative (Negative); Nitrate Urine Negative (Negative); Protein Urine Neg (Negative); Urine Appearance Clear (CLEAR); Urine Color Straw (Yellow); Urobilinogen Urine Norm (Negative); WBC Urine RARE /hpf (0-5); pH Urine 7 (5-7)
--- NOTE | 2022-04-19 17:46 | PC.PT ---
Patient demonstrating good improvements and up frequently with nursing staff and ambulating to bathroom, will now decrease frequency to daily.
[2022-04-19] MEDS: enoxaparin 30 mg/0.3 mL Syringe SUBCUT (19:52)
[2022-04-19] MEDS: tamsulosin 0.4 mg Capsule PO (19:52)
--- NOTE | 2022-04-19 19:55 | PC.NURSE ---
PM MEDS Pt requested to get her meds now so she can go to sleep. Meds given
[2022-04-19] MEDS: TRAMadol 50 mg Tablet PO (23:49)
[2022-04-20] VITALS (7 sets, daily range): BP systolic 102–114; BP diastolic 59–70; PULSE 70–86; RESP 16–20; TEMP 36.6–36.9; O2SAT 91–96
[2022-04-20] MEDS: acetaminophen 325 mg Tablet 650 MG PO (01:38)
[2022-04-20] MEDS: oxyCODONE 5 mg IR Tab/Cap PO (01:40)
[2022-04-20] MEDS: multivitamin therapeutic Tablet 1 TAB PO (08:52)
[2022-04-20] MEDS: calcium carbonate 500 mg Chew Tablet 1000 MG PO (08:52)
[2022-04-20] MEDS: iron polysaccharide complex 150 mg Capsule PO (08:52)
[2022-04-20] MEDS: cholecalciferol (vitamin D3) 1,000 unit Tablet 1000 UNIT PO (08:52)
[2022-04-20] MEDS: cefUROXime 250 mg Tablet 500 MG PO (08:53)
[2022-04-20] MEDS: NON-FORMULARY MEDICATION (Methenamine Hippurate 1 gram tablet) 1 EACH PO (08:54)
[2022-04-20] MEDS: chlorhexidine gluconate 0.12% Btl 473 mL 30 ML MUCOUS MEM ×2 (08:55→14:13)
[2022-04-20] MEDS: NON-FORMULARY MEDICATION 200 EACH PO (08:55)
[2022-04-20] MEDS: mupirocin oint 22 gm 1 APPLIC NASAL (08:57)
--- NOTE | 2022-04-20 11:05 | PM.DCS ---
Discharge Providers Date of Admission: 04/15/22 10:24 Date of Discharge: April 20, 2022 Attending Provider at Admission: Chirag Ballard MD Attending Provider at Discharge: Abril Vargas MD Primary Care Provider: Carlos Barba MD Diagnoses at Discharge Discharge Diagnosis (1) Fracture of femoral neck, left: Status: Resolved Reason for Visit Reason for Visit: POST FALL - L HIP PAIN Brief History: As per Dr. Ballard Melonie Suggs is a 76 year old female presenting to the hospital after a fall around 8 AM.? She states that her seizure medicine makes her a little sleepy and off balance, and attributes this to the reason she had a mechanical fall.? She denies any focal weakness.? She has having pain in the left hip area.? She denies any recent fever, cough, shortness of breath.? She denies any other injuries in the fall.? She denies any loss of consciousness.? She does not have a headache or nausea. Hospital Course Hospital Course Admitted for fracture of femoral neck, left side, had surgical repair completed. Pt also had UTI and was on ceftriaxone during hospital stay and transitioned to cefuroxime at discharge. For epilepsy, home medicine was continued. Pt remained seizure free. Sent to [facility] in stable condition. Had issues with urinary retention, therefore was sent to [facility] with charity. Pt to f/u with Dr. zabala outpatient. Physical Exam Narrative: General: No acute distress, AO x3 HEENT: PERRLA, pupils bilaterally equal and reactive, pallors not present Chest: Normal vesicular breath sounds, no added sounds, equal good air entry bilaterally CVS: S1-S2 regular, no murmurs, no tachycardia, no gallops, no rubs Abdomen: Soft, nontender, no organomegaly, bowel sounds present Neuro: moves all 4 extremities Surgical site dressing intact with no bleeding noted. Urinary Catheter Management: Nash: Cath Placed During This Visit: yes, but has since been removed by the nurse Reason for Continuing Indwelling Catheter: Acute Urinary Retention or Obstruction Urinary Catheter Date of Insertion: 04/18/22 Urinary Catheter Time of Insertion: 04:15 Date Urinary Catheter Removed: 04/17/22 Time Urinary Catheter Discontinued: 06:44 Discharge Data Studies Completed and Pending Completed Studies During Hospitalization Category Date Time Status XR femur LT min 2V* [id number] Stat Exams 12/14/22 09:53 Completed XR hip LT 2-3V wo/w pel* [id number] Routine Exams 04/16/22 08:49 Completed XR hip LT 2-3V wo/w pel* [id number] Stat Exams 04/15/22 09:22 Completed XR knee LT 3V* [id number] Stat Exams 04/15/22 09:53 Completed XR pelvis 1-2V* [id number] Stat Exams 04/15/22 09:53 Completed Radiology Impressions Femur X-Ray 04/15/22 09:53 IMPRESSION: Mildly displaced left femoral neck fracture, as noted above. Knee X-Ray 04/15/22 09:53 IMPRESSION: No fractures or dislocation of the left knee. Mild degenerative changes, as noted above. Pelvis X-Ray 04/15/22 09:53 IMPRESSION: Unchanged mildly displaced left femoral neck fracture, as noted above. Hip/Pelvis X-Ray 04/16/22 08:49 IMPRESSION: Expected postsurgical changes status post left cemented bipolar hip arthroplasty. Laboratory Results WBC 7.6 10^3/uL (4.0-10.0) 04/19/22 03:01 RBC 3.42 10^6/uL (4.1-5.3) L 04/19/22 03:01 Hgb 10.2 g/dL (11.5-15.3) L 04/19/22 03:01 Hct 32.1 % (37.0-47.0) L 04/19/22 03:01 MCV 93.9 fl (81-99) 04/19/22 03:01 MCH 29.8 pg (28.0-34.0) 04/19/22 03:01 MCHC 31.8 g/dL (30.0-36.0) 04/19/22 03:01 RDW 13.9 % (12.1-15.1) 04/19/22 03:01 Plt Count 163 10^3/cmm (130-400) 04/19/22 03:01 MPV 10.7 fL (7.4-10.4) H 04/19/22 03:01 Neut % (Auto) 62.6 % 04/19/22 03:01 Lymph % (Auto) 22.3 % 04/19/22 03:01 [place] % (Auto) 11.3 % 04/19/22 03:01 Eos % (Auto) 3.0 % 04/19/22 03:01 Baso % (Auto) 0.5 % 04/19/22 03:01 Neut # (Auto) 4.75 10^3/uL (1.8-7.7) 04/19/22 03:01 Lymph # (Auto) 1.7 10^3/uL (0.8-4.8) 04/19/22 03:01 [place] # (Auto) 0.9 10^3/uL (0.2-0.9) 04/19/22 03:01 Eos # (Auto) 0.2 10^3/uL (0.0-0.8) 04/19/22 03:01 Baso # (Auto) 0.0 10^3/uL (0.0-0.1) 04/19/22 03:01 Nucleated RBC % (auto) 0 % 04/19/22 03:01 Nucleated RBCs # 0.0 /100WBC 04/19/22 03:01 PT 14.00 SECONDS (12.1-14.9) 04/15/22 10:17 INR 1.05 (0.8-1.2) 04/15/22 10:17 APTT 27.4 SECONDS (23.9-36.7) 04/15/22 10:17 Sodium 140 mmol/L (136-145) 04/19/22 03:01 Potassium 3.5 mmol/L (3.5-5.1) 04/19/22 03:01 Chloride 104 mmol/L (98-107) 04/19/22 03:01 Carbon Dioxide 27 mmol/L (22-29) 04/19/22 03:01 Anion Gap 12.5 (5-19) 04/19/22 03:01 BUN 11 mg/dL (8-23) 04/19/22 03:01 Creatinine 0.6 mg/dL (0.5-0.9) 04/19/22 03:01 GFR Calculation Not Reportable 04/19/22 03:01 Glucose 115 mg/dL (65-115) 04/19/22 03:01 Calculated Osmolality 290 mOsm/kg (285-295) 04/19/22 03:01 Calcium 8.8 mg/dL (8.5-10.5) 04/19/22 03:01 Total Bilirubin 0.3 mg/dL (0.15-1.2) 04/15/22 10:17 AST 19 U/L (0-32) 04/15/22 10:17 ALT 14 U/L (0-33) 04/15/22 10:17 Alkaline Phosphatase 133 U/L (35-105) H 04/15/22 10:17 Total Protein 6.9 g/dL (6.6-8.7) 04/15/22 10:17 Albumin 4.6 g/dL (3.5-5.2) 04/15/22 10:17 Globulin 2.3 g/dL (1.3-4.6) 04/15/22 10:17 Urine Color Straw (Yellow) 04/19/22 16:20 Urine Appearance Clear (CLEAR) 04/19/22 16:20 Urine pH 7 (5-7) 04/19/22 16:20 Ur Specific [place] 1.000 (1.005-1.030) L 04/19/22 16:20 Urine Protein Neg (Negative) 04/19/22 16:20 Urine Glucose (UA) Norm (Normal) 04/19/22 16:20 Urine Ketones Negative (Negative) 04/19/22 16:20 Urine Blood Neg (Negative) 04/19/22 16:20 Urine Nitrate Negative (Negative) 04/19/22 16:20 Urine Bilirubin Neg (Negative) 04/19/22 16:20 Urine Urobilinogen Norm mg/dL (Negative) 04/19/22 16:20 Ur Leukocyte Esterase Negative (Negative) 04/19/22 16:20 Urine RBC None /hpf (0-2) 04/19/22 16:20 Urine WBC Rare /hpf (0-5) 04/19/22 16:20 Ur Squamous Epith Cells None /hpf (0-5) 04/19/22 16:20 Amorphous Sediment Not Reportable 04/19/22 16:20 Urine Bacteria Trace /hpf (NONE) 04/19/22 16:20 Vitals Last Vital Signs Temp 97.8 F 04/20/22 08:00 Pulse 74 04/20/22 08:00 Resp 18 04/20/22 08:00 BP 114/70 04/20/22 08:00 Pulse Ox 92 04/20/22 08:00 O2 Del Method 04/20/22 08:00 O2 Flow Rate 2 04/18/22 19:56 Discharge Plan Discharge Patient Disposition: Xfer SNF Condition: Stable Prescriptions: New ondansetron 4 mg tablet,disintegrating 4 mg PO DAILY 5 Days Qty: 5 0RF Lovenox 30 mg/0.3 mL syringe 30 mg SUBCUT DAILY 35 Days Qty: 35 0RF calcium carbonate-vitamin D3 600 mg-10 mcg (400 unit) Tablet 1 ea PO BID 30 Days Qty: 60 0RF cefuroxime axetil 250 mg Tablet 500 mg PO BID 5 Days Qty: 20 0RF Ferrex 150 150 mg iron Capsule 150 mg PO BIDWM 30 Days Qty: 30 0RF cholecalciferol (vitamin D3) 25 mcg (1,000 unit) Tablet 1,000 unit PO DAILY 30 Days Qty: 30 0RF oxycodone 5 mg capsule 5 mg PO Q6H PRN (Reason: pain) 7 Days Qty: 28 0RF Continued pantoprazole 20 mg tablet,delayed release (DR/EC) 20 mg PO DAILY Qty: 90 3RF methenamine hippurate 1 gram tablet 1 g PO BID Qty: 60 12RF Rx Instructions: Take 1000 mg of vitamin C with each dose of methenamine cenobamate 200 mg tablet 200 mg PO DAILY Qty: 30 5RF Vitamin C 500 mg Tablet 500 mg PO DAILY tamsulosin 0.4 mg capsule 0.4 mg PO BEDTIME Held diazepam 5 mg tablet 5 mg PO BEDTIME PRN (Reason: anxiety) Qty: 30 3RF Hold Instructions: see pcp Discontinued cenobamate 100 mg tablet 100 mg PO ONCE Qty: 30 5RF Discharge Orders: Discharge Order (Routine); Ordered 04/20/22 Ordered By: Abril Vargas Referrals: Carlos Barba MD [Primary Care Provider] - 4-7 days Gary Zabala MD [Physician] - 1 week (DR ZABALA OFFICE WILL CALL WITH APPOINTMENT [phone]) Noman Benjamin DO [Physician] - 05/07/22 11:15 am Discharge Diet: Advance as tolerated Discharge Activity: Increase activity as tolerated and Limit activity as instructed Patient Instructions: Cefuroxime (By mouth), Oxycodone/Acetaminophen (By mouth), Enoxaparin (By injection), Total Hip Replacement (GEN), Opioid Safety, Pain Management Activity Restrictions/Additional Instructions: Orthopedic discharge instructions: Patient may be weightbearing as tolerated left lower extremity Keep incision clean dry and intact and may change dressing as needed if becomes saturated Posterior hip precautions avoiding hip flexion and internal rotation, do not cross legs Take Lovenox (blood thinner) as prescribed for blood clot prevention Take antinausea medication as needed supplement with Citracal vitamin D for bone health Take pain medication as described Follow-up with Dr. Benjamin in the office in 2 weeks Contact the office for any questions or concerns Your nash catheter has been left in place due to urinary retention. Please f/u with doctor Zabala to address catheter removal. You have been placed on oral antibiotics for another 5 days to treat for your urinary tract infection Please follow up with your primary care doctor in 4-7 days of discharge. Discharge Attestations Time Spent in Discharge Care*: other Quality Metrics Clinical Quality Measures [ No reported AMI, CVA or VTE this stay] Coding Level of Care Code Acute [facility] FW DE note Diagnoses Fracture of femoral neck, left S72.002A
[2022-04-20 12:19] LABS: SARS Covid-2 Antigen negative (Negative)
--- NOTE | 2022-04-20 12:58 | PM.PN ---
Subjective Subjective: Patient seen and evaluated this morning. Patient doing well with no issues overnight. [facility]. Vitals/I&O/Wt Last Vital Signs Temp 97.8 F 04/20/22 08:00 Pulse 74 04/20/22 08:00 Resp 18 04/20/22 08:00 BP 114/70 04/20/22 08:00 Pulse Ox 92 04/20/22 08:00 O2 Del Method 04/20/22 08:00 O2 Flow Rate 2 04/18/22 19:56 04/19/22 04/20/22 04/20/22 22:59 06:59 14:59 Intake Total 840 / 840 300 / 1140 350 / 350 Output Total 900 / 900 1700 / 2600 Balance -60 / -60 -1400 / -1460 350 / 350 Physical Exam Narrative: Left hip dressing on in place clean dry and intact. Patient is able to wiggle toes plantarflex dorsiflex ankle sensation tact light touch distally left lower extremity warm well perfused. Patient able to stand at bedside no pain with gentle hip range of motion. Urinary Catheter Management: Jarertt: Cath Placed During This Visit: yes, but has since been removed by the nurse Reason for Continuing Indwelling Catheter: Acute Urinary Retention or Obstruction Urinary Catheter Date of Insertion: 04/18/22 Urinary Catheter Time of Insertion: 04:15 Date Urinary Catheter Removed: 04/17/22 Time Urinary Catheter Discontinued: 06:44 Data 04/19/22 03:01 04/19/22 03:01 A&P Assessment and plan (1) Fracture of femoral neck, left: Plan Weight-bear as tolerated left lower extremity Posterior hip precautions Ice as needed DVT prophylaxis?Lovenox Dressing is dry and intact with no evidence of saturation. PT/OT ongoing for increased independence and ambulation. Pain control appears adequate. Internal medicine is primary Follow-up with Dr. Benjamin in the office in 2 weeks Orthopedic surgery team will sign off patient at this time and follow peripherally. If there is any questions pertaining to patient's care feel free to contact the office. Patient should follow-up with me in the office in 2 weeks. Discharge instruction as well as prescriptions sent in med rec. Patient stable for discharge from Ortho standpoint. Attestations Medical Necessity Statement*: Ongoing care for femoral neck fracture Coding Level of Care Code Acute Salad Counter Attendant for Chg Fwd Diagnoses Fracture of femoral neck, left S72.002A Time Spent (min) 25
--- NOTE | 2022-04-20 13:55 | PC.NURSE ---
1355 - [place] [facility] [place]
== END 2022-04-20 15:17 | disposition skilled nursing facility (03) | DRG 522 ==
LOC: ER 15:17 → MEDSURG 16:33
PROVIDERS: Specialist; Student in an Organized Health Care Education/Training Program; Admitting Provider Internal Medicine; Emergency Provider Family Medicine; PCP Family Medicine; Visit Provider Internal Medicine
PROC: 0SRS0J9 Replacement of Left Hip Joint, Femoral Surface with Synthetic Substitute, Cemented, Open Approach (ICD-10-PCS; CPT 27125; principal; 2022-04-16 07:00)
DX: S72.012A Unspecified intracapsular fracture of left femur, initial encounter for closed fracture (principal); N39.0 Urinary tract infection, site not specified; G40.802 Other epilepsy, not intractable, without status epilepticus; W01.0XXA Fall on same level from slipping, tripping and stumbling without subsequent striking against object, initial encounter; B96.20 Unspecified Escherichia coli [E. coli] as the cause of diseases classified elsewhere; R33.9 Retention of urine, unspecified; K21.9 Gastro-esophageal reflux disease without esophagitis; Z87.440 Personal history of urinary (tract) infections; Z79.899 Other long term (current) drug therapy
CPT/HCPCS: 36415; 51702; 72170; 73502; 73552; 73562; 80048; 80053; 81001; 85025; 85610; 85730; 87077; 87086; 87186; 87426; 93005; 96365; 96372; 96375; 97110; 97116; 97161; 97166; 97530; 99285; C1713; C1776; J0131; J0690; J0696; J1170; J1650; J1885; J2270; J2370; J2405; J2704; J3010; J3370; J7030

== ENCOUNTER → 2022-05-06 10:04 | Outpatient (BNVA) | payer MEDICARE, MEDICAID, SELFPAY | PROVIDERS: PCP Family Medicine; Visit Provider Student in an Organized Health Care Education/Training Program | DX: Z96.642 Presence of left artificial hip joint (principal); S72.002A Fracture of unspecified part of neck of left femur, initial encounter for closed fracture; X58.XXXA Exposure to other specified factors, initial encounter | CPT/HCPCS: 73502; 99024 ==

== ENCOUNTER → 2022-05-15 10:14 | Outpatient (BNVA) | payer MEDICARE, MEDICAID, SELFPAY | PROVIDERS: PCP Family Medicine; Visit Provider Urology | DX: N39.46 Mixed incontinence (principal); N39.0 Urinary tract infection, site not specified; R33.9 Retention of urine, unspecified | CPT/HCPCS: 51798; 81003; 87077; 87086; 87186; 99213 ==

== ENCOUNTER → 2022-06-15 15:06 | Outpatient (BNVA) | payer MEDICARE, MEDICAID, SELFPAY | PROVIDERS: PCP Family Medicine; Visit Provider Urology | DX: N39.0 Urinary tract infection, site not specified (principal); R33.9 Retention of urine, unspecified | CPT/HCPCS: 51798; 81003; 99213 ==

== ENCOUNTER → 2022-07-06 09:27 | Outpatient (BNVA) | payer MEDICARE, MEDICAID, SELFPAY | PROVIDERS: PCP Family Medicine; Visit Provider Student in an Organized Health Care Education/Training Program | DX: Z47.89 Encounter for other orthopedic aftercare (principal) | CPT/HCPCS: 73502; 99024 ==

== ENCOUNTER → 2022-07-27 14:37 | Outpatient (BNVA) | payer MEDICARE, MEDICAID, SELFPAY | PROVIDERS: PCP Family Medicine; Visit Provider Family Medicine | DX: Z86.69 Personal history of other diseases of the nervous system and sense organs (principal); N13.30 Unspecified hydronephrosis | CPT/HCPCS: 80053; 85025 ==

== ENCOUNTER 2022-07-29 10:17 | Emergency (ER) | payer MEDICARE, MEDICAID, SELFPAY ==
[2022-07-29 10:24] VITALS: BP 154/78; PULSE 79; TEMP 36.5; O2SAT 96; BMI 25.3
--- NOTE | 2022-07-29 10:49 | ED_ITS ---
HPI - Seizure General: Chief Complaint: Seizure Stated Complaint: EPILEPTIC EPISODE Time Seen by Provider: 07/29/22 10:26 History of Present Illness: HPI Narrative: Patient is a 76-year-old female comes to the ED via EMS for seizure. Patient was brought in from [facility] because she was slumped over and became unresponsive while sitting in the salon per EMS. Patient is alert in the ED and answering my questions but does appear confused. She was unsure where she was at and says last thing she [facility]. She endorses having a history of epilepsy and takes seizure medication 1 tablet twice daily to treat her seizures. She reports that she feels a little postictal currently. She has some mild confusion but denies any other symptoms. Denies any fevers, chills, headache, head injury, chest pain, shortness of breath, abdominal pain, bladder or bowel symptoms. Seizure History: Yes Associated symptoms: Deny chest pain, chills or fever(s) Review of Systems Const: Denies: fever(s), chills or fatigue Eyes: Denies: change in vision or eye discomfort ENMT: Denies: throat pain, odynophagia, nasal discharge or nasal congestion Card: Denies: chest pain, palpitations, edema, swelling of feet/ankles, dyspnea on exertion or orthopnea Resp: Denies: dyspnea, productive cough or non-productive cough GI: Denies: abdominal pain, nausea, vomiting, diarrhea, constipation or hematochezia : Denies: flank pain, dysuria or hematuria Musc: Denies: neck pain, back pain or extremity swelling Skin/Breast: Denies: rash or new lesions Neuro: Reports: seizure-like activity; Denies: headache(s), numbness in extremities or weakness in extremities PFS ED PFSH: Medical History Anxiety Bilateral hydronephrosis Secondary to bladder distention and incomplete emptying Cholelithiasis Cystitis cystica Diverticulosis Dysphagia Elevated troponin I level Epilepsy Focused based right temporal lobe epilepsy patient does not wish to have surgery for intractable seizures Fall Frequent headaches GERD without esophagitis Hiatal hernia Hypertension Insomnia Iron deficiency anemia Laceration Laceration of head Melanotic stools Microcytic anemia Mild cognitive impairment Mixed stress and urge urinary incontinence Osteopenia Overflow incontinence Partial epilepsy secondarily generalized Recurrent UTI Temporal lobe epilepsy, intractable Urgency incontinence Urinary retention intermittent catheterization Surgical History History of ear surgery (~2014) Right. Dr Khan History of left hip hemiarthroplasty History of total hysterectomy (~1982) TVH (still has ovaries) for bleeding. Performed by Dr. Armstrong [place] [facility] [place] Family History Brother Diabetes Heart disease Hypercholesteremia Hypertension Mother , at age 72 Scoliosis Lung disease Father , at age 89 No problems noted. Social History Smoking and tobacco status: never smoked Quit status (tobacco): has quit using tobacco Year quit tobacco: 2012 Former quit date comment: smoked 20 years Alcohol intake: never Lives independently: Yes Housing: House Marital status: / Current occupational status: retired Physical Exam Const: COMMON NORMALS: alert ORIENTATION/CONSCIOUSNESS: Yes oriented to person and Yes oriented to time; not oriented to place HENMT: COMMON NORMALS: normocephalic HEAD & SCALP: normocephalic MOUTH: Normal oral and palatal mucosa present THROAT: posterior oropharynx normal and uvula midline Neck/C-Spine: COMMON NORMALS: supple GENERAL: Yes normal visual inspection Resp: COMMON NORMALS: normal respiratory effort, No retractions, No use of ac cessory muscles and clear to auscultation bilaterally AUSCULTATION: clear to auscultation bilaterally Cardio: COMMON NORMALS: regular rate, regular rhythm, S1 normal heart sound present, S2 normal heart sound present, No gallops present (Cardio), No clicks present (Cardio), No murmurs present (Cardio) and Peripheral pulses 2+ throughout RATE: regular rate RHYTHM: regular rhythm HEART SOUNDS: S1 normal heart sound present and S2 normal heart sound present PERIPHERAL PULSES: Peripheral pulses 2+ throughout GI: COMMON NORMALS: Normal to inspection, nondistended, normoactive bowel sounds present, Soft to palpation, non-tender and no masses PALPATION: Yes Soft to palpation : COMMON NORMALS: Yes no CVA tenderness BLADDER/KIDNEY EXAM: Yes no CVA tenderness Back/Pelvis: COMMON NORMALS: no CVA tenderness Extremity: COMMON NORMALS: normal to inspection Neuro: SENSORIUM/ORIENTATION: Yes alert, Yes oriented to person, No oriented to place, Yes oriented to time and Yes Orientation impaired (Patient was confused and thought she was still at [facility]) GAIT: Yes Normal gait present Skin: GENERAL SKIN EXAM: dry skin Course Vital Signs: Vital signs: Vital Signs Temperature 97.7 F 07/29/22 10:24 Pulse Rate 91 07/29/22 11:25 Respiratory Rate 14 07/29/22 11:25 Blood Pressure 140/84 07/29/22 11:25 Pulse Oximetry 95 07/29/22 11:25 Oxygen Delivery Me thod 07/29/22 11:25 MDM - Seizure MDM Narrative Medical decision making narrative: Patient is a 76-year-old female comes to the ED via EMS for seizure. Patient was getting her haircut at [facility] and then had a seizure. She has a history of seizures and takes 750 mg tab of Keppra twice daily. Vitals are stable. Patient was alert and oriented to person and time but was a little confused on where she was at. Thinks some of her confusion was likely postictal because symptoms improved while here in the ED. Rest of exam is benign. Since I was unable to get a good history on what took place at the [facility] head CT was done that showed no acute intracranial findings. CBC and CMP were unremarkable and UA showed signs of a UTI. She was stable for discharge home and diagnosed with seizure and UTI. Patient was discharged home on cefdinir. Told to follow-up with her PCP within the next 3 to 5 days for reevaluation. Return to ED precautions given. Patient understood agree with plan. Lab Data 07/29/22 10:11 07/29/22 10:11 Labs: Radiology Impressions Head CT 07/29/22 10:51 IMPRESSION: 1. No evidence of intracranial hemorrhage or mass effect. 2. Mild small vessel changes. Moderate parenchymal volume loss. 3. Vascular calcification. 4. No acute intracranial findings. Laboratory Results WBC 5.9 10^3/uL (4.0-10.0) 07/29/22 10:11 RBC 5.48 10^6/uL (4.1-5.3) H 07/29/22 10:11 Hgb 14.9 g/dL (11.5-15.3) 07/29/22 10:11 Hct 46.9 % (37.0-47.0) 07/29/22 10:11 MCV 85.6 fl (81-99) 07/29/22 10:11 MCH 27.2 pg (28.0-34.0) L 07/29/22 10:11 MCHC 31.8 g/dL (30.0-36.0) 07/29/22 10:11 RDW 14.0 % (12.1-15.1) 07/29/22 10:11 Plt Count 244 10^3/cmm (130-400) 07/29/22 10:11 MPV 10.5 fL (7.4-10.4) H 07/29/22 10:11 Neut % (Auto) 61.5 % 07/29/22 10:11 Lymph % (Auto) 28.2 % 07/29/22 10:11 Duchesne % (Auto) 6.1 % 07/29/22 10:11 Eos % (Auto) 2.6 % 07/29/22 10:11 Baso % (Auto) 0.7 % 07/29/22 10:11 Neut # (Auto) 3.61 10^3/uL (1.8-7.7) 07/29/22 10:11 Lymph # (Auto) 1.7 10^3/uL (0.8-4.8) 07/29/22 10:11 Duchesne # (Auto) 0.4 10^3/uL (0.2-0.9) 07/29/22 10:11 Eos # (Auto) 0.2 10^3/uL (0.0-0.8) 07/29/22 10:11 Baso # (Auto) 0.0 10^3/uL (0.0-0.1) 07/29/22 10:11 Nucleated RBC % (auto) 0 % 07/29/22 10:11 Nucleated RBCs # 0.0 /100WBC 07/29/22 10:11 Sodium 138 mmol/L (136-145) 07/29/22 10:11 Potassium 4.0 mmol/L (3.5-5.1) 07/29/22 10:11 Chloride 99 mmol/L (98-107) 07/29/22 10:11 Carbon Dioxide 26 mmol/L (22-29) 07/29/22 10:11 Anion Gap 17.0 (5-19) 07/29/22 10:11 BUN 10 mg/dL (8-23) 07/29/22 10:11 Creatinine 0.6 mg/dL (0.5-0.9) 07/29/22 10:11 GFR Calculation Not Reportable 07/29/22 10:11 Glucose 95 mg/dL (65-115) 07/29/22 10:11 Calculated Osmolality 285 mOsm/kg (285-295) 07/29/22 10:11 Calcium 9.4 mg/dL (8.5-10.5) 07/29/22 10:11 Total Bilirubin 0.3 mg/dL (0.15-1.2) 07/29/22 10:11 AST 22 U/L (0-32) 07/29/22 10:11 ALT 15 U/L (0-33) 07/29/22 10:11 Alkaline Phosphatase 82 U/L (35-105) 07/29/22 10:11 Total Protein 7.5 g/dL (6.6-8.7) 07/29/22 10:11 Albumin 4.7 g/dL (3.5-5.2) 07/29/22 10:11 Globulin 2.8 g/dL (1.3-4.6) 07/29/22 10:11 Urine Color Yellow (Yellow) 07/29/22 11:20 Urine Appearance Cloudy (CLEAR) A 07/29/22 11:20 Urine pH 7 (5-7) 07/29/22 11:20 Ur Specific [place] 1.010 (1.005-1.030) 07/29/22 11:20 Urine Protein Neg (Negative) 07/29/22 11:20 Urine Glucose (UA) Norm (Normal) 07/29/22 11:20 Urine Ketones Negative (Negative) 07/29/22 11:20 Urine Blood Trace (Negative) H 07/29/22 11:20 Urine Nitrate Negative (Negative) 07/29/22 11:20 Urine Bilirubin Neg (Negative) 07/29/22 11:20 Urine Urobilinogen Norm mg/dL (Negative) 07/29/22 11:20 Ur Leukocyte Esterase 2+ (Negative) H 07/29/22 11:20 Urine RBC 0-4 /hpf (0-2) H 07/29/22 11:20 Urine WBC 55-80 /hpf (0-5) H 07/29/22 11:20 Ur Squamous Epith Cells 0-4 /hpf (0-5) H 07/29/22 11:20 Amorphous Sediment Not Reportable 07/29/22 11:20 Urine Bacteria 2+ /hpf (NONE) H 07/29/22 11:20 Discharge Plan Discharge Patient Disposition: Home Clinical Impression: Seizure-like activity, UTI (urinary tract infection) Condition: Stable Prescriptions: New cefdinir 300 mg capsule 300 mg PO BID 10 Days Qty: 20 0RF No Action Keppra 750 mg tablet 750 mg PO BID Qty: 180 2RF methenamine hippurate 1 gram tablet 0.5 g PO BID Qty: 60 12RF Rx Instructions: Take 1000 mg of vitamin C with each dose of methenamine ascorbic acid (vitamin C) [Vitamin C] 500 mg Tablet 1,000 mg PO DAILY tamsulosin 0.4 mg capsule 0.4 mg PO BEDTIME Ferrex 150 150 mg iron Capsule 150 mg PO QPM Calcium 600 + D(3) 600 mg-10 mcg (400 unit) Tablet 1 tab PO BID melatonin 10 mg Tablet 10 mg PO BEDTIME diazepam 10 mg tablet 5 mg PO BEDTIME PRN (Reason: sleep) Discharge Orders: Discharge ED (Routine); Ordered 07/29/22 Ordered By: Ian Benjamin Referrals: Carlos Barba MD [Primary Care Provider] - Discharge Diet: Regular Discharge Activity: Increase activity as tolerated Patient Instructions: Urinary Tract Infection in Women (DC), Seizures Activity Restrictions/Additional Instructions: Follow-up with medical provider as directed in the next 2 to 3 days for reevaluation. Continue taking all home medications as prescribed. Return to the ER or your medical provider if condition worsens. Please read and understand discharge instructions. Thank you for choosing [facility] for your healthcare needs today. Please realize this is an emergency room and that we are providing you with a medical screening exam and this may not be complete and all inclusive of all the testing and or work up that you may need to determine your ailment or severity of your illness. It is very important that you follow up as instructed or that you return to the Emergency Department should you have concerns or if your condition changes or worsens in any way. Coding Level of Care Code ED Stamping Machine Operator for Carmelina Cabello
--- NOTE | 2022-07-29 10:51 | CT_ITS ---
WS: [id number] CT HEAD TECHNIQUE: Noncontrast CT of the head obtained from the skullbase to the vertex. CLINICAL INFORMATION: seizure, poor historian, confused COMPARISON: CT head July 16, 2020 DLP: 1073.[address] scans at [facility] use at least one of these dose optimization techniques: automated e xposure control; mA and/or kV adjustment per patient size (includes targeted exams where dose is matc hed to clinical indication); or iterative reconstruction. FINDINGS: No evidence of intracranial hemorrhage or mass effect. Ventricular system and basal cisterns are anne nt. Mild small vessel changes with moderate parenchymal volume loss. No extra-axial fluid collections . No evidence of mass or mass effect. Vascular calcification. Paranasal sinuses are well aerated. Mas toid air cells well aerated. CT/CT head wo con* [id number] IMPRESSION: 1. No evidence of intracranial hemorrhage or mass effect. 2. Mild small vessel changes. Moderate parenchymal volume loss. 3. Vascular calcification. 4. No acute intracranial findings.
[2022-07-29 11:24] LABS: Basophils % 0.7 %; Eosinophils # 0.2 10^3/uL (0.0-0.8); Eosinophils % 2.6 %; Hematocrit 46.9 % (37.0-47.0); Hemoglobin 14.9 g/dL (11.5-15.3); Lymphocytes # 1.7 10^3/uL (0.8-4.8); Lymphocytes % 28.2 %; Mean Corpuscular HGB Conc 31.8 g/dL (30.0-36.0); Mean Corpuscular Hemoglobin 27.2 pg (28.0-34.0); Mean Corpuscular Volume 85.6 fl (81-99); Mean Platelet Volume 10.5 fL (7.4-10.4); Monocytes # 0.4 10^3/uL (0.2-0.9); Monocytes % 6.1 %; Neutrophils # 3.61 10^3/uL (1.8-7.7); Neutrophils % 61.5 %; Nucleated Red Blood Cells % 0 %; Platelet Count 244 10^3/cmm (130-400); Red Blood Count 5.48 10^6/uL (4.1-5.3); White Blood Count 5.9 10^3/uL (4.0-10.0)
--- NOTE | 2022-07-29 11:24 | PC.PHAR ---
pt brought in a med list-pts med list has xcopri 100mg qam last filled 05/19/22 30d/s chris cutter states rx has refills quinton landers in [place] states he read a note where the pcp dced xcopri and changed to keppra 750mg bid filled 07/29/22 30d/s-pt states she is not taking pantoprazole 20mg daily rx filled 04/14/23 90d/s
[2022-07-29 11:25] VITALS: BP 140/84; PULSE 91; RESP 14; O2SAT 95
[2022-07-29 11:45] LABS: Alanine Aminotransferase 15 U/L (0-33); Albumin Level 4.7 g/dL (3.5-5.2); Alkaline Phosphatase 82 U/L (35-105); Aspartate Amino Transferase 22 U/L (0-32); Blood Urea Nitrogen 10 mg/dL (8-23); Calcium 9.4 mg/dL (8.5-10.5); Carbon Dioxide 26 mmol/L (22-29); Chloride 99 mmol/L (98-107); Globulin 2.8 g/dL (1.3-4.6); Glucose 95 mg/dL (65-115); Osmolality Calculated 285 mOsm/kg (285-295); Sodium 138 mmol/L (136-145); Total Bilirubin 0.3 mg/dL (0.15-1.2); Total Protein 7.5 g/dL (6.6-8.7)
[2022-07-29 12:04] LABS: Add Urine Microscopic? YES; Bilirubin Urine Neg (Negative); Blood Urine Trace (Negative); Glucose Urine UA Norm (Normal); Ketones Urine Negative (Negative); Leukocyte Esterase Urine 2+ (Negative); Nitrate Urine Negative (Negative); Protein Urine Neg (Negative); Urine Appearance Cloudy (CLEAR); Urine Color Yellow (Yellow); Urobilinogen Urine Norm (Negative); pH Urine 7 (5-7)
[2022-07-29 12:06] LABS: Add Urine Culture? Yes; Bacteria Urine 2+ /hpf; RBC Urine 0-4 /hpf (0-2); Squamous Epithelial Cell Urine 0-4 /hpf (0-5); WBC Urine 55-80 /hpf (0-5)
[2022-07-29] MEDS: cefdinir 300 MG CAPSULE PO (12:17)
== END 2022-07-29 12:23 | disposition home or self-care (01) ==
PROVIDERS: Emergency Provider Physician Assistant; PCP Family Medicine
DX: R56.9 Unspecified convulsions (principal); N39.0 Urinary tract infection, site not specified; Z87.891 Personal history of nicotine dependence; I10 Essential (primary) hypertension; Z87.440 Personal history of urinary (tract) infections
CPT/HCPCS: 70450; 80053; 81001; 85025; 87077; 87086; 87186; 99284

== ENCOUNTER → 2022-08-05 14:53 | Outpatient (BNVA) | payer MEDICARE, MEDICAID, SELFPAY | PROVIDERS: PCP Family Medicine; Visit Provider Specialist | DX: G40.109 Localization-related (focal) (partial) symptomatic epilepsy and epileptic syndromes with simple partial seizures, not intractable, without status epilepticus (principal); G40.409 Other generalized epilepsy and epileptic syndromes, not intractable, without status epilepticus; Z79.899 Other long term (current) drug therapy | CPT/HCPCS: 99215 ==

== ENCOUNTER 2022-08-18 19:18 | Inpatient (IN) | payer MEDICARE, MEDICAID, SELFPAY ==
[2022-08-18 19:30] VITALS: BP 173/80; PULSE 124; RESP 22; TEMP 39.4; O2SAT 93; BMI 19.5
--- NOTE | 2022-08-18 19:39 | ECG_ITS ---
[facility] Test Date: 2022-08-18 Pat Name: Melonie Suggs Department: Room: Gender: Female Press Bucker: : [id number] Requested By: Laz Pak Order Number: [id number] Manolo MD: Quang Marquez M.D. Measurements Intervals [place] Rate: 124 P: 127 HI: 164 QRS: -42 QRSD: 74 T: 64 QT: 328 QTc: 471 Interpretive Statements SINUS TACHYCARDIA LEFT AXIS DEVIATION [QRS AXIS < -30] LOW QRS VOLTAGE IN PRECORDIAL LEADS [QRS DEFLECTION < 1.0 mV IN CHEST LEADS] ANTEROSEPTAL MYOCARDIAL INFARCTION , OF INDETERMINATE AGE [40+ ms Q WAVE IN V1-V4] Compared to ECG 04/15/2022 10:29:17 Low QRS voltage now present Sinus rhythm no longer present First degree AV block no longer present Myocardial infarct finding still present Electronically Signed On 08-19-2022 1:43:42 CDT by Quang Marquez M.D. [email or web address]
[2022-08-18 19:49] VITALS: BP 168/68; PULSE 125; RESP 21; TEMP 38.4; O2SAT 91
--- NOTE | 2022-08-18 20:01 | XRR_ITS ---
PROCEDURE INFORMATION: Exam: XR Chest Exam date and time: 08/18/2022 8:24 PM Age: 76 years old Clinical indication: Other: Flu symptons; Additional info: Uri TECHNIQUE: Imaging protocol: Radiologic exam of the chest. Views: 1 view. COMPARISON: CR XR chest 1V portable [id number] 07/30/2020 9:12 AM FINDINGS: Lungs: Discoid atelectasis in the left lung base. The right lung is clear. Pleural spaces: Unremarkable. No pleural effusion. No pneumothorax. Heart/Mediastinum: Large hiatal hernia. Bones/joints: Unremarkable. XR/XR chest 1V portable [id number] IMPRESSION: No acute findings.
--- NOTE | 2022-08-18 20:13 | ED_ITS ---
HPI - General Adult General: Chief complaint: Upper Respiratory Infection Stated complaint: flu like symptoms Time Seen by Provider: 08/18/22 19:58 History of Present Illness: Patient with a history of recurrent UTI, seizures, anemia, hyperlipidemia, hypothyroid presents the emergency department by EMS after becoming lightheaded. Patient states that she was cleaning her bathroom at home at approximately 1430 today when she became lightheaded. She called her daughter in [place] who called EMS. Patient denies any visual changes, chest pain, arm pain, jaw pain, chest pressure, shortness of breath, loss of consciousness, fall, nausea, vomiting, diarrhea, or dysuria. She does complain of URI symptoms including runny nose, and stuffy nose which started with her lightheadedness. She denies any sore throat or cough. She denies any dysuria but notes increased urinary urgency and frequency since her symptoms started today. She denies any subjective fever or chills, however she is noted to have a fever here in the emergency department. Patient denies any medications prior to arrival aside from her home medications. No other modifying factors, no other associated symptoms. Review of Systems General: Reports: 10 or more systems reviewed and unremarkable except in HPI and below PFSH ED PFSH: Medical History Anxiety Bilateral hydronephrosis Secondary to bladder distention and incomplete emptying Cholelithiasis Cystitis cystica Diverticulosis Dysphagia Elevated troponin I level Epilepsy Focused based right temporal lobe epilepsy patient does not wish to have surgery for intractable seizures Fall Frequent headaches GERD without esophagitis Hiatal hernia Hypertension Insomnia Iron deficiency anemia Laceration Laceration of head Melanotic stools Microcytic anemia Mild cognitive impairment Mixed stress and urge urinary incontinence Osteopenia Overflow incontinence Partial epilepsy secondarily generalized Recurrent UTI Temporal lobe epilepsy, intractable Urgency incontinence Urinary retention intermittent catheterization Surgical History History of ear surgery (~2014) Right. Dr Khan History of left hip hemiarthroplasty History of total hysterectomy (~1982) TVH (still has ovaries) for bleeding. Performed by Dr. Armstrong at [facility] – [place] Family History Brother Diabetes Heart disease Hypercholesteremia Hypertension Mother , at age 72 Scoliosis Lung disease Father , at age 89 No problems noted. Social History Smoking and tobacco status: never smoked Quit status (tobacco): has quit using tobacco Year quit tobacco: 2012 Former quit date comment: smoked 20 years Alcohol intake: never Lives independently: Yes Housing: House Marital status: / Current occupational status: retired Physical Exam Const: COMMON NORMALS: no acute distress and patient oriented x3 GENERAL APPEARANCE: cooperative and well kempt ORIENTATION/CONSCIOUSNESS: Yes awake HENMT: COMMON NORMALS: normocephalic, atraumatic, hearing grossly normal bilaterally, external ears normal, Normal external nose present and moist oral mucous membranes HEAD & SCALP: normocephalic and atraumatic FACE & SINUS: normal facial exam NOSE: Normal external nose present EXTERNAL EAR: Yes external ears normal MOUTH: Normal oral and palatal mucosa present THROAT: posterior oropharynx normal Eye: COMMON NORMALS: Equal, round and reactive pupils present and EOMs intact bilaterally PUPIL: Yes Equal, round and reactive pupils present Neck/C-Spine: COMMON NORMALS: supple GENERAL: Yes normal visual inspection CERVICAL SPINE: No Cervical spine tenderness and No step off deformity Chest: COMMONS NORMALS: normal inspection of the chest Resp: COMMON NORMALS: normal respiratory effort, No retractions, No use of accessory muscles and clear to auscultation bilaterally EFFORT & INSPECTION: Yes tachypneic (Mild) AUSCULTATION: clear to auscultation bilaterally Cardio: COMMON NORMALS: regular rate, regular rhythm and Peripheral pulses 2+ throughout RATE: regular rate RHYTHM: regular rhythm PERIPHERAL PULSES: Peripheral pulses 2+ throughout GI: COMMON NORMALS: Normal to inspection, nondistended, normoactive bowel sounds present, Soft to palpation and non-tender PALPATION: Yes Soft to palpation : COMMON NORMALS: Yes no CVA tenderness BLADDER/KIDNEY EXAM: Yes no CVA tenderness Back/Pelvis: COMMON NORMALS: no CVA tenderness and thoracic and lumbar spine normal to inspection THORACIC SPINE/UPPER BACK: Yes normal to inspection LUMBAR SPINE/LOWER BACK: Yes normal to inspection Extremity: COMMON NORMALS: normal to inspection, full ROM and no calf tenderness GENERAL: No clubbing, No cyanosis and Yes edema (Trace pitting bilateral lower extremities) Neuro: COMMON NORMALS: patient oriented x3, moves all extremities, no focal motor deficits and no sensory deficits noted Psych: COMMON NORMALS: mental status grossly normal, Normal thought process present, cooperative and activity/motor behavior normal APPEARANCE: Yes well kempt ATTITUDE: Yes calm THOUGHT PROCESS: Normal thought process present Skin: COMMON NORMALS: no rashes or lesions noted GENERAL SKIN EXAM: no rashes or lesions noted Course ED course: ,UA is grossly positive prior urine cultures were reviewed, noted for ESBL E. coli and Klebsiella, noted to be sensitive to ampicillin sulbactam and ampicillin clavulanate, will start patient on Unasyn here in the emergency department, as well as check a lactate given leukocytosis, tachycardia, tachypnea, and fever to rule out sepsis. Reevaluation(s): Reevaluation #1: Pt updated on findings, discussed discharge versus inpatient observation, patient feels more comfortable staying inpatient. Advised the patient that per the nurse her daughter Julee had called for an update. Patient gave permission for me to discuss all medical matters with her daughter Julee without any excepti on. Time: 21:20 Reevaluation #2: Spoke with daughter Julee who is in agreement with the plan to place the patient in observation Time: 21:25 Consultations: Consultation #1: Spoke with hospitalist Dr. Shukla who requested that we obtain a noncontrasted CT of the kidneys to rule out nephrolithiasis and hydronephrosis, he will admit the patient to observation. Time: 21:33 Vital Signs: Vital signs: Vital Signs Temperature 101.2 F H 08/18/22 19:49 Pulse Rate 125 H 08/18/22 19:49 Respiratory Rate 21 H 08/18/22 19:49 Blood Pressure 168/68 08/18/22 19:49 Pulse Oximetry 91 08/18/22 19:49 Oxygen Delivery Me thod Room Air 08/18/22 19:30 MDM - General Adult Medical Decision Making Concern for URI given patient's tachycardia, mild tachypnea, and fever as well as relative hypoxia. She has additional URI symptoms. ACS, PE are less likely. Additional considerations include pneumonia. Will obtain labs, chest x-ray, and rapid viral pathogen testing. EKG was already obtained. We will treat the patient with Tylenol and aggressive p.o. fluids. Anticipate that if her vital signs normalized and she is able to tolerate p.o., she can safely be discharged home. Lab Data 08/18/22 20:15 04/18/23 20:15 Radiology Impressions Chest X-Ray 08/18/22 20:01 IMPRESSION: No acute findings. Laboratory Results WBC 14.1 10^3/uL (4.0-10.0) H 08/18/22 20:15 RBC 5.10 10^6/uL (4.1-5.3) 08/18/22 20:15 Hgb 13.7 g/dL (11.5-15.3) 08/18/22 20:15 Hct 43.0 % (37.0-47.0) 08/18/22 20:15 MCV 84.3 fl (81-99) 08/18/22 20:15 MCH 26.9 pg (28.0-34.0) L 08/18/22 20:15 MCHC 31.9 g/dL (30.0-36.0) 08/18/22 20:15 RDW 14.0 % (12.1-15.1) 08/18/22 20:15 Plt Count 235 10^3/cmm (130-400) 08/18/22 20:15 MPV 9.5 fL (7.4-10.4) 08/18/22 20:15 Neut % (Auto) 90.6 % 08/18/22 20:15 Lymph % (Auto) 3.3 % 08/18/22 20:15 [place] % (Auto) 4.9 % 08/18/22 20:15 Eos % (Auto) 0.3 % 08/18/22 20:15 Baso % (Auto) 0.4 % 08/18/22 20:15 Neut # (Auto) 12.77 10^3/uL (1.8-7.7) H 08/18/22 20:15 Lymph # (Auto) 0.5 10^3/uL (0.8-4.8) L 08/18/22 20:15 [place] # (Auto) 0.7 10^3/uL (0.2-0.9) 08/18/22 20:15 Eos # (Auto) 0.0 10^3/uL (0.0-0.8) 08/18/22 20:15 Baso # (Auto) 0.1 10^3/uL (0.0-0.1) 08/18/22 20:15 Nucleated RBC % (auto) 0 % 08/18/22 20:15 Nucleated RBCs # 0.0 /100WBC 08/18/22 20:15 Sodium 140 mmol/L (136-145) 08/18/22 20:15 Potassium 3.6 mmol/L (3.5-5.1) 08/18/22 20:15 Chloride 102 mmol/L (98-107) 08/18/22 20:15 Carbon Dioxide 24 mmol/L (22-29) 08/18/22 20:15 Anion Gap 17.6 (5-19) 08/18/22 20:15 BUN 16 mg/dL (8-23) 08/18/22 20:15 Creatinine 0.7 mg/dL (0.5-0.9) 08/18/22 20:15 GFR Calculation Not Reportable 08/18/22 20:15 Glucose 121 mg/dL (65-115) H 08/18/22 20:15 Calculated Osmolality 292 mOsm/kg (285-295) 08/18/22 20:15 Calcium 9.3 mg/dL (8.5-10.5) 08/18/22 20:15 Magnesium 1.7 mg/dL (1.7-2.3) 08/18/22 20:15 Total Bilirubin 0.5 mg/dL (0.15-1.2) 08/18/22 20:15 AST 15 U/L (0-32) 08/18/22 20:15 ALT 12 U/L (0-33) 08/18/22 20:15 Alkaline Phosphatase 85 U/L (35-105) 08/18/22 20:15 Troponin T Baseline 13 ng/L (0-10) H 08/18/22 20:15 NT-Pro-B Natriuret Pep 224 pg/mL (0-450) 08/18/22 20:15 Total Protein 7.3 g/dL (6.6-8.7) 08/18/22 20:15 Albumin 4.6 g/dL (3.5-5.2) 08/18/22 20:15 Globulin 2.7 g/dL (1.3-4.6) 08/18/22 20:15 TSH 1.41 uIU/mL (0.27-4.20) 08/18/22 20:15 Urine Color Light yellow (Yellow) 08/18/22 20:50 Urine Appearance Cloudy (CLEAR) A 08/18/22 20:50 Urine pH 7 (5-7) 08/18/22 20:50 Ur Specific [place] 1.005 (1.005-1.030) 08/18/22 20:50 Urine Protein 1+ (Negative) H 08/18/22 20:50 Urine Glucose (UA) Norm (Normal) 08/18/22 20:50 Urine Ketones Negative (Negative) 08/18/22 20:50 Urine Blood 3+ (Negative) H 08/18/22 20:50 Urine Nitrate Positive (Negative) H 08/18/22 20:50 Urine Bilirubin Neg (Negative) 08/18/22 20:50 Urine Urobilinogen Norm mg/dL (Negative) 08/18/22 20:50 Ur Leukocyte Esterase 2+ (Negative) H 08/18/22 20:50 Urine RBC 0-4 /hpf (0-2) H 08/18/22 20:50 Urine WBC >100 /hpf (0-5) H 08/18/22 20:50 Ur Squamous Epith Cells 0-4 /hpf (0-5) H 08/18/22 20:50 Amorphous Sediment Not Reportable 08/18/22 20:50 Urine Bacteria 4+ /hpf (NONE) H 08/18/22 20:50 Influenza Type A Ag negative (Negative) 08/18/22 19:58 Influenza Type B Ag negative (Negative) 08/18/22 19:58 SARS-CoV-2 Ag (Rapid) negative (Negative) 08/18/22 19:58 Critical Care Time Critical Care Time: Critical Care Time: Yes Total Critical Care Time: 32 Attestation: This case had a high probability of a clinically significant, sudden, or life threatening deterioration of this patient's condition which required my full and direct attention, intervention and personal management. Discharge Plan Discharge Patient Disposition: Placed in Observation Clinical Impression: Recurrent UTI Coding Level of Care Code ED Mesh Worker for Carmelina Cabello
[2022-08-18 20:25] LABS: Influenza A by IFA negative (Negative); Influenza B by IFA negative (Negative); SARS Covid-2 Antigen negative (Negative)
[2022-08-18 20:30] LABS: Basophils # 0.1 10^3/uL (0.0-0.1); Basophils % 0.4 %; Eosinophils % 0.3 %; Hemoglobin 13.7 g/dL (11.5-15.3); Lymphocytes # 0.5 10^3/uL (0.8-4.8); Lymphocytes % 3.3 %; Mean Corpuscular HGB Conc 31.9 g/dL (30.0-36.0); Mean Corpuscular Hemoglobin 26.9 pg (28.0-34.0); Mean Corpuscular Volume 84.3 fl (81-99); Mean Platelet Volume 9.5 fL (7.4-10.4); Monocytes # 0.7 10^3/uL (0.2-0.9); Monocytes % 4.9 %; Neutrophils # 12.77 10^3/uL (1.8-7.7); Neutrophils % 90.6 %; Nucleated Red Blood Cells % 0 %; Platelet Count 235 10^3/cmm (130-400); White Blood Count 14.1 10^3/uL (4.0-10.0)
[2022-08-18] MEDS: acetaminophen 325 mg Tablet 1000 MG PO (20:41)
[2022-08-18 20:53] LABS: Troponin(5th) Baseline 13 ng/L (0-10)
[2022-08-18 21:01] LABS: Alanine Aminotransferase 12 U/L (0-33); Albumin Level 4.6 g/dL (3.5-5.2); Alkaline Phosphatase 85 U/L (35-105); Anion Gap 17.6 (5-19); Aspartate Amino Transferase 15 U/L (0-32); Blood Urea Nitrogen 16 mg/dL (8-23); Calcium 9.3 mg/dL (8.5-10.5); Carbon Dioxide 24 mmol/L (22-29); Chloride 102 mmol/L (98-107); Globulin 2.7 g/dL (1.3-4.6); Glucose 121 mg/dL (65-115); Magnesium 1.7 mg/dL (1.7-2.3); NT Pro B Type Natriuretic Pept 224 pg/mL (0-450); Osmolality Calculated 292 mOsm/kg (285-295); Potassium 3.6 mmol/L (3.5-5.1); Sodium 140 mmol/L (136-145); Total Bilirubin 0.5 mg/dL (0.15-1.2); Total Protein 7.3 g/dL (6.6-8.7)
[2022-08-18 21:15] LABS: Add Urine Microscopic? YES; Bilirubin Urine Neg (Negative); Blood Urine 3+ (Negative); Glucose Urine UA Norm (Normal); Ketones Urine Negative (Negative); Leukocyte Esterase Urine 2+ (Negative); Nitrate Urine Positive (Negative); Protein Urine 1+ (Negative); Specific Gravity, Urine 1.005 (1.005-1.030); Urine Appearance Cloudy (CLEAR); Urine Color Light yellow (Yellow); Urobilinogen Urine Norm (Negative); pH Urine 7 (5-7)
[2022-08-18 21:16] LABS: Add Urine Culture? Yes; Bacteria Urine 4+ /hpf; RBC Urine 0-4 /hpf (0-2); Squamous Epithelial Cell Urine 0-4 /hpf (0-5); WBC Urine >100 /hpf (0-5)
[2022-08-18 21:23] LABS: Thyroid Stimulating Hormone 1.41 uIU/mL (0.27-4.20)
[2022-08-18] MEDS: ampicillin-sulbactam 3 GM in sodium chloride 0.9% (plus) 50 ML IV (21:26)
--- NOTE | 2022-08-18 21:33 | CTR_ITS ---
PROCEDURE INFORMATION: Exam: CT Abdomen And Pelvis Without Contrast Exam date and time: 08/18/2022 10:00 PM Age: 76 years old Clinical indication: Abdominal pain; Generalized; Prior surgery; Surgery date: 6+ months; Surgery type: Left hip vianey arthroplasty, hysterectomy; Patient HX: Flu like symptoms, HX of renal stones; Additional info: R/O stone, R/O hydro TECHNIQUE: Imaging protocol: Computed tomography of the abdomen and pelvis without contrast. Radiation optimization: All CT scans at this facility use at least one of these dose optimization techniques: automated exposure control; mA and/or kV adjustment per patient size (includes targeted exams where dose is matched to clinical indication); or iterative reconstruction. REPORTING DATA: Count of CT and Cardiac NM exams in prior 12 months: This patient has received [address] and 0 known cardiac nuclear medicine studies in the 12 months prior to the current study. COMPARISON: CT abdomen pelvis w con* [id number] 07/30/2019 9:57 PM RADIATION DOSE METRICS: Total DLP (mGy-cm): 487.84 FINDINGS: Diaphragm: Large hiatal hernia. Liver: Hypodensity in the anterior liver is most likely a cyst and is too small to characterize. Gallbladder and bile ducts: Multiple calcified stones in the gallbladder. No wall thickening. The bile ducts are normal. Pancreas: Normal. No ductal dilation. Spleen: Small calcified granulomas in the spleen. Adrenal glands: Multiple left adrenal nodules, the largest measuring 1.5 cm, Hounsfield units less than 10. 1.6 cm right adrenal nodule, Hounsfield units less than 10. Kidneys and ureters: Mild bilateral hydronephrosis with columning of the ureters to the urinary bladder. No calculus. Mild left perinephric stranding. Left renal cyst, Hounsfield units less than 20. 1.1 cm hyperdense cortical lesion in the posterior left kidney, Hounsfield units 50. Stomach and bowel: Diverticulosis of the distal colon. No diverticulitis. The stomach and small bowel are otherwise unremarkable. No obstruction. Appendix: The appendix is not visualized. No secondary signs of appendicitis. Intraperitoneal space: Unremarkable. No free air. No significant fluid collection. Vasculature: Venous collaterals crossing the groin region. Lymph nodes: Stable retroperitoneal lymph nodes measuring up to 0.8 cm short axis, most likely reactive. Urinary bladder: Distended urinary bladder measuring 16 cm in length. No wall thickening. Reproductive: The uterus and ovaries are absent. Bones/joints: Left hip arthroplasty hardware with streak artifact. Degenerative changes of the spine. No acute fracture. Chronic left L5 pars defect. Soft tissues: Unremarkable. CT/CT kidney stone [id number] IMPRESSION: 1. Distended urinary bladder consistent with a neurogenic bladder or outlet obstruction. 2. Stable chronic bilateral hydronephrosis, most likely related to the urinary bladder distension. 3. Increased left perinephric stranding. Left pyelonephritis is not excluded. 4. Indeterminate 1.1 cm cortical lesion in the posterior left kidney. This does not meet the criteria for a simple cyst. Recommend non-emergent MRI without and with contrast or non-emergent CT without and with contrast. MRI is preferred for masses under 1.5 cm. 5. Bilateral benign adrenal adenomas. COMMENTS: 1. Consistent with the [employer]'s Incidental Findings Committee white paper (J Am Song Radiol 2017): For any incidental adrenal lesion greater than or equal to 1 cm but less than or equal to 4 cm classified in this report as benign, likely benign, or containing fat (including classification as an adenoma or myelolipoma), no follow-up imaging is recommended per consensus recommendations based on imaging criteria. Further lab evaluation could be pursued if warranted based on clinical findings. 2. Consistent with the [employer]'s Incidental Findings Committee white paper (J Am Song Radiol 2018): Any incidental renal lesion less than 1 cm or classified as too small to characterize, or any incidental cystic renal lesion characterized as simple-appearing, is likely benign. No follow-up imaging is recommended for these lesions per consensus recommendations based on imaging criteria.
[2022-08-18 21:46] LABS: Lactic Sepsis W/Reflex 2.8 mmol/L (0.5-2.2)
[2022-08-18 22:00] VITALS: BP 126/59; PULSE 104; RESP 26; O2SAT 90
[2022-08-18] MEDS: vancomycin 1,000 MG in sodium chloride 0.9% 250 ML 250 MG IV (22:47)
--- NOTE | 2022-08-18 22:53 | P.HP_ITS ---
Providers/Chief Complaint Admitting Physician: Yaniv Angel MD Primary Care Provider: Carlos Barba MD Chief Complaint: flu like symptoms History of Present Illness Melonie Suggs is a 76 year old female with a past medical history of functional epilepsy, history of anxiety, history of bilateral hydroureter nephrosis secondary to bladder distention currently emptying, iron deficient anemia, history of recurrent UTIs, history of ESBL UTIs who presents to [facility] due to complaints of lightheadedness, she reports lightheadedness, increased urinary frequency, increased urgency, does report bilateral flank pain, no nausea, no vomiting, no diarrhea, no history of colonoscopy reports, no focal paresthesias, no chest pain, palpitations she does complain of sinus congestion, sinus pressure, no cough, no sore throat, no fevers, no chills Review of Systems Const: Reports: fatigue and malaise; Denies: fever(s) Eyes: Denies: change in vision Card: Denies: chest pain or palpitations Resp: Denies: dyspnea GI: Denies: abdominal pain, nausea or vomiting : Reports: flank pain, dysuria, urinary frequency and urinary urgency Musc: Denies: back pain Skin/Breast: Denies: rash Neuro: Denies: headache(s) or numbness in extremities Medications/Allergies Home Medications Medication Instructions Recorded Confirmed Last Taken Type ascorbic acid (vitamin C) 500 mg 1,000 mg PO DAILY 04/15/22 08/05/22 04/15/22 History tablet (Vitamin C) tamsulosin 0.4 mg capsule 0.4 mg PO BEDTIME 04/15/22 08/05/22 04/15/22 History methenamine hippurate 1 gram tablet 0.5 g PO BID #60 tabs 07/27/22 08/05/22 Unknown Rx calcium carbonate 600 mg-vitamin 1 tab PO BID 07/29/22 08/05/22 Unknown History D3 10 mcg (400 unit) tablet (Calcium 600 + D(3)) diazepam 10 mg tablet 5 mg PO BEDTIME PRN sleep 07/29/22 08/05/22 Unknown History melatonin 10 mg tablet 10 mg PO BEDTIME 07/29/22 08/05/22 Unknown History polysaccharide iron complex 150 mg 150 mg PO QPM 07/29/22 08/05/22 Unknown History iron capsule (Ferrex) lamotrigine 100 mg tablet 100 mg PO BID #60 tabs 08/05/22 08/05/22 Unknown Rx (Lamictal) levetiracetam 750 mg tablet 750 mg PO BID #180 tabs 08/05/22 08/05/22 Unknown Rx (Keppra) Allergies Allergy/AdvReac Type Severity Reaction Status Date / Time divalproex sodium Allergy N/V and Verified 08/05/22 14:55 [From Depakote] dizziness sulfamethoxazole Allergy headache Verified 08/05/22 14:55 [From Bactrim] and seizures trimethoprim [From Bactrim] Allergy headache Verified 08/05/22 14:55 and seizures PFSH Acute PFSH: Medical History Anxiety Bilateral hydronephrosis Secondary to bladder distention and incomplete emptying Cholelithiasis Cystitis cystica Diverticulosis Dysphagia Elevated troponin I level Epilepsy Focused based right temporal lobe epilepsy patient does not wish to have surgery for intractable seizures Fall Frequent headaches GERD without esophagitis Hiatal hernia Hypertension Insomnia Iron deficiency anemia Laceration Laceration of head Melanotic stools Microcytic anemia Mild cognitive impairment Mixed stress and urge urinary incontinence Osteopenia Overflow incontinence Partial epilepsy secondarily generalized Recurrent UTI Temporal lobe epilepsy, intractable Urgency incontinence Urinary retention intermittent catheterization Surgical History History of ear surgery (~2014) Right. Dr Khan History of left hip hemiarthroplasty History of total hysterectomy (~1982) TVH (still has ovaries) for bleeding. Performed by Dr. Armstrong at [facility] [place] Family History Brother Diabetes Heart disease Hypercholesteremia Hypertension Mother , at age 72 Scoliosis Lung disease Father , at age 89 No problems noted. Social History Smoking and tobacco status: never smoked Quit status (tobacco): has quit using tobacco Year quit tobacco: 2012 Former quit date comment: smoked 20 years Alcohol intake: never Lives independently: Yes Housing: House Marital status: / Current occupational status: retired Vitals/I&O/Wt Last Vital Signs Temp 101.2 F H 08/18/22 19:49 Pulse 104 H 08/18/22 22:00 Resp 26 H 08/18/22 22:00 BP 126/59 08/18/22 22:00 Pulse Ox 90 08/18/22 22:00 O2 Del Method Room Air 08/18/22 19:30 Weight last 48 hrs Weight 49.895 kg Physical Exam Const: COMMON NORMALS: no acute distress and patient oriented x3 HENMT: COMMON NORMALS: normocephalic HEAD & SCALP: normocephalic Eye: COMMON NORMALS: Equal, round and reactive pupils present and EOMs intact bilaterally Neck/C-Spine: COMMON NORMALS: full ROM and no lymphadenopathy Lymph: LYMPHATIC: no lymphadenopathy noted Resp: COMMON NORMALS: normal respiratory effort, No retractions, No use of accessory muscles and clear to auscultation bilaterally AUSCULTATION: clear to auscultation bilaterally Cardio: COMMON NORMALS: regular rate, regular rhythm, S1 normal heart sound present and S2 normal heart sound present RATE: regular rate RHYTHM: regular rhythm HEART SOUNDS: S1 normal heart sound present and S2 normal heart sound present GI: COMMON NORMALS: Normal to inspection, nondistended, normoactive bowel s ounds present, Soft to palpation and non-tender : OTHER: CVA tenderness, left Extremity: COMMON NORMALS: no pedal edema Neuro: COMMON NORMALS: patient oriented x3, CN's II-XII intact bilaterally, moves all extremities and no focal motor deficits Psych: COMMON NORMALS: mental status grossly normal Data 08/18/22 20:15 08/18/22 20:15 A&P Assessment and plan (1) Pyelonephritis of left kidney: (2) UTI due to extended-spectrum beta lactamase (ESBL) producing Escherichia coli: (3) Bilateral hydronephrosis: (4) Urinary retention: (5) Mixed stress and urge urinary incontinence: (6) Recurrent UTI: (7) Insomnia: (8) Sepsis: (9) Acidosis, lactic: Plan Left pyelonephritis, with UTI, with sepsis, with history of ESBL -Sepsis criteria met due to tachycardia heart rates in the 120s, EKG showing sinus tachycardia, source of infection left pyelonephritis, CT scan shows perinephric stranding left kidney, UA with evidence of UTI, positive nitrites, leukocytes, white blood cell count 14.1, lactic acid 2.8, now febrile in the emergency room Plan -Admitted to general medical floors -Telemetry monitoring -Urine cultures -Blood cultures -Meropenem -Follow clinical status -Full code -Lovenox for DVT prophylaxis Lactic acidosis 2.8, secondary to sepsis, UTI, pyelonephritis CT scan shows distended urinary bladder consistent with neurogenic bladder bladder outlet obstruction, will place Jarrett catheter Has stable chronic bilateral hydronephrosis, likely secondary to urinary bladder distention, monitor Does have 1.1 cm cortical lesion, posterior left kidney needs to be followed as outpatient Attestations Medical Necessity Statement*: Patient requires hospitalization due to left kidney pyelonephritis, with sepsis With UTI, with history of ESBL, inpatient, greater than 2 midnights Diagnoses Pyelonephritis of left kidney N12 UTI due to extended-spectrum beta lactamase (ESBL) producing Escherichia coli N39.0; B96.29; Z16.12 Bilateral hydronephrosis N13.30 Urinary retention R33.9 Mixed stress and urge urinary incontinence N39.46 Recurrent UTI N39.0 Insomnia G47.00 Sepsis A41.9 Acidosis, lactic E87.2
[2022-08-18 23:18] LABS: Reflex Lactate Order REFLEX LACTIC ORDERD
[2022-08-18 23:40] LABS: Procalcitonin 0.33 ng/mL (0-0.5); Thyroid Stimulating Hormone 1.45 uIU/mL (0.27-4.20)
[2022-08-18] MEDS: enoxaparin 40 mg/0.4 mL Syringe SUBCUT (23:50)
[2022-08-18] MEDS: pantoprazole 40 mg SDV IVP (23:50)
[2022-08-18] MEDS: meropenem 1,000 MG in sodium chloride 0.9% (plus) 50 ML 100 MG IV (23:51)
[2022-08-18 23:54] VITALS: BP 110/51; PULSE 95; RESP 25; TEMP 36.8; O2SAT 91
[2022-08-19] VITALS (12 sets, daily range): BP systolic 109–147; BP diastolic 54–73; PULSE 84–99; RESP 16–25; TEMP 36.6–37; O2SAT 90–93; BMI 19.5
[2022-08-19 00:33] LABS: Troponin 5 2HR 16.37 ng/L (0-10)
[2022-08-19 00:36] LABS: Lactic Acid level (Lactate) 2.1 mmol/L (0.5-2.2)
[2022-08-19 00:41] LABS: Troponin 5 2HR Delta 3.37 ABS# (0-10)
--- NOTE | 2022-08-19 00:56 | ECG_ITS ---
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 Measurements Intervals [place] Rate: 91 P: 55 [place]: 176 QRS: -56 QRSD: 84 T: 29 QT: 389 QTc: 480 Interpretive Statements SINUS RHYTHM LEFT AXIS DEVIATION [QRS AXIS < -30] Compared to ECG 08/18/2022 19:39:18 Sinus tachycardia no longer present Myocardial infarct finding no longer present Electronically Signed On 08-19-2022 1:44:54 CDT by Quang Marquez M.D. [id number]
[2022-08-19] MEDS: diazePAM 5 mg Tablet PO ×2 (01:29→20:22)
[2022-08-19 02:27] LABS: Basophils % 0.2 %; Eosinophils % 0.1 %; Hematocrit 37.6 % (37.0-47.0); Hemoglobin 11.6 g/dL (11.5-15.3); Lymphocytes # 1.1 10^3/uL (0.8-4.8); Lymphocytes % 7.7 %; Mean Corpuscular HGB Conc 30.9 g/dL (30.0-36.0); Mean Corpuscular Hemoglobin 26.8 pg (28.0-34.0); Mean Corpuscular Volume 86.8 fl (81-99); Mean Platelet Volume 9.8 fL (7.4-10.4); Monocytes # 0.6 10^3/uL (0.2-0.9); Neutrophils # 12.48 10^3/uL (1.8-7.7); Neutrophils % 87.3 %; Nucleated Red Blood Cells % 0 %; Platelet Count 206 10^3/cmm (130-400); Red Blood Count 4.33 10^6/uL (4.1-5.3); Red Cell Distribution Width 14.2 % (12.1-15.1); White Blood Count 14.3 10^3/uL (4.0-10.0)
[2022-08-19 02:39] LABS: Lactic Sepsis W/Reflex 1.7 mmol/L (0.5-2.2)
[2022-08-19 02:43] LABS: Anion Gap 13.5 (5-19); Blood Urea Nitrogen 14 mg/dL (8-23); Calcium 8.6 mg/dL (8.5-10.5); Carbon Dioxide 25 mmol/L (22-29); Chloride 103 mmol/L (98-107); Glucose 127 mg/dL (65-115); Magnesium 1.8 mg/dL (1.7-2.3); NT Pro B Type Natriuretic Pept 727 pg/mL (0-450); Osmolality Calculated 288 mOsm/kg (285-295); Phosphorus 3.5 mg/dL (2.5-4.5); Potassium 3.5 mmol/L (3.5-5.1); Sodium 138 mmol/L (136-145)
[2022-08-19 03:00] LABS: Estmated Average Glucose 85; Hemoglobin A1C 4.6 % (4.0-6.0)
[2022-08-19] MEDS: sodium chloride 0.9% 1,000 ML 75 ML IV ×2 (03:07→13:03)
--- NOTE | 2022-08-19 04:55 | ECG_ITS ---
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 Measurements Intervals [place] Rate: 84 P: 72 [place]: 204 QRS: -64 QRSD: 90 T: 38 QT: 406 QTc: 482 Interpretive Statements SINUS RHYTHM LEFT AXIS DEVIATION [QRS AXIS < -30] Compared to ECG 08/19/2022 00:56:59 No significant changes Electronically Signed On 08-19-2022 14:49:20 CDT by [place] M.D. [email or web address] at stone [email or web address] riverside methodist [id number]
[2022-08-19] MEDS: meropenem 1,000 MG in sodium chloride 0.9% (plus) 50 ML 100 MG IV ×3 (06:16→23:21)
[2022-08-19] MEDS: ascorbic acid 500 mg Tablet 1000 MG PO (10:29)
[2022-08-19] MEDS: calcium carb-vit d 600mg/400unit 1 Tablet 1 EACH PO ×2 (10:29→17:57)
[2022-08-19] MEDS: levETIRAcetam 500 mg Tablet 750 MG PO ×2 (10:29→17:57)
[2022-08-19] MEDS: lamoTRIgine 100 mg Tablet PO ×2 (10:30→17:58)
--- NOTE | 2022-08-19 19:46 | P.PN_ITS ---
Subjective Subjective: States she is not feeling well. Some left flank pain. Vitals/I&O/Wt Last Vital Signs Temp 98.6 F 08/19/22 16:00 Pulse 91 08/19/22 16:00 Resp 16 08/19/22 16:00 BP 121/66 08/19/22 16:00 Pulse Ox 93 08/19/22 16:00 O2 Del Method Room Air 08/19/22 16:00 08/19/22 08/19/22 08/19/22 06:59 14:59 22:59 Intake Total 1846.85 / 1846.85 795 / 795 290 / 1085 Output Total 1050 / 1050 1000 / 1000 1600 / 2600 Balance 796.85 / 796.85 -205 / -205 -1310 / -1515 Weight last 48 hrs Weight 49.895 kg Weight 49.895 kg Physical Exam Const: COMMON NORMALS: patient oriented x3 and alert GENERAL APPEARANCE: cooperative ORIENTATION/CONSCIOUSNESS: Yes awake HENMT: COMMON NORMALS: oropharynx normal Neck/C-Spine: COMMON NORMALS: no JVD Resp: COMMON NORMALS: normal respiratory effort and clear to auscultation bilaterally AUSCULTATION: clear to auscultation bilaterally Cardio: COMMON NORMALS: no JVD, regular rhythm, S1 normal heart sound present, S2 normal heart sound present and No murmurs present (Cardio) RHYTHM: regular rhythm HEART SOUNDS: S1 normal heart sound present and S2 normal heart sound present GI: COMMON NORMALS: Normal to inspection, nondistended, normoactive bowel sounds present, Soft to palpation and non-tender PALPATION: Yes Soft to palpation Extremity: COMMON NORMALS: no joint enlargement and no pedal edema Neuro: COMMON NORMALS: patient oriented x3 and moves all extremities SENSORIUM/ORIENTATION: Yes alert Skin: COMMON NORMALS: no rashes or lesions noted GENERAL SKIN EXAM: no rashes or lesions noted Urinary Catheter Management: Jarrett: Cath Placed During This Visit: yes Urinary Catheter Date of Insertion: 08/18/22 Data 08/19/22 01:55 08/19/22 01:55 A&P Assessment and plan (1) Pyelonephritis of left kidney: (2) UTI due to extended-spectrum beta lactamase (ESBL) producing Escherichia coli: (3) Bilateral hydronephrosis: (4) Urinary retention: (5) Mixed stress and urge urinary incontinence: (6) Recurrent UTI: (7) Insomnia: (8) Sepsis: (9) Acidosis, lactic: Plan Left pyelonephritis, with UTI, with sepsis, with history of ESBL -Sepsis criteria met due to tachycardia heart rates in the 120s, EKG showing s inus tachycardia, source of infection left pyelonephritis, CT scan shows perinephric stranding left kidney, UA with evidence of UTI, positive nitrites, leukocytes, white blood cell count 14.1, lactic acid 2.8, febrile in the emergency room Plan History of ESBL longer than noted in prior urine cultures. Discussed with her. Continue meropenem. Follow-up urine and blood culture. Lactic acidosis improving, noted down to 1.7, anion gap noted improved to 13.5. Bicarb 25. CT scan shows distended urinary bladder consistent with neurogenic bladder bladder outlet obstruction, continue Jarrett catheter Has stable chronic bilateral hydronephrosis, likely secondary to urinary bladder distention, monitor Does have 1.1 cm cortical lesion, posterior left kidney needs to be followed as outpatient Attestations Medical Necessity Statement*: Continue admission for assessment management of complicated UTI, pyelonephritis with history of multidrug-resistant organisms. Diagnoses Pyelonephritis of left kidney N12 UTI due to extended-spectrum beta lactamase (ESBL) producing Escherichia coli N39.0; B96.29; Z16.12 Bilateral hydronephrosis N13.30 Urinary retention R33.9 Mixed stress and urge urinary incontinence N39.46 Recurrent UTI N39.0 Insomnia G47.00 Sepsis A41.9 Acidosis, lactic E87.2
[2022-08-19] MEDS: tamsulosin 0.4 mg Capsule PO (20:22)
[2022-08-19] MEDS: pantoprazole 40 mg SDV IVP (23:21)
[2022-08-19] MEDS: enoxaparin 40 mg/0.4 mL Syringe SUBCUT (23:21)
[2022-08-20] VITALS (11 sets, daily range): BP systolic 111–147; BP diastolic 61–77; PULSE 81–91; RESP 15–18; TEMP 36.4–37.2; O2SAT 90–94
[2022-08-20 05:26] LABS: Basophils % 0.4 %; Eosinophils # 0.1 10^3/uL (0.0-0.8); Eosinophils % 0.8 %; Hematocrit 41.4 % (37.0-47.0); Hemoglobin 13.2 g/dL (11.5-15.3); Lymphocytes # 1.2 10^3/uL (0.8-4.8); Mean Corpuscular HGB Conc 31.9 g/dL (30.0-36.0); Mean Corpuscular Hemoglobin 27.4 pg (28.0-34.0); Mean Corpuscular Volume 86.1 fl (81-99); Mean Platelet Volume 9.5 fL (7.4-10.4); Monocytes % 9.5 %; Neutrophils # 7.86 10^3/uL (1.8-7.7); Neutrophils % 76.9 %; Nucleated Red Blood Cells % 0 %; Platelet Count 204 10^3/cmm (130-400); Red Blood Count 4.81 10^6/uL (4.1-5.3); Red Cell Distribution Width 14.1 % (12.1-15.1); White Blood Count 10.2 10^3/uL (4.0-10.0)
[2022-08-20 05:52] LABS: Anion Gap 13.4 (5-19); Blood Urea Nitrogen 12 mg/dL (8-23); Calcium 9.1 mg/dL (8.5-10.5); Carbon Dioxide 25 mmol/L (22-29); Chloride 108 mmol/L (98-107); Glucose 102 mg/dL (65-115); Osmolality Calculated 296 mOsm/kg (285-295); Potassium 3.4 mmol/L (3.5-5.1); Sodium 143 mmol/L (136-145)
[2022-08-20] MEDS: meropenem 1,000 MG in sodium chloride 0.9% (plus) 50 ML 100 MG IV ×3 (06:20→22:07)
[2022-08-20] MEDS: levETIRAcetam 500 mg Tablet 750 MG PO ×2 (09:27→17:53)
[2022-08-20] MEDS: calcium carb-vit d 600mg/400unit 1 Tablet 1 EACH PO ×2 (09:27→17:53)
[2022-08-20] MEDS: ascorbic acid 500 mg Tablet 1000 MG PO (09:29)
[2022-08-20] MEDS: lamoTRIgine 100 mg Tablet PO ×2 (09:29→17:53)
[2022-08-20] MEDS: sodium chloride 0.9% 1,000 ML 75 ML IV (09:33)
--- NOTE | 2022-08-20 18:54 | PC.NURSE ---
1800 - PT AGITATED WITH TELE MONITOR. TAKES OFF DURING SHIFT.
[2022-08-20] MEDS: tamsulosin 0.4 mg Capsule PO (20:48)
[2022-08-20] MEDS: diazePAM 5 mg Tablet PO (20:49)
--- NOTE | 2022-08-20 21:15 | P.PN_ITS ---
Subjective Subjective: States she is doing better overall. Denies malaise, fever chills, nausea vomiting or abdominal pain. She states that she lives alone, is not comfortable giving herself antibiotic injections. Is not comfortable taking the risk with Bactrim. Vitals/I&O/Wt Last Vital Signs Temp 98.2 F 08/20/22 20:02 Pulse 85 08/20/22 20:02 Resp 18 08/20/22 20:02 BP 146/77 08/20/22 20:02 Pulse Ox 94 08/20/22 20:02 O2 Del Method Room Air 08/20/22 16:31 08/20/22 08/20/22 08/20/22 06:59 14:59 22:59 Intake Total 1050 / 2255 526 / 526 290 / 816 Output Total 2900 / 5500 Balance -1850 / -3245 526 / 526 290 / 816 Weight last 48 hrs Weight 49.895 kg Physical Exam Const: COMMON NORMALS: patient oriented x3 and alert GENERAL APPEARANCE: cooperative ORIENTATION/CONSCIOUSNESS: Yes awake HENMT: COMMON NORMALS: oropharynx normal Neck/C-Spine: COMMON NORMALS: no JVD Resp: COMMON NORMALS: normal respiratory effort and clear to auscultation bilaterally AUSCULTATION: clear to auscultation bilaterally Cardio: COMMON NORMALS: no JVD, regular rhythm, S1 normal heart sound present, S2 normal heart sound present and No murmurs present (Cardio) RHYTHM: regular rhythm HEART SOUNDS: S1 normal heart sound present and S2 normal heart sound present GI: COMMON NORMALS: Normal to inspection, nondistended, normoactive bowel sounds present, Soft to palpation and non-tender PALPATION: Yes Soft to palpation Extremity: COMMON NORMALS: no joint enlargement and no pedal edema Neuro: COMMON NORMALS: patient oriented x3 and moves all extremities SENSORIUM/ORIENTATION: Yes alert Skin: COMMON NORMALS: no rashes or lesions noted GENERAL SKIN EXAM: no rashes or lesions noted Urinary Catheter Management: Jarrett: Cath Placed During This Visit: yes Reason for Continuing Indwelling Catheter: Other Urinary Catheter Date of Insertion: 08/18/22 Data 08/20/22 04:57 08/20/22 04:57 Micro: Microbiology 08/18/22 20:50 Urine Culture - Preliminary Urine,Clean Catch Gram Negative Rods 08/18/22 23:45 Urine Culture - Preliminary Urine Catheterized Gram Negative Rods A&P Assessment and plan (1) Pyelonephritis of left kidney: (2) UTI due to extended-spectrum beta lactamase (ESBL) producing Escherichia coli: (3) Bilateral hydronephrosis: (4) Urinary retention: (5) Mixed stress and urge urinary incontinence: (6) Recurrent UTI: (7) Insomnia: (8) Sepsis: (9) Acidosis, lactic: Plan Left pyelonephritis, with UTI, with sepsis, with history of ESBL Pending urine culture so far gram-negative rods noted in the results. Given ESBL history will need ESBL coverage. Treatment limited by social factors, she lives alone, with limited support, does not have anybody to assist her, and is not comfortable getting injections to herself at home. She also is not comfortable trying to risk taking Bactrim. Continue meropenem treatment here. Stop IV fluid. Follow-up final culture results. Noted resolving leukocytosis, WBC down to 10.2. -Sepsis criteria met due to tachycardia heart rates in the 120s, EKG showing sinus tachycardia, source of infection left pyelonephritis, CT scan shows sarah nephric stranding left kidney, UA with evidence of UTI, positive nitrites, leukocytes, white blood cell count 14.1, lactic acid 2.8, febrile in the emergency room Lactic acidosis should be resolved with noted normalized anion gap and bicarb. CT scan shows distended urinary bladder consistent with neurogenic bladder bladder outlet obstruction, continue Jarrett catheter Has stable chronic bilateral hydronephrosis, likely secondary to urinary bladder distention, monitor Does have 1.1 cm cortical lesion, posterior left kidney needs to be followed as outpatient Mild hypokalemia: 3.4, replace. Follow-up chemistry. Attestations Medical Necessity Statement*: Continue admission for assessment management of complicated urinary tract infection, with prior ESBL organism, treatment limited by limited social support. Diagnoses Pyelonephritis of left kidney N12 UTI due to extended-spectrum beta lactamase (ESBL) producing Escherichia coli N39.0; B96.29; Z16.12 Bilateral hydronephrosis N13.30 Urinary retention R33.9 Mixed stress and urge urinary incontinence N39.46 Recurrent UTI N39.0 Insomnia G47.00 Sepsis A41.9 Acidosis, lactic E87.2
[2022-08-20] MEDS: pantoprazole 40 mg SDV IVP (22:07)
[2022-08-20] MEDS: potassium chloride ER 20 mEq Tablet PO (22:07)
[2022-08-20] MEDS: enoxaparin 40 mg/0.4 mL Syringe SUBCUT (22:07)
--- NOTE | 2022-08-21 03:18 | PC.NURSE ---
Patient refused media monitor.
[2022-08-21 03:40] VITALS: BP 120/67; PULSE 80; RESP 17; TEMP 36.8; O2SAT 92
[2022-08-21 05:46] LABS: Basophils % 0.6 %; Eosinophils # 0.3 10^3/uL (0.0-0.8); Eosinophils % 3.6 %; Hematocrit 38.5 % (37.0-47.0); Hemoglobin 12.2 g/dL (11.5-15.3); Lymphocytes # 1.4 10^3/uL (0.8-4.8); Lymphocytes % 19.5 %; Mean Corpuscular HGB Conc 31.7 g/dL (30.0-36.0); Mean Corpuscular Hemoglobin 27.5 pg (28.0-34.0); Mean Corpuscular Volume 86.7 fl (81-99); Mean Platelet Volume 9.7 fL (7.4-10.4); Monocytes # 0.8 10^3/uL (0.2-0.9); Monocytes % 10.9 %; Neutrophils # 4.64 10^3/uL (1.8-7.7); Nucleated Red Blood Cells % 0 %; Platelet Count 202 10^3/cmm (130-400); Red Blood Count 4.44 10^6/uL (4.1-5.3); White Blood Count 7.1 10^3/uL (4.0-10.0)
[2022-08-21 06:02] LABS: Anion Gap 13.8 (5-19); Blood Urea Nitrogen 13 mg/dL (8-23); Calcium 8.8 mg/dL (8.5-10.5); Carbon Dioxide 24 mmol/L (22-29); Chloride 108 mmol/L (98-107); Glucose 103 mg/dL (65-115); Osmolality Calculated 294 mOsm/kg (285-295); Potassium 3.8 mmol/L (3.5-5.1); Sodium 142 mmol/L (136-145)
[2022-08-21] MEDS: meropenem 1,000 MG in sodium chloride 0.9% (plus) 50 ML 100 MG IV ×2 (06:23→15:38)
[2022-08-21 07:46] VITALS: BP 125/65; PULSE 77; RESP 15; TEMP 36.7; O2SAT 95
[2022-08-21] MEDS: calcium carb-vit d 600mg/400unit 1 Tablet 1 EACH PO ×2 (09:47→18:55)
[2022-08-21] MEDS: lamoTRIgine 100 mg Tablet PO ×2 (09:47→18:55)
[2022-08-21] MEDS: ascorbic acid 500 mg Tablet 1000 MG PO (09:47)
[2022-08-21] MEDS: levETIRAcetam 500 mg Tablet 750 MG PO ×2 (09:47→18:55)
--- NOTE | 2022-08-21 11:42 | PC.SOCIAL ---
IMM update IMM updated with patient. Verbalized an understanding. Copy Pg 2 provided. Initialled, dated, timed, and placed in chart.
[2022-08-21 11:53] VITALS: BP 124/55; PULSE 78; RESP 16; TEMP 36.6; O2SAT 95
[2022-08-21 15:53] VITALS: BP 112/65; PULSE 84; RESP 16; TEMP 36.6; O2SAT 94
[2022-08-21 19:20] VITALS: BP 134/80; PULSE 79; RESP 18; TEMP 36.6
[2022-08-21] MEDS: tamsulosin 0.4 mg Capsule PO (20:01)
[2022-08-21] MEDS: diazePAM 5 mg Tablet PO (20:01)
--- NOTE | 2022-08-21 20:17 | P.PN_ITS ---
Subjective Subjective: Denies pain or discomfort. Feels better. No abdominal symptoms. Vitals/I&O/Wt Last Vital Signs Temp 97.9 F 08/21/22 19:20 Pulse 79 08/21/22 19:20 Resp 18 08/21/22 19:20 BP 134/80 08/21/22 19:20 Pulse Ox 94 08/21/22 15:53 O2 Del Method Room Air 08/21/22 15:53 08/21/22 08/21/22 08/21/22 06:59 14:59 22:59 Intake Total 1500 / 2366 650 / 650 530 / 1180 Output Total 1300 / 3200 1400 / 1400 Balance 200 / -834 650 / 650 -870 / -220 Physical Exam Const: COMMON NORMALS: patient oriented x3 and alert GENERAL APPEARANCE: cooperative ORIENTATION/CONSCIOUSNESS: Yes awake HENMT: COMMON NORMALS: oropharynx normal Neck/C-Spine: COMMON NORMALS: no JVD Resp: COMMON NORMALS: normal respiratory effort and clear to auscultation nelsy aterally AUSCULTATION: clear to auscultation bilaterally Cardio: COMMON NORMALS: no JVD, regular rhythm, S1 normal heart sound present, S2 normal heart sound present and No murmurs present (Cardio) RHYTHM: regular rhythm HEART SOUNDS: S1 normal heart sound present and S2 normal heart sound present GI: COMMON NORMALS: Normal to inspection, nondistended, normoactive bowel sounds present, Soft to palpation and non-tender PALPATION: Yes Soft to palpation Extremity: COMMON NORMALS: no joint enlargement and no pedal edema Neuro: COMMON NORMALS: patient oriented x3 and moves all extremities SENSORIUM/ORIENTATION: Yes alert Skin: COMMON NORMALS: no rashes or lesions noted GENERAL SKIN EXAM: no rashes or lesions noted Urinary Catheter Management: Jarrett: Cath Placed During This Visit: yes Reason for Continuing Indwelling Catheter: Other Urinary Catheter Date of Insertion: 08/18/22 Data 08/21/22 05:18 08/21/22 05:18 Micro: Microbiology 08/18/22 23:45 Urine Culture - Final Urine Catheterized Escherichia coli 08/18/22 20:50 Urine Culture - Final Urine,Clean Catch Escherichia coli A&P Assessment and plan (1) Pyelonephritis of left kidney: (2) UTI due to extended-spectrum beta lactamase (ESBL) producing Escherichia coli: (3) Bilateral hydronephrosis: (4) Urinary retention: (5) Mixed stress and urge urinary incontinence: (6) Recurrent UTI: (7) Insomnia: (8) Sepsis: (9) Acidosis, lactic: Plan Left pyelonephritis, with UTI, with sepsis, with history of ESBL She finds it would be difficult for her to come back for injections daily. Later today culture is coming back with E. coli sensitive to number of antibiotics, should be able to return home tomorrow with oral medication. She is thinking perhaps returning to have actions have been triggered by her wearing depends overnight to bed. Stop meropenem. Switch to Cipro. Sepsis resolved with treatment. Lactic acidosis should be resolved with noted normalized anion gap and bicarb. CT scan shows distended urinary bladder consistent with neurogenic bladder bladder outlet obstruction, continue Jarrett catheter Has stable chronic bilateral hydronephrosis, likely secondary to urinary bladder distention, monitor Does have 1.1 cm cortical lesion, posterior left kidney needs to be followed as outpatient Mild hypokalemia: Was replaced potassium noted 3.8. Attestations Medical Necessity Statement*: Continue admission for assessment management of complicated UTI, preparation for discharge. Diagnoses Pyelonephritis of left kidney N12 UTI due to extended-spectrum beta lactamase (ESBL) producing Escherichia coli N39.0; B96.29; Z16.12 Bilateral hydronephrosis N13.30 Urinary retention R33.9 Mixed stress and urge urinary incontinence N39.46 Recurrent UTI N39.0 Insomnia G47.00 Sepsis A41.9 Acidosis, lactic E87.2
[2022-08-21] MEDS: pantoprazole 40 mg SDV IVP (23:11)
[2022-08-21] MEDS: enoxaparin 40 mg/0.4 mL Syringe SUBCUT (23:11)
[2022-08-21] MEDS: ciprofloxacin 500 mg Tablet PO (23:11)
[2022-08-22] VITALS: BP 119/64; PULSE 77; RESP 18; TEMP 36.8; O2SAT 93
[2022-08-22 03:55] VITALS: BP 101/61; PULSE 73; RESP 16; TEMP 37; O2SAT 93
[2022-08-22 05:57] LABS: Basophils % 0.6 %; Eosinophils # 0.3 10^3/uL (0.0-0.8); Eosinophils % 4.8 %; Hematocrit 39.2 % (37.0-47.0); Hemoglobin 12.2 g/dL (11.5-15.3); Lymphocytes # 1.6 10^3/uL (0.8-4.8); Lymphocytes % 24.8 %; Mean Corpuscular HGB Conc 31.1 g/dL (30.0-36.0); Mean Corpuscular Hemoglobin 26.4 pg (28.0-34.0); Mean Corpuscular Volume 84.8 fl (81-99); Mean Platelet Volume 9.8 fL (7.4-10.4); Monocytes # 0.5 10^3/uL (0.2-0.9); Monocytes % 8.2 %; Neutrophils # 3.96 10^3/uL (1.8-7.7); Neutrophils % 61.3 %; Nucleated Red Blood Cells % 0 %; Platelet Count 248 10^3/cmm (130-400); Red Blood Count 4.62 10^6/uL (4.1-5.3); Red Cell Distribution Width 13.7 % (12.1-15.1); White Blood Count 6.5 10^3/uL (4.0-10.0)
[2022-08-22 06:16] LABS: Anion Gap 13.9 (5-19); Blood Urea Nitrogen 18 mg/dL (8-23); Calcium 9.6 mg/dL (8.5-10.5); Carbon Dioxide 27 mmol/L (22-29); Chloride 104 mmol/L (98-107); Glucose 95 mg/dL (65-115); Osmolality Calculated 294 mOsm/kg (285-295); Potassium 3.9 mmol/L (3.5-5.1); Sodium 141 mmol/L (136-145)
[2022-08-22 07:38] VITALS: BP 116/59; PULSE 73; RESP 17; TEMP 36.7; O2SAT 93
[2022-08-22] MEDS: lamoTRIgine 100 mg Tablet PO (09:04)
[2022-08-22] MEDS: ciprofloxacin 500 mg Tablet PO (09:05)
[2022-08-22] MEDS: ascorbic acid 500 mg Tablet 1000 MG PO (09:05)
[2022-08-22] MEDS: calcium carb-vit d 600mg/400unit 1 Tablet 1 EACH PO (09:06)
[2022-08-22] MEDS: levETIRAcetam 500 mg Tablet 750 MG PO (09:06)
[2022-08-22] MEDS: bisacodyl 10 mg Supp PR (10:44)
[2022-08-22 11:56] VITALS: BP 104/61; PULSE 79; RESP 16; TEMP 36.6; O2SAT 95
--- NOTE | 2022-08-22 13:05 | P.DS_ITS ---
Discharge Providers Date of Admission: 08/18/22 23:00 Date of Discharge: August 22, 2022 Attending Provider at Admission: Yaniv Angel MD Attending Provider at Discharge: Matt Navarrete Primary Care Provider: Carlos Barba MD Diagnoses at Discharge Discharge Diagnosis (1) Pyelonephritis of left kidney: Status: Acute (2) UTI due to extended-spectrum beta lactamase (ESBL) producing Escherichia coli: Status: Acute (3) Bilateral hydronephrosis: Status: Chronic Permanent problem details: Secondary to bladder distention and incomplete emptying (4) Urinary retention: Status: Chronic Permanent problem details: intermittent catheterization (5) Mixed stress and urge urinary incontinence: Status: Chronic (6) Recurrent UTI: Status: Acute (7) Insomnia: Status: Acute (8) Sepsis: Status: Acute (9) Acidosis, lactic: Status: Resolved Reason for Visit Reason for Visit: flu like symptoms Brief History: Melonie Suggs is a 76 year old female with a past medical history of functional epilepsy, history of anxiety, history of bilateral hydroureter nephrosis secondary to bladder distention currently emptying, iron deficient anemia, history of recurrent UTIs, history of ESBL UTIs who presents to [facility] due to complaints of lightheadedness, she reports lightheadedness, increased urinary frequency, increased urgency, does report bilateral flank pain, no nausea, no vomiting, no diarrhea, no history of colonoscopy reports, no focal paresthesias, no chest pain, palpitations she does complain of sinus congestion, sinus pressure, no cough, no sore throat, no fevers, no chills Hospital Course Hospital Course She was admitted and treated for complicated urinary tract infection with pyonephritis, with noted urinary bladder distention, bilateral chronic hydronephrosis, with perinephric stranding at the left kidney noted on imaging. With prior and recent infections with ESBL organism, was treated with meropenem while in the hospital. Urinary system decompressed with Jarrett catheter. Her symptoms gradually improved. Urine culture eventually came back with E. coli resistant to ampicillin, intermediate to Unasyn, resistant to tetracycline and Bactrim. Her condition overall has quite significantly improved. Initially on presentation with SIRS with infection source, possible sepsis, no endorgan dysfunction found, not fitting sepsis 3 criteria, but her SIRS has eventually resolved. Malaise resolved. She is feeling much better and ready to return home. As per discussion with urology whom she is seen last just over 2 months ago, with recurrent UTI, with urinary retention, keep Jarrett in place, continue antibiotics and 09/01 and follow-up with urology for consideration of further options, given she has not done well with self-catheterization in the past, and low likelihood that she will succeed again, possibly suprapubic catheter. Please follow-up indeterminate 1.1 cm cortical lesion in the posterior left kidney. This does not meet the criteria for a simple cyst. Recommend non-emergent MRI without and with contrast or non-emergent CT without and with contrast. MRI is preferred for masses under 1.5 cm. Physical Exam Const: COMMON NORMALS: patient oriented x3 and alert GENERAL APPEARANCE: cooperative ORIENTATION/CONSCIOUSNESS: Yes awake HENMT: COMMON NORMALS: oropharynx normal Neck/C-Spine: COMMON NORMALS: no JVD Resp: COMMON NORMALS: normal respiratory effort and clear to auscultation bilaterally AUSCULTATION: clear to auscultation bilaterally Cardio: COMMON NORMALS: no JVD, regular rhythm, S1 normal heart sound present, S2 normal heart sound present and No murmurs present (Cardio) RHYTHM: regular rhythm HEART SOUNDS: S1 normal heart sound present and S2 normal heart sound present GI: COMMON NORMALS: Normal to inspection, nondistended, normoactive bowel sounds present, Soft to palpation and non-tender PALPATION: Yes Soft to palpation Extremity: COMMON NORMALS: no joint enlargement and no pedal edema Neuro: COMMON NORMALS: patient oriented x3 and moves all extremities SENSORIUM/ORIENTATION: Yes alert Skin: COMMON NORMALS: no rashes or lesions noted GENERAL SKIN EXAM: no rashes or lesions noted Urinary Catheter Management: Jarrett: Cath Placed During This Visit: yes Reason for Continuing Indwelling Catheter: Other Urinary Catheter Date of Insertion: 08/18/22 Discharge Data Studies Completed and Pending Completed Studies During Hospitalization Category Date Time Status CT abdomen renal stone [CT kidney stone [id number]] Stat Cat Scan 08/18/22 21:33 Completed XR chest 1V portable [id number] Stat Exams 08/18/22 20:01 Completed Pending at discharge Category Date Time Status Blood Cultures ([facility]) Routine Lab 08/19/22 00:00 Received Blood Cultures ([facility]) Routine Lab 08/19/22 00:06 Received Radiology Impressions Chest X-Ray 08/18/22 20:01 IMPRESSION: No acute findings. Abdomen/Pelvis CT 08/18/22 21:33 IMPRESSION: 1. Distended urinary bladder consistent with a neurogenic bladder or outlet obstruction. 2. Stable chronic bilateral hydronephrosis, most likely related to the urinary bladder distension. 3. Increased left perinephric stranding. Left pyelonephritis is not excluded. 4. Indeterminate 1.1 cm cortical lesion in the posterior left kidney. This does not meet the criteria for a simple cyst. Recommend non-emergent MRI without and with contrast or non-emergent CT without and with contrast. MRI is preferred for masses under 1.5 cm. 5. Bilateral benign adrenal adenomas. COMMENTS: 1. Consistent with the [employer]'s Incidental Findings Committee white paper (J Am Song Radiol 2017): For any incidental adrenal lesion greater than or equal to 1 cm but less than or equal to 4 cm classified in this report as benign, likely benign, or containing fat (including classification as an adenoma or myelolipoma), no follow-up imaging is recommended per consensus recommendations based on imaging criteria. Further lab evaluation could be pursued if warranted based on clinical findings. 2. Consistent with the [place]'s Incidental Findings Committee white paper (J Am Song Radiol 2018): Any incidental renal lesion less than 1 cm or classified as too small to characterize, or any incidental cystic renal lesion characterized as simple-appearing, is likely benign. No follow-up imaging is recommended for these lesions per consensus recommendations based on imaging criteria. Laboratory Results WBC 6.5 10^3/uL (4.0-10.0) 08/22/22 05:39 RBC 4.62 10^6/uL (4.1-5.3) 08/22/22 05:39 Hgb 12.2 g/dL (11.5-15.3) 08/22/22 05:39 Hct 39.2 % (37.0-47.0) 08/22/22 05:39 MCV 84.8 fl (81-99) 08/22/22 05:39 MCH 26.4 pg (28.0-34.0) L 08/22/22 05:39 MCHC 31.1 g/dL (30.0-36.0) 08/22/22 05:39 RDW 13.7 % (12.1-15.1) 08/22/22 05:39 Plt Count 248 10^3/cmm (130-400) 08/22/22 05:39 MPV 9.8 fL (7.4-10.4) 08/22/22 05:39 Neut % (Auto) 61.3 % 08/22/22 05:39 Lymph % (Auto) 24.8 % 08/22/22 05:39 [place] % (Auto) 8.2 % 08/22/22 05:39 Eos % (Auto) 4.8 % 08/22/22 05:39 Baso % (Auto) 0.6 % 08/22/22 05:39 Neut # (Auto) 3.96 10^3/uL (1.8-7.7) 08/22/22 05:39 Lymph # (Auto) 1.6 10^3/uL (0.8-4.8) 08/22/22 05:39 [place] # (Auto) 0.5 10^3/uL (0.2-0.9) 08/22/22 05:39 Eos # (Auto) 0.3 10^3/uL (0.0-0.8) 08/22/22 05:39 Baso # (Auto) 0.0 10^3/uL (0.0-0.1) 08/22/22 05:39 Nucleated RBC % (auto) 0 % 08/22/22 05:39 Nucleated RBCs # 0.0 /100WBC 08/22/22 05:39 Sodium 141 mmol/L (136-145) 08/22/22 05:39 Potassium 3.9 mmol/L (3.5-5.1) 08/22/22 05:39 Chloride 104 mmol/L (98-107) 08/22/22 05:39 Carbon Dioxide 27 mmol/L (22-29) 08/22/22 05:39 Anion Gap 13.9 (5-19) 08/22/22 05:39 BUN 18 mg/dL (8-23) 08/22/22 05:39 Creatinine 0.7 mg/dL (0.5-0.9) 08/22/22 05:39 GFR Calculation Not Reportable 08/22/22 05:39 Glucose 95 mg/dL (65-115) 08/22/22 05:39 Estimat Average Glucose 85 08/19/22 01:55 Hemoglobin A1c 4.6 % (4.0-6.0) 08/19/22 01:55 Calculated Osmolality 294 mOsm/kg (285-295) 08/22/22 05:39 Lactic Acid 1.7 mmol/L (0.5-2.2) 08/19/22 01:55 Lactic Acid (Sepsis) 2.1 mmol/L (0.5-2.2) 08/18/22 00:00 Calcium 9.6 mg/dL (8.5-10.5) 08/22/22 05:39 Phosphorus 3.5 mg/dL (2.5-4.5) 08/19/22 01:55 Magnesium 1.8 mg/dL (1.7-2.3) 08/19/22 01:55 Total Bilirubin 0.5 mg/dL (0.15-1.2) 08/18/22 20:15 AST 15 U/L (0-32) 08/18/22 20:15 ALT 12 U/L (0-33) 08/18/22 20:15 Alkaline Phosphatase 85 U/L (35-105) 08/18/22 20:15 Troponin T Baseline 13 ng/L (0-10) H 08/18/22 20:15 Troponin T 120 Minute 16.37 ng/L (0-10) H 08/18/22 00:00 Delta Troponin T 3.37 ABS# (0-10) 08/18/22 00:00 Troponin T Hi Sens 6Hr 15.90 ng/L (0-10) H 08/19/22 01:55 Troponin T Hi Sens 6Hr Delta 2.90 ng/L (0-12) 08/19/22 01:55 C-Reactive Protein 32.0 mg/L (0.0-4.9) H 08/18/22 20:40 NT-Pro-B Natriuret Pep 727 pg/mL (0-450) H 08/19/22 01:55 Total Protein 7.3 g/dL (6.6-8.7) 08/18/22 20:15 Albumin 4.6 g/dL (3.5-5.2) 08/18/22 20:15 Globulin 2.7 g/dL (1.3-4.6) 08/18/22 20:15 Procalcitonin 0.33 ng/mL (0-0.5) 08/18/22 20:40 TSH 1.45 uIU/mL (0.27-4.20) 08/18/22 20:40 Urine Color Light yellow (Yellow) 08/18/22 20:50 Urine Appearance Cloudy (CLEAR) A 08/18/22 20:50 Urine pH 7 (5-7) 08/18/22 20:50 Ur Specific [place] 1.005 (1.005-1.030) 08/18/22 20:50 Urine Protein 1+ (Negative) H 08/18/22 20:50 Urine Glucose (UA) Norm (Normal) 08/18/22 20:50 Urine Ketones Negative (Negative) 08/18/22 20:50 Urine Blood 3+ (Negative) H 08/18/22 20:50 Urine Nitrate Positive (Negative) H 08/18/22 20:50 Urine Bilirubin Neg (Negative) 08/18/22 20:50 Urine Urobilinogen Norm mg/dL (Negative) 08/18/22 20:50 Ur Leukocyte Esterase 2+ (Negative) H 08/18/22 20:50 Urine RBC 0-4 /hpf (0-2) H 08/18/22 20:50 Urine WBC >100 /hpf (0-5) H 08/18/22 20:50 Ur Squamous Epith Cells 0-4 /hpf (0-5) H 08/18/22 20:50 Amorphous Sediment Not Reportable 08/18/22 20:50 Urine Bacteria 4+ /hpf (NONE) H 08/18/22 20:50 Influenza Type A Ag negative (Negative) 08/18/22 19:58 Influenza Type B Ag negative (Negative) 08/18/22 19:58 SARS-CoV-2 Ag (Rapid) negative (Negative) 08/18/22 19:58 Vitals Last Vital Signs Temp 97.8 F 08/22/22 11:56 Pulse 79 08/22/22 11:56 Resp 16 08/22/22 11:56 BP 104/61 08/22/22 11:56 Pulse Ox 95 08/22/22 11:56 O2 Del Method Room Air 08/21/22 15:53 Discharge Plan Discharge Patient Disposition: Home Condition: Stable Prescriptions: New ciprofloxacin HCl 500 mg tablet 500 mg PO BID 10 Days Qty: 20 0RF Continued Keppra 750 mg tablet 750 mg PO BID Qty: 180 2RF lamotrigine [Lamictal] 100 mg tablet 100 mg PO BID Qty: 60 5RF Rx Instructions: Take half a tablet twice a day for two weeks. Then increase to one tablet twice a day. ascorbic acid (vitamin C) [Vitamin C] 500 mg Tablet 1,000 mg PO DAILY tamsulosin 0.4 mg capsule 0.4 mg PO BEDTIME pantoprazole 20 mg tablet,delayed release (DR/EC) 20 mg PO DAILY polysaccharide iron complex [Ferrex 150] 150 mg iron Capsule 150 mg PO QPM calcium carbonate-vitamin D3 [Calcium 600 + D(3)] 600 mg-10 mcg (400 unit) Tablet 1 tab PO BID melatonin 10 mg Tablet 10 mg PO BEDTIME diazepam 10 mg tablet 5 mg PO BEDTIME PRN (Reason: sleep) Held methenamine hippurate 1 gram tablet 0.5 g PO BID Qty: 60 12RF Hold Instructions: Resume on 08/26/22. Rx Instructions: Take 1000 mg of vitamin C with each dose of methenamine Discharge Orders: Discharge Order (Routine); Ordered 08/22/22 Ordered By: Matt Navarrete Referrals: Carlos Barba MD [Primary Care Provider] - 4-7 days (Clinic will call with appointment.) Gary Gunn MD [Physician] - 7-10 days (Clinic will call with appointment.) Discharge Diet: As Directed Discharge Activity: Increase activity as tolerated Patient Instructions: Ciprofloxacin (By mouth), Jarrett Catheter Care, Constipation (GEN), Urinary Tract Infection in Women (GEN), Chronic Urinary Retention in Women (GEN), How to Change a Catheter Drainage Bag (GEN) Activity Restrictions/Additional Instructions: Follow-up with your primary provider for reassessment after complicated UTI, pyelonephritis. Seek medical attention in case experiencing high fever, abdominal or back pain, nausea vomiting, blood in urine or any difficulty urinating, or any other concerning symptoms. Keep Jarrett until follow up with urology. Discharge Attestations Time Spent in Discharge Care*: greater than 30 min Quality Metrics Clinical Quality Measures [ No reported AMI, CVA or VTE this stay] Coding Level of Care Code Acute Code for [facility] Diagnoses Pyelonephritis of left kidney N12 UTI due to extended-spectrum beta lactamase (ESBL) producing Escherichia coli N39.0; B96.29; Z16.12 Bilateral hydronephrosis N13.30 Urinary retention R33.9 Mixed stress and urge urinary incontinence N39.46 Recurrent UTI N39.0 Insomnia G47.00 Sepsis A41.9 Acidosis, lactic E87.2
[2022-08-22 14:58] VITALS: BP 104/61; PULSE 79; RESP 16; TEMP 36.6; O2SAT 95
== END 2022-08-22 14:58 | disposition home or self-care (01) | DRG 690 ==
LOC: ER 21:28 → ER IP 08-19 04:51 → MEDSURG 08-19 06:23
PROVIDERS: Emergency Medicine; Admitting Provider Family Medicine; Emergency Provider Emergency Medicine; PCP Family Medicine; Visit Provider Internal Medicine
DX: N12 Tubulo-interstitial nephritis, not specified as acute or chronic (principal); Z16.11 Resistance to penicillins; Z16.12 Extended spectrum beta lactamase (ESBL) resistance; G40.919 Epilepsy, unspecified, intractable, without status epilepticus; E87.20 Acidosis, unspecified; N39.0 Urinary tract infection, site not specified; B96.20 Unspecified Escherichia coli [E. coli] as the cause of diseases classified elsewhere; F41.9 Anxiety disorder, unspecified; D50.9 Iron deficiency anemia, unspecified; Z87.440 Personal history of urinary (tract) infections; K21.9 Gastro-esophageal reflux disease without esophagitis; K44.9 Diaphragmatic hernia without obstruction or gangrene; Z96.642 Presence of left artificial hip joint; N31.9 Neuromuscular dysfunction of bladder, unspecified
CPT/HCPCS: 36415; 51702; 71045; 74176; 80048; 80053; 81001; 83036; 83605; 83735; 83880; 84100; 84145; 84443; 84484; 85025; 86140; 87040; 87077; 87086; 87186; 87426; 87804; 93005; 96372; C9113; G0378; J0295; J1650; J2185; J3370; J7030; J7050; J7120

== ENCOUNTER → 2022-08-31 15:52 | Outpatient (BNVA) | payer MEDICARE, MEDICAID, SELFPAY | PROVIDERS: PCP Family Medicine; Visit Provider Urology | DX: R33.9 Retention of urine, unspecified (principal); N39.41 Urge incontinence; N39.490 Overflow incontinence; N13.30 Unspecified hydronephrosis | CPT/HCPCS: 99213 ==

== ENCOUNTER → 2022-09-16 12:20 | Outpatient (BNVA) | payer MEDICARE, MEDICAID, SELFPAY | PROVIDERS: PCP Family Medicine; Visit Provider Urology | DX: N30.80 Other cystitis without hematuria (principal); R33.9 Retention of urine, unspecified | CPT/HCPCS: 51798; 99213 ==

== ENCOUNTER 2022-09-18 12:05 | Emergency (ER) | payer MEDICARE, MEDICAID, SELFPAY ==
[2022-09-18 12:09] VITALS: BP 156/86; PULSE 79; RESP 14; TEMP 36.4; O2SAT 93; BMI 26.2
--- NOTE | 2022-09-18 12:26 | XR_ITS ---
WS: [id number] Chest with right rib detail, 3 views, 09/18/2022 Clinical Data: fall, R rib pain Comparison: Portable chest, 08/18/2022 Findings: The lungs show no nodules, masses, or effusions. The heart is normal. No pneumonia or pneumothorax is seen. There is minimal patchy atelectasis over the left diaphragm unchanged. There is a hiatal hernia behin d the heart. The ribs are intact. No rib fractures seen. No subcutaneous emphysema is present. XR/XR ribs RT mn 3V w CXR1V [id number] Impression: 1. Patchy atelectasis over surface of left diaphragm unchanged. 2. Negative right rib detail.
--- NOTE | 2022-09-18 14:15 | CTR_ITS ---
PROCEDURE INFORMATION: Exam: CT Chest Without Contrast; Diagnostic Exam date and time: 09/18/2022 3:09 PM Age: 76 years old Clinical indication: Pain; Right-sided; Additional info: R rib pain/chest trauma TECHNIQUE: Imaging protocol: Diagnostic computed tomography of the chest without contrast. Radiation optimization: All CT scans at this facility use at least one of these dose optimization techniques: automated exposure control; mA and/or kV adjustment per patient size (includes targeted exams where dose is matched to clinical indication); or iterative reconstruction. REPORTING DATA: Count of CT and Cardiac NM exams in prior 12 months: This patient has received 2 known CTs and 0 known cardiac nuclear medicine studies in the 12 months prior to the current study. COMPARISON: CT angio chest PE protcl [id number] 07/16/2020 7:51 PM RADIATION DOSE METRICS: Total DLP (mGy-cm): 301.44 FINDINGS: Thyroid: 2 cm indistinct nodule left lobe of the thyroid gland that appears mildly increased in size better assessed on thyroid ultrasound. Lungs: Scattered chronic granulomatous calcifications within the mediastinum both hilum, stable. Pleural spaces: Unremarkable. No pneumothorax. No pleural effusion. Heart: Heart is not significantly enlarged. No significant coronary artery calcifications. No significant pericardial effusion. Lymph nodes: Unremarkable. No enlarged lymph nodes. Vasculature: Unremarkable. No aortic aneurysm. Diaphragm: There is a moderate size hiatal hernia unchanged. Liver: Stable small hypodense liver lesion left lobe likely benign. Gallbladder and bile ducts: Solitary gallstone in the dependent portion the gallbladder situated close to the gallbladder neck unchanged. Adrenal glands: 2 cm low attenuating left adrenal lesion unchanged consistent with benign adenoma. Bones/joints: Acute slightly displaced fractures involving the lateral aspect of the right 5th through 8th ribs and distal aspect right 10th rib. Mild atelectatic changes right paravertebral gutter otherwise lung smith are aerated and clear. Stable small cluster partially calcified nodules right lower lung zone, benign. Soft tissues: Unremarkable. CT/CT chest wo con [id number] IMPRESSION: 1. Acute minimally displaced fractures right 5th through 10th ribs. 2. Mild subsegmental atelectasis right lung base. 3. Moderate size hiatal hernia. 4. Additional nonemergent changes as above.
--- NOTE | 2022-09-18 14:16 | ED_ITS ---
Documented by User: KIM Gee 09/18/22 16:35 HPI - Fall General: Chief Complaint: Fall Stated Complaint: RIGHT SIDED PAIN Time Seen by Provider: 09/18/22 13:56 Source: patient Mode of arrival: wheelchair Limitations: no limitations History of Present Illness: Patient is a 76-year-old female who presents to ED today with a complaint of a fall and right rib pain. She states approximately 2 days ago she fell in her home. She states she does not know what caused her to fall but assumes that she most likely had a seizure although states normally she will have an aura with these and did not. She has a longstanding history of epilepsy in which she sees Dr. Reese for. She is on multiple antiepileptic medications. She states she does not remember any details in regards to the fall. States she fell and the next thing she remembers is waking up in bed. She is not sure how she got to bed. She states when she woke up she began noticing right rib pain that has not improved over the past 48 hours. She does not believe she struck her head. She denies a headache, neck pain, or back pain. Is not having any chest pain, shortness of breath, difficulty breathing, dizziness/lightheadedness, or palpitations. MD complaint: fall Onset (ago): day(s) Fall from: standing Fall witnessed: no Place fall occurred: home Loss of consciousness: Unsure Prolonged down time: unclear Symptoms prior to fall: other (unknown) Context: other (unknown, patient assumes a seizure) Location of injury: chest Severity: moderate Associated symptoms-after fall: Reports no associated symptoms and chest pain (R rib pain); Denies abdominal pain, headache(s), hematuria, lightheadedness or neck pain Review of Systems Eyes: Denies: change in vision, blurry vision, photophobia, eye discharge, floaters or seeing flashes ENMT: Denies: throat pain, odynophagia, ear or mastoid pain, ear discharge, nasal discharge, epistaxis or sinus pain Card: Reports: chest pain (R rib pain); Denies: palpitations, lightheadedness, syncope or pre-syncope Resp: Denies: dyspnea or pain on inspiration GI: Denies: abdominal pain : Denies: flank pain or hematuria Musc: Denies: neck pain, back pain, extremity pain or joint pain Skin/Breast: Denies: rash Neuro: Denies: headache(s), numbness in extremities, weakness in extremities, sensory changes or dizziness PFSH ED PFSH: Medical History Anxiety Bilateral hydronephrosis Secondary to bladder distention and incomplete emptying Cholelithiasis Cystitis cystica Diverticulosis Dysphagia Elevated troponin I level Epilepsy Focused based right temporal lobe epilepsy patient does not wish to have surgery for intractable seizures Fall Frequent headaches GERD without esophagitis Hiatal hernia Hypertension Insomnia Iron deficiency anemia Laceration Laceration of head Melanotic stools Microcytic anemia Mild cognitive impairment Mixed stress and urge urinary incontinence Osteopenia Overflow incontinence Partial epilepsy secondarily generalized Recurrent UTI Temporal lobe epilepsy, intractable Urgency incontinence Urinary retention intermittent catheterization Surgical History History of ear surgery (~2014) Right. Dr Khan History of left hip hemiarthroplasty History of total hysterectomy (~1982) TVH (still has ovaries) for bleeding. Performed by Dr. Armstrong at [facility] Family History Brother Diabetes Heart disease Hypercholesteremia Hypertension Mother , at age 72 Scoliosis Lung disease Father , at age 89 No problems noted. Social History Smoking and tobacco status: former smoker Quit status (tobacco): has quit using tobacco Year quit tobacco: 2012 Former quit date comment: smoked 20 years Alcohol intake: never Substance/Drug Use: never Lives independently: Yes Housing: House Marital status: / Current occupational status: retired Physical Exam Const: COMMON NORMALS: no acute distress, average body habitus, patient oriented x3, no limitations, healthy appearing, alert and well nourished GENERAL APPEARANCE: cooperative ORIENTATION/CONSCIOUSNESS: Yes awake, Yes oriented to person, Yes oriented to place and Yes oriented to time HENMT: COMMON NORMALS: normocephalic, atraumatic and TM's normal bilaterally HEAD & SCALP: normal to inspection, normocephalic and atraumatic; no Basurto's sign, no hematoma and no raccoon eyes FACE & SINUS: normal facial exam TYMPANIC MEMBRANE: TM's normal bilaterally MOUTH: other (no intraoral injuries noted) Eye: COMMON NORMALS: Equal, round and reactive pupils present and EOMs intact bilaterally GENERAL EYE: appearance normal, both eyes and all related structures and normal light reflex PUPIL: Yes Equal, round and reactive pupils present DIRECT OPHTHALMOSCOPY: Yes normal light reflex Neck/C-Spine: COMMON NORMALS: full ROM GENERAL: Yes normal visual inspection CERVICAL SPINE: Yes cervical ROM normal, No pain with cervical ROM, No Cervical spine tenderness, No step off deformity and No Paracervical muscle tenderness Chest: COMMONS NORMALS: normal inspection of the chest CHEST: Yes tenderness (throughout R posteriolateral ribs; no crepitus) Resp: COMMON NORMALS: normal respiratory effort and clear to auscultation bilaterally AUSCULTATION: clear to auscultation bilaterally Cardio: COMMON NORMALS: regular rate and regular rhythm RATE: regular rate RHYTHM: regular rhythm GI: COMMON NORMALS: Normal to inspection, nondistended, normoactive bowel sounds present, Soft to palpation, non-tender, No hepatosplenomegaly present and no masses INSPECTION: Yes normal to inspection and No abdominal wall ecchymosis AUSCULTATION: Yes normoactive bowel sounds PALPATION: Yes Soft to palpation and Yes No hepatosplenomegaly present Back/Pelvis: COMMON NORMALS: thoracic and lumbar spine normal to inspection, no thoracic nor lumbar tenderness and thoraco-lumbar ROM normal Extremity: COMMON NORMALS: normal to inspection and full ROM GENERAL: Yes normal exam except as noted Neuro: HUBERT COMA SCALE: document GCS findings Hubert coma scale eye opening: Spontaneous [place] coma scale verbal response: Orientated [place] coma scale motor response: Obey commands Hubert coma scale total score: 15 COMMON NORMALS: patient oriented x3, CN's II-XII intact bilaterally, moves all extremities, no focal motor deficits, no sensory deficits noted and gait normal SENSORIUM/ORIENTATION: Yes alert, Yes oriented to person, Yes oriented to place and Yes oriented to time SPEECH: speech normal GAIT: Yes Normal gait present Skin: COMMON NORMALS: no rashes or lesions noted GENERAL SKIN EXAM: no rashes or lesions noted TRAUMA: no lacerations or abrasions Course Vital Signs: Vital signs: Vital Signs Temperature 97.6 F 09/18/22 12:09 Pulse Rate 79 09/18/22 12:09 Respiratory Rate 14 09/18/22 12:09 Blood Pressure 156/86 09/18/22 12:09 Pulse Oximetry 93 09/18/22 12:09 Oxygen Delivery Me thod Room Air 09/18/22 12:09 MDM - Fall Medical Decision Making Patient is a 76-year-old female here following a fall in her home almost 48 hours ago. Details in regards to the fall were nonspecific thus lab work up indicated. Vitals are normal. Bloodwork including troponin is normal. XR ribs w ere normal but high suspicion for fractures remained thus CT chest imaging obtained. I did not feel the need to CT her head or neck/back as she does not complain of pain to these areas and no symptoms have developed over the past 48 hours following the fall. CT of her chest does show fractures of her right fifth, sixth, seventh, eighth, and 10th ribs. She does have mild atelectasis of her right lung base. Case discussed with Dr. Celestin. Normally we would entertain the idea of hospitalization or transfer to trauma center following multiple rib fractures to monitor for development of pulmonary contusions however fall was 48 hours ago and they should have been evident on CT imaging by now. She will be given an incentive spirometer to go home with as well as pain medications. Recommend strict adherence to the spirometer and we will have case management get her an appointment early next week for PCP follow-up. Return to ED precautions given. Lab Data 09/18/22 15:04 09/18/22 15:04 Radiology Impressions Ribs X-Ray 09/18/22 12:26 Impression: 1. Patchy atelectasis over surface of left diaphragm unchanged. 2. Negative right rib detail. Chest CT 09/18/22 14:15 IMPRESSION: 1. Acute minimally displaced fractures right 5th through 10th ribs. 2. Mild subsegmental atelectasis right lung base. 3. Moderate size hiatal hernia. 4. Additional nonemergent changes as above. Laboratory Results WBC 9.0 10^3/uL (4.0-10.0) 09/18/22 15:04 RBC 5.19 10^6/uL (4.1-5.3) 09/18/22 15:04 Hgb 13.8 g/dL (11.5-15.3) 09/18/22 15:04 Hct 44.8 % (37.0-47.0) 09/18/22 15:04 MCV 86.3 fl (81-99) 09/18/22 15:04 MCH 26.6 pg (28.0-34.0) L 09/18/22 15:04 MCHC 30.8 g/dL (30.0-36.0) 09/18/22 15:04 RDW 13.7 % (12.1-15.1) 09/18/22 15:04 Plt Count 227 10^3/cmm (130-400) 09/18/22 15:04 MPV 9.6 fL (7.4-10.4) 09/18/22 15:04 Neut % (Auto) 74.1 % 09/18/22 15:04 Lymph % (Auto) 17.1 % 09/18/22 15:04 [place] % (Auto) 7.2 % 09/18/22 15:04 Eos % (Auto) 1.0 % 09/18/22 15:04 Baso % (Auto) 0.3 % 09/18/22 15:04 Neut # (Auto) 6.69 10^3/uL (1.8-7.7) 09/18/22 15:04 Lymph # (Auto) 1.5 10^3/uL (0.8-4.8) 09/18/22 15:04 [place] # (Auto) 0.7 10^3/uL (0.2-0.9) 09/18/22 15:04 Eos # (Auto) 0.1 10^3/uL (0.0-0.8) 09/18/22 15:04 Baso # (Auto) 0.0 10^3/uL (0.0-0.1) 09/18/22 15:04 Nucleated RBC % (auto) 0 % 09/18/22 15:04 Nucleated RBCs # 0.0 /100WBC 09/18/22 15:04 Sodium 137 mmol/L (136-145) 09/18/22 15:04 Potassium 4.2 mmol/L (3.5-5.1) 09/18/22 15:04 Chloride 99 mmol/L (98-107) 09/18/22 15:04 Carbon Dioxide 29 mmol/L (22-29) 09/18/22 15:04 Anion Gap 13.2 (5-19) 09/18/22 15:04 BUN 11 mg/dL (8-23) 09/18/22 15:04 Creatinine 0.7 mg/dL (0.5-0.9) 09/18/22 15:04 GFR Calculation Not Reportable 09/18/22 15:04 Glucose 105 mg/dL (65-115) 09/18/22 15:04 Calculated Osmolality 284 mOsm/kg (285-295) L 09/18/22 15:04 Calcium 10.3 mg/dL (8.5-10.5) 09/18/22 15:04 Total Bilirubin 0.3 mg/dL (0.15-1.2) 09/18/22 15:04 AST 13 U/L (0-32) 09/18/22 15:04 ALT 9 U/L (0-33) 09/18/22 15:04 Alkaline Phosphatase 84 U/L (35-105) 09/18/22 15:04 Troponin T Baseline 7 ng/L (0-10) 09/18/22 15:04 Total Protein 7.5 g/dL (6.6-8.7) 09/18/22 15:04 Albumin 4.7 g/dL (3.5-5.2) 09/18/22 15:04 Globulin 2.8 g/dL (1.3-4.6) 09/18/22 15:04 Discharge Plan Discharge Patient Disposition: Home Clinical Impression: Multiple rib fractures involving four or more ribs Fall Qualifiers: Encounter type: initial encounter Qualified Code(s): W19.XXXA - Unspecified fall, initial encounter Condition: Stable Prescriptions: New hydrocodone-acetaminophen 5-325 mg tablet 1 tab PO .q4-6 PRN (Reason: pain) Qty: 20 0RF No Action Keppra 750 mg tablet 750 mg PO BID Qty: 180 2RF lamotrigine [Lamictal] 100 mg tablet 100 mg PO BID Qty: 60 5RF Rx Instructions: Take half a tablet twice a day for two weeks. Then increase to one tablet twice a day. methenamine hippurate 1 gram tablet 0.5 g PO BID Qty: 60 12RF Hold Instructions: Resume on 08/26/22. Rx Instructions: Take 1000 mg of vitamin C with each dose of methenamine ascorbic acid (vitamin C) [Vitamin C] 500 mg Tablet 1,000 mg PO DAILY tamsulosin 0.4 mg capsule 0.4 mg PO BEDTIME pantoprazole 20 mg tablet,delayed release (DR/EC) 20 mg PO DAILY polysaccharide iron complex [Ferrex 150] 150 mg iron Capsule 150 mg PO QPM calcium carbonate-vitamin D3 [Calcium 600 + D(3)] 600 mg-10 mcg (400 unit) Tablet 1 tab PO BID melatonin 10 mg Tablet 10 mg PO BEDTIME diazepam 10 mg tablet 5 mg PO BEDTIME PRN (Reason: sleep) Discharge Orders: Discharge ED (Routine); Ordered 09/18/22 Ordered By: Denise Brown Referrals: Carlos Barba MD [Primary Care Provider] - Patient Instructions: Opioid Safety, Pain Management, Fractures - Rib Activity Restrictions/Additional Instructions: As we discussed you need to be diligent about using your incentive spirometer as directed. You may take pain medication sparingly for severe pain. As we discussed case management should contact you early next week to set you up with a follow-up appointment with Dr. Barba. You may also try to contact their office early Wednesday morning for an appointment. You may return to the emergency department for worsening or uncontrollable pain, shortness of breath, difficulty breathing, or fevers. I hope you begin to feel better soon. Coding Level of Care Code ED Charm Filter Operator Helper for Chg Fwd Documented by User: Suhas Celestin DO 09/18/22 17:03 HPI - Fall General: Chief Complaint: Fall Stated Complaint: RIGHT SIDED PAIN Time Seen by Provider: 09/18/22 13:56 PFSH ED PFSH: Medical History Anxiety Bilateral hydronephrosis Secondary to bladder distention and incomplete emptying Cholelithiasis Cystitis cystica Diverticulosis Dysphagia Elevated troponin I level Epilepsy Focused based right temporal lobe epilepsy patient does not wish to have surgery for intractable seizures Fall Frequent headaches GERD without esophagitis Hiatal hernia Hypertension Insomnia Iron deficiency anemia Laceration Laceration of head Melanotic stools Microcytic anemia Mild cognitive impairment Mixed stress and urge urinary incontinence Osteopenia Overflow incontinence Partial epilepsy secondarily generalized Recurrent UTI Temporal lobe epilepsy, intractable Urgency incontinence Urinary retention intermittent catheterization Surgical History History of ear surgery (~2014) Right. Dr Khan History of left hip hemiarthroplasty History of total hysterectomy (~1982) TVH (still has ovaries) for bleeding. Performed by Dr. Armstrong at [facility] [place] Family History Brother Diabetes Heart disease Hypercholesteremia Hypertension Mother , at age 72 Scoliosis Lung disease Father , at age 89 No problems noted. Social History Smoking and tobacco status: former smoker Quit status (tobacco): has quit using tobacco Year quit tobacco: 2012 Former quit date comment: smoked 20 years Alcohol intake: never Substance/Drug Use: never Lives independently: Yes Housing: House Marital status: / Current occupational status: retired Physical Exam Neuro: HUBERT COMA SCALE: document GCS findings [place] coma scale total score: 15 Course Vital Signs: Vital signs: Vital Signs Temperature 97.6 F 09/18/22 12:09 Pulse Rate 79 09/18/22 12:09 Respiratory Rate 14 09/18/22 12:09 Blood Pressure 156/86 09/18/22 12:09 Pulse Oximetry 93 09/18/22 12:09 Oxygen Delivery Me thod Room Air 09/18/22 12:09 MDM - Fall Medical Decision Making Patient is a 76-year-old female here following a fall in her home almost 48 hours ago. Details in regards to the fall were nonspecific thus lab work up indicated. Vitals are normal. Bloodwork including troponin is normal. XR ribs were normal but high suspicion for fractures remained thus CT chest imaging obtained. I did not feel the need to CT her head or neck/back as she does not complain of pain to these areas and no symptoms have developed over the past 48 hours following the fall. CT of her chest does show fractures of her right fifth, sixth, seventh, eighth, and 10th ribs. She does have mild atelectasis of her right lung base. Case discussed with Dr. Celestin. Normally we would entertain the idea of hospitalization or transfer to trauma center following multiple rib fractures to monitor for development of pulmonary contusions however fall was 48 hours ago and they should have been evident on CT imaging by now. She will be given an incentive spirometer to go home with as well as pain medications. Recommend strict adherence to the spirometer and we will have case management get her an appointment early next week for PCP follow-up. Return to ED precautions given. Chart reviewed and patient discussed with midlevel. Agree with assessment and plan. Lab Data 09/18/22 15:04 09/18/22 15:04 Radiology Impressions Ribs X-Ray 09/18/22 12:26 Impression: 1. Patchy atelectasis over surface of left diaphragm unchanged. 2. Negative right rib detail. Chest CT 09/18/22 14:15 IMPRESSION: 1. Acute minimally displaced fractures right 5th through 10th ribs. 2. Mild subsegmental atelectasis right lung base. 3. Moderate size hiatal hernia. 4. Additional nonemergent changes as above. Laboratory Results WBC 9.0 10^3/uL (4.0-10.0) 09/18/22 15:04 RBC 5.19 10^6/uL (4.1-5.3) 09/18/22 15:04 Hgb 13.8 g/dL (11.5-15.3) 09/18/22 15:04 Hct 44.8 % (37.0-47.0) 09/18/22 15:04 MCV 86.3 fl (81-99) 09/18/22 15:04 MCH 26.6 pg (28.0-34.0) L 09/18/22 15:04 MCHC 30.8 g/dL (30.0-36.0) 09/18/22 15:04 RDW 13.7 % (12.1-15.1) 09/18/22 15:04 Plt Count 227 10^3/cmm (130-400) 09/18/22 15:04 MPV 9.6 fL (7.4-10.4) 09/18/22 15:04 Neut % (Auto) 74.1 % 09/18/22 15:04 Lymph % (Auto) 17.1 % 09/18/22 15:04 [place] % (Auto) 7.2 % 09/18/22 15:04 Eos % (Auto) 1.0 % 09/18/22 15:04 Baso % (Auto) 0.3 % 09/18/22 15:04 Neut # (Auto) 6.69 10^3/uL (1.8-7.7) 09/18/22 15:04 Lymph # (Auto) 1.5 10^3/uL (0.8-4.8) 09/18/22 15:04 [place] # (Auto) 0.7 10^3/uL (0.2-0.9) 09/18/22 15:04 Eos # (Auto) 0.1 10^3/uL (0.0-0.8) 09/18/22 15:04 Baso # (Auto) 0.0 10^3/uL (0.0-0.1) 09/18/22 15:04 Nucleated RBC % (auto) 0 % 09/18/22 15:04 Nucleated RBCs # 0.0 /100WBC 09/18/22 15:04 Sodium 137 mmol/L (136-145) 09/18/22 15:04 Potassium 4.2 mmol/L (3.5-5.1) 09/18/22 15:04 Chloride 99 mmol/L (98-107) 09/18/22 15:04 Carbon Dioxide 29 mmol/L (22-29) 09/18/22 15:04 Anion Gap 13.2 (5-19) 09/18/22 15:04 BUN 11 mg/dL (8-23) 09/18/22 15:04 Creatinine 0.7 mg/dL (0.5-0.9) 09/18/22 15:04 GFR Calculation Not Reportable 09/18/22 15:04 Glucose 105 mg/dL (65-115) 09/18/22 15:04 Calculated Osmolality 284 mOsm/kg (285-295) L 09/18/22 15:04 Calcium 10.3 mg/dL (8.5-10.5) 09/18/22 15:04 Total Bilirubin 0.3 mg/dL (0.15-1.2) 09/18/22 15:04 AST 13 U/L (0-32) 09/18/22 15:04 ALT 9 U/L (0-33) 09/18/22 15:04 Alkaline Phosphatase 84 U/L (35-105) 09/18/22 15:04 Troponin T Baseline 7 ng/L (0-10) 09/18/22 15:04 Total Protein 7.5 g/dL (6.6-8.7) 09/18/22 15:04 Albumin 4.7 g/dL (3.5-5.2) 09/18/22 15:04 Globulin 2.8 g/dL (1.3-4.6) 09/18/22 15:04 Discharge Plan Discharge Patient Disposition: Home Clinical Impression: Multiple rib fractures involving four or more ribs Fall Qualifiers: Encounter type: initial encounter Qualified Code(s): W19.XXXA - Unspecified fall, initial encounter Condition: Stable Prescriptions: New hydrocodone-acetaminophen 5-325 mg tablet 1 tab PO .q4-6 PRN (Reason: pain) Qty: 20 0RF No Action Keppra 750 mg tablet 750 mg PO BID Qty: 180 2RF lamotrigine [Lamictal] 100 mg tablet 100 mg PO BID Qty: 60 5RF Rx Instructions: Take half a tablet twice a day for two weeks. Then increase to one tablet twice a day. methenamine hippurate 1 gram tablet 0.5 g PO BID Qty: 60 12RF Hold Instructions: Resume on 08/26/22. Rx Instructions: Take 1000 mg of vitamin C with each dose of methenamine ascorbic acid (vitamin C) [Vitamin C] 500 mg Tablet 1,000 mg PO DAILY tamsulosin 0.4 mg capsule 0.4 mg PO BEDTIME pantoprazole 20 mg tablet,delayed release (DR/EC) 20 mg PO DAILY polysaccharide iron complex [Ferrex 150] 150 mg iron Capsule 150 mg PO QPM calcium carbonate-vitamin D3 [Calcium 600 + D(3)] 600 mg-10 mcg (400 unit) Tablet 1 tab PO BID melatonin 10 mg Tablet 10 mg PO BEDTIME diazepam 10 mg tablet 5 mg PO BEDTIME PRN (Reason: sleep) Discharge Orders: Discharge ED (Routine); Ordered 09/18/22 Ordered By: Denise Brown Referrals: Carlos Barba MD [Primary Care Provider] - Patient Instructions: Opioid Safety, Pain Management, Fractures - Rib Activity Restrictions/Additional Instructions: As we discussed you need to be diligent about using your incentive spirometer as directed. You may take pain medication sparingly for severe pain. As we discussed case management should contact you early next week to set you up with a follow-up appointment with Dr. Barba. You may also try to contact their office early Wednesday morning for an appointment. You may return to the emergency department for worsening or uncontrollable pain, shortness of breath, difficulty breathing, or fevers. I hope you begin to feel better soon. Coding Level of Care Code ED Charm Filter Operator Helper for Carmelina Cabello
--- NOTE | 2022-09-18 14:36 | PC.NURSE ---
ASSUMED CARE AT 1420
--- NOTE | 2022-09-18 14:46 | ECG_ITS ---
[facility] Test Date: 2022-09-18 Pat Name: Melonie Suggs Department: Room: Gender: Female Fermenter Helper: : 1945 Requested By: Denise Brown Order Number: [id number] Manolo MD: Aide Parker M.D. Measurements Intervals [place] Rate: 81 P: 58 VT: 207 QRS: -54 QRSD: 69 T: -7 QT: 353 QTc: 411 Interpretive Statements SINUS RHYTHM LOW QRS VOLTAGE IN PRECORDIAL LEADS [QRS DEFLECTION < 1.0 mV IN CHEST LEADS] POSSIBLE ANTERIOR MYOCARDIAL INFARCTION , OF INDETERMINATE AGE [30 ms Q WAVE IN V3/V4, OR R < 0.2 mV IN V4] INFERIOR MYOCARDIAL INFARCTION , PROBABLY OLD [40+ ms Q WAVE AND/OR ST/T ABNORMALITY IN II/aVF] Compared to ECG 08/19/2022 04:51:24 Low QRS voltage now present Myocardial infarct finding now present Left-axis deviation no longer present Electronically Signed On 09-19-2022 5:58:20 CDT by Aide Parker M.D. [email or web address]
[2022-09-18 15:20] LABS: Basophils % 0.3 %; Eosinophils # 0.1 10^3/uL (0.0-0.8); Hematocrit 44.8 % (37.0-47.0); Hemoglobin 13.8 g/dL (11.5-15.3); Lymphocytes # 1.5 10^3/uL (0.8-4.8); Lymphocytes % 17.1 %; Mean Corpuscular HGB Conc 30.8 g/dL (30.0-36.0); Mean Corpuscular Hemoglobin 26.6 pg (28.0-34.0); Mean Corpuscular Volume 86.3 fl (81-99); Mean Platelet Volume 9.6 fL (7.4-10.4); Monocytes # 0.7 10^3/uL (0.2-0.9); Monocytes % 7.2 %; Neutrophils # 6.69 10^3/uL (1.8-7.7); Neutrophils % 74.1 %; Nucleated Red Blood Cells % 0 %; Platelet Count 227 10^3/cmm (130-400); Red Blood Count 5.19 10^6/uL (4.1-5.3); Red Cell Distribution Width 13.7 % (12.1-15.1)
[2022-09-18 15:34] LABS: Troponin(5th) Baseline 7 ng/L (0-10)
[2022-09-18 15:35] LABS: Alanine Aminotransferase 9 U/L (0-33); Albumin Level 4.7 g/dL (3.5-5.2); Alkaline Phosphatase 84 U/L (35-105); Anion Gap 13.2 (5-19); Aspartate Amino Transferase 13 U/L (0-32); Blood Urea Nitrogen 11 mg/dL (8-23); Calcium 10.3 mg/dL (8.5-10.5); Carbon Dioxide 29 mmol/L (22-29); Chloride 99 mmol/L (98-107); Globulin 2.8 g/dL (1.3-4.6); Glucose 105 mg/dL (65-115); Osmolality Calculated 284 mOsm/kg (285-295); Potassium 4.2 mmol/L (3.5-5.1); Sodium 137 mmol/L (136-145); Total Bilirubin 0.3 mg/dL (0.15-1.2); Total Protein 7.5 g/dL (6.6-8.7)
== END 2022-09-18 17:09 | disposition home or self-care (01) ==
PROVIDERS: Emergency Provider Physician Assistant; PCP Family Medicine
DX: S22.41XA Multiple fractures of ribs, right side, initial encounter for closed fracture (principal); I10 Essential (primary) hypertension; Z87.891 Personal history of nicotine dependence; W19.XXXA Unspecified fall, initial encounter
CPT/HCPCS: 36415; 71101; 71250; 80053; 84484; 85025; 93005; 99285

== ENCOUNTER 2022-09-19 16:57 | Inpatient (IN) | payer MEDICARE, MEDICAID, SELFPAY ==
[2022-09-19] VITALS (7 sets, daily range): BP systolic 132–149; BP diastolic 69–79; PULSE 75–82; RESP 16; TEMP 36.6–36.9; O2SAT 90–96
--- NOTE | 2022-09-19 17:21 | XRR_ITS ---
PROCEDURE INFORMATION: Exam: XR Chest Exam date and time: 09/19/2022 5:39 PM Age: 76 years old Clinical indication: Chest wall pain and right-sided; Additional info: Right rib pain TECHNIQUE: Imaging protocol: Radiologic exam of the chest. Views: 1 view. COMPARISON: CT chest con [id number] 09/18/2022 3:09 PM FINDINGS: Lungs: Unremarkable. No consolidation. Pleural spaces: Unremarkable. No pleural effusion. No pneumothorax. Heart/Mediastinum: Cardiac silhouette is mildly enlarged. Bones/joints: Patient's right rib fractures are not well demonstrated on the radiographs. There are old healed fractures left mid ribcage. XR/XR chest 1V portable [id number] IMPRESSION: Mild cardiomegaly. Lungs clear. No active disease.
--- NOTE | 2022-09-19 17:22 | W.ED.GENADLT ---
Documented by User: KIM Pearce 09/20/22 01:13 HPI - General Adult General: Chief complaint: General Medical Stated complaint: RIGHT RIB PAIN Time Seen by Provider: 09/19/22 17:11 History of Present Illness: Pt is a 76 y/o Female who comes to the ED for Right rib pain. Patient was seen here yesterday September 18 for a fall and was diagnosed with right rib fractures. Patient says her fall occurred approximately 3 days ago. Patient's main complaint today is right rib pain. She has hydrocodone at home that she has been taking to help with pain. She rates her pain currently a 10 out of 10 and any movement with her torso causes worsening pain. She endorses pain if she takes a deep breath. Patient lives at home alone and states that due to her pain she is unable to take care of herself. She is having trouble getting up and doing daily activities due to pain. Patient's daughter called in and talked with rooming house keeper here at the hospital and she said that patient is currently getting set up with a room at [facility], but she cannot get in there till Wednesday, September 21. Denies any shortness of breath, chest pain, vomiting, fevers. Associated symptoms: Deny chest pain, dyspnea, headache(s), nausea, rash, palpitations or vomiting Review of Systems Const: Denies: fever(s), chills or fatigue Eyes: Denies: change in vision or eye discomfort ENMT: Denies: throat pain, odynophagia, nasal discharge or nasal congestion Card: Denies: chest pain, palpitations, edema, swelling of feet/ankles, dyspnea on exertion or orthopnea Resp: Denies: dyspnea, productive cough or non-productive cough GI: Denies: abdominal pain, nausea, vomiting, diarrhea, constipation or hematochezia : Denies: flank pain, dysuria or hematuria Musc: Reports: other (right Rib pain); Denies: neck pain, back pain, extremity pain or extremity swelling Skin/Breast: Denies: rash or new lesions Neuro: Denies: headache(s), numbness in extremities or weakness in extremities PFS ED PFSH: Medical History Anxiety Bilateral hydronephrosis Secondary to bladder distention and incomplete emptying Cholelithiasis Cystitis cystica Diverticulosis Dysphagia Elevated troponin I level Epilepsy Focused based right temporal lobe epilepsy patient does not wish to have surgery for intractable seizures Fall Frequent headaches GERD without esophagitis Hiatal hernia Hypertension Insomnia Iron deficiency anemia Laceration Laceration of head Melanotic stools Microcytic anemia Mild cognitive impairment Mixed stress and urge urinary incontinence Osteopenia Overflow incontinence Partial epilepsy secondarily generalized Recurrent UTI Temporal lobe epilepsy, intractable Urgency incontinence Urinary retention intermittent catheterization Surgical History History of ear surgery (~2014) Right. Dr Khan History of left hip hemiarthroplasty History of total hysterectomy (~1982) TVH (still has ovaries) for bleeding. Performed by Dr. Armstrong at [facility] [place] Family History Brother Diabetes Heart disease Hypercholesteremia Hypertension Mother , at age 72 Scoliosis Lung disease Father , at age 89 No problems noted. Social History Smoking and tobacco status: former smoker Quit status (tobacco): has quit using tobacco Year quit tobacco: 2012 Former quit date comment: smoked 20 years Alcohol intake: never Substance/Drug Use: never Lives independently: Yes Housing: House Marital status: / Current occupational status: retired Physical Exam Const: COMMON NORMALS: no acute distress and patient oriented x3 HENMT: COMMON NORMALS: normocephalic HEAD & SCALP: normocephalic MOUTH: Normal oral and palatal mucosa present THROAT: posterior oropharynx normal and uvula midline Neck/C-Spine: COMMON NORMALS: supple GENERAL: Yes normal visual inspection Chest: CHEST: Yes tenderness rib right mid-scapular line involving the 8th rib, involving the 9th rib and involving the 10th rib Resp: COMMON NORMALS: normal respiratory effort, No retractions, No use of accessory muscles and clear to auscultation bilaterally AUSCULTATION: clear to auscultation bilaterally Cardio: COMMON NORMALS: regular rate, regular rhythm, S1 normal heart sound present, S2 normal heart sound present, No gallops present (Cardio), No clicks present (Cardio), No murmurs present (Cardio) and Peripheral pulses 2+ throughout RATE: regular rate RHYTHM: regular rhythm HEART SOUNDS: S1 normal heart sound present and S2 normal heart sound present PERIPHERAL PULSES: Peripheral pulses 2+ throughout GI: COMMON NORMALS: Normal to inspection, nondistended, normoactive bowel sounds present, Soft to palpation, non-tender and no masses PALPATION: Yes Soft to palpation : COMMON NORMALS: Yes no CVA tenderness BLADDER/KIDNEY EXAM: Yes no CVA tenderness Back/Pelvis: COMMON NORMALS: no CVA tenderness Extremity: COMMON NORMALS: normal to inspection Neuro: COMMON NORMALS: patient oriented x3 GAIT: Yes Normal gait present Skin: GENERAL SKIN EXAM: dry skin Course Vital Signs: Vital signs: Vital Signs Temperature 98.1 F 09/20/22 16:00 Pulse Rate 68 09/20/22 16:00 Respiratory Rate 18 09/20/22 17:58 Blood Pressure 101/62 09/20/22 16:00 Pulse Oximetry 94 09/20/22 17:58 Oxygen Delivery Me thod Nasal Cannula 09/20/22 16:00 Oxygen Flow Rate 1 09/20/22 07:52 MDM - General Adult Medical Decision Making Pt is a 76 y/o Female who comes to the ED for Right rib pain. Patient was seen here yesterday September 18 for a fall and was diagnosed with right rib fractures. Patient says her fall occurred approximately 3 days ago. Patient's main complaint today is right rib pain. She has hydrocodone at home that she has been taking to help with pain. She rates her pain currently a 10 out of 10 and any movement with her torso causes worsening pain. She endorses pain if she takes a deep breath. Patient lives at home alone and states that due to her pain she is unable to take care of herself. She is having trouble getting up and doing daily activities due to pain. Patient's daughter called in and talked with rooming house keeper here at the hospital and she said that patient is currently getting set up with a room at [facility], but she cannot get in there till Wednesday, September 21. Denies any shortness of breath, chest pain, vomiting, fevers. Patient's O2 sat is in the low 90s so she was put on 2 L of oxygen. Rest of her vitals are stable. Patient has some right rib tenderness rest of exam is benign. CBC and CMP are unremarkable. UA shows signs of UTI. I talked with Dr. Shearer about patient case and that given her UTI and her rib fractures and living home alone and unable to take care of herself she should be admitted. Dr. Shearer agreed with plan and contacted the hospitalist and had patient admitted. Lab Data I reviewed the patient's lab results. 09/19/22 19:28 09/19/22 19: Radiology Impressions Chest X-Ray 09/19/22 17:21 IMPRESSION: Mild cardiomegaly. Lungs clear. No active disease. Laboratory Results WBC 8.4 10^3/uL (4.0-10.0) 09/19/22 19: RBC 4.87 10^6/uL (4.1-5.3) 09/19/22: Hgb 13.2 g/dL (11.5-15.3) 09/19/22: Hct 41.7 % (37.0-47.0) 09/19/22: MCV 85.6 fl (81-99) 09/19/22: MCH 27.1 pg (28.0-34.0) L 09/19/22: MCHC 31.7 g/dL (30.0-36.0) 09/19/22: RDW 13.7 % (12.1-15.1) 09/19/22: Plt Count 215 10^3/cmm (130-400) 09/19/22: MPV 10.1 fL (7.4-10.4) 09/19/22 19: Neut % (Auto) 61.9 % 09/19/22: Lymph % (Auto) 27.3 % 09/19/22: [place] % (Auto) 7.5 % 09/19/22 19: Eos % (Auto) 2.5 % 09/19/22: Baso % (Auto) 0.6 % 09/19/22: Neut # (Auto) 5.18 10^3/uL (1.8-7.7) 09/19/22 19: Lymph # (Auto) 2.3 10^3/uL (0.8-4.8) 09/19/22: [place] # (Auto) 0.6 10^3/uL (0.2-0.9) 09/19/22 19: Eos # (Auto) 0.2 10^3/uL (0.0-0.8) 09/19/22 19: Baso # (Auto) 0.1 10^3/uL (0.0-0.1) 09/19/22 19: Nucleated RBC % (auto) 0 % 09/19/22: Nucleated RBCs # 0.0 /100WBC 09/19/22 19: Sodium 138 mmol/L (136-145) 09/19/22 19: Potassium 4.3 mmol/L (3.5-5.1) 09/19/22 19: Chloride 98 mmol/L (98-107) 09/19/22: Carbon Dioxide 30 mmol/L (22-29) H 09/19/22 Anion Gap 14.3 (5-19) 09/19/22: BUN 16 mg/dL (8-23) 09/19/22: Creatinine 0.6 mg/dL (0.5-0.9) 09/19/22: GFR Calculation Not Reportable 09/19/22: Glucose 109 mg/dL (65-115) 09/19/22 Calculated Osmolality 288 mOsm/kg (285-295) 09/19/22: Calcium 9.5 mg/dL (8.5-10.5) 09/19/22: Total Bilirubin 0.4 mg/dL (0.15-1.2) 09/19/22: AST 23 U/L (0-32) 09/19/22: ALT 9 U/L (0-33) 09/19/22 19: Alkaline Phosphatase 75 U/L (35-105) 09/19/22 19: Creatine Kinase 32 U/L (26-192) 09/19/22: CK-MB (CK-2) 1.1 ng/mL (0-5.34) 09/19/22: CK-MB (CK-2) Rel Index % (0.0-10.4) 09/19/22 19: NT-Pro-B Natriuret Pep 126 pg/mL (0-450) 09/19/22: Total Protein 7.2 g/dL (6.6-8.7) 09/19/22 19:28 Albumin 4.3 g/dL (3.5-5.2) 09/19/22 19:28 Globulin 2.9 g/dL (1.3-4.6) 09/19/22 19:28 Urine Color Colorless (Yellow) 09/19/22 19:28 Urine Appearance Hazy (CLEAR) A 09/19/22 19:28 Urine pH 7 (5-7) 09/19/22 19: Ur Specific [place] 1.010 (1.005-1.030) 09/19/22 19:28 Urine Protein Neg (Negative) 09/19/22 19: Urine Glucose (UA) Norm (Normal) 09/19/22 19: Urine Ketones Negative (Negative) 09/19/22 19: Urine Blood Neg (Negative) 09/19/22 19: Urine Nitrate Positive (Negative) H 09/19/22 19:28 Urine Bilirubin Neg (Negative) 09/19/22 19: Urine Urobilinogen Norm mg/dL (Negative) 09/19/22 19:28 Ur Leukocyte Esterase 2+ (Negative) H 09/19/22 19:28 Urine RBC 0-4 /hpf (0-2) H 09/19/22 19:28 Urine WBC 25-40 /hpf (0-5) H 09/19/22 19:28 Ur Squamous Epith Cells 0-4 /hpf (0-5) H 09/19/22 19:28 Amorphous Sediment Not Reportable 09/19/22 19:28 Urine Bacteria 3+ /hpf (NONE) H 09/19/22 19:28 Discharge Plan Discharge Patient Disposition: Admitted As Inpatient Admit Provider: Anu Almanzar Clinical Impression: UTI (urinary tract infection), Multiple fractures of ribs of right side Condition: Stable Coding Level of Care Code ED Tool And Fixture Repairer for Chg Fwd Documented by User: Ashutosh Shearer DO 09/20/22 19:14 HPI - General Adult General: Chief complaint: General Medical Stated complaint: RIGHT RIB PAIN Time Seen by Provider: 09/19/22 17:11 [facility] ED PFSH: Medical History Anxiety Bilateral hydronephrosis Secondary to bladder distention and incomplete emptying Cholelithiasis Cystitis cystica Diverticulosis Dysphagia Elevated troponin I level Epilepsy Focused based right temporal lobe epilepsy patient does not wish to have surgery for intractable seizures Fall Frequent headaches GERD without esophagitis Hiatal hernia Hypertension Insomnia Iron deficiency anemia Laceration Laceration of head Melanotic stools Microcytic anemia Mild cognitive impairment Mixed stress and urge urinary incontinence Osteopenia Overflow incontinence Partial epilepsy secondarily generalized Recurrent UTI Temporal lobe epilepsy, intractable Urgency incontinence Urinary retention intermittent catheterization Surgical History History of ear surgery (~2014) Right. Dr Khan History of left hip hemiarthroplasty History of total hysterectomy (~1982) TVH (still has ovaries) for bleeding. Performed by Dr. Armstrong at [facility] [place] Family History Brother Diabetes Heart disease Hypercholesteremia Hypertension Mother , at age 72 Scoliosis Lung disease Father , at age 89 No problems noted. Social History Smoking and tobacco status: former smoker Quit status (tobacco): has quit using tobacco Year quit tobacco: 2012 Former quit date comment: smoked 20 years Alcohol intake: never Substance/Drug Use: never Lives independently: Yes Housing: House Marital status: / Current occupational status: retired Course Vital Signs: Vital signs: Vital Signs Temperature 98.1 F 09/20/22 16:00 Pulse Rate 68 09/20/22 16:00 Respiratory Rate 18 09/20/22 17:58 Blood Pressure 101/62 09/20/22 16:00 Pulse Oximetry 94 09/20/22 17:58 Oxygen Delivery Me thod Nasal Cannula 09/20/22 16:00 Oxygen Flow Rate 1 09/20/22 07:52 MDM - General Adult Medical Decision Making Pt is a 76 y/o Female who comes to the ED for Right rib pain. Patient was seen here yesterday September 18 for a fall and was diagnosed with right rib fractures. Patient says her fall occurred approximately 3 days ago. Patient's main complaint today is right rib pain. She has hydrocodone at home that she has been taking to help with pain. She rates her pain currently a 10 out of 10 and any movement with her torso causes worsening pain. She endorses pain if she takes a deep breath. Patient lives at home alone and states that due to her pain she is unable to take care of herself. She is having trouble getting up and doing daily activities due to pain. Patient's daughter called in and talked with rooming house keeper here at the hospital and she said that patient is currently getting set up with a room at [facility], but she cannot get in there till Wednesday, September 21. Denies any shortness of breath, chest pain, vomiting, fevers. Patient's O2 sat is in the low 90s so she was put on 2 L of oxygen. Rest of her vitals are stable. Patient has some right rib tenderness rest of exam is benign. CBC and CMP are unremarkable. UA shows signs of UTI. I talked with Dr. Shearer about patient case and that given her UTI and her rib fractures and living home alone and unable to take care of herself she should be admitted. Dr. Shearer agreed with plan and contacted the hospitalist and had patient admitted. This patient was originally seen by Mr. Sourav PA-C.? I agree with his history, evaluation, and treatment. Lab Data 09/19/22 19:09/19/22 19: Radiology Impressions Chest X-Ray 09/19/22 17:21 IMPRESSION: Mild cardiomegaly. Lungs clear. No active disease. Laboratory Results WBC 8.4 10^3/uL (4.0-10.0) 09/19/22 19: RBC 4.87 10^6/uL (4.1-5.3) 09/19/22 19: Hgb 13.2 g/dL (11.5-15.3) 09/19/22 19: Hct 41.7 % (37.0-47.0) 09/19/22 19: MCV 85.6 fl (81-99) 09/19/22 19: MCH 27.1 pg (28.0-34.0) L 09/19/22 19: MCHC 31.7 g/dL (30.0-36.0) 09/19/22: RDW 13.7 % (12.1-15.1) 09/19/22: Plt Count 215 10^3/cmm (130-400) 09/19/22: MPV 10.1 fL (7.4-10.4) 09/19/22: Neut % (Auto) 61.9 % 09/19/22: Lymph % (Auto) 27.3 % 09/19/22 19: [place] % (Auto) 7.5 % 09/19/22: Eos % (Auto) 2.5 % 09/19/22 Baso % (Auto) 0.6 % 09/19/22 Neut # (Auto) 5.18 10^3/uL (1.8-7.7) 09/19/22: Lymph # (Auto) 2.3 10^3/uL (0.8-4.8) 09/19/22: [place] # (Auto) 0.6 10^3/uL (0.2-0.9) 09/19/22: Eos # (Auto) 0.2 10^3/uL (0.0-0.8) 09/19/22: Baso # (Auto) 0.1 10^3/uL (0.0-0.1) 09/19/22 Nucleated RBC % (auto) 0 % 09/19/22 Nucleated RBCs # 0.0 /100WBC 09/19/22: Sodium 138 mmol/L (136-145) 09/19/22: Potassium 4.3 mmol/L (3.5-5.1) 09/19/22: Chloride 98 mmol/L (98-107) 09/19/22: Carbon Dioxide 30 mmol/L (22-29) H 09/19/22: Anion Gap 14.3 (5-19) 09/19/22 19: BUN 16 mg/dL (8-23) 09/19/22 19: Creatinine 0.6 mg/dL (0.5-0.9) 09/19/22 GFR Calculation Not Reportable 09/19/22 Glucose 109 mg/dL (65-115) 09/19/22 Calculated Osmolality 288 mOsm/kg (285-295) 09/19/22 Calcium 9.5 mg/dL (8.5-10.5) 09/19/22 Total Bilirubin 0.4 mg/dL (0.15-1.2) 09/19/22 AST 23 U/L (0-32) 09/19/22 ALT 9 U/L (0-33) 09/19/22 Alkaline Phosphatase 75 U/L (35-105) 09/19/22 Creatine Kinase 32 U/L (26-192) 09/19/22 CK-MB (CK-2) 1.1 ng/mL (0-5.34) 09/19/22 CK-MB (CK-2) Rel Index % (0.0-10.4) 09/19/22 NT-Pro-B Natriuret Pep 126 pg/mL (0-450) 09/19/22 Total Protein 7.2 g/dL (6.6-8.7) 09/19/22 Albumin 4.3 g/dL (3.5-5.2) 09/19/22 Globulin 2.9 g/dL (1.3-4.6) 09/19/22 Urine Color Colorless (Yellow) 09/19/22 Urine Appearance Hazy (CLEAR) A 09/19/22: Urine pH 7 (5-7) 09/19/22 Ur Specific [place] 1.010 (1.005-1.030) 09/19/22 Urine Protein Neg (Negative) 09/19/22 Urine Glucose (UA) Norm (Normal) 09/19/22 Urine Ketones Negative (Negative) 09/19/22 Urine Blood Neg (Negative) 09/19/22: Urine Nitrate Positive (Negative) H 09/19/22 Urine Bilirubin Neg (Negative) 05/20/23 19:28 Urine Urobilinogen Norm mg/dL (Negative) 09/19/22 19:28 Ur Leukocyte Esterase 2+ (Negative) H 09/19/22 19:28 Urine RBC 0-4 /hpf (0-2) H 09/19/22 19:28 Urine WBC 25-40 /hpf (0-5) H 09/19/22 19:28 Ur Squamous Epith Cells 0-4 /hpf (0-5) H 09/19/22 19:28 Amorphous Sediment Not Reportable 09/19/22 19:28 Urine Bacteria 3+ /hpf (NONE) H 09/19/22 19:28 Discharge Plan Discharge Patient Disposition: Admitted As Inpatient Admit Provider: Anu Almanzar Clinical Impression: UTI (urinary tract infection), Multiple fractures of ribs of right side Condition: Stable Coding Level of Care Code ED Tool And Fixture Repairer for Carmelina Cabello
[2022-09-19] MEDS: morphine 4 mg/mL SDV 1 mL IM (17:33)
[2022-09-19 19:43] LABS: Basophils # 0.1 10^3/uL (0.0-0.1); Basophils % 0.6 %; Eosinophils # 0.2 10^3/uL (0.0-0.8); Eosinophils % 2.5 %; Hematocrit 41.7 % (37.0-47.0); Hemoglobin 13.2 g/dL (11.5-15.3); Lymphocytes # 2.3 10^3/uL (0.8-4.8); Lymphocytes % 27.3 %; Mean Corpuscular HGB Conc 31.7 g/dL (30.0-36.0); Mean Corpuscular Hemoglobin 27.1 pg (28.0-34.0); Mean Corpuscular Volume 85.6 fl (81-99); Mean Platelet Volume 10.1 fL (7.4-10.4); Monocytes # 0.6 10^3/uL (0.2-0.9); Monocytes % 7.5 %; Neutrophils # 5.18 10^3/uL (1.8-7.7); Neutrophils % 61.9 %; Nucleated Red Blood Cells % 0 %; Platelet Count 215 10^3/cmm (130-400); Red Blood Count 4.87 10^6/uL (4.1-5.3); Red Cell Distribution Width 13.7 % (12.1-15.1); White Blood Count 8.4 10^3/uL (4.0-10.0)
[2022-09-19 19:48] LABS: Urine Appearance Hazy (CLEAR); Urine Color Colorless (Yellow); pH Urine 7 (5-7)
[2022-09-19 19:49] LABS: Bilirubin Urine Neg (Negative); Blood Urine Neg (Negative); Glucose Urine UA Norm (Normal); Ketones Urine Negative (Negative); Leukocyte Esterase Urine 2+ (Negative); Protein Urine Neg (Negative); Urobilinogen Urine Norm (Negative)
[2022-09-19 19:50] LABS: Add Urine Microscopic? YES; Nitrate Urine Positive (Negative)
[2022-09-19 19:51] LABS: Add Urine Culture? Yes; Bacteria Urine 3+ /hpf; RBC Urine 0-4 /hpf (0-2); Squamous Epithelial Cell Urine 0-4 /hpf (0-5); WBC Urine 25-40 /hpf (0-5)
[2022-09-19 20:22] LABS: Alanine Aminotransferase 9 U/L (0-33); Albumin Level 4.3 g/dL (3.5-5.2); Alkaline Phosphatase 75 U/L (35-105); Anion Gap 14.3 (5-19); Aspartate Amino Transferase 23 U/L (0-32); Blood Urea Nitrogen 16 mg/dL (8-23); CKMB 1.1 ng/mL (0-5.34); Calcium 9.5 mg/dL (8.5-10.5); Carbon Dioxide 30 mmol/L (22-29); Chloride 98 mmol/L (98-107); Creatine Phosphokinase 32 U/L (26-192); Globulin 2.9 g/dL (1.3-4.6); Glucose 109 mg/dL (65-115); NT Pro B Type Natriuretic Pept 126 pg/mL (0-450); Osmolality Calculated 288 mOsm/kg (285-295); Potassium 4.3 mmol/L (3.5-5.1); Sodium 138 mmol/L (136-145); Total Bilirubin 0.4 mg/dL (0.15-1.2); Total Protein 7.2 g/dL (6.6-8.7)
[2022-09-19] MEDS: cefTRIAXone 1,000 MG in sodium chloride 0.9% (plus) 50 ML 100 MG IV (21:35)
[2022-09-19 22:32] LABS: Lactic Sepsis W/Reflex 0.7 mmol/L (0.5-2.2)
[2022-09-20] VITALS (10 sets, daily range): BP systolic 101–146; BP diastolic 62–72; PULSE 68–81; RESP 16–18; TEMP 36.6–37; O2SAT 90–94
--- NOTE | 2022-09-20 00:04 | PM.HP ---
Providers/Chief Complaint Admitting Physician: Anu Almanzar MD Primary Care Provider: Carlos Barba MD Chief Complaint: RIGHT RIB PAIN History of Present Illness Melonie Suggs is a 76 year old female with a past medical history of seizure disorder/epilepsy, currently on Keppra, followed by neurology, recurrent UTIs with cystitis cystica on methenamine suppression chronically. Patient initially presented to the emergency room on September 18, 2022 after sustaining a fall at home. Patient did not recall the circumstances of the fall, however resumed that she had had a seizure followed by a fall. She was noted to have rib fractures involving the right fifth sixth seventh eighth and 10th ribs with mild active atelectasis of her right lung base. She was given an incentive spirometer and return home. She returned today to the emergency room as she was unable to manage her pain at home. She lives by herself and is currently having difficulty maintaining her ADLs, her family has made arrangements for her to go to [place] early next week as she does not feel safe to be home alone by herself. She also has evidence of a UTI today. Review of Systems General: Reports: 10 or more systems reviewed and unremarkable except in HPI and below Const: Denies: fever(s), chills or body aches Eyes: Denies: change in vision, blurry vision or photophobia ENMT: Reports: hoarseness; Denies: throat pain, enlarged tonsils, odynophagia or nasal congestion Card: Denies: chest pain, palpitations, irregular heart rhythm, edema, swelling of feet/ankles, lightheadedness, pre-syncope, dyspnea on exertion or orthopnea Resp: Denies: dyspnea, productive cough, non-productive cough, wheezing, stridor, pain on inspiration, change in phlegm color, hemoptysis or chest congestion GI: Denies: abdominal pain, nausea, vomiting, hematemesis, coffee ground emesis, dysphagia, heartburn, diarrhea, constipation, GI cramping, change in stool character, hematochezia or melena : Denies: flank pain, difficulty voiding, dysuria, urinary frequency, urinary urgency, urinary hesitancy or hematuria Musc: Denies: neck pain, back pain, extremity pain, joint swelling, joint warmth or deformity Neuro: Denies: headache(s), numbness in extremities, weakness in extremities, sensory changes, difficulty walking, frequent falls, dizziness, vertigo, behavioral changes, Slurred speech present or seizure-like activity Psych: Denies: anxiety, depression, suicidal ideation or homicidal ideation Endo: Denies: polyuria, polydipsia, tired all the time, cold intolerance or hot flashes Bandar/Lymph: Denies: easy bruising or easy bleeding Medications/Allergies Home Medications Medication Instructions Recorded Confirmed Last Taken Type ascorbic acid (vitamin C) 500 mg 1,000 mg PO DAILY 04/15/22 09/19/22 09/19/22 09:00 History tablet (Vitamin C) tamsulosin 0.4 mg capsule 0.4 mg PO BEDTIME 04/15/22 09/19/22 09/18/22 20:00 History methenamine hippurate 1 gram tablet 0.5 g PO BID #60 tabs 07/27/22 09/19/22 09/19/22 21:00 Rx calcium carbonate 600 mg-vitamin 1 tab PO BID 07/29/22 09/19/22 09/19/22 21:00 History D3 10 mcg (400 unit) tablet (Calcium 600 + D(3)) diazepam 10 mg tablet 5 mg PO BEDTIME PRN sleep 07/29/22 09/19/22 09/19/22 21:00 History polysaccharide iron complex 150 mg 150 mg PO QPM 07/29/22 09/19/22 09/19/22 20:00 History iron capsule (Ferrex) lamotrigine 100 mg tablet 100 mg PO BID #60 tabs 08/05/22 09/19/22 09/19/22 21:00 Rx (Lamictal) levetiracetam 750 mg tablet 750 mg PO BID #180 tabs 08/05/22 09/19/22 09/19/22 21:00 Rx (Keppra) pantoprazole 20 mg tablet,delayed 20 mg PO DAILY 08/19/22 09/19/22 09/19/22 09:00 History release hydrocodone 5 mg-acetaminophen 325 1 tab PO .q4-6 PRN pain #20 tabs 09/18/22 09/19/22 09/19/22 07:30 Rx mg tablet Allergies Allergy/AdvReac Type Severity Reaction Status Date / Time divalproex sodium Allergy N/V and Verified 09/19/22 17:06 [From Depakote] dizziness sulfamethoxazole Allergy headache Verified 09/19/22 17:06 [From Bactrim] and seizures trimethoprim [From Bactrim] Allergy headache Verified 09/19/22 17:06 and seizures PFSH Acute PFSH: Medical History Anxiety Bilateral hydronephrosis Secondary to bladder distention and incomplete emptying Cholelithiasis Cystitis cystica Diverticulosis Dysphagia Elevated troponin I level Epilepsy Focused based right temporal lobe epilepsy patient does not wish to have surgery for intractable seizures Fall Frequent headaches GERD without esophagitis Hiatal hernia Hypertension Insomnia Iron deficiency anemia Laceration Laceration of head Melanotic stools Microcytic anemia Mild cognitive impairment Mixed stress and urge urinary incontinence Osteopenia Overflow incontinence Partial epilepsy secondarily generalized Recurrent UTI Temporal lobe epilepsy, intractable Urgency incontinence Urinary retention intermittent catheterization Surgical History History of ear surgery (~2014) Right. Dr Khan History of left hip hemiarthroplasty History of total hysterectomy (~1982) TVH (still has ovaries) for bleeding. Performed by Dr. Armstrong at [facility] [place] Family History Brother Diabetes Heart disease Hypercholesteremia Hypertension Mother , at age 72 Scoliosis Lung disease Father , at age 89 No problems noted. Social History Smoking and tobacco status: former smoker Quit status (tobacco): has quit using tobacco Year quit tobacco: 2012 Former quit date comment: smoked 20 years Alcohol intake: never Substance/Drug Use: never Lives independently: Yes Housing: House Marital status: / Current occupational status: retired Vitals/I&O/Wt Last Vital Signs Temp 98.5 F 09/19/22 17:00 Pulse 75 09/19/22 22:18 Resp 16 09/19/22 22:18 BP 149/79 09/19/22 22:18 Pulse Ox 96 09/19/22 22:18 O2 Del Method Nasal Cannula 09/19/22 22:18 O2 Flow Rate 2 09/19/22 22:18 Weight last 48 hrs Weight 67.132 kg Physical Exam Narrative: General: No acute distress, AO x3 HEENT: PERRLA, pupils bilaterally equal and reactive, pallors not present Chest: Normal vesicular breath sounds, no added sounds, equal good air entry bilaterally CVS: S1-S2 regular, no murmurs, no tachycardia, no gallops, no rubs Abdomen: Soft, nontender, no organomegaly, bowel sounds present Neuro: No focal deficits, no facial deformity, AO x3, power 5/5 in all limbs Data 09/19/22 19:28 09/19/22 19:28 Micro: Microbiology 09/19/22 22:00 Blood Culture - Preliminary Blood SPECIMEN COLLECTED 09/19/22 21:55 Blood Culture - Preliminary Blood SPECIMEN COLLECTED Other data: [facility] [address] [place] [address] DR. 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 [place] 1.010 1.005-1.030 UA Prot Neg Negative Ur Glu UA Norm Normal Ur Ketone Negative Negative Blood Urine Neg Negative Ur Nitrate Positive H Negative Ur Bilirubin Neg Negative Urobilinogen Norm Negative mg/dL Ur Roberto Esterase 2+ H Negative Reflex Ur Micro Ur RBC 0-4 H 0-2 /hpf Ur WBC 25-40 H 0-5 /hpf Ur Squam Epi 0-4 H 0-5 /hpf Ur Bact 3+ H NONE /hpf A&P Assessment and plan (1) UTI (urinary tract infection): (2) Ribs, multiple fractures: (3) Intractable pain: Plan Patient presenting to the hospital today with chief complaints of having sustained a fall 4 days ago followed by rib fractures which were detected on September 18, 2022. Initially return home with pain management and incentive spirometer, however her pain was interfering with her ADLs. Patient lives by herself and does not feel safe with ongoing pain which she is unable to manage at home. Ad[facility] to [facility] for [facility] management As needed morphine, oral hydrocodone, IV Toradol as needed and lidocaine patch to be used alternating for pain control. No signs of a flail chest at this current time. Chest x-ray shows clear lungs at this time. No pneumonia. Encourage incentive spirometry. Continue home dose of Keppra and lamotrigine Positive UA, start ceftriaxone empirically while awaiting urine cultures. Patient has had both pansensitive and ESBL isolates of E. coli, most recent isolate was susceptible to ceftriaxone. Attestations Medical Necessity Statement*: Greater than 2 midnight admission is anticipated for pain management from rib fractures, disposition planning, IV antibiotics for UTI Coding Level of Care Code Acute Code for [facility] Fwd Diagnoses UTI (urinary tract infection) N39.0 Ribs, multiple fractures S22.49XA Intractable pain R52
[2022-09-20] MEDS: enoxaparin 40 mg/0.4 mL Syringe SUBCUT ×2 (01:09→22:58)
[2022-09-20] MEDS: pantoprazole DR 40 mg Tablet PO (09:19)
[2022-09-20] MEDS: levETIRAcetam 500 mg Tablet 750 MG PO ×2 (09:19→17:57)
[2022-09-20] MEDS: lamoTRIgine 100 mg Tablet PO ×2 (09:19→17:58)
[2022-09-20] MEDS: lidocaine 5% Patch 1 PATCH TOPICAL ×2 (09:20→20:02)
[2022-09-20] MEDS: oxyCODONE-APAP 5-325 mg Tablet 1 TAB PO ×2 (09:22→17:58)
--- NOTE | 2022-09-20 14:01 | PM.PN ---
Subjective Subjective: Admitted overnight, H&P and labs appreciated. On examination laying comfortably in bed. Denies any nausea, vomiting, headache. Complaining of pain on right side of the chest on trying to stand up. Denies any nausea, vomiting, headache. Vitals/I&O/Wt Last Vital Signs Temp 98.6 F 09/20/22 08:00 Pulse 79 09/20/22 08:00 Resp 18 09/20/22 09:22 BP 120/68 09/20/22 08:00 Pulse Ox 92 09/20/22 09:22 O2 Del Method Nasal Cannula 09/20/22 08:00 O2 Flow Rate 1 09/20/22 07:52 09/19/22 09/20/22 09/20/22 22:59 06:59 14:59 Intake Total 170 / 170 Balance 170 / 170 Weight last 48 hrs Weight 67.132 kg Physical Exam Narrative: General: No acute distress, AO x3 HEENT: PERRLA, pupils bilaterally equal and reactive, pallors not present Chest: Effort, normal vesicular breath sounds, occasional crackles present on the right middle zone, tenderness in the chest on the right side, equal good air entry bilaterally CVS: S1-S2 regular, no murmurs, no tachycardia, no gallops, no rubs Abdomen: Soft, nontender, no organomegaly, bowel sounds present Neuro: No focal deficits, no facial deformity, AO x3, power 5/5 in all limbs Data 09/19/22 19:28 09/19/22 19:28 Micro: Microbiology 09/19/22 22:00 Blood Culture - Preliminary Blood SPECIMEN COLLECTED 09/19/22 21:55 Blood Culture - Preliminary Blood SPECIMEN COLLECTED A&P Assessment and plan (1) UTI (urinary tract infection): (2) Ribs, multiple fractures: (3) Intractable pain: (4) Fall: Qualifiers: Encounter type: initial encounter Qualified Code(s): W19.XXXA - Unspecified fall, initial encounter Plan Patient presenting to the hospital today with chief complaints of having sustained a fall 4 days ago followed by rib fractures which were detected on September 18, 2022. Initially return home with pain management and incentive spirometer, however her pain was interfering with her ADLs. Patient lives by herself and does not feel safe with ongoing pain which she is unable to manage at home. Incentive spirometry. Pain control with oxycodone every 4 hours as needed, morphine 2 mg every 6 hours as needed. Lidocaine patch. PT/OT evaluation. Case management alerted. UTI: History of ESBL E. coli UTI in the past. Last culture showing sensitive E. coli. Continue ceftriaxone for now. Continue to follow-up cultures. Watch for septic shock. If worsening vitals can switch to meropenem given history of ESBL E. coli UTI. Continue other chronic medication for seizures. Cardiac diet. Full code. Protonix for PUD prophylaxis Lovenox for DVT prophylaxis. Attestations Medical Necessity Statement*: Requires further hospitalization for management of a UTI, mechanical fall leading to multiple rib fracture, intractable pain for which patient requires IV pain medications while safe discharge planning is sought as patient is not able to do her ADLs. Diagnoses UTI (urinary tract infection) N39.0 Ribs, multiple fractures S22.49XA Intractable pain R52 Fall W19.XXXA Encounter type: initial encounter
[2022-09-20] MEDS: tamsulosin 0.4 mg Capsule PO (20:02)
[2022-09-20] MEDS: diazePAM 5 mg Tablet PO (20:02)
[2022-09-20] MEDS: cefTRIAXone 1,000 MG in sodium chloride 0.9% (plus) 50 ML 100 MG IV (22:34)
[2022-09-21] VITALS (11 sets, daily range): BP systolic 102–131; BP diastolic 53–71; PULSE 66–79; RESP 14–17; TEMP 36.4–36.8; O2SAT 91–94
[2022-09-21 06:49] LABS: Basophils # 0.1 10^3/uL (0.0-0.1); Basophils % 0.8 %; Eosinophils # 0.4 10^3/uL (0.0-0.8); Eosinophils % 5.2 %; Hematocrit 44.4 % (37.0-47.0); Hemoglobin 13.2 g/dL (11.5-15.3); Lymphocytes # 2.4 10^3/uL (0.8-4.8); Lymphocytes % 33.4 %; Mean Corpuscular HGB Conc 29.7 g/dL (30.0-36.0); Mean Corpuscular Hemoglobin 26.3 pg (28.0-34.0); Mean Corpuscular Volume 88.6 fl (81-99); Mean Platelet Volume 9.9 fL (7.4-10.4); Monocytes # 0.6 10^3/uL (0.2-0.9); Neutrophils # 3.74 10^3/uL (1.8-7.7); Neutrophils % 52.3 %; Nucleated Red Blood Cells % 0 %; Platelet Count 228 10^3/cmm (130-400); Red Blood Count 5.01 10^6/uL (4.1-5.3); Red Cell Distribution Width 13.8 % (12.1-15.1); White Blood Count 7.2 10^3/uL (4.0-10.0)
[2022-09-21 07:11] LABS: Alanine Aminotransferase 7 U/L (0-33); Alkaline Phosphatase 69 U/L (35-105); Anion Gap 16.1 (5-19); Aspartate Amino Transferase 11 U/L (0-32); Blood Urea Nitrogen 18 mg/dL (8-23); Calcium 9.7 mg/dL (8.5-10.5); Carbon Dioxide 26 mmol/L (22-29); Chloride 102 mmol/L (98-107); Globulin 3.3 g/dL (1.3-4.6); Glucose 92 mg/dL (65-115); Osmolality Calculated 292 mOsm/kg (285-295); Potassium 4.1 mmol/L (3.5-5.1); Sodium 140 mmol/L (136-145); Total Bilirubin 0.2 mg/dL (0.15-1.2); Total Protein 7.3 g/dL (6.6-8.7)
[2022-09-21] MEDS: levETIRAcetam 500 mg Tablet 750 MG PO ×2 (08:31→17:38)
[2022-09-21] MEDS: pantoprazole DR 40 mg Tablet PO (08:32)
[2022-09-21] MEDS: lamoTRIgine 100 mg Tablet PO ×2 (08:32→17:38)
[2022-09-21] MEDS: lidocaine 5% Patch 1 PATCH TOPICAL ×2 (08:32→20:57)
[2022-09-21] MEDS: oxyCODONE-APAP 5-325 mg Tablet 1 TAB PO ×2 (08:32→17:38)
[2022-09-21] MEDS: morphine 4 mg/mL SDV 1 mL 2 MG IVP (10:49)
--- NOTE | 2022-09-21 13:51 | PM.PN ---
Subjective Subjective: Patient was seen and examined this morning, pain is better controlled. No other acute events Medications: Medication Review Details: Generic Name Dose Route Start Last Admin Trade Name Freq PRN Reason Stop Dose Admin Diazepam 5 mg 09/20/22 06:52 09/20/22 20:02 Diazepam 5 Mg Ta blet PO 5 mg BEDTIME PRN Administration sleep Enoxaparin Sodium 40 mg 09/19/22 23:45 09/20/22 22:58 Enoxaparin 40 Mg /0.4 Ml Syringe SUBCUT 40 mg Q24H TANK Administration Ceftriaxone Sodium 1,000 mg/ 50 mls @ 100 mls/ hr 09/20/22 06:45 09/20/22 23:04 Sodium Chloride IV Infused Q24H TANK Infusion Protocol Lamotrigine 100 mg 09/20/22 09:00 09/21/22 08:32 Lamotrigine 100 Mg Tablet PO 100 mg BID TANK Administration Levetiracetam 750 mg 09/20/22 09:00 09/21/22 08:31 Levetiracetam 50 0 Mg Tablet PO 750 mg BID TANK Administration Lidocaine 1 patch 09/20/22 09:00 09/21/22 08:32 Lidocaine 5% Pat ch TOPICAL 1 patch [id number] TANK Administration Morphine Sulfate 2 mg 09/19/22 23:59 09/21/22 10:49 Morphine 4 Mg/Ml Sdv 1 Ml IVP 2 mg Q4H PRN Administration SEVERE PAIN Oxycodone/Acetamin ophen 1 tab 09/19/22 23:59 09/21/22 08:32 Oxycodone-Apap 5 -325 Mg Tablet PO 1 tab Q4H PRN Administration SEVERE PAIN Pantoprazole Sodiu m 40 mg 09/20/22 09:00 09/21/22 08:[address] 40 Mg Tablet PO 40 mg DAILY TANK Administration Tamsulosin HCl 0.4 mg 09/20/22 21:00 09/20/22 20:02 Tamsulosin 0.4 M g Capsule PO 0.4 mg BEDTIME TANK Administration Vitals/I&O/Wt Last Vital Signs Temp 98.2 F 09/21/22 12:00 Pulse 67 09/21/22 12:00 Resp 17 09/21/22 12:00 BP 102/63 09/21/22 12:00 Pulse Ox 94 09/21/22 12:00 O2 Del Method Nasal Cannula 09/20/22 16:00 O2 Flow Rate 3 09/20/22 20:00 09/20/22 09/21/22 09/21/22 22:59 06:59 14:59 Intake Total 480 / 890 50 / 940 Balance 480 / 890 50 / 940 Weight last 48 hrs Weight 67.132 kg Physical Exam Const: COMMON NORMALS: patient oriented x3 HENMT: COMMON NORMALS: normocephalic and atraumatic HEAD & SCALP: normocephalic and atraumatic Resp: COMMON NORMALS: clear to auscultation bilaterally EFFORT & INSPECTION: Yes symmetric chest movement AUSCULTATION: clear to auscultation bilaterally Cardio: COMMON NORMALS: regular rate, regular rhythm, S1 normal heart sound present, S2 normal heart sound present, No gallops present (Cardio), No murmurs present (Cardio), No rub (Cardio) and Peripheral pulses 2+ throughout RATE: regular rate RHYTHM: regular rhythm HEART SOUNDS: S1 normal heart sound present and S2 normal heart sound present PERIPHERAL PULSES: Peripheral pulses 2+ throughout GI: COMMON NORMALS: Normal to inspection, nondistended, normoactive bowel sounds present, Soft to palpation, non-tender, No hepatosplenomegaly present and no masses AUSCULTATION: Yes normoactive bowel sounds PALPATION: Yes Soft to palpation and Yes No hepatosplenomegaly present RECTAL EXAM: deferred Extremity: COMMON NORMALS: no clubbing, cyanosis or edema and no pedal edema Neuro: COMMON NORMALS: patient oriented x3 Data 09/21/22 06:24 09/21/22 06:24 Micro: Microbiology 09/19/22 19:28 Urine Culture - Preliminary Urine,Clean Catch Gram Negative Rods 09/19/22 22:00 Blood Culture - Preliminary Blood NEGATIVE TO DATE 09/19/22 21:55 Blood Culture - Preliminary Blood NEGATIVE TO DATE A&P Assessment and plan (1) UTI (urinary tract infection): (2) Ribs, multiple fractures: (3) Intractable pain: (4) Fall: Qualifiers: Encounter type: initial encounter Qualified Code(s): W19.XXXA - Unspecified fall, initial encounter Plan Patient presenting to the hospital today with chief complaints of having sustained a fall 4 days ago followed by rib fractures which were detected on September 18, 2022. Initially return home with pain management and incentive spirometer, however her pain was interfering with her ADLs. Patient lives by herself and does not feel safe with ongoing pain which she is unable to manage at home. Incentive spirometry. Pain control with oxycodone every 4 hours as needed, morphine 2 mg every 6 hours as needed. Lidocaine patch. PT/OT evaluation. Case management alerted. UTI: History of ESBL E. coli UTI in the past. Last culture showing sensitive E. coli. Continue ceftriaxone for now. Continue to follow-up cultures. Watch for septic shock. If worsening vitals can switch to meropenem given history of ESBL E. coli UTI. Continue other chronic medication for seizures. Cardiac diet. Full code. Protonix for PUD prophylaxis Lovenox for DVT prophylaxis. Attestations Medical Necessity Statement*: Awaiting safe discharge. Coding Level of Care Code Acute Code for [facility] Diagnoses UTI (urinary tract infection) N39.0 Ribs, multiple fractures S22.49XA Intractable pain R52 Fall W19.XXXA Encounter type: initial encounter
[2022-09-21] MEDS: diazePAM 5 mg Tablet PO (20:56)
[2022-09-21] MEDS: tamsulosin 0.4 mg Capsule PO (20:56)
[2022-09-21] MEDS: cefTRIAXone 1,000 MG in sodium chloride 0.9% (plus) 50 ML 100 MG IV (21:00)
[2022-09-21] MEDS: enoxaparin 40 mg/0.4 mL Syringe SUBCUT (23:02)
[2022-09-22] VITALS (12 sets, daily range): BP systolic 110–154; BP diastolic 61–75; PULSE 66–99; RESP 15–22; TEMP 36.3–36.7; O2SAT 90–99
[2022-09-22] MEDS: oxyCODONE-APAP 5-325 mg Tablet 1 TAB PO ×2 (05:57→11:54)
[2022-09-22] MEDS: pantoprazole DR 40 mg Tablet PO (08:27)
[2022-09-22] MEDS: levETIRAcetam 500 mg Tablet 750 MG PO ×2 (08:27→17:38)
[2022-09-22] MEDS: lidocaine 5% Patch 1 PATCH TOPICAL ×2 (08:27→20:09)
[2022-09-22] MEDS: lamoTRIgine 100 mg Tablet PO ×2 (08:27→17:38)
--- NOTE | 2022-09-22 10:19 | PC.CHAP ---
Pastoral Care Encounter/Spiritual Assessment Type of Contact [] Declined creative arts music therapist visit [] Patient/Family/Request visit [] Outpatient visit [] Follow-up visit [] Physician referral [] Code/Alert [x] Routine visit [] Staff referral [] Actively dying [] Patient sleeping [] Family support [] [] Out of room [] Palliative care [] [] Receiving care in room [] Pre-surgical visit [] Trauma [] Long length of stay [] ICU visit [] Other: Relational/Emotional Strength [x] Patient feels connected with others/family/visitors/staff [] Distress [] Loneliness/isolation [] Abandonment Spirituality of Patient [x] Person of [place] [] Attends Adventism of their [place] [x] Believes in Prayer [] Reads Bible or Spiritism materials [] There are Spiritual issues to be addressed Bulking Machine Operator Interventions [x] Prayer [x] Active listening [] Non-anxious presence [x] Spiritual/emotional support [] Crisis/trauma care [] Spiritual counseling [] Bereavement support [] Provided bereavement packet [] Provided Bible/devotional materials [] Provided toy/stuffed animal, coloring book to patient or family member [] Provided Communion [] Anointing/[place] [] Salvation [] Completed spiritual assessment [] Other: Impact on Illness or Injury [] Angry [] Fearful [] Anxious [] Often cries [] Exhaustion [] Unable to work [] Unable to attend protestant [] Unable to walk/stand [] Unable to read [] Unable to drive [] Unable to eat/drink [] Unable to sleep [] Unable to be with family [] Patient intubated [] Other: Summary Time spent with patient 5 min
--- NOTE | 2022-09-22 13:37 | P.PN_ITS ---
Subjective Subjective: Patient was seen and examined this morning, unfortunately today she is complaining of worsening right rib cage pain, she rates the pain 10 out of 10, it is particularly bad with inspiration. Medications: Medication Review Details: Generic Name Dose Route Start Last Admin Trade Name Nela PRN Reason Stop Dose Admin Diazepam 5 mg 09/20/22 06:52 09/21/22 20:56 Diazepam 5 Mg Ta blet PO 5 mg BEDTIME PRN Administration sleep Enoxaparin Sodium 40 mg 09/19/22 23:45 09/21/22 23:02 Enoxaparin 40 Mg /0.4 Ml Syringe SUBCUT 40 mg Q24H TANK Administration Ceftriaxone Sodium 1,000 mg/ 50 mls @ 100 mls/ hr 09/20/22 06:45 09/21/22 21:33 Sodium Chloride IV Infused Q24H TANK Infusion Protocol Lamotrigine 100 mg 09/20/22 09:00 09/22/22 08:27 Lamotrigine 100 Mg Tablet PO 100 mg BID TANK Administration Levetiracetam 750 mg 09/20/22 09:00 09/22/22 08:27 Levetiracetam 50 0 Mg Tablet PO 750 mg BID TANK Administration Lidocaine 1 patch 09/20/22 09:00 09/22/22 08:27 Lidocaine 5% Pat ch TOPICAL 1 patch [id number] TANK Administration Morphine Sulfate 2 mg 09/19/22 23:59 09/21/22 10:49 Morphine 4 Mg/Ml Sdv 1 Ml IVP 2 mg Q4H PRN Administration SEVERE PAIN Oxycodone/Acetamin ophen 1 tab 09/19/22 23:59 09/22/22 11:54 Oxycodone-Apap 5 -325 Mg Tablet PO 1 tab Q4H PRN Administration SEVERE PAIN Pantoprazole Sodiu m 40 mg 09/20/22 09:00 09/22/22 08:[address] 40 Mg Tablet PO 40 mg DAILY TANK Administration Tamsulosin HCl 0.4 mg 09/20/22 21:00 09/21/22 20:56 Tamsulosin 0.4 M g Capsule PO 0.4 mg BEDTIME TANK Administration Vitals/I&O/Wt Last Vital Signs Temp 97.5 F L 09/22/22 11:35 Pulse 74 09/22/22 11:35 Resp 20 H 09/22/22 11:35 BP 119/69 09/22/22 11:35 Pulse Ox 95 09/22/22 11:35 O2 Del Method Nasal Cannula 09/22/22 11:35 O2 Flow Rate 1 09/22/22 11:35 09/21/22 09/22/22 09/22/22 22:59 06:59 14:59 Intake Total 410 / 890 120 / 1010 1320 / 1320 Balance 410 / 890 120 / 1010 1320 / 1320 Physical Exam Const: COMMON NORMALS: patient oriented x3 HENMT: COMMON NORMALS: normocephalic and atraumatic HEAD & SCALP: nor mocephalic and atraumatic Resp: COMMON NORMALS: clear to auscultation bilaterally EFFORT & INSPECTION: Yes symmetric chest movement AUSCULTATION: clear to auscultation bilaterally Cardio: COMMON NORMALS: regular rate, regular rhythm, S1 normal heart sound present, S2 normal heart sound present, No gallops present (Cardio), No murmurs present (Cardio), No rub (Cardio) and Peripheral pulses 2+ throughout RATE: regular rate RHYTHM: regular rhythm HEART SOUNDS: S1 normal heart sound present and S2 normal heart sound present PERIPHERAL PULSES: Peripheral pulses 2+ throughout GI: COMMON NORMALS: Normal to inspection, nondistended, normoactive bowel sounds present, Soft to palpation, non-tender, No hepatosplenomegaly present and no masses AUSCULTATION: Yes normoactive bowel sounds PALPATION: Yes Soft to palpation and Yes No hepatosplenomegaly present RECTAL EXAM: deferred Extremity: COMMON NORMALS: no clubbing, cyanosis or edema and no pedal edema Neuro: COMMON NORMALS: patient oriented x3 Data 09/21/22 06:24 09/21/22 06:24 Micro: Microbiology 09/19/22 19:28 Urine Culture - Preliminary Urine,Clean Catch Gram Negative Rods A&P Assessment and plan (1) UTI (urinary tract infection): (2) Ribs, multiple fractures: (3) Intractable pain: (4) Fall: Qualifiers: Encounter type: initial encounter Qualified Code(s): W19.XXXA - Unspecified fall, initial encounter Plan Patient presenting to the hospital today with chief complaints of having sustained a fall 4 days ago followed by rib fractures which were detected on September 18, 2022. Initially return home with pain management and incentive spirometer, however her pain was interfering with her ADLs. Patient lives by herself and does not feel safe with ongoing pain which she is unable to manage at home. Incentive spirometry. Pain control with oxycodone every 4 hours as needed, morphine 2 mg every 6 hours as needed. Lidocaine patch. PT/OT evaluation. Case management alerted. UTI: History of ESBL E. coli UTI in the past. Last culture showing sensitive E. coli. Continue ceftriaxone for now. Continue to follow-up cultures. Watch for septic shock. If worsening vitals can switch to meropenem given history of ESBL E. coli UTI. Continue other chronic medication for seizures. Cardiac diet. Full code. Protonix for PUD prophylaxis Lovenox for DVT prophylaxis. Attestations Medical Necessity Statement*: Needs to be in hospital for pain control. Coding Level of Care Code Acute Code for [facility] Diagnoses UTI (urinary tract infection) N39.0 Ribs, multiple fractures S22.49XA Intractable pain R52 Fall W19.XXXA Encounter type: initial encounter
[2022-09-22] MEDS: tamsulosin 0.4 mg Capsule PO (20:08)
[2022-09-22] MEDS: diazePAM 5 mg Tablet PO (20:09)
[2022-09-22] MEDS: cefTRIAXone 1,000 MG in sodium chloride 0.9% (plus) 50 ML 100 MG IV (22:40)
[2022-09-22] MEDS: enoxaparin 40 mg/0.4 mL Syringe SUBCUT (22:45)
[2022-09-23] MEDS: diazePAM 5 mg Tablet 2.5 MG PO (01:12)
[2022-09-23 03:55] VITALS: BP 124/73; PULSE 78; RESP 18; TEMP 36.7; O2SAT 96
[2022-09-23 05:11] LABS: Basophils # 0.1 10^3/uL (0.0-0.1); Basophils % 0.9 %; Eosinophils # 0.3 10^3/uL (0.0-0.8); Eosinophils % 5.1 %; Hematocrit 39.7 % (37.0-47.0); Hemoglobin 12.6 g/dL (11.5-15.3); Lymphocytes # 1.9 10^3/uL (0.8-4.8); Lymphocytes % 35.1 %; Mean Corpuscular HGB Conc 31.7 g/dL (30.0-36.0); Mean Corpuscular Hemoglobin 27.3 pg (28.0-34.0); Mean Corpuscular Volume 85.9 fl (81-99); Mean Platelet Volume 9.7 fL (7.4-10.4); Monocytes # 0.4 10^3/uL (0.2-0.9); Monocytes % 8.1 %; Neutrophils # 2.74 10^3/uL (1.8-7.7); Neutrophils % 50.4 %; Nucleated Red Blood Cells % 0 %; Platelet Count 221 10^3/cmm (130-400); Red Blood Count 4.62 10^6/uL (4.1-5.3); Red Cell Distribution Width 13.3 % (12.1-15.1); White Blood Count 5.4 10^3/uL (4.0-10.0)
[2022-09-23 05:28] LABS: Blood Urea Nitrogen 19 mg/dL (8-23); Calcium 9.2 mg/dL (8.5-10.5); Carbon Dioxide 27 mmol/L (22-29); Chloride 105 mmol/L (98-107); Glucose 94 mg/dL (65-115); Osmolality Calculated 290 mOsm/kg (285-295); Sodium 139 mmol/L (136-145)
[2022-09-23 05:39] LABS: Anion Gap 11.1 (5-19); Potassium 4.1 mmol/L (3.5-5.1)
[2022-09-23 06:00] VITALS: PULSE 72
[2022-09-23 08:00] VITALS: BP 124/74; PULSE 70; RESP 16; TEMP 36.6; O2SAT 92
[2022-09-23] MEDS: lamoTRIgine 100 mg Tablet PO (09:30)
[2022-09-23] MEDS: lidocaine 5% Patch 1 PATCH TOPICAL (09:30)
[2022-09-23] MEDS: pantoprazole DR 40 mg Tablet PO (09:30)
[2022-09-23] MEDS: levETIRAcetam 500 mg Tablet 750 MG PO (09:30)
[2022-09-23 12:00] VITALS: BP 119/69; PULSE 75; RESP 16; TEMP 36.6; O2SAT 92
[2022-09-23 14:44] VITALS: BP 119/69; PULSE 75; RESP 16; TEMP 36.6; O2SAT 92
--- NOTE | 2022-09-24 15:53 | P.DS_ITS ---
Discharge Providers Date of Admission: 09/19/22 21:49 Date of Discharge: September 24, 2022 Attending Provider at Admission: Anu Almanzar MD Attending Provider at Discharge: Gene Guzman MD Primary Care Provider: Carlos Barba MD Diagnoses at Discharge Discharge Diagnosis (1) UTI (urinary tract infection): Status: Inactive (2) Ribs, multiple fractures: Status: Inactive (3) Intractable pain: Status: Inactive (4) Fall: Status: Inactive Qualifiers: Encounter type: initial encounter Qualified Code(s): W19.XXXA - Unspecified fall, initial encounter Reason for Visit Reason for Visit: RIGHT RIB PAIN Hospital Course Hospital Course 76-year-old female was admitted for the management of intractable right rib cage pain secondary to rib fracture after experiencing Fall 4 days ago prior to the admission, initially she was discharged on incentive spirometer and pain medications but she had to return back because the pain was interfering with her activities of daily life,Patient lives alone by herself, and was not able to take care of herself in view of the current situation.During the hospital stay.She was managed for intractable pain secondary to rib fracture She was kept on IV as well as oral pain medication, incentive spirometer, to which she responded well, at the time of discharge, chest pain was better controlled, she was discharged on p.o. pain medication. During the hospital stay she was also managed for UTI: Urine culture grew E. coli ESBL, blood cultures were negative,during the hospital stay she was kept on,Ceftriaxone but she was discharged on, p.o. Augmentin for 7 days. Overall during the hospital stay patient was afebrile, hemodynamically stable. [facility] Physical Exam Const: COMMON NORMALS: patient oriented x3 HENMT: COMMON NORMALS: normocephalic and atraumatic HEAD & SCALP: normocephalic and atraumatic Resp: COMMON NORMALS: clear to auscultation bilaterally EFFORT & INSPECTION: Yes symmetric chest movement AUSCULTATION: clear to auscultation bilaterally Cardio: COMMON NORMALS: regular rate, regular rhythm, S1 normal heart sound present, S2 normal heart sound present, No gallops present (Cardio), No murmurs present (Cardio), No rub (Cardio) and Peripheral pulses 2+ throughout RATE: regular rate RHYTHM: regular rhythm HEART SOUNDS: S1 normal heart sound present and S2 normal heart sound present PERIPHERAL PULSES: Peripheral pulses 2+ throughout GI: COMMON NORMALS: Normal to inspection, nondistended, normoactive bowel sounds present, Soft to palpation, non-tender, No hepatosplenomegaly present and no masses AUSCULTATION: Yes normoactive bowel sounds PALPATION: Yes Soft to palpation and Yes No hepatosplenomegaly present RECTAL EXAM: deferred Extremity: COMMON NORMALS: no clubbing, cyanosis or edema and no pedal edema Neuro: COMMON NORMALS: patient oriented x3 Discharge Data Studies Completed and Pending Completed Studies During Hospitalization Category Date Time Status XR chest 1V portable [id number] Stat Exams 09/19/22 17:21 Completed Pending at discharge Category Date Time Status Blood Culture Stat Lab 09/19/22 22:00 Results Radiology Impressions Chest X-Ray 09/19/22 17:21 IMPRESSION: Mild cardiomegaly. Lungs clear. No active disease. Laboratory Results WBC 5.4 10^3/uL (4.0-10.0) 09/23/22 04:57 RBC 4.62 10^6/uL (4.1-5.3) 09/23/22 04:57 Hgb 12.6 g/dL (11.5-15.3) 09/23/22 04:57 Hct 39.7 % (37.0-47.0) 09/23/22 04:57 MCV 85.9 fl (81-99) 09/23/22 04:57 MCH 27.3 pg (28.0-34.0) L 09/23/22 04:57 MCHC 31.7 g/dL (30.0-36.0) 09/23/22 04:57 RDW 13.3 % (12.1-15.1) 09/23/22 04:57 Plt Count 221 10^3/cmm (130-400) 09/23/22 04:57 MPV 9.7 fL (7.4-10.4) 09/23/22 04:57 Neut % (Auto) 50.4 % 09/23/22 04:57 Lymph % (Auto) 35.1 % 09/23/22 04:57 Maverick % (Auto) 8.1 % 09/23/22 04:57 Eos % (Auto) 5.1 % 09/23/22 04:57 Baso % (Auto) 0.9 % 09/23/22 04:57 Neut # (Auto) 2.74 10^3/uL (1.8-7.7) 09/23/22 04:57 Lymph # (Auto) 1.9 10^3/uL (0.8-4.8) 09/23/22 04:57 Maverick # (Auto) 0.4 10^3/uL (0.2-0.9) 09/23/22 04:57 Eos # (Auto) 0.3 10^3/uL (0.0-0.8) 09/23/22 04:57 Baso # (Auto) 0.1 10^3/uL (0.0-0.1) 09/23/22 04:57 Nucleated RBC % (auto) 0 % 09/23/22 04:57 Nucleated RBCs # 0.0 /100WBC 09/23/22 04:57 Sodium 139 mmol/L (136-145) 09/23/22 04:57 Potassium 4.1 mmol/L (3.5-5.1) 09/23/22 04:57 Chloride 105 mmol/L (98-107) 09/23/22 04:57 Carbon Dioxide 27 mmol/L (22-29) 09/23/22 04:57 Anion Gap 11.1 (5-19) 09/23/22 04:57 BUN 19 mg/dL (8-23) 09/23/22 04:57 Creatinine 0.6 mg/dL (0.5-0.9) 09/23/22 04:57 GFR Calculation Not Reportable 09/23/22 04:57 Glucose 94 mg/dL (65-115) 09/23/22 04:57 Calculated Osmolality 290 mOsm/kg (285-295) 09/23/22 04:57 Lactic Acid 0.7 mmol/L (0.5-2.2) 09/19/22 21:55 Calcium 9.2 mg/dL (8.5-10.5) 09/23/22 04:57 Total Bilirubin 0.2 mg/dL (0.15-1.2) 09/21/22 06:24 AST 11 U/L (0-32) 09/21/22 06:24 ALT 7 U/L (0-33) 09/21/22 06:24 Alkaline Phosphatase 69 U/L (35-105) 09/21/22 06:24 Creatine Kinase 32 U/L (26-192) 09/19/22 19: CK-MB (CK-2) 1.1 ng/mL (0-5.34) 09/19/22 19: CK-MB (CK-2) Rel Index % (0.0-10.4) 09/19/22 19: NT-Pro-B Natriuret Pep 126 pg/mL (0-450) 09/19/22 19: Total Protein 7.3 g/dL (6.6-8.7) 09/21/22 06:24 Albumin 4.0 g/dL (3.5-5.2) 09/21/22 06:24 Globulin 3.3 g/dL (1.3-4.6) 09/21/22 06:24 Urine Color Colorless (Yellow) 09/19/22 19: Urine Appearance Hazy (CLEAR) A 09/19/22 19: Urine pH 7 (5-7) 09/19/22 19: Ur Specific [place] 1.010 (1.005-1.030) 09/19/22 19: Urine Protein Neg (Negative) 09/19/22 19: Urine Glucose (UA) Norm (Normal) 09/19/22 19: Urine Ketones Negative (Negative) 09/19/22 19: Urine Blood Neg (Negative) 09/19/22 19: Urine Nitrate Positive (Negative) H 09/19/22 19: Urine Bilirubin Neg (Negative) 09/19/22 19: Urine Urobilinogen Norm mg/dL (Negative) 09/19/22 19:28 Ur Leukocyte Esterase 2+ (Negative) H 09/19/22 19:28 Urine RBC 0-4 /hpf (0-2) H 09/19/22 19:28 Urine WBC 25-40 /hpf (0-5) H 09/19/22 19:28 Ur Squamous Epith Cells 0-4 /hpf (0-5) H 09/19/22 19:28 Amorphous Sediment Not Reportable 09/19/22 19: Urine Bacteria 3+ /hpf (NONE) H 09/19/22 19:28 Vitals Last Vital Signs Temp 97.8 F 09/23/22 14:44 Pulse 75 09/23/22 14:44 Resp 16 09/23/22 14:44 BP 119/69 09/23/22 14:44 Pulse Ox 92 09/23/22 14:44 O2 Del Method Room Air 09/23/22 12:00 O2 Flow Rate 1 09/22/22 12:36 Discharge Plan Discharge Patient Disposition: Xfer SNF Condition: Stable Prescriptions: New acetaminophen 650 mg tablet extended release 650 mg PO Q6H PRN (Reason: pain) Qty: 20 0RF Augmentin 500-125 mg tablet 1 tab PO BID 7 Days Qty: 14 0RF Percocet 5-325 mg tablet 1 tab PO Q8H PRN (Reason: pain) 7 Days Qty: 14 0RF Continued Keppra 750 mg tablet 750 mg PO BID Qty: 180 2RF lamotrigine [Lamictal] 100 mg tablet 100 mg PO BID Qty: 60 5RF Rx Instructions: Take half a tablet twice a day for two weeks. Then increase to one tablet twice a day. methenamine hippurate 1 gram tablet 0.5 g PO BID Qty: 60 12RF Hold Instructions: Resume on 08/26/22. Rx Instructions: Take 1000 mg of vitamin C with each dose of methenamine ascorbic acid (vitamin C) [Vitamin C] 500 mg Tablet 1,000 mg PO DAILY tamsulosin 0.4 mg capsule 0.4 mg PO BEDTIME pantoprazole 20 mg tablet,delayed release (DR/EC) 20 mg PO DAILY hydrocodone-acetaminophen 5-325 mg tablet 1 tab PO .q4-6 PRN (Reason: pain) Qty: 20 0RF polysaccharide iron complex [Ferrex 150] 150 mg iron Capsule 150 mg PO QPM calcium carbonate-vitamin D3 [Calcium 600 + D(3)] 600 mg-10 mcg (400 unit) Tablet 1 tab PO BID diazepam 10 mg tablet 5 mg PO BEDTIME PRN (Reason: sleep) Discharge Orders: Discharge Order (Routine); Ordered 09/23/22 Ordered By: Saul Curry Referrals: Carlos Barba MD [Primary Care Provider] - 1 week Patient Instructions: Oxycodone/Acetaminophen (By mouth), Amoxicillin/Clavulanate Potassium (By mouth), Opioid Safety Discharge Attestations Time Spent in Discharge Care*: less than 30 min Quality Metrics Clinical Quality Measures [ No reported AMI, CVA or VTE this stay] Coding Level of Care Code Acute Code for Chg Fwd Diagnoses UTI (urinary tract infection) N39.0 Ribs, multiple fractures S22.49XA Intractable pain R52 Fall W19.XXXA Encounter type: initial encounter
== END 2022-09-23 14:47 | disposition skilled nursing facility (03) | DRG 184 ==
LOC: ER 17:28 → MEDSURG 21:49
PROVIDERS: Emergency Medicine; Internal Medicine; Admitting Provider Student in an Organized Health Care Education/Training Program; Emergency Provider Physician Assistant; PCP Family Medicine; Visit Provider Student in an Organized Health Care Education/Training Program
DX: S22.41XA Multiple fractures of ribs, right side, initial encounter for closed fracture (principal); Z16.12 Extended spectrum beta lactamase (ESBL) resistance; W19.XXXA Unspecified fall, initial encounter; Z79.891 Long term (current) use of opiate analgesic; G40.909 Epilepsy, unspecified, not intractable, without status epilepticus; N30.80 Other cystitis without hematuria; Z79.2 Long term (current) use of antibiotics; F41.9 Anxiety disorder, unspecified; K57.90 Diverticulosis of intestine, part unspecified, without perforation or abscess without bleeding; K21.9 Gastro-esophageal reflux disease without esophagitis; I10 Essential (primary) hypertension; D50.9 Iron deficiency anemia, unspecified; Z87.891 Personal history of nicotine dependence
CPT/HCPCS: 36415; 51798; 71045; 71101; 71250; 80048; 80053; 81001; 82550; 82553; 83605; 83880; 84484; 85025; 87040; 87077; 87086; 87186; 93005; 96365; 96372; 97110; 97116; 97161; 97165; 97535; 99213; 99285; J0696; J1650; J2270

== ENCOUNTER 2022-09-25 14:37 | Outpatient (CLI) | payer MEDICARE, MEDICAID, SELFPAY ==
[2022-09-30 13:04] LABS: Clostridium Difficile PCR NOT DETECTED (NOT DETECTED)
== END 2022-09-25 14:38 | disposition home or self-care (01) ==
LOC: LAB 14:42
PROVIDERS: PCP Family Medicine; Visit Provider Nurse Practitioner Family
DX: R19.7 Diarrhea, unspecified (principal)
CPT/HCPCS: 87493

== ENCOUNTER → 2023-02-03 14:01 | Outpatient (BNVA) | payer MEDICARE, MEDICAID, SELFPAY | PROVIDERS: PCP Family Medicine; Visit Provider Specialist | DX: G40.802 Other epilepsy, not intractable, without status epilepticus (principal) | CPT/HCPCS: 99213; 99214 ==

== ENCOUNTER → 2023-02-15 09:39 | Outpatient (BNVA) | payer MEDICARE, MEDICAID, SELFPAY | PROVIDERS: PCP Family Medicine; Visit Provider Family Medicine | DX: G40.802 Other epilepsy, not intractable, without status epilepticus (principal); D50.9 Iron deficiency anemia, unspecified; K21.9 Gastro-esophageal reflux disease without esophagitis; N39.46 Mixed incontinence | CPT/HCPCS: 80053; 80175; 80177; 85025 ==

== ENCOUNTER → 2023-05-20 14:18 | Outpatient (BNVA) | payer MEDICARE, MEDICAID, SELFPAY | PROVIDERS: PCP Family Medicine; Visit Provider Student in an Organized Health Care Education/Training Program | DX: Z96.642 Presence of left artificial hip joint (principal); Z48.89 Encounter for other specified surgical aftercare | CPT/HCPCS: 73502; 99213 ==

== ENCOUNTER → 2024-02-02 13:13 | Outpatient (BNVA) | payer MEDICARE, MEDICAID, SELFPAY | PROVIDERS: PCP Family Medicine; Visit Provider Specialist | DX: G40.802 Other epilepsy, not intractable, without status epilepticus (principal) | CPT/HCPCS: 99213 ==

== ENCOUNTER → 2024-02-07 16:02 | Outpatient (BNVA) | payer MEDICARE, MEDICAID, SELFPAY | PROVIDERS: PCP Family Medicine; Visit Provider Family Medicine | DX: Z86.69 Personal history of other diseases of the nervous system and sense organs (principal); D50.9 Iron deficiency anemia, unspecified; G40.802 Other epilepsy, not intractable, without status epilepticus | CPT/HCPCS: 80053; 80175; 80177; 85025 ==

== ENCOUNTER → 2024-09-21 16:44 | Outpatient (BNVA) | payer MEDICARE, MEDICAID, SELFPAY | PROVIDERS: PCP Family Medicine; Visit Provider Specialist | DX: G40.802 Other epilepsy, not intractable, without status epilepticus (principal) | CPT/HCPCS: 80164; 80175; 99214 ==

== ENCOUNTER 2024-11-27 20:05 | Emergency (ER) | payer OTHER, MEDICAID, SELFPAY ==
[2024-11-27 20:07] VITALS: BP 157/78; PULSE 83; RESP 16; TEMP 36.7; O2SAT 93; BMI 28.3
--- NOTE | 2024-11-27 20:09 | CTR_ITS ---
PROCEDURE INFORMATION: Exam: CT Head Without Contrast Exam date and time: 11/27/2024 8:36 PM Age: 78 years old Clinical indication: Other: Seizure TECHNIQUE: Imaging protocol: Computed tomography of the head without contrast. Radiation optimization: All CT scans at this facility use at least one of these dose optimization techniques: automated exposure control; mA and/or kV adjustment per patient size (includes targeted exams where dose is matched to clinical indication); or iterative reconstruction. COMPARISON: CT head wo con* [id number] 07/29/2022 11:04 AM RADIATION DOSE METRICS: Total DLP (mGy-cm): 1141.88 FINDINGS: Brain: There is mild cerebral atrophy. There are mild deep white matter microangiopathic ischemic changes. No acute hemorrhage is identified. No mass or mass effect is identified. Cerebral ventricles: The ventricles are prominent secondary to atrophy. Paranasal sinuses: The paranasal sinuses are clear. Mastoid air cells: The mastoid air cells are clear. Bones: No acute osseous abnormalities are seen. Soft tissues: The soft tissues are within normal limits. CT/CT head wo con* [id number] IMPRESSION: No acute intracranial pathology.
[2024-11-27 20:16] VITALS: BP 178/77; PULSE 87; O2SAT 92
--- NOTE | 2024-11-27 20:18 | W.ED.FALL ---
HPI - Fall General: Chief Complaint: Fall Stated Complaint: fall Time Seen by Provider: 11/27/24 20:06 Source: patient and EMS Mode of arrival: EMS Limitations: no limitations History of Present Illness: 78-year-old female with long history of seizures she states that she believes she had a seizure today EMS states a bystander called and witnessed seizure-like activity and she had been altered when they arrived patient was slightly postictal but she is now awake and alert she denies any pain she states she feels back to her normal self she does not remember what happened she denies any vomiting fevers Associated symptoms-after fall: Denies abdominal pain, chest pain, headache(s) or neck pain Related Data Home Medications ?Medication ?Instructions ?Recorded ?Confirmed ascorbic acid (vitamin C) 500 mg 1,000 mg PO DAILY 04/15/22 09/21/24 tablet (Vitamin C) calcium 600 mg (as 1 tab PO BID 07/29/22 09/21/24 carbonate)-vitamin D3 10 mcg (400 unit) tablet (Calcium 600 + D(3)) Previous Rx's ?Medication ?Instructions ?Recorded acetaminophen 650 mg 650 mg PO Q6H PRN pain #20 tabs 09/23/22 tablet,extended release ferrous sulfate 325 mg (65 mg 325 mg PO DAILY #90 tabs 11/16/22 iron) tablet lamotrigine 100 mg tablet 100 mg PO BID #180 tabs 02/02/24 (Lamictal) levetiracetam 750 mg tablet 750 mg PO BID #180 tabs 02/02/24 (Keppra) methenamine hippurate 1 gram tablet See Rx Instructions .Route 08/07/24 .COMPLEX #60 tabs diazepam 5 mg tablet 7.5 mg (1.5 x 5 mg) PO .at bed 08/15/24 time PRN anxiety #45 tabs omeprazole 20 mg capsule,delayed See Rx Instructions .Route 08/17/24 release .COMPLEX #180 caps tamsulosin 0.4 mg capsule See Rx Instructions .Route 10/18/24 .COMPLEX #90 caps Allergies Allergy/AdvReac Type Severity Reaction Status Date / Time divalproex sodium (From Allergy N/V and Verified 09/21/24 14:50 Depakote) dizziness sulfamethoxazole (From Allergy headache Verified 09/21/24 14:50 Bactrim) and seizures trimethoprim (From Bactrim) Allergy headache Verified 09/21/24 14:50 and seizures Review of Systems Const: Denies: fever(s), chills, body aches or change in appetite Eyes: Denies: blurry vision ENMT: Denies: throat pain or dental pain Card: Denies: chest pain Resp: Denies: dyspnea GI: Denies: abdominal pain, nausea, vomiting or diarrhea Musc: Denies: neck pain or back pain Skin/Breast: Denies: rash Neuro: Reports: seizure-like activity; Denies: headache(s) PFSH ED PFSH: Medical History Intractable pain Ribs, multiple fractures Multiple fractures of ribs of right side UTI (urinary tract infection) Fall UTI (urinary tract infection) Recurrent UTI Insomnia Urgency incontinence Iron deficiency anemia Dysphagia Laceration Laceration of head Fall Microcytic anemia Melanotic stools Elevated troponin I level Bilateral hydronephrosis Secondary to bladder distention and incomplete emptying Cystitis cystica Overflow incontinence Urinary retention intermittent catheterization Mixed stress and urge urinary incontinence Temporal lobe epilepsy, intractable Frequent headaches Osteopenia Mild cognitive impairment Partial epilepsy secondarily generalized Cholelithiasis Diverticulosis Hiatal hernia Epilepsy Focused based right temporal lobe epilepsy patient does not wish to have surgery for intractable seizures Anxiety Hypertension GERD without esophagitis Surgical History History of left hip hemiarthroplasty History of ear surgery (~2014) Right. Dr Khan History of total hysterectomy (~1982) TVH (still has ovaries) for bleeding. Performed by Dr. Armstrong at [facility] Family History Brother Diabetes Heart disease Hypercholesteremia Hypertension Mother , at age 72 Scoliosis Lung disease Father , at age 89 No problems noted. Social History Smoking and tobacco/nicotine status: never used tobacco/nicotine Quit status (tobacco/nicotine): has quit using Year quit tobacco: 2012 Former quit date comment: smoked 20 years Alcohol intake: never Substance/Drug Use: never Lives independently: Yes Housing: House Marital status: / Current occupational status: retired Physical Exam Const: COMMON NORMALS: no acute distress, patient oriented x3 and healthy appearing HENMT: COMMON NORMALS: normocephalic and atraumatic HEAD & SCALP: normocephalic and atraumatic Eye: COMMON NORMALS: conjunctivae normal CONJUNCTIVA: Yes conjunctivae normal Neck/C-Spine: COMMON NORMALS: full ROM and supple Chest: COMMONS NORMALS: normal inspection of the chest and normal palpation of entire chest wall Resp: COMMON NORMALS: normal respiratory effort, No retractions, No use of accessory muscles and clear to auscultation bilaterally AUSCULTATION: clear to auscultation bilaterally Cardio: COMMON NORMALS: regular rate, regular rhythm and No murmurs present (Cardio) RATE: regular rate RHYTHM: regular rhythm GI: COMMON NORMALS: Normal to inspection, nondistended, normoactive bowel sounds present, Soft to palpation, non-tender and no masses PALPATION: Yes Soft to palpation Extremity: COMMON NORMALS: normal to inspection and full ROM Neuro: COMMON NORMALS: patient oriented x3, moves all extremities and no focal motor deficits Psych: COMMON NORMALS: mental status grossly normal, Normal thought process present and cooperative THOUGHT PROCESS: Normal thought process present Skin: COMMON NORMALS: no rashes or lesions noted and no wounds GENERAL SKIN EXAM: no rashes or lesions noted Course Vital Signs: Vital signs: Vital Signs Temperature 98.1 F 11/27/24 20:07 Pulse Rate 87 11/27/24 20:16 Respiratory Rate 16 11/27/24 20:07 Blood Pressure 178/77 11/27/24 20:16 Pulse Oximetry 92 11/27/24 20:16 Oxygen Delivery Me thod Room Air 11/27/24 20:16 MDM - Fall Medical Decision Making Patient presents here after a seizure she is well-appearing here head CT was normal she stable for discharge follow-up PCP return if worsening. Medical Records I reviewed the patient's medical records. Lab Data Radiology Impressions Head CT 11/27/24 20:09 IMPRESSION: No acute intracranial pathology. No radiology studies performed this visit Discharge Plan Discharge Patient Disposition: Home Clinical Impression: Seizure Condition: Stable Prescriptions: No Action lamotrigine [Lamictal] 100 mg tablet 100 mg PO BID Qty: 180 3RF Keppra 750 mg tablet 750 mg PO BID Qty: 180 3RF methenamine hippurate 1 gram tablet See Rx Instructions .ROUTE .COMPLEX Qty: 60 9RF Dose Instruction: take 1/2 tablet BY MOUTH TWICE DAILY. TAKE 1000MG OF VITAMIN C WITH EACH DOSE OF METHENAMINE Rx Instructions: take 1/2 tablet BY MOUTH TWICE DAILY. TAKE 1000MG OF VITAMIN C WITH EACH DOSE OF METHENAMINE ferrous sulfate 325 mg (65 mg iron) tablet 325 mg PO DAILY Qty: 90 3RF diazepam 5 mg tablet 7.5 mg PO .at bed time PRN (Reason: anxiety) Qty: 45 5RF omeprazole 20 mg capsule,delayed release(DR/EC) See Rx Instructions .ROUTE .COMPLEX Qty: 180 2RF Dose Instruction: take 1 capsule BY MOUTH TWICE DAILY Rx Instructions: take 1 capsule BY MOUTH TWICE DAILY tamsulosin 0.4 mg capsule See Rx Instructions .ROUTE .COMPLEX Qty: 90 1RF Dose Instruction: take 1 capsule BY MOUTH AT BEDTIME Rx Instructions: take 1 capsule BY MOUTH AT BEDTIME ascorbic acid (vitamin C) [Vitamin C] 500 mg Tablet 1,000 mg PO DAILY acetaminophen 650 mg tablet extended release 650 mg PO Q6H PRN (Reason: pain) Qty: 20 0RF calcium carbonate-vitamin D3 [Calcium 600 + D(3)] 600 mg-10 mcg (400 unit) Tablet 1 tab PO BID Discharge Orders: Discharge ED (Routine); Ordered 11/27/24 Ordered By: Marisela Loja Referrals: Carlos Barba MD [Primary Care Provider, Family Practice] Discharge Diet: Advance as tolerated Discharge Activity: Resume usual activity Patient Instructions: Generalized Tonic Clonic Seizures (ED) Print Language: Pashto Coding Level of Care Code ED Manager Administrative Services for Carmelina Cabello
--- OUTSIDE RECORDS SUMMARY | 2024-11-27 20:20 | XMS_ITS ---
Author Organization [facility] are Care Team Providers Care Director Of Archives Name Role Phone Estelita Fierro Unavailable Unavailable Chirag Ballard Unavailable Unavailable Luba Laws Unavailable Unavailable Marissa Ballard Unavailable Unavailable Ramakrishna Hammond Unavailable Unavailable Allergies and adverse reactions Code CodeSystem Substance Reaction Severity StartDate Concern Status Sulfamethoxazole /Trimethop rim Unknown 04/20/2022 active Depakote Unknown 04/20/2022 active Care Team Name Role Address Phone Organization Dates Chirag Ballard PCP [address] [place], [address], [place] (Office): : [facility] 09/23/2022 - 10/02/2022 Estelita Fierro [address], [address], [facility] (Office): : [facility] 09/23/2022 - 10/02/2022 Luba Laws [address], [address], [facility] (Office): : [facility] 09/23/2022 - 10/02/2022 Marissa Jeffersonston [address] [place], [address], [facility] (Office): : : [facility] 09/23/2022 - 10/02/2022 Ramakrishna Manish [address] [place], [address], [facility] (Office): : : [phone] [facility] 09/23/2022 - 10/02/2022 Immunizations Immunization Status Vaccine Details Vaccine Code CodeSystem Date Notes TB 1 Step Mantoux (PPD) completed tuberculin skin test; unspecified formulation lotNumber: [id number] expiry: 04/02/2023 Mfg: TUBERCULIN Given 5.0 unit Right Forearm intradermally 98 CVX created date: 04/21/2022 consent date: 04/20/2022 administer ed date: 04/20/2022 Educated by Sy Barker LPN on 04/20/2022 Read By Irene Collazo RN m SARS-COV-2 (COVID-19) completed SARS-COV-2 (COVID-19) vaccine, D614, prefusion spike recombinant protein subunit (CoV2 preS dTM), AS03 adjuvant added, preservative free, 5mcg/0.5mL dose Mfg: Moderna Given intramuscularly Step 2 of Multi-step with next step required 225 CVX created date: 04/21/2022 administer ed date: 10/14/2020 SARS-COV-2 (COVID-19) completed SARS-COV-2 (COVID-19) vaccine, D614, prefusion spike recombinant protein subunit (CoV2 preS dTM), AS03 adjuvant added, preservative free, 5mcg/0.5mL dose Mfg: Moderna Given intramuscularly Step 1 of Multi-step with next step required 225 CVX created date: 04/21/2022 administer ed date: 09/16/2020 SARS - COV2 (Moderna) Booster completed SARS-COV-2 (COVID-19) vaccine, mRNA, spike protein, LNP, preservative free, 100 mcg/0.5mL dose or 50 mcg/0.25mL dose Mfg: Moderna booster Given intramuscularly 207 CVX created date: 04/21/2022 administer ed date: 04/17/2021 Mental Status Section Date Assessment Total Score Description 10/02/2022 CAM 0 No delirium ind icated PHQ-9 00 09/28/2022 BIMS 15 cognitively int act CAM 0 No delirium ind icated PHQ-9 00 Problems Problem # Description Date of onset Resolved Date Code CodeSystem Concern Status 1 ANXIETY DISORDER, UNSPECIFIED 09/24/[address] active 2 CONSTIPATION, UNSPECIFIED 09/24/[address] active 3 ENCOUNTER FOR IMMUNIZATION 09/24/[address] active 4 GASTRO-ESOPHAGEA L REFLUX DISEASE WITHOUT ESOPHAGITIS 09/24/[address] active 5 INSOMNIA, UNSPECIFIED 09/24/[address] active 6 LOCALIZATION-REL ATED (FOCAL) (PARTIAL) SYMPTOMATIC EPILEPSY AND EPILEPTIC SYNDROMES WITH COMPLEX PARTIAL SEIZURES, NOT INTRACTABLE, WITH STATUS EPILEPTICUS 09/24/[address] active 7 MULTIPLE FRACTURES OF RIBS, UNSPECIFIED SIDE, SUBSEQUENT ENCOUNTER FOR FRACTURE WITH ROUTINE HEALING 09/24/[address] active 8 OTHER DIFFICULTIES WITH MICTURITION 09/24/[address] active 9 PAIN, UNSPECIFIED 09/24/[address] active 10 PERSONAL HISTORY OF URINARY (TRACT) INFECTIONS 09/24/[address] active 11 URINARY TRACT INFECTION, SITE NOT SPECIFIED 09/24/[address] active 12 VITAMIN DEFICIENCY, UNSPECIFIED 09/24/[address] active 13 LOCALIZATION-REL ATED (FOCAL) (PARTIAL) IDIOPATHIC EPILEPSY AND EPILEPTIC SYNDROMES WITH SEIZURES OF LOCALIZED ONSET, NOT INTRACTABLE, WITH STATUS EPILEPTICUS 04/21/20 22 09/21/[address] completed 14 ANEMIA, UNSPECIFIED 04/20/20 22 09/07/[address] completed 15 COGNITIVE COMMUNICATION DEFICIT 04/20/20 22 09/14/[address] completed 16 CONSTIPATION, UNSPECIFIED 04/20/20 22 09/21/[address] completed 17 ENCOUNTER FOR IMMUNIZATION 04/20/20 22 09/13/[address] completed 18 FRACTURE OF UNSPECIFIED PART OF NECK OF LEFT FEMUR, SUBSEQUENT ENCOUNTER FOR CLOSED FRACTURE WITH ROUTINE HEALING 04/20/20 22 09/22/[address] completed 19 GASTRO-ESOPHAGEA L REFLUX DISEASE WITHOUT ESOPHAGITIS 04/20/20 22 09/07/[address] completed 20 LOCALIZATION-REL ATED (FOCAL) (PARTIAL) SYMPTOMATIC EPILEPSY AND EPILEPTIC SYNDROMES WITH COMPLEX PARTIAL SEIZURES, NOT INTRACTABLE, WITHOUT STATUS EPILEPTICUS 04/20/20 22 09/07/[address] completed 21 MUSCLE WEAKNESS (GENERALIZED) 04/20/20 22 09/21/[address] completed 22 NAUSEA 04/20/20 22 09/14/[address] completed 23 NEED FOR ASSISTANCE WITH PERSONAL CARE 04/20/20 22 09/14/[id number] completed 24 PAIN, UNSPECIFIED 04/20/20 22 09/13/[address] completed 25 RETENTION OF URINE, UNSPECIFIED 04/20/20 22 08/31/[address] completed 26 UNSTEADINESS ON FEET 04/20/20 22 09/21/[address] completed 27 URINARY TRACT INFECTION, SITE NOT SPECIFIED 04/20/20 22 08/31/[address] completed 28 VITAMIN DEFICIENCY, UNSPECIFIED 04/20/20 22 09/14/[address] completed Reason for Referral No Reasons for Referral Entered Social History Social History Observation Description Start Date End Date Code Code System Current Smoking Status Tobacco smoking consumption unknown 244947334 SNOMED CT Sex Assigned At Female 1945 45987-6 [facility] Gender Identity Female [id number] Vital Signs Code Code System Vitals Name Values and Units Timing Information 9279-1 [facility] Respiratory Rate Value=24.0 Units=/m in 10/02/2022 8462-4 [facility] Blood Pressure-Diastolic Value=62 Un its=mmHg 10/02/2022 8480-6 [facility] Blood Pressure-Systolic Gknus=600 Un its=mmHg 10/02/2022 8310-5 [facility] Body Temperature Value=97.5 Units= F 10/02/2022 8867-4 [facility] Heart rate Value=76.0 Units=/min 06/2022 54427-6 [facility] O2 % BldC Oximetry Value=95.0 Units= % 10/02/2022 39256-2 [facility] Pain Level Value=1.0 10/02/2022 35552-6 [facility] Weight Kydkr=388.0 Units=Lbs 06/2022 8302-2 [facility] Height Value=63.0 Units=Inches 09/23/2022
--- OUTSIDE RECORDS SUMMARY | 2024-11-27 20:20 | XMS_ITS | Clinical Summary ---
Author Organization [facility] Address [address] [place] [address] Phone Care Team Providers Care Hotel Operations Manager Name Role Phone Carlos Barba MD Primary Care Provider [phone] Allergies Active Allergy Reactions Criticality Noted Date Comments Divalproex Nausea and Vomiting Low 06/15/2018 Medications lamoTRIgine (LaMICtal XR) 250 mg Extended Release 24 hour tablet Take 250 mg by mouth daily 2 tablets once daily . Active metoprolol tartrate (LOPRESSOR) 50 mg tablet Take 50 mg by mouth 2 times daily. Active raNITIdine (ZANTAC) 150 mg tablet Take 150 mg by mouth 2 times daily. Active diazePAM (VALIUM) 10 mg tablet Take 10 mg by mouth every 12 hours as needed for Anxiety (bedtime and every day as needed; bid). 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 Gender Identity Not on file Sexual Orientation Not on file Last Filed Vital Signs Vital Sign Reading Time Taken Comments Blood Pressure 132/69 06/18/2018 8:03 AM JOINT CLEANING MACHINE OPERATOR Pulse 73 06/18/2018 8:03 AM JOINT CLEANING MACHINE OPERATOR Temperature 36.4 C (97.6 F) 06/18/2018 8:03 AM JOINT CLEANING MACHINE OPERATOR Respiratory Rate 18 06/18/2018 8:03 AM JOINT CLEANING MACHINE OPERATOR Oxygen Saturation 93% 06/18/2018 8:03 AM JOINT CLEANING MACHINE OPERATOR Inhaled Oxygen Concentration - - Weight 67.5 kg (148 lb 13 oz) 06/17/2018 3:58 PM JOINT CLEANING MACHINE OPERATOR Height 160 cm (5' 3 ) 06/17/2018 3:58 PM JOINT CLEANING MACHINE OPERATOR Body Mass Index 26.36 06/17/2018 3:58 PM JOINT CLEANING MACHINE OPERATOR Plan of Treatment Health Maintenance Due Date Last Done Comments DTAP/TDAP/TD VACCINES (1 - Tdap) 1965 PNEUMOCOCCAL VACCINE 50+ YEARS (1 of 1 - PCV) 12/11/18 97 ZOSTER VACCINE (1 of 2) 1996 OSTEOPOROSIS SCREENING 12/12/2011 RSV VACCINE (60+ or ) (1 - 1-dose 75+ series) 2021 INFLUENZA VACCINE (#1) 2024 Insurance MEDICARE PART A AND B MEDICAID [place] Advance Directives For more information, please contact: [phone] * Full Code (Latest Code Status on File) Date Activated Date Inactivated Comments 06/17/2018 10:54 AM 06/18/2018 7:20 PM Care Teams Hotel Operations Manager Relationship Specialty Start Date End Date Carlos Barba MD [address] [facility] [address] [place] [id number] PCP - General Family Practice 06/03/18
[2024-11-27 21:25] VITALS: BP 160/88; PULSE 82; O2SAT 92
== END 2024-11-27 21:31 | disposition home or self-care (01) ==
PROVIDERS: Emergency Provider Emergency Medicine; PCP Family Medicine
DX: R56.9 Unspecified convulsions (principal); Z87.891 Personal history of nicotine dependence; I10 Essential (primary) hypertension
CPT/HCPCS: 70450; 99284

== ENCOUNTER → 2025-02-05 14:40 | Outpatient (BNVA) | payer OTHER, MEDICAID, SELFPAY | PROVIDERS: PCP Family Medicine; Visit Provider Family Medicine | DX: D50.9 Iron deficiency anemia, unspecified (principal) | CPT/HCPCS: 80053; 80175; 85025 ==

== ENCOUNTER 2025-02-12 16:29 | Emergency (ER) | payer OTHER, MEDICAID, SELFPAY ==
[2025-02-12 16:33] VITALS: BP 187/90; PULSE 89; RESP 17; TEMP 36.7; O2SAT 92
--- OUTSIDE RECORDS SUMMARY | 2025-02-12 16:39 | XMS_ITS | Clinical Summary ---
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 Gender Identity Not on file Sexual Orientation Not on file Last Filed Vital Signs Vital Sign Reading Time Taken Comments Blood Pressure 132/69 06/18/2018 8:03 AM WORKERS COMPENSATION ADMINISTRATOR Pulse 73 06/18/2018 8:03 AM WORKERS COMPENSATION ADMINISTRATOR Temperature 36.4 C (97.6 F) 06/18/2018 8:03 AM WORKERS COMPENSATION ADMINISTRATOR Respiratory Rate 18 06/18/2018 8:03 AM WORKERS COMPENSATION ADMINISTRATOR Oxygen Saturation 93% 06/18/2018 8:03 AM WORKERS COMPENSATION ADMINISTRATOR Inhaled Oxygen Concentration - - Weight 67.5 kg (148 lb 13 oz) 06/17/2018 3:58 PM WORKERS COMPENSATION ADMINISTRATOR Height 160 cm (5' 3 ) 06/17/2018 3:58 PM WORKERS COMPENSATION ADMINISTRATOR Body Mass Index 26.36 06/17/2018 3:58 PM WORKERS COMPENSATION ADMINISTRATOR Plan of Treatment Health Maintenance Due Date Last Done Comments DTAP/TDAP/TD VACCINES (1 - Tdap) 1965 PNEUMOCOCCAL VACCINE 50+ YEARS (1 of 1 - PCV) 12/11/18 97 ZOSTER VACCINE (1 of 2) 1996 OSTEOPOROSIS SCREENING 12/12/2011 RSV VACCINE (60+ or ) (1 - 1-dose 75+ series) 2021 INFLUENZA VACCINE (#1) 2024 Insurance MEDICARE PART A AND B MEDICAID [place] Advance Directives For more information, please contact: [phone] * Full Code (Latest Code Status on File) Date Activated Date Inactivated Comments 06/17/2018 10:54 AM 06/18/2018 7:20 PM Care Teams Driver Trainee Relationship Specialty Start Date End Date Carlos Barba MD [address] [facility] [address] [place] [id number] PCP - General Family Practice 06/03/18
--- NOTE | 2025-02-12 16:47 | CTR_ITS ---
PROCEDURE INFORMATION: Exam: CT Head Without Contrast Exam date and time: 02/12/2025 5:32 PM Age: 79 years old Clinical indication: Injury or trauma; Blunt trauma (contusions or hematomas); Consciousness not specified; Injury date: 02/12/2025; Fall, head injury. Pts caregiver says she fell and hit her head this am, later having a seizure and falling. PT states back of her head is sore, PT is able to ambulate to bed with assistance. TECHNIQUE: Imaging protocol: Computed tomography of the head without contrast. Radiation optimization: All CT scans at this facility use at least one of these dose optimization techniques: automated exposure control; mA and/or kV adjustment per patient size (includes targeted exams where dose is matched to clinical indication); or iterative reconstruction. COMPARISON: CT head wo con* [id number] 11/27/2024 8:36 PM RADIATION DOSE METRICS: Total DLP (mGy-cm): 1106.88 FINDINGS: Brain: Mild nonspecific white matter low attenuation which may be related to microvascular ischemic changes. No acute confluent lobar ischemic infarct. Stable focal encephalomalacia involving the left middle frontal gyrus. No acute intracranial hemorrhage. Cerebral ventricles: The ventricles and sulci are prominent in size compatible with moderate atrophy. Paranasal sinuses: No fluid levels. Mastoid air cells: Visualized mastoid air cells are well aerated. Bones: No acute calvarial fracture. Soft tissues: Visualized soft tissues are unremarkable. CT/CT head wo con* [id number] IMPRESSION: No acute intracranial abnormality. If symptoms persist, consider further evaluation with MRI, if there are no contraindications to obtaining a MRI scan.
--- NOTE | 2025-02-12 16:56 | W.ED.FALL ---
HPI - Fall General: Chief Complaint: Fall Stated Complaint: Fell outside and than had a sesure inside thehouse Time Seen by Provider: 02/12/25 16:52 History of Present Illness: 79-year-old female with a history of seizure disorder on lamotrigine and Keppra, anxiety on chronic diazepam therapy, insomnia, frequent headaches, diverticulosis, hypertension and GERD who presents emergency room after having multiple seizures today. Apparently she hit her head. She has some abrasions on her forehead. No reports of any physical ailments at this time. No cough. No fever. No chest pain. No abdominal pain. No nausea or vomiting. She has been taking her medications as instructed. She follows with Dr. Reese in neurology clinic. Caregiver says seizure lasted about 5 minutes and she was postictal for some time after. Related Data Home Medications ?Medication ?Instructions ?Recorded ?Confirmed ascorbic acid (vitamin C) 500 mg 1,000 mg PO DAILY 04/15/22 02/05/25 tablet (Vitamin C) calcium 600 mg (as 1 tab PO BID 07/29/22 02/05/25 carbonate)-vitamin D3 10 mcg (400 unit) tablet (Calcium 600 + D(3)) Previous Rx's ?Medication ?Instructions ?Recorded acetaminophen 650 mg 650 mg PO Q6H PRN pain #20 tabs 09/23/22 tablet,extended release ferrous sulfate 325 mg (65 mg 325 mg PO DAILY #90 tabs 11/16/22 iron) tablet levetiracetam 750 mg tablet 750 mg PO BID #180 tabs 02/02/24 (Keppra) methenamine hippurate 1 gram tablet See Rx Instructions .Route 08/07/24 .COMPLEX #60 tabs omeprazole 20 mg capsule,delayed See Rx Instructions .Route 08/17/24 release .COMPLEX #180 caps tamsulosin 0.4 mg capsule See Rx Instructions .Route 10/18/24 .COMPLEX #90 caps lamotrigine 100 mg tablet See Rx Instructions .Route 01/24/25 .COMPLEX #180 tabs cefdinir 300 mg capsule 300 mg PO BID 7 days #14 caps 02/12/25 diazepam 5 mg tablet 7.5 mg (1.5 x 5 mg) PO .at bed 02/12/25 time PRN anxiety #45 tabs Allergies Allergy/AdvReac Type Severity Reaction Status Date / Time divalproex sodium (From Allergy N/V and Verified 02/12/25 16:42 Depakote) dizziness sulfamethoxazole (From Allergy headache Verified 02/12/25 16:42 Bactrim) and seizures trimethoprim (From Bactrim) Allergy headache Verified 02/12/25 16:42 and seizures Review of Systems Narrative: Constitutional symptoms: Negative except as documented in HPI. Skin symptoms: Negative except as documented in HPI. Eye symptoms: Negative except as documented in HPI. ENMT symptoms: Negative except as documented in HPI. Respiratory symptoms: Negative except as documented in HPI. Cardiovascular symptoms: Negative except as documented in HPI. Gastrointestinal symptoms: Negative except as documented in HPI. Genitourinary symptoms: Negative except as documented in HPI. Musculoskeletal symptoms: Negative except as documented in HPI. Neurologic symptoms: Negative except as documented in HPI. Psychiatric symptoms: Negative except as documented in HPI. Endocrine symptoms: Negative except as documented in HPI. PFS ED PFSH: Medical History (Updated 02/12/25 @ 18:24 by Dorota Cruz MD) Intractable pain Ribs, multiple fractures Multiple fractures of ribs of right side UTI (urinary tract infection) Fall UTI (urinary tract infection) Recurrent UTI Insomnia Urgency incontinence Iron deficiency anemia Dysphagia Laceration Laceration of head Fall Microcytic anemia Melanotic stools Elevated troponin I level Bilateral hydronephrosis Secondary to bladder distention and incomplete emptying Cystitis cystica Overflow incontinence Urinary retention intermittent catheterization Mixed stress and urge urinary incontinence Temporal lobe epilepsy, intractable Frequent headaches Osteopenia Mild cognitive impairment Partial epilepsy secondarily generalized Cholelithiasis Diverticulosis Hiatal hernia Epilepsy Focused based right temporal lobe epilepsy patient does not wish to have surgery for intractable seizures Anxiety Hypertension GERD without esophagitis Surgical History History of left hip hemiarthroplasty History of ear surgery (~2014) Right. Dr Khan History of total hysterectomy (~1982) TVH (still has ovaries) for bleeding. [place] Armstrong [place] [facility] [place] Family History Brother Diabetes Heart disease Hypercholesteremia Hypertension Mother , at age 72 Scoliosis Lung disease Father , at age 89 No problems noted. Social History Smoking and tobacco/nicotine status: former use of tobacco/nicotine Quit status (tobacco/nicotine): has quit using Year quit tobacco: 2012 Former quit date comment: smoked 20 years Alcohol intake: never Substance/Drug Use: never Lives independently: Yes Housing: House Marital status: / Current occupational status: retired Physical Exam Narrative: EXAM NARRATIVE: General: Alert, no acute distress. Skin: Warm, dry. Head: Normocephalic, some abrasions to the right forehead and cheek.. Neck: Supple, trachea midline. Eye: Extraocular movements are intact. Ears, nose, mouth and throat: mucosa moist. Cardiovascular: Regular, Normal peripheral perfusion. Respiratory: Lungs are clear to auscultation, respirations are non-labored, breath sounds are equal, Symmetrical chest wall expansion. Gastrointestinal: Soft, Nontender, Non distended Musculoskeletal: Normal ROM, no deformity. Neurological: Alert and oriented, No focal neurological deficit observed. Psychiatric: Cooperative, appropriate mood & affect. Course Vital Signs: Vital signs: Vital Signs Temperature 98.1 F 02/12/25 16:33 Pulse Rate 91 02/12/25 18:53 Respiratory Rate 17 02/12/25 16:33 Blood Pressure 181/88 02/12/25 18:53 Pulse Oximetry 93 02/12/25 18:53 Oxygen Delivery Me thod Room Air 02/12/25 18:03 MDM - Fall Medical Decision Making Medical decision making: Differential diagnosis for this patient with a complaint of seizure like activity would include but not be limited to, and based on the above HPI, review of systems and physical exam: seizure, DT's, alcohol withdrawal, brain malignancy, pseudo-seizure, syncope. Orders placed to evaluate differential diagnosis based on the above differential, HPI and physical exam CT head: No acute intracranial process. No intracranial hemorrhage, no evidence of infarct. No evidence of acute fracture. This was reviewed and interpreted by myself the emergency room physician. I also reviewed the radiology report. Lab Review: Laboratory results were reviewed and interpreted by myself the emergency room physician No leukocytosis. No anemia. No renal failure. Liver enzymes are normal. Urine is positive for urinary tract infection lactic acid is not elevated so I do not think this was a life-threatening seizure. I reviewed the patient's medical record. Reexamination: Patient remained stable. No increased work of breathing. No altered mental status. No focal motor deficits. Assessment and plan: Seizure Urinary tract infection ? IV Keppra load and IV Rocephin in the emergency room. - Discharged home - Discussed plan with patient. Answered any questions. - Evaluation and treatment of this problem were appropriate in the emergency setting. Lab Data 02/12/25 17:06 02/12/25 17:[address] 02/12/25 16:47 IMPRESSION: No acute intracranial abnormality. If symptoms persist, consider further evaluation with MRI, if there are no contraindications to obtaining a MRI scan. Laboratory Results WBC 7.03 10^3/uL (3.29-11.43) 02/12/25 17:06 RBC 5.36 10^6/uL (3.85-5.65) 02/12/25 17:06 Hgb 15.20 g/dL (11.27-16.99) 02/12/25 17:06 Hct 46.6 % (36-47) 02/12/25 17:06 MCV 86.9 fl (85-98) 02/12/25 17:06 MCH 28.4 pg (27-33) 02/12/25 17:06 MCHC 32.6 g/dL (30-55) 02/12/25 17:06 RDW 12.9 % (12.1-15.1) 02/12/25 17:06 Plt Count 205 10^3/cmm (157-399) 02/12/25 17:06 MPV 9.3 fL (7.4-10.4) 02/12/25 17:06 Neut % (Auto) 63.8 % 02/12/25 17:06 Lymph % (Auto) 23.9 % 02/12/25 17:06 [place] % (Auto) 9.2 % 02/12/25 17:06 Eos % (Auto) 1.8 % 02/12/25 17:06 Baso % (Auto) 0.7 % 02/12/25 17:06 Neut # (Auto) 4.48 10^3/uL (1.8-7.7) 02/12/25 17:06 Lymph # (Auto) 1.7 10^3/uL (0.8-4.8) 02/12/25 17:06 [place] # (Auto) 0.7 10^3/uL (0.2-0.9) 02/12/25 17:06 Eos # (Auto) 0.1 10^3/uL (0.0-0.8) 02/12/25 17:06 Baso # (Auto) 0.1 10^3/uL (0.0-0.1) 02/12/25 17:06 Nucleated RBC % (auto) 0 % 02/12/25 17:06 Nucleated RBCs # 0.0 /100WBC 02/12/25 17:06 Specimen Type Arterial 02/12/25 17:00 Sample Site Brachial, right 02/12/25 17:00 ABG pH 7.42 (7.35-7.45) 02/12/25 17:00 ABG pCO2 43.3 mmHg (35-45) 02/12/25 17:00 ABG pO2 66.7 mmHg (80.0-100.0) L 02/12/25 17:00 ABG PO2/FiO2 Ratio 317 02/12/25 17:00 ABG HCO3 28.1 mmol/L (22-26) H 02/12/25 17:00 ABG O2 Saturation 94.4 02/12/25 17:00 ABG Base Excess 3.1 mmol/L (-2.0-2.0) H 02/12/25 17:00 Fausto Test N/a 02/12/25 17:00 A-a O2 Gradient 3.9 mmHg (5-10) L 02/12/25 17:00 Hematocrit 46.5 % (37-47) 02/12/25 17:00 Hgb O2 Saturation 92.5 % (95-100) L 02/12/25 17:00 Carboxyhemoglobin 1.1 %THgb (0.4-20.1) 02/12/25 17:00 Methemoglobin 0.9 % (0.4-1.5) 02/12/25 17:00 Total Hemoglobin 15.2 g/dL (12-16) 02/12/25 17:00 Sodium 140.0 mmol/L (131-143) 02/12/25 17:00 Potassium 3.7 mmol/L (3.5-5.0) 02/12/25 17:00 Glucose 114.0 mg/dL (70-115) 02/12/25 17:00 Ionized Calcium 1.2 mmol/L (1.1-1.4) 02/12/25 17:00 O2 Delivery Device Room air 02/12/25 17:00 FiO2 21.0 % 02/12/25 17:00 Battery Charger Tester ID Amh 02/12/25 17:00 Sodium 139 mmol/L (136-145) 02/12/25 17:06 Potassium 4.1 mmol/L (3.5-5.1) 02/12/25 17:06 Chloride 99 mmol/L (98-107) 02/12/25 17:06 Carbon Dioxide 27 mmol/L (22-29) 02/12/25 17:06 Anion Gap 17.1 (5-19) 02/12/25 17:06 BUN 11 mg/dL (8-23) 02/12/25 17:06 Creatinine 0.7 mg/dL (0.5-0.9) 02/12/25 17:06 GFR Calculation Not Reportable 02/12/25 17:06 Glucose 111 mg/dL (65-115) 02/12/25 17:06 Calculated Osmolality 288 mOsm/kg (285-295) 02/12/25 17:06 Lactic Acid 1.5 mmol/L (0.5-2.2) 02/12/25 17:06 Calcium 9.9 mg/dL (8.5-10.5) 02/12/25 17:06 Total Bilirubin 0.4 mg/dL (0.15-1.2) 02/12/25 17:06 AST 19 U/L (0-32) 02/12/25 17:06 ALT 19 U/L (0-33) 02/12/25 17:06 Alkaline Phosphatase 78 U/L (35-105) 02/12/25 17:06 Total Protein 8.0 g/dL (6.6-8.7) 02/12/25 17:06 Albumin 4.7 g/dL (3.5-5.2) 02/12/25 17:06 Globulin 3.3 g/dL (1.3-4.6) 02/12/25 17:06 Urine Color Yellow (Yellow) 02/12/25 17:50 Urine Appearance Clear (CLEAR) 02/12/25 17:50 Urine pH 7.0 (5-7) 02/12/25 17:50 Ur Specific [place] 1.004 (1.005-1.030) L 02/12/25 17:50 Urine Protein Negative (Negative) 02/12/25 17:50 Urine Glucose (UA) Negative (Normal) 02/12/25 17:50 Urine Ketones Negative (Negative) 02/12/25 17:50 Urine Blood Negative (Negative) 02/12/25 17:50 Urine Nitrate Positive (Negative) A 02/12/25 17:50 Urine Bilirubin Negative (Negative) 02/12/25 17:50 Urine Urobilinogen 0.2 mg/dL (Negative) 02/12/25 17:50 Ur Leukocyte Esterase 2+ (Negative) A 02/12/25 17:50 Urine RBC 0-4 /hpf (0-2) H 02/12/25 17:50 Urine WBC 15-25 /hpf (0-5) H 02/12/25 17:50 Ur Squamous Epith Cells 0-4 /hpf (0-5) H 02/12/25 17:50 Amorphous Sediment Not Reportable 02/12/25 17:50 Urine Bacteria 2+ /hpf (NONE) H 02/12/25 17:50 Urine Mucus Trace /hpf 02/12/25 17:50 All radiology interpretation(s) finalized by discharge Discharge Plan Discharge Patient Disposition: Home Clinical Impression: Seizure, Urinary tract infection Condition: Stable Prescriptions: New cefdinir 300 mg capsule 300 mg PO BID 7 Days Qty: 14 0RF No Action Keppra 750 mg tablet 750 mg PO BID Qty: 180 3RF methenamine hippurate 1 gram tablet See Rx Instructions .ROUTE .COMPLEX Qty: 60 9RF Dose Instruction: take 1/2 tablet BY MOUTH TWICE DAILY. TAKE 1000MG OF VITAMIN C WITH EACH DOSE OF METHENAMINE Rx Instructions: take 1/2 tablet BY MOUTH TWICE DAILY. TAKE 1000MG OF VITAMIN C WITH EACH DOSE OF METHENAMINE ferrous sulfate 325 mg (65 mg iron) tablet 325 mg PO DAILY Qty: 90 3RF omeprazole 20 mg capsule,delayed release(DR/EC) See Rx Instructions .ROUTE .COMPLEX Qty: 180 2RF Dose Instruction: take 1 capsule BY MOUTH TWICE DAILY Rx Instructions: take 1 capsule BY MOUTH TWICE DAILY tamsulosin 0.4 mg capsule See Rx Instructions .ROUTE .COMPLEX Qty: 90 1RF Dose Instruction: take 1 capsule BY MOUTH AT BEDTIME Rx Instructions: take 1 capsule BY MOUTH AT BEDTIME lamotrigine 100 mg tablet See Rx Instructions .ROUTE .COMPLEX Qty: 180 3RF Dose Instruction: TAKE 1 TABLET BY MOUTH TWICE DAILY Rx Instructions: TAKE 1 TABLET BY MOUTH TWICE DAILY diazepam 5 mg tablet 7.5 mg PO .at bed time PRN (Reason: anxiety) Qty: 45 5RF ascorbic acid (vitamin C) [Vitamin C] 500 mg Tablet 1,000 mg PO DAILY acetaminophen 650 mg tablet extended release 650 mg PO Q6H PRN (Reason: pain) Qty: 20 0RF calcium carbonate-vitamin D3 [Calcium 600 + D(3)] 600 mg-10 mcg (400 unit) Tablet 1 tab PO BID Discharge Orders: Discharge ED (Routine); Ordered 02/12/25 Ordered By: Dorota Cruz Referrals: Carlos Barba MD [Primary Care Provider, [facility]] Discharge Diet: As Directed Discharge Activity: Increase activity as tolerated Patient Instructions: Urinary Tract Infection in Women (ED), Recurrent Seizures in Adults (ED), Opioid Safety, Pain Management, Patient Portal & Donaldo Instructions Activity Restrictions/Additional Instructions: Thank you for choosing [facility] for your healthcare needs today. You have been screened and evaluated and felt safe for discharge. Health conditions do change or evolve sometimes and as such it is important that you follow up with your Primary Doctor to be re checked, 3-5 days is a general good time frame for follow up. You are always welcome to return to the ED for re assessment if your symptoms are worsening or you have new concerns Print Language: Yoruba Coding Level of Care Code ED Application Packager for Carmelina Cabello
[2025-02-12] MEDS: levETIRAcetam 1,500 MG/100 ML PREMIX 400 MG IV (17:10)
[2025-02-12 17:11] LABS: ABG PCO2 43.3 mmHg (35-45); ABG PH Result 7.42 (7.35-7.45); Alveolar-Arterial Oxygen Gradi 3.9 mmHg (5-10); Arterial Blood Gas Hematocrit 46.5 % (37-47); Blood Gas Operator Identificat AMH; Blood Gas Sample Site Brachial, right; Blood Gas Sample Type Arterial; Carboxyhemoglobin 1.1 %THgb (0.4-20.1); Glucose Level-ABG 114.0 mg/dL (70-115); HCO3 ABG 28.1 mmol/L (22-26); Ionized Calcium Level - ABG 1.2 mmol/L (1.1-1.4); Methemoglobin 0.9 % (0.4-1.5); Oxygen Saturation ABG 94.4; PO2 ABG 66.7 mmHg (80.0-100.0); PO2 FiO2 Ratio Arterial Blood 317; Potassium Level - ABG 3.7 mmol/L (3.5-5.0); Sodium Level - ABG 140.0 mmol/L (131-143)
[2025-02-12 17:14] LABS: Hematocrit 46.6 % (36-47); Hemoglobin 15.20 g/dL (11.27-16.99); Mean Corpuscular HGB Conc 32.6 g/dL (30-55); Mean Corpuscular Hemoglobin 28.4 pg (27-33); Mean Corpuscular Volume 86.9 fl (85-98); Nucleated Red Blood Cells % 0 %; Platelet Count 205 10^3/cmm (157-399); Red Blood Count 5.36 10^6/uL (3.85-5.65); White Blood Count 7.03 10^3/uL (3.29-11.43)
[2025-02-12 17:28] LABS: Alanine Aminotransferase 19 U/L (0-33); Albumin Level 4.7 g/dL (3.5-5.2); Alkaline Phosphatase 78 U/L (35-105); Anion Gap 17.1 (5-19); Aspartate Amino Transferase 19 U/L (0-32); Blood Urea Nitrogen 11 mg/dL (8-23); Calcium 9.9 mg/dL (8.5-10.5); Carbon Dioxide 27 mmol/L (22-29); Chloride 99 mmol/L (98-107); Creatinine Clr Calc Pharmacy 55.3259; Globulin 3.3 g/dL (1.3-4.6); Glucose 111 mg/dL (65-115); Osmolality Calculated 288 mOsm/kg (285-295); Potassium 4.1 mmol/L (3.5-5.1); Sodium 139 mmol/L (136-145); Total Protein 8.0 g/dL (6.6-8.7)
[2025-02-12 17:29] LABS: Lactic Sepsis W/Reflex 1.5 mmol/L (0.5-2.2)
[2025-02-12 18:02] LABS: Glucose Urine UA Negative (Normal); Nitrate Urine Positive (Negative); Specific Gravity, Urine 1.004 (1.005-1.030)
[2025-02-12 18:03] VITALS: BP 168/97; PULSE 93; O2SAT 94
[2025-02-12] MEDS: cefTRIAXone 1,000 mg SDV 1000 MG IVP (18:40)
[2025-02-12 18:53] VITALS: BP 181/88; PULSE 91; O2SAT 93
== END 2025-02-12 18:55 | disposition home or self-care (01) ==
PROVIDERS: Emergency Provider Emergency Medicine; PCP Family Medicine
DX: R56.9 Unspecified convulsions (principal); N39.0 Urinary tract infection, site not specified
CPT/HCPCS: 36600; 70450; 80051; 80053; 81001; 82330; 82805; 83605; 85025; 87077; 87086; 87186; 96365; 96375; 99285; J0696; J1953